=== PATIENT | female | born 1955 | race Caucasian/White ===

== ENCOUNTER 2016-11-19 17:31 | Inpatient (IN) ==
--- NOTE | 2016-11-19 17:51 | Emergency Department Note ---
Disposition Clinical Impression: Acute anxiety, UTI (urinary tract infection), Diabetes, Hypokalemia, Sepsis, Depression, Confusion Disposition: Admitted As Inpatient Referrals: Ninoska Solano CNP [Primary Care Provider] - Forms: ED Satisfaction Letter General Adult HPI - General Chief complaint: ED Psychiatric Symptoms Stated complaint: needs 1A Time Seen by Provider: 11/19/16 17:50 Source: patient Limitations: no limitations - History of Present Illness HPI Narrative: 61-year-old female reportedly sent in by her primary care physician regarding psychiatric issues. There are reports the patient is out of her psychotropic medication has and has now become confused. The patient describes generalized aches and pains from her legs and abdomen back shoulder areas. She states she has fibromyalgia. There is no specific history of chest pain or shortness of breath. No coughing of blood leg swelling or syncope. There is no history of fever, headache neck stiffness or rash, no convulsions. No trouble moving the arms or legs independently. The patient denies anxiety or depression. She reports she feels somewhat confused, she does not give a clear history regarding her elements of confusion. The patient is here with her daughter, she usually lives with her son. There is no history of cough and runny nose or pain or sore throat. No problems with vomiting or diarrhea. She reports her urine has been Onset (ago): hour(s) Pain Scale: 0 - Related Data Allergies Allergy/AdvReac Type Severity Reaction Status Date / Time "antidepressants" Allergy See Uncoded 11/19/16 17:36 Comments All systems ED: reviewed and negative except as stated. Past Medical History - Past Medical History Medical history: Reports: asthma, coronary artery disease, diabetes, hyperlipidemia, hypertension, kidney stones Surgical history: Reports: appendectomy, cholecystectomy, hip replacement, hysterectomy, other Psychiatric history: Reports: anxiety, depression - Social History Smoking Status: Never smoker Smokeless Tobacco Status: No Alcohol use: Reports: none Drug use: Reports: none Physical Exam - General Limitations: no limitations, other (Patient answers questions inappropriately but is able to follow commands without difficulty.) General appearance: alert, in no apparent distress, other (Bizarre affect and difficulty answering questions directly) - Head Head exam: atraumatic, normocephalic, normal inspection - Eye Eye exam: Present: normal appearance, PERRL, EOMI. Absent: scleral icterus, conjunctival injection, miosis, mydriasis - ENT ENT exam: normal exam, normal oropharynx, mucous membranes moist, TM's normal bilaterally, normal external ear exam - Neck Neck exam: Present: normal inspection, full ROM, trachea midline. Absent: tenderness, meningismus - Chest Chest inspection: Present: normal inspection, symmetric chest wall rise. Absent : tenderness - Respiratory Respiratory exam: Present: normal lung sounds bilaterally. Absent: respiratory distress - Cardiovascular Cardiovascular exam: Present: regular rate, normal rhythm, normal heart sounds - Abdominal Exam Abdominal exam: Present: soft, Non-Tender, normal bowel sounds. Absent: tenderness, distention, guarding, rebound, rigidity, trauma, pulsatile mass - Extremities Exam Extremities exam: Present: normal inspection, full ROM, normal capillary refill. Absent: tenderness, pedal edema, joint swelling, calf tenderness - Expanded Lower Extremity Exam Hip/Pelvis exam: Present: full ROM. Absent: tenderness Upper leg exam: Present: full ROM. Absent: tenderness Knee exam: Present: full ROM. Absent: tenderness Lower leg exam: Present: full ROM. Absent: tenderness Ankle exam: Present: full ROM. Absent: tenderness Foot/toe exam: Present: full ROM. Absent: tenderness Neurovascular/Tendon exam: Present: normal capillary refill. Absent: motor deficit, sensory deficit, tendon deficit, extremity cold to touch, pallor - Back Exam Back exam: Present: normal inspection, full ROM. Absent: tenderness, CVA tenderness (R), CVA tenderness (L), vertebral tenderness - Neurological Exam Neurological exam: Present: alert, CN II-XII intact. Absent: motor sensory deficit - Psychiatric Psychiatric exam: Present: other (Bizarre affect) - Skin Skin exam: Present: warm, dry, intact, normal color. Absent: rash, cyanosis, diaphoresis, erythema, pallor, mottled Course Vital Signs Temperature 98.9 F 11/19/16 17:32 Pulse Rate 105 11/19/16 17:32 Respiratory Rate 16 11/19/16 17:32 Blood Pressure 136/92 11/19/16 17:32 O2 Sat by Pulse Oximetry 99 11/19/16 17:32 Temperature 98.6 F 11/19/16 19:44 Pulse Rate 118 11/19/16 19:44 Respiratory Rate 18 11/19/16 19:44 Blood Pressure 103/68 11/19/16 19:44 O2 Sat by Pulse Oximetry 97 11/19/16 19:44 Oxygen Delivery Oxygen Delivery Room Air Medical Decision Making - MDM Narrative Medical decision making narrative: The patient displayed some obvious confusion in the ED, she has a UTI, she is tachycardic and an elevated white count suggestive of sepsis. The patient complains of pain in multiple areas of the body, she states she fell a few weeks ago, on clinical examination, I detect no evidence of significant physical injury. Confusion may be just secondary to psychiatric issues, Ativan withdrawal could be a factor, medical issues are a primary concern. The patient was given initial IV fluids PO potassium as well as antibiotic therapy. Based on her confusion, elderly state, multiple comorbidities, and findings concerning for UTI and urosepsis, I think the patient would probably be best served being admitted to the hospital. She is currently stable. A lactate order has been placed, I discussed the case with the hospitalist on-call who is accepted the patient to their care. - Lab Data Lab results reviewed: Yes I reviewed the patient's lab results. Result diagrams: 11/19/16 19:02 11/19/16 19:02 Lab Results 11/19/16 11/19/16 11/19/16 Range/Units 18:20 18:20 19:02 WBC 15.4 H (4.3-11.1) K/mcL RBC 4.99 H (3.82-4.97) M/mcL Hgb 15.2 (11.5-15.4) g/dL Hct 43.8 (35.3-44.9) % MCV 87.8 (83.0-100.0) fL MCH 30.5 (28.0-33.3) pg MCHC 34.7 (31.6-35.5) g/dL RDW 14.0 (11.5-14.5) % Plt Count 290 (140-400) K/mcL MPV 9.8 (9.4-12.4) fL Immature Gran % 0.3 (0-4) % Seg Neutrophils % 69.2 % Lymphocytes % 22.1 % Monocytes % 6.2 % Eosinophils % 1.8 % Basophils % 0.4 % Neutrophils # 10.7 H (1.6-8.9) K/mcL Lymphocytes # 3.4 (0.6-4.6) K/mcL Monocytes # 1.0 (0.0-1.3) K/mcL Eosinophils # 0.3 (0.0-0.6) K/mcL Basophils # 0.1 (0.0-0.2) K/mcL Sodium (136-145) mEq/L Potassium (3.5-4.5) mEq/L Chloride (98-109) mEq/L Carbon Dioxide (19-29) mEq/L BUN (7-20) mg/dL Creatinine (0.57-1.11) mg/dL Est GFR ( Amer) (> 60) Est GFR (Non-Af Amer) (> 60) BUN/Creatinine Ratio (6-26) Glucose (70-99) mg/dL Calculated Osmolality (280-300) Calcium (8.6-10.8) mg/dL Total Bilirubin (0.2-1.2) mg/dL Direct Bilirubin (0.0-0.5) mg/dL Indirect Bilirubin (0.0-1.2) mg/dL AST (5-34) Units/L ALT (0-55) Units/L Alkaline Phosphatase (38-126) Units/L Troponin I (0-0.03) ng/mL C-Reactive Protein (Less than 5) mg/L Serum Total Protein (6.0-8.3) g/dL Albumin (3.5-5.0) g/dL Globulin (2.4-3.5) g/dL Albumin/Globulin Ratio (1.1-2.2) TSH (0.350-4.840) mcIU/mL Urine Color Red A (Yellow) Urine Clarity Turbid A (Clear) Urine pH 6.0 (5.0-8.0) pH Units Ur Specific [place] 1.025 (1.010-1.025) Urine Protein 100 H (Neg-Trace) mg/dL Urine Glucose (UA) Normal (Normal) mg/dL Urine Ketones 40 H (Negative) mg/dL Urine Blood Large H (Negative) Urine Nitrite Negative (Negative) Urine Bilirubin Moderate H (Negative) Urine Urobilinogen Normal (Normal) mg/dL Ur Leukocyte Esterase Small H (Negative) Urine Microscopic RBC TNTC H (0-3) per hpf Urine Microscopic WBC 50-100 H (0-3) per hpf Ur Squamous Epith Cells Many H (None-Few) per lpf Urine Bacteria Moderate H (None-Few) per hpf Hyaline Casts Few (None-Few) per lpf Salicylates (15-30) mg/dL Urine Opiates Screen Negative (Dnbylz=953) ng/mL Acetaminophen (10-30) mcg/mL Ur Barbiturates Screen Negative (Aqwjix=120) ng/mL Ur Phencyclidine Scrn Negative (Cutoff=25) ng/mL Ur Amphetamines Screen Negative (Enttld=3159) ng/mL U Benzodiazepines Scrn Negative (Ixrjjw=389) ng/mL Urine Cocaine Screen Negative (Cutoff= 300) ng/mL U Marijuana (THC) Screen Negative (Cutoff = 50) ng/mL Ethyl Alcohol (0-10) mg/dL 11/19/16 11/19/16 11/19/16 Range/Units 19:02 19:02 19:02 WBC (4.3-11.1) K/mcL RBC (3.82-4.97) M/mcL Hgb (11.5-15.4) g/dL Hct (35.3-44.9) % MCV (83.0-100.0) fL MCH (28.0-33.3) pg MCHC (31.6-35.5) g/dL RDW (11.5-14.5) % Plt Count (140-400) K/mcL MPV (9.4-12.4) fL Immature Gran % (0-4) % Seg Neutrophils % % Lymphocytes % % Monocytes % % Eosinophils % % Basophils % % Neutrophils # (1.6-8.9) K/mcL Lymphocytes # (0.6-4.6) K/mcL Monocytes # (0.0-1.3) K/mcL Eosinophils # (0.0-0.6) K/mcL Basophils # (0.0-0.2) K/mcL Sodium 142 (136-145) mEq/L Potassium 3.0 L (3.5-4.5) mEq/L Chloride 108 (98-109) mEq/L Carbon Dioxide 19 (19-29) mEq/L BUN 20 (7-20) mg/dL Creatinine 0.72 (0.57-1.11) mg/dL Est GFR ( Amer) > 60 (> 60) Est GFR (Non-Af Amer) > 60 (> 60) BUN/Creatinine Ratio 28 H (6-26) Glucose 134 H (70-99) mg/dL Calculated Osmolality 299 (280-300) Calcium 9.7 (8.6-10.8) mg/dL Total Bilirubin 0.4 (0.2-1.2) mg/dL Direct Bilirubin 0.4 (0.0-0.5) mg/dL Indirect Bilirubin 0.0 (0.0-1.2) mg/dL AST 47 H (5-34) Units/L ALT 38 (0-55) Units/L Alkaline Phosphatase 130 H (38-126) Units/L Troponin I 0.01 (0-0.03) ng/mL C-Reactive Protein (Less than 5) mg/L Serum Total Protein 7.6 (6.0-8.3) g/dL Albumin 3.9 (3.5-5.0) g/dL Globulin 3.7 H (2.4-3.5) g/dL Albumin/Globulin Ratio 1.1 (1.1-2.2) TSH 1.404 (0.350-4.840) mcIU/mL Urine Color (Yellow) Urine Clarity (Clear) Urine pH (5.0-8.0) pH Units Ur Specific [place] (1.010-1.025) Urine Protein (Neg-Trace) mg/dL Urine Glucose (UA) (Normal) mg/dL Urine Ketones (Negative) mg/dL Urine Blood (Negative) Urine Nitrite (Negative) Urine Bilirubin (Negative) Urine Urobilinogen (Normal) mg/dL Ur Leukocyte Esterase (Negative) Urine Microscopic RBC (0-3) per hpf Urine Microscopic WBC (0-3) per hpf Ur Squamous Epith Cells (None-Few) per lpf Urine Bacteria (None-Few) per hpf Hyaline Casts (None-Few) per lpf Salicylates < 5.0 L (15-30) mg/dL Urine Opiates Screen (Szkibi=349) ng/mL Acetaminophen < 1.0 L (10-30) mcg/mL Ur Barbiturates Screen (Chsqfb=384) ng/mL Ur Phencyclidine Scrn (Cutoff=25) ng/mL Ur Amphetamines Screen (Iitfxx=1730) ng/mL U Benzodiazepines Scrn (Ijrmmc=698) ng/mL Urine Cocaine Screen (Cutoff= 300) ng/mL U Marijuana (THC) Screen (Cutoff = 50) ng/mL Ethyl Alcohol < 10 (0-10) mg/dL 11/19/16 Range/Units 19:02 WBC (4.3-11.1) K/mcL RBC (3.82-4.97) M/mcL Hgb (11.5-15.4) g/dL Hct (35.3-44.9) % MCV (83.0-100.0) fL MCH (28.0-33.3) pg MCHC (31.6-35.5) g/dL RDW (11.5-14.5) % Plt Count (140-400) K/mcL MPV (9.4-12.4) fL Immature Gran % (0-4) % Seg Neutrophils % % Lymphocytes % % Monocytes % % Eosinophils % % Basophils % % Neutrophils # (1.6-8.9) K/mcL Lymphocytes # (0.6-4.6) K/mcL Monocytes # (0.0-1.3) K/mcL Eosinophils # (0.0-0.6) K/mcL Basophils # (0.0-0.2) K/mcL Sodium (136-145) mEq/L Potassium (3.5-4.5) mEq/L Chloride (98-109) mEq/L Carbon Dioxide (19-29) mEq/L BUN (7-20) mg/dL Creatinine (0.57-1.11) mg/dL Est GFR ( Amer) (> 60) Est GFR (Non-Af Amer) (> 60) BUN/Creatinine Ratio (6-26) Glucose (70-99) mg/dL Calculated Osmolality (280-300) Calcium (8.6-10.8) mg/dL Total Bilirubin (0.2-1.2) mg/dL Direct Bilirubin (0.0-0.5) mg/dL Indirect Bilirubin (0.0-1.2) mg/dL AST (5-34) Units/L ALT (0-55) Units/L Alkaline Phosphatase (38-126) Units/L Troponin I (0-0.03) ng/mL C-Reactive Protein 32 H (Less than 5) mg/L Serum Total Protein (6.0-8.3) g/dL Albumin (3.5-5.0) g/dL Globulin (2.4-3.5) g/dL Albumin/Globulin Ratio (1.1-2.2) TSH (0.350-4.840) mcIU/mL Urine Color (Yellow) Urine Clarity (Clear) Urine pH (5.0-8.0) pH Units Ur Specific [place] (1.010-1.025) Urine Protein (Neg-Trace) mg/dL Urine Glucose (UA) (Normal) mg/dL Urine Ketones (Negative) mg/dL Urine Blood (Negative) Urine Nitrite (Negative) Urine Bilirubin (Negative) Urine Urobilinogen (Normal) mg/dL Ur Leukocyte Esterase (Negative) Urine Microscopic RBC (0-3) per hpf Urine Microscopic WBC (0-3) per hpf Ur Squamous Epith Cells (None-Few) per lpf Urine Bacteria (None-Few) per hpf Hyaline Casts (None-Few) per lpf Salicylates (15-30) mg/dL Urine Opiates Screen (Lviuez=374) ng/mL Acetaminophen (10-30) mcg/mL Ur Barbiturates Screen (Fcxrqv=183) ng/mL Ur Phencyclidine Scrn (Cutoff=25) ng/mL Ur Amphetamines Screen (Hcmoap=6657) ng/mL U Benzodiazepines Scrn (Qhwtoc=613) ng/mL Urine Cocaine Screen (Cutoff= 300) ng/mL U Marijuana (THC) Screen (Cutoff = 50) ng/mL Ethyl Alcohol (0-10) mg/dL - Radiology Data Radiology results reviewed: Yes I reviewed the patient's radiology results.
[2016-11-19 18:33] LABS: Bilirubin,Urine Moderate (Negative); Blood,Urine Large (Negative); Clarity,Urine Turbid (Clear); Color,Urine Red (Yellow); Glucose,Urine (UA) Normal (Normal); Ketones,Urine 40 mg/dL (Negative); Leukocyte Esterase,Urine Small (Negative); Nitrite,Urine Negative (Negative); Protein,Urine 100 mg/dL (Neg-Trace); Specific Gravity,Urine 1.025 (1.010-1.025); Urobilinogen,Urine Normal (Normal)
[2016-11-19 18:38] LABS: Bacteria,Urine Moderate per hpf (None-Few); Hyaline Casts,Urine Few per lpf (None-Few); Squamous Epithelial Cell,Urine Many per lpf (None-Few); WBC,Urine 50-100 per hpf (0-3)
[2016-11-19 18:40] LABS: Amphetamine Screen,Urine Negative ng/mL (Cutoff=1000); Barbiturate Screen,Urine Negative ng/mL (Cutoff=200); Benzodiazepines Screen,Urine Negative ng/mL (Cutoff=200); Cannabinoid Screen,Urine Negative ng/mL (Cutoff = 50); Cocaine Screen,Urine Negative ng/mL (Cutoff= 300); Opiate Screen,Urine Negative ng/mL (Cutoff=300); Phencyclidine Screen,Urine Negative ng/mL (Cutoff=25)
[2016-11-19 18:50] LABS: RBC,Urine TNTC per hpf (0-3)
[2016-11-19 19:31] LABS: Basophils # 0.1 K/mcL (0.0-0.2); Basophils % 0.4 %; Eosinophils # 0.3 K/mcL (0.0-0.6); Eosinophils % 1.8 %; Hematocrit 43.8 % (35.3-44.9); Hemoglobin 15.2 g/dL (11.5-15.4); Immature Granulocytes % 0.3 % (0-4); Lymphocytes # 3.4 K/mcL (0.6-4.6); Lymphocytes % 22.1 %; Mean Corpuscular HGB Conc 34.7 g/dL (31.6-35.5); Mean Corpuscular Hemoglobin 30.5 pg (28.0-33.3); Mean Corpuscular Volume 87.8 fL (83.0-100.0); Mean Platelet Volume 9.8 fL (9.4-12.4); Monocytes % 6.2 %; Neutrophils # 10.7 K/mcL (1.6-8.9); Platelet Count 290 K/mcL (140-400); Red Blood Count 4.99 M/mcL (3.82-4.97); Segmented Neutrophils % 69.2 %
[2016-11-19 19:40] LABS: Albumin 3.9 g/dL (3.5-5.0); Albumin/Globulin Ratio 1.1 (1.1-2.2); Bilirubin,Direct 0.4 mg/dL (0.0-0.5); Bilirubin,Total 0.4 mg/dL (0.2-1.2); Globulin 3.7 g/dL (2.4-3.5); Total Protein 7.6 g/dL (6.0-8.3)
[2016-11-19 19:41] LABS: Acetaminophen < 1.0 mcg/mL (10-30); BUN/Creatinine Ratio 28 (6-26); Blood Urea Nitrogen 20 mg/dL (7-20); Calcium 9.7 mg/dL (8.6-10.8); Carbon Dioxide 19 mEq/L (19-29); Chloride 108 mEq/L (98-109); Ethanol < 10 mg/dL (0-10); Glucose 134 mg/dL (70-99); Osmolality,Calculated 299 (280-300); Salicylate < 5.0 mg/dL (15-30); Sodium 142 mEq/L (136-145); eGFR For African Americans > 60 (> 60); eGFR For Non-African Americans > 60 (> 60)
[2016-11-19] MEDS ORDERED: 0.9 % Sodium Chloride 1,000 ML IVC ONE ×2 (19:46→20:19)
[2016-11-19] MEDS ORDERED: Ibuprofen 600 MG TABLET PO ONE (19:47)
[2016-11-19] MEDS ORDERED: *HR* LORazepam 2 MG/ML VIAL IVP ONE (19:59)
[2016-11-19 20:00] LABS: Thyroid Stimulating Hormone 1.404 mcIU/mL (0.350-4.840)
[2016-11-19] MEDS ORDERED: *HR* LORazepam 1 MG TABLET PO ONE (20:02)
[2016-11-19] MEDS ORDERED: Ondansetron 4 MG/2 ML VIAL IVP PRN (22:07)
[2016-11-19] MEDS ORDERED: Acetaminophen 325 MG TABLET PO PRN (22:07)
[2016-11-19] MEDS ORDERED: Naloxone 0.4 MG/ML INJ IVP PRN (22:07)
[2016-11-19 23:19] LABS: INR 1.2; Prothrombin Time 13.1 Seconds (9.4-12.1)
[2016-11-19 23:22] LABS: Activated Partial Thrombo Time 31.1 Seconds (26.0-36.0)
--- NOTE | 2016-11-20 00:25 | Internal Med History&Physical ---
<Tonya Sun Jeremy - Last Filed: 11/20/16 03:46> Date of Encounter: 11/20/16 Time of Encounter: 23:00 Assessment and Plan (1) Sepsis Current visit: Yes Status: Acute Upon presentation to hospital HR 118, WBC 15.4, mental status altered Source is likely bladder UA: positive blood, leukocyte esterase, moderate bacteria Unclear if altered mental status is due to UTI or withdrawal from benzodiazepine Plan: Ceftriaxone 1g q 12 h IVF hydration Trend CBC, BMP in am Qualifiers: Sepsis type: sepsis due to unspecified organism Qualified Code(s): A41.9 - Sepsis, unspecified organism (2) Acute metabolic encephalopathy Current visit: Yes Status: Acute Unclear etiology. May be multifactorial given UTI and recent abrupt withdrawal 2-3 days ago from Ativan 1mg TID. 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 Most recent prescription is Ativan 1mg TID. She states that she ran out of meds on 11/16/16 or 11/17/16. This abrupt withdrawal likely precipitated current episode of confusion. Plan: Re-initiate Ativan 0.5mg TID Monitor for further signs/symptoms of benzo withdrawal (4) UTI (urinary tract infection) Current visit: Yes Status: Acute Plan as above Qualifiers: Urinary tract infection type: acute cystitis Hematuria presence: with hematuria Qualified Code(s): N30.01 - Acute cystitis with hematuria (5) Anxiety and depression Current visit: Yes Status: Acute Patient states that current dose is Cymbalta 30mg q day. However, she states that previous dose of 60mg q day was more effective at treating her depression. Patient reports that decrease in dose was due to acute liver injury from Tylenol over use. Liver function: AST mildly elevated 47, ALT 38. Plan: Consider increasing Cymbalta back to 60mg q day with improved liver function (6) Hypertension Current visit: Yes Status: Acute Continue home medication Qualifiers: Hypertension type: essential hypertension Qualified Code(s): I10 - Essential (primary) hypertension (7) Urinary incontinence Current visit: Yes Status: Acute Continue home medication Bladder scan with post-void residual volume Qualifiers: Urinary Incontinence type: unspecified incontinence Qualified Code(s): R32 - Unspecified urinary incontinence (8) Right knee pain Current visit: Yes Status: Acute Continue home medication Qualifiers: Chronicity: acute Qualified Code(s): M25.561 - Pain in right knee (9) Diabetes Current visit: Yes Status: Acute Low-dose corrective insulin ACHS Diabetic diet Qualifiers: Diabetes mellitus type: type 2 Diabetes mellitus complication status: with unspecified complications Diabetes mellitus usp insulin use: without usp use Qualified Code(s): E11.8 - Type 2 diabetes mellitus with unspecified complications (10) Hypokalemia Current visit: Yes Status: Acute 40 mEq K+ given in ED Trend K+ in am (11) DVT prophylaxis Current visit: Yes Status: Acute Heparin 5000u q 12 Internal Medicine - H&P: HPI Chief complaint: anxiety Admitted From: Emergency Dept Plans for Post Hospital Care: Home History of present illness: Ms. Reynoso is a 61 year old female presents to hospital with complaint that she is having trouble with her nerves. Patient has diagnoses of depression and anxiety. Patient states that she sees psychiatry that [facility]. Primary provider is Dashawn Bustamante CNP. Patient states that on Thursday (11/16/2016) or Thursday (11/17) she ran out of her Ativan. Patient states that she called her psychiatry office the day after she ran out of Ativan and the provider prescribed Vistaril. Patient admits to taking more Ativan than prescribed. She states that psychiatry recently decreased Cymbalta from 60 mg daily to 30 mg daily due to liver toxicity that she had from taking too much Tylenol. Patient is currently prescribed Ativan 1 mg by mouth 3 times a day and Cymbalta 30 mg daily. She states that she started taking more Ativan once Cymbalta was decreased due to increased depression and anxiety. Patient admits to a 15 year history of problems with her nerves. She denies suicidal ideation. She rents a home with her daughter, Tonya Solano, and granddaughter. She lost her 1 year ago and has had increased anxiety and depression since this time. Past Med Surg Social Fam HX - Past Medical History Medical history: asthma, coronary artery disease, diabetes, fibromyalgia, hyperlipidemia, hypertension, kidney stones, other (Horne's palsey Right face) Psychiatric history: anxiety, depression - Past Surgical History Surgical History: appendectomy, cholecystectomy, hip replacement, hysterectomy, other - Social History Smoking Status: Never smoker Smokeless Tobacco Status: No Alcohol use: none Drug use: none Current living situation: With Family - Family History Mother Hx Family Cancer: Yes (pancreatic ca) Internal Medicine - H&P: Meds Albuterol Sulfate [Ventolin Hfa] 1 - 2 puff IH Q4-6H PRN 11/19/16 [History] Cholecalciferol (Vitamin D3) [Vitamin D] 50,000 unit PO QWEEK 11/19/16 [History] Duloxetine [Cymbalta] 30 mg PO BID 11/19/16 [History] Fluticasone Propionate Nasal [Flonase] 50 mcg NS BID 11/19/16 [History] HydrOXYzine Pamoate [Hydroxyzine Pamoate] 25 mg PO TID 11/19/16 [History] Ibuprofen [Motrin] 400 mg PO Q4HR PRN 11/19/16 [History] LORazepam [Ativan] 1 mg PO TID PRN 11/19/16 [History] Metoprolol XL (24 HR) Succ [Toprol XL] 50 mg PO DAILY 11/19/16 [History] Ondansetron HCl [Zofran] 4 mg PO TID PRN 11/19/16 [History] Oxybutynin [Ditropan] 5 mg PO BID 11/19/16 [History] Allergies "antidepressants" Allergy (Uncoded 11/19/16 17:36) See Comments suicidal ideations All Systems PM: A 10-system review of systems was performed and is negative for pertinent findings except as documented above in the HPI. - Constitutional Constitutional: falls (injuring right knee 2-3 weeks ago), no chills, no fever(s ) - Cardiovascular Cardiovascular ROS IM: chest pain (at rest), no edema - Respiratory Respiratory: dyspnea (chronic due to obsity), no cough - Gastrointestinal Gastrointestinal: abdominal pain (epigastric), diarrhea, heartburn, no hematochezia, no melena - Genitourinary Genitourinary: dysuria, hematuria (x 1 week), vaginal discharge - Musculoskeletal Musculoskeletal ROS IM: arthralgias (right knee), back pain, joint swelling ( right knee), muscle cramps, other - Neurological Neurological ROS: headache(s) (chronic) - Psychiatric Psychiatric: anxiety, depression - Constitutional Vitals: Temp Pulse Resp BP Pulse Ox 98.0 F 72 16 138/85 99 11/19/16 21:25 11/19/16 21:25 11/19/16 21:25 11/19/16 21:25 11/19/16 21:25 General appearance: Present: A&O X 3 (Does not know the date, but does know Justice is current president), morbidly obese, pleasant. Absent: answers questions appropriately - Head Head exam: Present: atraumatic, normal inspection, normocephalic - Eye Eye exam: Present: EOMI Additional comments: Pupils 5mm and sluggish light reflex - Neck Neck exam general surgery: Present: normal inspection, supple - Respiratory Respiratory exam: Present: CTAB. Absent: rhonchi, wheezes - Cardiovascular Cardiovascular exam: Present: RRR, +S1, +S2 - GI/Abdominal GI/Abdominal exam: Present: normal bowel sounds, soft, tenderness (moderate epigastric TTP; mild RUQ, FRANCISCA TTP) Additional comments: moderate bilateral flank TTP - Back Exam Back exam: Present: CVA tenderness (L), CVA tenderness (R), normal inspection, paraspinal tenderness (throughout entire paraspinal musculature) - Neurological Exam Neurological exam: Present: altered, strengths equal and symetr throughout, facial droop (right side ptosis and right lateral lip droop-patient states this is chronic from Horne's palsey) - Psychiatric Additional comments: MSE: Appearance: disheveled, hair unclean, wearing hospital gown with russell pants ( while it is snowing outside), multiple scabes to facial cheeks Alert, Awake, Oriented x 3 Speech: pressured, tangential Behavior: cooperative, pleasant Awareness of environment: patient believes she is in hospital for treatment for her anxiety. However, seems to have little to no insight on her change in mental status. Mood: anxious, agitated Affect: appropriate Thought processes: preservating, tangential, paranoid -Example: patient continues to nez perce back to a liver injury she sustained by taking too much tylenol for her knee 2-3 weeks ago -She maintains that this is caused her psychiatry team to decrease her Cymbalta -She is fixated on her right knee injury -She is fixated on the of her -She is fixated on her diagnosis of fibromyalgia and her pain all over her body -Patient begins talking about one topic and redirects course of conversation Example: she states that she is afriad that her daughter is trying to send her to a half-way. -She states that her daughter has been rumaging through patient's belongings -Daughter attends a uatsdin pastored by the patient's brother. Patient states that her brother has not spoken to her in 4 years. Patient states that her brother believes that parents should not be a burden to their children. She seems to insinuate that the daughter has listened the the patient's brother/ party supply specialist and has intent to commit her to a facility. 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 You get what you pay for." SI: denies suicidal ideation Internal Med - H&P Results - Labs CBC & Chem 7: 11/20/16 00:31 11/20/16 00:31 Labs: Laboratory Results - last 48 hr 11/19/16 11/19/16 11/19/16 18:20 18:20 19:02 WBC 15.4 H RBC 4.99 H Hgb 15.2 Hct 43.8 MCV 87.8 MCH 30.5 MCHC 34.7 RDW 14.0 Plt Count 290 MPV 9.8 Immature Gran % 0.3 Seg Neutrophils % 69.2 Lymphocytes % 22.1 Monocytes % 6.2 Eosinophils % 1.8 Basophils % 0.4 Neutrophils # 10.7 H Lymphocytes # 3.4 Monocytes # 1.0 Eosinophils # 0.3 Basophils # 0.1 PT INR APTT Sodium Potassium Chloride Carbon Dioxide BUN Creatinine Est GFR ( Amer) Est GFR (Non-Af Amer) BUN/Creatinine Ratio Glucose POC Glucose Calculated Osmolality Lactic Acid Calcium Phosphorus Magnesium Total Bilirubin Direct Bilirubin Indirect Bilirubin AST ALT Alkaline Phosphatase Troponin I C-Reactive Protein Serum Total Protein Albumin Globulin Albumin/Globulin Ratio Triglycerides Cholesterol LDL Cholesterol, Calc VLDL Cholesterol, Calc HDL Cholesterol Cholesterol/HDL Ratio TSH Urine Color Red A Urine Clarity Turbid A Urine pH 6.0 Ur Specific [place] 1.025 Urine Protein 100 H Urine Glucose (UA) Normal Urine Ketones 40 H Urine Blood Large H Urine Nitrite Negative Urine Bilirubin Moderate H Urine Urobilinogen Normal Ur Leukocyte Esterase Small H Urine Microscopic RBC TNTC H Urine Microscopic WBC 50-100 H Ur Squamous Epith Cells Many H Urine Bacteria Moderate H Hyaline Casts Few Salicylates Urine Opiates Screen Negative Acetaminophen Ur Barbiturates Screen Negative Ur Phencyclidine Scrn Negative Ur Amphetamines Screen Negative U Benzodiazepines Scrn Negative Urine Cocaine Screen Negative U Marijuana (THC) Screen Negative Ethyl Alcohol 11/19/16 11/19/16 11/19/16 19:02 19:02 19:02 WBC RBC Hgb Hct MCV MCH MCHC RDW Plt Count MPV Immature Gran % Seg Neutrophils % Lymphocytes % Monocytes % Eosinophils % Basophils % Neutrophils # Lymphocytes # Monocytes # Eosinophils # Basophils # PT INR APTT Sodium 142 Potassium 3.0 L Chloride 108 Carbon Dioxide 19 BUN 20 Creatinine 0.72 Est GFR ( Amer) > 60 Est GFR (Non-Af Amer) > 60 BUN/Creatinine Ratio 28 H Glucose 134 H POC Glucose Calculated Osmolality 299 Lactic Acid Calcium 9.7 Phosphorus Magnesium Total Bilirubin 0.4 Direct Bilirubin 0.4 Indirect Bilirubin 0.0 AST 47 H ALT 38 Alkaline Phosphatase 130 H Troponin I 0.01 C-Reactive Protein Serum Total Protein 7.6 Albumin 3.9 Globulin 3.7 H Albumin/Globulin Ratio 1.1 Triglycerides Cholesterol LDL Cholesterol, Calc VLDL Cholesterol, Calc HDL Cholesterol Cholesterol/HDL Ratio TSH 1.404 Urine Color Urine Clarity Urine pH Ur Specific [place] Urine Protein Urine Glucose (UA) Urine Ketones Urine Blood Urine Nitrite Urine Bilirubin Urine Urobilinogen Ur Leukocyte Esterase Urine Microscopic RBC Urine Microscopic WBC Ur Squamous Epith Cells Urine Bacteria Hyaline Casts Salicylates < 5.0 L Urine Opiates Screen Acetaminophen < 1.0 L Ur Barbiturates Screen Ur Phencyclidine Scrn Ur Amphetamines Screen U Benzodiazepines Scrn Urine Cocaine Screen U Marijuana (THC) Screen Ethyl Alcohol < 10 11/19/16 11/19/16 11/19/16 19:02 20:08 21:28 WBC RBC Hgb Hct MCV MCH MCHC RDW Plt Count MPV Immature Gran % Seg Neutrophils % Lymphocytes % Monocytes % Eosinophils % Basophils % Neutrophils # Lymphocytes # Monocytes # Eosinophils # Basophils # PT INR APTT Sodium Potassium Chloride Carbon Dioxide BUN Creatinine Est GFR ( Amer) Est GFR (Non-Af Amer) BUN/Creatinine Ratio Glucose POC Glucose 119 H Calculated Osmolality Lactic Acid 1.4 Calcium Phosphorus Magnesium Total Bilirubin Direct Bilirubin Indirect Bilirubin AST ALT Alkaline Phosphatase Troponin I C-Reactive Protein 32 H Serum Total Protein Albumin Globulin Albumin/Globulin Ratio Triglycerides Cholesterol LDL Cholesterol, Calc VLDL Cholesterol, Calc HDL Cholesterol Cholesterol/HDL Ratio TSH Urine Color Urine Clarity Urine pH Ur Specific [place] Urine Protein Urine Glucose (UA) Urine Ketones Urine Blood Urine Nitrite Urine Bilirubin Urine Urobilinogen Ur Leukocyte Esterase Urine Microscopic RBC Urine Microscopic WBC Ur Squamous Epith Cells Urine Bacteria Hyaline Casts Salicylates Urine Opiates Screen Acetaminophen Ur Barbiturates Screen Ur Phencyclidine Scrn Ur Amphetamines Screen U Benzodiazepines Scrn Urine Cocaine Screen U Marijuana (THC) Screen Ethyl Alcohol 11/19/16 11/20/16 11/20/16 22:54 00:31 00:31 WBC 12.5 H RBC 4.63 Hgb 14.0 Hct 41.6 MCV 89.8 MCH 30.2 MCHC 33.7 RDW 13.9 Plt Count 263 MPV 9.9 Immature Gran % 0.3 Seg Neutrophils % 63.8 Lymphocytes % 26.1 Monocytes % 5.9 Eosinophils % 3.4 Basophils % 0.5 Neutrophils # 8.0 Lymphocytes # 3.3 Monocytes # 0.7 Eosinophils # 0.4 Basophils # 0.1 PT 13.1 H INR 1.2 APTT 31.1 Sodium 142 Potassium 3.1 L Chloride 110 H Carbon Dioxide 21 BUN 20 Creatinine 0.74 Est GFR ( Amer) > 60 Est GFR (Non-Af Amer) > 60 BUN/Creatinine Ratio 27 H Glucose 166 H POC Glucose Calculated Osmolality 300 Lactic Acid Calcium 9.0 Phosphorus 2.7 Magnesium 1.7 Total Bilirubin Direct Bilirubin Indirect Bilirubin AST ALT Alkaline Phosphatase Troponin I C-Reactive Protein Serum Total Protein Albumin Globulin Albumin/Globulin Ratio Triglycerides 95 Cholesterol 135 LDL Cholesterol, Calc 88 VLDL Cholesterol, Calc 19 HDL Cholesterol 28 L Cholesterol/HDL Ratio 4.8 TSH Urine Color Urine Clarity Urine pH Ur Specific [place] Urine Protein Urine Glucose (UA) Urine Ketones Urine Blood Urine Nitrite Urine Bilirubin Urine Urobilinogen Ur Leukocyte Esterase Urine Microscopic RBC Urine Microscopic WBC Ur Squamous Epith Cells Urine Bacteria Hyaline Casts Salicylates Urine Opiates Screen Acetaminophen Ur Barbiturates Screen Ur Phencyclidine Scrn Ur Amphetamines Screen U Benzodiazepines Scrn Urine Cocaine Screen U Marijuana (THC) Screen Ethyl Alcohol - Impressions Chest X-Ray 11/19/16 18:29 IMPRESSION: No evidence for acute cardiopulmonary process. D/ / Raghavendra Caldwell MD / Raghavendra Caldwell MD Interpreting Provider: Raghavendra Caldwell MD Head CT 11/19/16 18:29 IMPRESSION: No acute intracranial abnormality. D/ / Alphonso Puentes MD / Alphonso Puentes MD Interpreting Provider: Alphonso Puentes MD <Nolan Monet R - Last Filed: 11/20/16 05:52> Date of Encounter: 11/19/16 Internal Medicine - H&P: HPI History of present illness: Ms. Reynoso is a 61 year old female All Systems PM: A 10-system review of systems was performed and is negative for pertinent findings except as documented above in the HPI. - Constitutional Vitals: Temp Pulse Resp BP Pulse Ox 98.4 F 79 16 92/60 98 11/20/16 03:49 11/20/16 03:49 11/20/16 03:49 11/20/16 03:49 11/20/16 03:49 Internal Med - H&P Results - Labs CBC & Chem 7: 11/20/16 00:31 11/20/16 00:31 - Attending Attestation I examined this patient and my medical decision-making was reviewed with the SECURITY CONTROL ASSESSOR/PA/Advanced Practice Nurse/Resident Physician. I agree with the documented findings, disposition and treatment plan as described except to the extent set forth below. I have personally examined and evaluated the patient and discussed details with the Lead Technologist In Cytogenetics / Resident. 61-year-old female was apparently brought to the emergency department with history of confusion. She reports hematuria for over a week, suprapubic pain mild suprapubic tenderness on exam. Denies fever or chills. Urinalysis was abnormal and emperically started on ceftriaxone. Urine cultures pending. She meets criteria for sepsis. Lactate level is normal. CXR, CT Head no significant abnormalities. Hypokalemia: Replenish potassium.
[2016-11-20] MEDS ORDERED: Ondansetron ODT 4 MG TAB.RAPDIS PO PRN (00:28)
[2016-11-20] MEDS ORDERED: D5% in Water 1,000 ML IV PRN (00:33)
[2016-11-20] MEDS ORDERED: Dextrose Gel 15 GM PO PRN ×2 (00:33)
[2016-11-20] MEDS ORDERED: *HR* Dextrose 50 % in Water (Syg) 50 ML SYRINGE IVP PRN (00:33)
[2016-11-20 00:48] LABS: Basophils # 0.1 K/mcL (0.0-0.2); Basophils % 0.5 %; Eosinophils # 0.4 K/mcL (0.0-0.6); Eosinophils % 3.4 %; Hematocrit 41.6 % (35.3-44.9); Immature Granulocytes % 0.3 % (0-4); Lymphocytes # 3.3 K/mcL (0.6-4.6); Lymphocytes % 26.1 %; Mean Corpuscular HGB Conc 33.7 g/dL (31.6-35.5); Mean Corpuscular Hemoglobin 30.2 pg (28.0-33.3); Mean Corpuscular Volume 89.8 fL (83.0-100.0); Mean Platelet Volume 9.9 fL (9.4-12.4); Monocytes # 0.7 K/mcL (0.0-1.3); Monocytes % 5.9 %; Platelet Count 263 K/mcL (140-400); Red Blood Count 4.63 M/mcL (3.82-4.97); Red Cell Distribution Width 13.9 % (11.5-14.5); Segmented Neutrophils % 63.8 %
[2016-11-20] MEDS: 0.9 % Sodium Chloride 1,000 ML IVC SCH ×3 (00:52→20:16)
[2016-11-20 00:54] LABS: BUN/Creatinine Ratio 27 (6-26); Blood Urea Nitrogen 20 mg/dL (7-20); Carbon Dioxide 21 mEq/L (19-29); Chloride 110 mEq/L (98-109); Chol/HDL Ratio 4.8 (0-4.9); Cholesterol 135 mg/dL (< 200); Glucose 166 mg/dL (70-99); HDL Cholesterol 28 mg/dL (40-59); LDL Cholesterol,Calculated 88 mg/dL (0-99); Magnesium 1.7 mg/dL (1.6-2.6); Osmolality,Calculated 300 (280-300); Phosphorous 2.7 mg/dL (2.3-4.7); Potassium 3.1 mEq/L (3.5-4.5); Sodium 142 mEq/L (136-145); Triglycerides 95 mg/dL (< 150); eGFR For African Americans > 60 (> 60); eGFR For Non-African Americans > 60 (> 60)
[2016-11-20] MEDS: *HR* Heparin 5,000 UNIT/ML VIAL SQ SCH ×3 (00:54→16:58)
[2016-11-20] MEDS: hydrOXYzine pamoate 25 MG CAPSULE PO SCH ×4 (00:57→20:08)
[2016-11-20] MEDS: *HR* LORazepam 0.5 MG TABLET PO PRN ×3 (00:57→20:16)
[2016-11-20 03:12] LABS: Hemoglobin A1C 6.2 %
[2016-11-20] MEDS: Ibuprofen 400 MG TABLET PO PRN ×3 (05:40→20:08)
[2016-11-20] MEDS ORDERED: 0.9 % Sodium Chloride 1,000 ML IVC SCH (06:00)
[2016-11-20] MEDS: Insulin LISPRO 300 UNITS/3 ML VIAL SQ SCH ×3 (07:45→16:55)
[2016-11-20] MEDS ORDERED: Metoprolol XL (24 HR) Succ 50 MG TAB.ER.24H PO SCH (09:00)
[2016-11-20] MEDS ORDERED: Pantoprazole 40 MG VIAL IVP SCH (09:00)
--- NOTE | 2016-11-20 16:04 | Internal Med Progress Note ---
Date of Encounter: 11/20/16 Time of Encounter: 10:00 - Assessment and plan (1) Sepsis Current Visit: Yes Status: Acute Assessment and plan: Afebrile Tachycardic on admission, improved BP borderline, normal lactate Continue IVF hydration Follow blood and urine cultures Continue ceftriaxone At high risk for severe sepsis and septic shock Qualifiers: Sepsis type: sepsis due to unspecified organism Qualified Code(s): A41.9 - Sepsis, unspecified organism (2) Acute metabolic encephalopathy Current Visit: Yes Status: Acute Assessment and plan: Secondary to benzo withdrawal Improved, continue to monitor (3) Anxiety and depression Current Visit: Yes Status: Chronic Assessment and plan: Resume home meds at home dose (4) Benzodiazepine withdrawal with delirium Current Visit: Yes Status: Acute Assessment and plan: Improved Benzo has been resumed at half home dose Continue, with plan to taper (5) Diabetes Current Visit: Yes Status: Chronic Assessment and plan: A1C 6.2 Continue diabetic diet monitor FS ACHS Continue sliding scale Qualifiers: Diabetes mellitus type: type 2 Diabetes mellitus complication status: with unspecified complications Diabetes mellitus care home insulin use: without care home use Qualified Code(s): E11.8 - Type 2 diabetes mellitus with unspecified complications (6) Hypertension Current Visit: Yes Status: Chronic Assessment and plan: Currently low blood pressures Hold metoprolol. Will resume if BP improves Qualifiers: Hypertension type: essential hypertension Qualified Code(s): I10 - Essential (primary) hypertension (7) Hypokalemia Current Visit: Yes Status: Acute (8) UTI (urinary tract infection) Current Visit: Yes Status: Acute Qualifiers: Urinary tract infection type: acute cystitis Hematuria presence: with hematuria Qualified Code(s): N30.01 - Acute cystitis with hematuria - Subjective Interval history: 61 Y/O F with Anxiety/Depression, Benzodiazepine dependence, Urinary incontinence, DM, HTN, CAD, Fibromyalgis Patient is admitted with working diagnosis of sepsis secondary to UTI, Acute encephalopathy secondary to benzodiazepine withdrawal Patient is seen at bedside, awake, coherent and in a good mood She reports no new complains Reports history of fall 3 days prior to presentation with low back pain Otherwise, she believes she feels better - Constitutional Vitals: Temp Pulse Resp BP Pulse Ox 98.4 F 75 15 84/50 100 11/20/16 15:38 11/20/16 15:38 11/20/16 15:38 11/20/16 15:38 11/20/16 15:38 General appearance: Present: A&O X 3 (Does not know the date, but does know Justice is current president), morbidly obese, pleasant. Absent: answers questions appropriately - Head Head exam: Present: atraumatic, normocephalic - Eye Eye exam: Present: PERRL, conjuntiva pink, sclera anicteric Pupils: Present: PERRL - Neck Neck exam general surgery: Present: supple, trachea midline. Absent: lymphadenopathy - Respiratory Respiratory exam: Present: CTAB. Absent: accessory muscle use, rales, rhonchi, wheezes - Cardiovascular Cardiovascular exam: Present: RRR, +S1, +S2. Absent: diastolic murmur, gallop, rubs, systolic murmur - GI/Abdominal GI/Abdominal exam: Present: normal bowel sounds, soft, no peritoneal signs. Absent: distended, tenderness - Extremities Exam Extremities exam: Present: warm, radial pulses palpable and symetrical. Absent : calf tenderness, cyanotic, pedal edema - Neurological Exam Neurological exam: Present: CN II-XII intact, oriented X3, no focal deficits. Absent: pronater drift, facial droop, speech deficit - Skin Skin exam: Present: dry Internal Medicine: Result - Labs CBC & Chem 7: 11/20/16 00:31 11/20/16 00:31 - ABG Interpretation ABG results: PT/INR, D-dimer PT 13.1 Seconds (9.4-12.1) H 11/19/16 22:54 Consult Discharge Plan - Plan Referrals: Ninoska Solano PARTS ANALYST [Primary Care Provider] -
--- NOTE | 2016-11-20 16:34 | Electrocardiograph Report ---
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
[2016-11-20] MEDS ORDERED: Insulin LISPRO 300 UNITS/3 ML VIAL SQ SCH (21:00)
[2016-11-21] MEDS: 0.9 % Sodium Chloride 1,000 ML IVC SCH ×2 (00:06→06:18)
[2016-11-21] MEDS: *HR* Heparin 5,000 UNIT/ML VIAL SQ SCH ×3 (00:38→15:35)
[2016-11-21 04:12] LABS: Basophils % 0.5 %; Eosinophils # 0.3 K/mcL (0.0-0.6); Eosinophils % 4.5 %; Hematocrit 35.1 % (35.3-44.9); Hemoglobin 11.6 g/dL (11.5-15.4); Immature Granulocytes % 0.4 % (0-4); Lymphocytes # 1.4 K/mcL (0.6-4.6); Mean Corpuscular Hemoglobin 30.1 pg (28.0-33.3); Mean Corpuscular Volume 90.9 fL (83.0-100.0); Mean Platelet Volume 9.9 fL (9.4-12.4); Monocytes # 0.6 K/mcL (0.0-1.3); Monocytes % 10.1 %; Neutrophils # 3.3 K/mcL (1.6-8.9); Platelet Count 153 K/mcL (140-400); Red Blood Count 3.86 M/mcL (3.82-4.97); Red Cell Distribution Width 13.9 % (11.5-14.5); Segmented Neutrophils % 59.5 %
[2016-11-21 04:28] LABS: BUN/Creatinine Ratio 22 (6-26); Blood Urea Nitrogen 15 mg/dL (7-20); Calcium 8.4 mg/dL (8.6-10.8); Carbon Dioxide 21 mEq/L (19-29); Chloride 115 mEq/L (98-109); Glucose 121 mg/dL (70-99); Osmolality,Calculated 296 (280-300); Potassium 3.7 mEq/L (3.5-4.5); Sodium 142 mEq/L (136-145); eGFR For African Americans > 60 (> 60); eGFR For Non-African Americans > 60 (> 60)
[2016-11-21] MEDS: Insulin LISPRO 300 UNITS/3 ML VIAL SQ SCH ×3 (07:58→16:40)
[2016-11-21] MEDS: hydrOXYzine pamoate 25 MG CAPSULE PO SCH ×2 (08:10→15:36)
[2016-11-21] MEDS: *HR* LORazepam 0.5 MG TABLET PO PRN (08:16)
[2016-11-21 16:51] VITALS: BP 158/103
--- NOTE | 2016-11-21 17:45 | Discharge Summary ---
Date of Encounter: 11/21/16 Time of Encounter: 13:00 - Discharge Diagnosis (1) Sepsis Priority: Primary Status: Acute Qualifiers: Sepsis type: sepsis due to unspecified organism Qualified Code(s): A41.9 - Sepsis, unspecified organism (2) Acute metabolic encephalopathy Priority: Primary Status: Resolved (3) Anxiety and depression Priority: Secondary Status: Chronic (4) Benzodiazepine withdrawal with delirium Priority: Primary Status: Resolved (5) Diabetes Priority: Secondary Status: Chronic Qualifiers: Diabetes mellitus type: type 2 Diabetes mellitus complication status: with unspecified complications Diabetes mellitus group home insulin use: without director long term care use Qualified Code(s): E11.8 - Type 2 diabetes mellitus with unspecified complications (6) Hypertension Priority: Secondary Status: Chronic Qualifiers: Hypertension type: essential hypertension Qualified Code(s): I10 - Essential (primary) hypertension (7) Hypokalemia Priority: Primary Status: Resolved (8) UTI (urinary tract infection) Priority: Primary Status: Acute Qualifiers: Urinary tract infection type: acute cystitis Hematuria presence: with hematuria Qualified Code(s): N30.01 - Acute cystitis with hematuria - Discharge Medications Prescriptions: Cefdinir [Omnicef] 300 mg PO DAILY #7 capsule LORazepam [Ativan] 0.5 mg PO BID #10 tablet Home Medications: Albuterol Sulfate [Ventolin Hfa] 1 - 2 puff IH Q4-6H PRN 11/19/16 [History] Cholecalciferol (Vitamin D3) [Vitamin D3] 50,000 unit PO QWEEK 11/19/16 [History ] Duloxetine [Cymbalta] 30 mg PO BID 11/19/16 [History] Fluticasone Propionate Nasal [Flonase] 50 mcg NS BID 11/19/16 [History] HydrOXYzine Pamoate [Hydroxyzine Pamoate] 25 mg PO TID 11/19/16 [History] Metoprolol XL (24 HR) Succ [Toprol Xl] 50 mg PO DAILY 11/19/16 [History] Ondansetron HCl [Zofran] 4 mg PO TID PRN 11/19/16 [History] Oxybutynin [Ditropan] 5 mg PO BID 11/19/16 [History] Cefdinir [Omnicef] 300 mg PO DAILY #7 capsule 11/21/16 [Rx] LORazepam [Ativan] 0.5 mg PO BID #10 tablet 11/21/16 [Rx] Allergies/Adverse Reactions: Allergies "antidepressants" Allergy (Uncoded 11/19/16 17:36) See Comments suicidal ideations Date of admission: 11/20/16 01:11 Primary care physician: Ninoska Solano CNP Consults: 11/20/16 16:06 PT [Consult to Physical Therapy] [CONS] Routine Comment: Evaluate, develop and implement POC 11/20/16 16:07 OT [Consult to Occupational Therapy] [CONS] Routine Comment: Evaluate, develop and implement POC 11/21/16 11:38 Consult to [employer] D[employer]er [CONS] Routine Reason for SW Consult: Pt/Ot recommendation to not go home alone - Patient Status Disposition: Home, Self-Care Condition: Fair Functional capacity at discharge: uses cane/walker Overall status at discharge: patient is back to baseline - Discharge Instructions Instructions: Lorazepam (By mouth), Cefdinir (By mouth) Follow Up With: Ninoska Solano CNP [Primary Care Provider] - 11/28/16 10:20 am - Diet and Activity Activity: resume usual activities as tolerated Diet: diabetic diet, low fat, low cholesterol, low salt diet Interval History: See below Hospital course: 61 Y/O F with Anxiety/Depression, Benzodiazepine dependence, Urinary incontinence, DM, HTN, CAD, Fibromyalgis Patient was admitted with working diagnosis of sepsis secondary to UTI, Acute encephalopathy secondary to benzodiazepine withdrawal She was managed with IVF hydration, and resumption of benzo at half home dose She has since been awae, alert and oriented and mental status is at baseline She has made clinical improvement PT/OT review suggests patient needs 24 hours supervision at home She and her daughters report they are able to take care of her at home and refused SNF placement She will be discharged on ativan po till follow up with psychiatrist and Omnicef for UTI Blood and urine cultures were negative Other chronic conditions were stable - Time Spent with Patient Total time spent providing and/or coordinating discharge services: Less than 30 minutes - Constitutional Vitals: Temp Pulse Resp BP Pulse Ox 98.1 F 114 20 158/103 96 11/21/16 15:00 11/21/16 15:00 11/21/16 15:00 11/21/16 15:00 11/21/16 15:00 General appearance: Present: A&O X 3 (Does not know the date, but does know Justice is current president), morbidly obese, pleasant, answers questions appropriately - Head Head exam: Present: atraumatic, normocephalic - Eye Eye exam: Present: PERRL, conjuntiva pink, sclera anicteric Pupils: Present: PERRL - Neck Neck exam general surgery: Present: supple, trachea midline. Absent: lymphadenopathy - Respiratory Respiratory exam: Present: CTAB. Absent: accessory muscle use, rales, rhonchi, wheezes - Cardiovascular Cardiovascular exam: Present: RRR, +S1, +S2. Absent: diastolic murmur, gallop, rubs, systolic murmur - GI/Abdominal GI/Abdominal exam: Present: normal bowel sounds, soft, no peritoneal signs. Absent: distended, tenderness - Extremities Exam Extremities exam: Present: warm, radial pulses palpable and symetrical. Absent : calf tenderness, cyanotic, pedal edema - Neurological Exam Neurological exam: Present: CN II-XII intact, oriented X3, no focal deficits. Absent: pronater drift, facial droop, speech deficit - Skin Skin exam: Present: dry, intact
[2016-11-21] MEDS ORDERED: *HR* LORazepam 0.5 MG TABLET PO SCH (21:00)
== END 2016-11-21 17:56 | disposition home or self-care (01) | DRG 871 ==
LOC: 3BNU 17:31 → EMEROO 17:31 → 3BNU 21:05 → SUATTDRO 11-20 01:11
PROVIDERS: ADMIT Nurse Practitioner Family; ATTEND Internal Medicine

== ENCOUNTER 2018-09-15 11:36 | Inpatient (IN) ==
--- NOTE | 2018-09-15 12:36 | Emergency Department Note ---
Disposition Clinical Impression: Hyperbilirubinemia Sepsis Qualifiers: Sepsis type: sepsis due to unspecified organism Qualified Code(s): A41.9 - Sepsis, unspecified organism UTI (urinary tract infection) Qualifiers: Urinary tract infection type: site unspecified Hematuria presence: with he maturia Qualified Code(s): N39.0 - Urinary tract infection, site not specified Leukocytosis Qualifiers: Leukocytosis type: unspecified Qualified Code(s): D72.829 - Elevated white blood cell count, unspecified Disposition: Admitted As Inpatient Condition: Fair Time of Disposition: 15:30 General Adult HPI - General Chief complaint: ED Altered Mental Status Stated complaint: AMS Time Seen by Provider: 09/15/18 11:46 Source: patient, family Mode of arrival: ambulatory Limitations: altered mental status Nursing Notes Reviewed: Yes Vital Signs Reviewed: Yes - History of Present Illness HPI Narrative: Patient is a 63-year-old female that presents emergency Department with her daughter due to concerns for increase confusion and generalized weakness. Daughter states that she was recently discharged from rehabilitation center back to home and over the past couple of days has had increased confusion and weakness. She states that she was in the hospital and rehabilitation center due to having severe sepsis. This was secondary to patient's urinary tract infection and pyelonephritis. The patient also reports that she has been having left-sided flank pain. There is a history of a large kidney stone. Patient's daughter also reports that she has had episodes of confusion when she has had pneumonia in the past. No chest pain or shortness breath. Pain Scale: 7 - Related Data Home Medications Medication Instructions Recorded Confirmed Albuterol Sulfate [Ventolin Hfa] 1 - 2 puff IH Q4-6H PRN 11/19/16 09/15/18 Fluticasone Propionate Nasal 50 mcg NS DAILY 11/19/16 09/15/18 [Flonase] Ondansetron HCl [Zofran] 4 mg PO TID PRN 11/19/16 09/15/18 ARIPiprazole [Abilify] 1 mg PO DAILY 08/20/18 09/15/18 DULoxetine [Cymbalta] 20 mg PO DAILY 08/20/18 09/15/18 LORazepam [Ativan] 1 mg PO BID 09/15/18 09/15/18 Oxybutynin Chloride [Ditropan Xl] 10 mg PO DAILY 09/15/18 09/15/18 Tramadol HCl [Ultram] 50 mg PO QID PRN 09/15/18 09/15/18 Previous Rx's Medication Instructions Recorded Lidocaine Patch [Lidoderm 5% patch] 1 each TP Q24H adh..patch 09/02/18 Multivit/Ca/Min/Fe/FA [Thera M 1 tab PO DAILY tablet 09/02/18 Plus] Nystatin POWDER [Nystop] 1 appl TP BID bottle 09/02/18 Bumetanide [Bumex] 0.5 mg PO DAILY #15 tablet 09/11/18 Cefdinir [Omnicef] 300 mg PO BID #24 capsule 09/11/18 Insulin Glargine [Lantus] 10 unit SQ HS #0 09/11/18 Metoprolol XL (24 HR) Succ [Toprol 12.5 mg PO DAILY #15 tab.er.24h 09/11/18 XL] Oxybutynin Chloride [Ditropan Xl] 10 mg PO DAILY #30 tab.er.24 09/11/18 Potassium Chloride 20 meq PO Q6H #56 tab.er.prt 09/11/18 Allergies Allergy/AdvReac Type Severity Reaction Status Date / Time hydrocodone AdvReac Agitated Verified 09/15/18 12:01 hydroxyzine [From Vistaril] AdvReac Agitated Verified 09/15/18 12:01 Oxycodone [From Percocet] AdvReac Agitated Verified 09/15/18 12:01 All systems ED: reviewed and negative except as stated. Constitutional: Denies: fever Cardiovascular: Denies: chest pain Respiratory: Denies: dyspnea Gastrointestinal: Denies: abdominal pain Musculoskeletal: Reports: other (Left flank pain ) Past Medical History - Past Medical History Medical history: Reports: asthma, coronary artery disease, diabetes, fibromyalgia, hyperlipidemia, hypertension, kidney stones, other Surgical history: Reports: appendectomy, cholecystectomy, hip replacement, hysterectomy, other Psychiatric history: Reports: anxiety, depression - Social History Smoking Status: Never smoker Smokeless Tobacco Status: No Alcohol use: Reports: none Drug use: Reports: none Physical Exam - General Limitations: no limitations, altered mental status General appearance: alert, in no apparent distress - Head Head exam: atraumatic, normocephalic - Eye Eye exam: Present: normal appearance, EOMI - Neck Neck exam: Present: normal inspection, full ROM, trachea midline - Respiratory Respiratory exam: Present: normal lung sounds bilaterally. Absent: respiratory distress, wheezes - Cardiovascular Cardiovascular exam: Present: regular rate, normal rhythm, normal heart sounds, +S1, +S2 - Abdominal Exam Abdominal exam: Present: soft, Non-Tender, normal bowel sounds - Back Exam Back exam: Present: normal inspection, full ROM, CVA tenderness (L). Absent: CVA tenderness (R) - Neurological Exam Neurological exam: Present: alert. Absent: oriented X3 (Oriented to place and person but not to time.) - Psychiatric Psychiatric exam: Present: normal affect, normal mood - Skin Skin exam: Present: warm, dry, intact Course Vital Signs Temperature 98.3 F 09/15/18 11:39 Pulse Rate 94 09/15/18 11:39 Respiratory Rate 22 09/15/18 11:39 Blood Pressure 139/86 09/15/18 11:39 O2 Sat by Pulse Oximetry 97 09/15/18 11:39 Temperature 98.3 F 09/15/18 12:11 Pulse Rate 94 09/15/18 15:18 Respiratory Rate 16 09/15/18 15:18 Blood Pressure 108/83 09/15/18 15:18 O2 Sat by Pulse Oximetry 100 09/15/18 15:18 Oxygen Delivery Oxygen Delivery Room Air Medical Decision Making - [facility] Narrative Medical decision making narrative: Due the patient was anything to the emergency department with reports of altered mentation and confusion we will obtain basic laboratory testing as well as chest x-ray urinalysis and a CT scan of the abdomen and pelvis to evaluate the patient's kidney stone. Due to the patient having recently been discharged there is a high likelihood that the patient will require readmission to the hospital. CT the abdomen and pelvis shows multiple right stones. There is also a new compression fraction of L1. There is 30% height loss per radiology read. Patient does appear to have a urinary tract infection. Patient was given a gram or Rocephin. Patient does have a leukocytosis of 13,000. Patient appears to have a chronically elevated white blood cell count however in the setting of having an elevated heart rate and being to The patient does meet sepsis criteria. Patient will be started on antibiotics and will be admitted to the hospital. Patient does have elevation in her AST and alkaline phosphatase. However this does appear to be chronic for the patient. I do not feel that any acute intervention for her liver enzymes. Patients ammonia level is 38. Patient's chest x-ray shows no acute cardiopulmonary process. Patient be admitted to the hospital at this time. I called and spoke with the admitting hospitalist Dr. Connors and he is except the patient service. Patient be admitted to the hospital at this time for further evaluation and management. - Medical Records Medical records reviewed: Yes I reviewed the patient's medical records. - Lab Data Lab results reviewed: Yes I reviewed the patient's lab results. Result diagrams: 09/15/18 12:49 09/15/18 12:49 Lab Results 09/15/18 09/15/18 09/15/18 Range/Units 12:48 12:48 12:49 WBC 13.8 H (4.3-11.1) K/mcL RBC 4.17 (3.82-4.97) M/mcL Hgb 12.7 D (11.5-15.4) g/dL Hct 39.2 (35.3-44.9) % MCV 94.0 (83.0-100.0) fL MCH 30.5 (28.0-33.3) pg MCHC 32.4 (31.6-35.5) g/dL RDW 17.2 H (11.5-14.5) % Plt Count 155 (140-400) K/mcL MPV 9.1 L (9.4-12.4) fL Immature Gran % 0.4 (0-4) % Seg Neutrophils % 77.1 % Lymphocytes % 12.0 % Monocytes % 7.8 % Eosinophils % 2.0 % Basophils % 0.7 % Neutrophils # 10.7 H (1.6-8.9) K/mcL Lymphocytes # 1.7 (0.6-4.6) K/mcL Monocytes # 1.1 (0.0-1.3) K/mcL Eosinophils # 0.3 (0.0-0.6) K/mcL Basophils # 0.1 (0.0-0.2) K/mcL PT (9.4-12.1) Seconds INR Sodium (136-145) mEq/L Potassium (3.5-5.1) mEq/L Chloride (98-107) mEq/L Carbon Dioxide (23-29) mEq/L BUN (8-23) mg/dL Creatinine (0.60-1.20) mg/dL Est GFR ( Amer) (> 60) Est GFR (Non-Af Amer) (> 60) BUN/Creatinine Ratio (6-26) Glucose (70-105) mg/dL POC Glucose (70-99) mg/dL Calculated Osmolality (280-300) Calcium (8.6-10.3) mg/dL Total Bilirubin (0.3-1.0) mg/dL Direct Bilirubin (0.0-0.2) mg/dL Indirect Bilirubin (0.0-1.2) mg/dL AST (13-39) Units/L ALT (7-52) Units/L Alkaline Phosphatase (34-104) Units/L Ammonia (16-53) mcmol/L Troponin I (< 0.04) ng/mL Serum Total Protein (6.4-8.9) g/dL Albumin (3.5-5.7) g/dL Globulin (2.4-3.5) g/dL Albumin/Globulin Ratio (1.1-2.2) Urine Color Dark Yellow (Yellow) Urine Clarity Turbid A (Clear) Urine pH 6.5 (5.0-8.0) pH Units Ur Specific [place] 1.011 (1.010-1.025) Urine Protein 100 H (Neg-Trace) mg/dL Urine Glucose (UA) Normal (Normal) mg/dL Urine Ketones Negative (Negative) mg/dL Urine Blood Large H (Negative) Urine Nitrite Negative (Negative) Urine Bilirubin Small H (Negative) Urine Urobilinogen Normal (Normal) mg/dL Ur Leukocyte Esterase Large H (Negative) Urine Microscopic RBC TNTC H (0-3) per hpf Urine Microscopic WBC TNTC H (0-3) per hpf Ur Squamous Epith Cells None Seen (None-Few) per lpf Urine Bacteria None Seen (None-Few) per hpf Hyaline Casts None Seen (None-Few) per lpf Ur Culture Indicated? YES A (NO) Urine Opiates Screen Negative (Tdxnvi=730) ng/mL Ur Barbiturates Screen Negative (Chmdjo=109) ng/mL Ur Phencyclidine Scrn Negative (Cutoff=25) ng/mL Ur Amphetamines Screen Negative (Vqcxhd=5922) ng/mL U Benzodiazepines Scrn Negative (Dnvpbd=472) ng/mL Urine Cocaine Screen Negative (Cutoff= 300) ng/mL U Marijuana (THC) Screen Negative (Cutoff = 50) ng/mL Ur Drug Screen Interp See Below Ethyl Alcohol (Less than 10) mg/dL Specimen Rejected 09/15/18 09/15/18 09/15/18 Range/Units 12:49 12:49 12:49 WBC (4.3-11.1) K/mcL RBC (3.82-4.97) M/mcL Hgb (11.5-15.4) g/dL Hct (35.3-44.9) % MCV (83.0-100.0) fL MCH (28.0-33.3) pg MCHC (31.6-35.5) g/dL RDW (11.5-14.5) % Plt Count (140-400) K/mcL MPV (9.4-12.4) fL Immature Gran % (0-4) % Seg Neutrophils % % Lymphocytes % % Monocytes % % Eosinophils % % Basophils % % Neutrophils # (1.6-8.9) K/mcL Lymphocytes # (0.6-4.6) K/mcL Monocytes # (0.0-1.3) K/mcL Eosinophils # (0.0-0.6) K/mcL Basophils # (0.0-0.2) K/mcL PT 16.1 H (9.4-12.1) Seconds INR 1.4 Sodium 134 L (136-145) mEq/L Potassium 3.5 (3.5-5.1) mEq/L Chloride 95 L (98-107) mEq/L Carbon Dioxide 29 (23-29) mEq/L BUN 12 (8-23) mg/dL Creatinine 0.88 (0.60-1.20) mg/dL Est GFR ( Amer) > 60 (> 60) Est GFR (Non-Af Amer) > 60 (> 60) BUN/Creatinine Ratio 14 (6-26) Glucose 125 H (70-105) mg/dL POC Glucose (70-99) mg/dL Calculated Osmolality 279 L (280-300) Calcium 9.0 (8.6-10.3) mg/dL Total Bilirubin 1.1 H (0.3-1.0) mg/dL Direct Bilirubin 0.4 H (0.0-0.2) mg/dL Indirect Bilirubin 0.7 (0.0-1.2) mg/dL AST 43 H (13-39) Units/L ALT 20 (7-52) Units/L Alkaline Phosphatase 190 H (34-104) Units/L Ammonia (16-53) mcmol/L Troponin I < 0.03 (< 0.04) ng/mL Serum Total Protein 7.9 (6.4-8.9) g/dL Albumin 3.0 L (3.5-5.7) g/dL Globulin 4.9 H (2.4-3.5) g/dL Albumin/Globulin Ratio 0.6 L (1.1-2.2) Urine Color (Yellow) Urine Clarity (Clear) Urine pH (5.0-8.0) pH Units Ur Specific [place] (1.010-1.025) Urine Protein (Neg-Trace) mg/dL Urine Glucose (UA) (Normal) mg/dL Urine Ketones (Negative) mg/dL Urine Blood (Negative) Urine Nitrite (Negative) Urine Bilirubin (Negative) Urine Urobilinogen (Normal) mg/dL Ur Leukocyte Esterase (Negative) Urine Microscopic RBC (0-3) per hpf Urine Microscopic WBC (0-3) per hpf Ur Squamous Epith Cells (None-Few) per lpf Urine Bacteria (None-Few) per hpf Hyaline Casts (None-Few) per lpf Ur Culture Indicated? (NO) Urine Opiates Screen (Euuqyj=025) ng/mL Ur Barbiturates Screen (Vogtci=891) ng/mL Ur Phencyclidine Scrn (Cutoff=25) ng/mL Ur Amphetamines Screen (Puduad=2242) ng/mL U Benzodiazepines Scrn (Bmlrwe=635) ng/mL Urine Cocaine Screen (Cutoff= 300) ng/mL U Marijuana (THC) Screen (Cutoff = 50) ng/mL Ur Drug Screen Interp Ethyl Alcohol < 10 (Less than 10) mg/dL Specimen Rejected Hemolyzed 09/15/18 09/15/18 Range/Units 13:23 14:56 WBC (4.3-11.1) K/mcL RBC (3.82-4.97) M/mcL Hgb (11.5-15.4) g/dL Hct (35.3-44.9) % MCV (83.0-100.0) fL MCH (28.0-33.3) pg MCHC (31.6-35.5) g/dL RDW (11.5-14.5) % Plt Count (140-400) K/mcL MPV (9.4-12.4) fL Immature Gran % (0-4) % Seg Neutrophils % % Lymphocytes % % Monocytes % % Eosinophils % % Basophils % % Neutrophils # (1.6-8.9) K/mcL Lymphocytes # (0.6-4.6) K/mcL Monocytes # (0.0-1.3) K/mcL Eosinophils # (0.0-0.6) K/mcL Basophils # (0.0-0.2) K/mcL PT (9.4-12.1) Seconds INR Sodium (136-145) mEq/L Potassium (3.5-5.1) mEq/L Chloride (98-107) mEq/L Carbon Dioxide (23-29) mEq/L BUN (8-23) mg/dL Creatinine (0.60-1.20) mg/dL Est GFR ( Amer) (> 60) Est GFR (Non-Af Amer) (> 60) BUN/Creatinine Ratio (6-26) Glucose (70-105) mg/dL POC Glucose 123 H (70-99) mg/dL Calculated Osmolality (280-300) Calcium (8.6-10.3) mg/dL Total Bilirubin (0.3-1.0) mg/dL Direct Bilirubin (0.0-0.2) mg/dL Indirect Bilirubin (0.0-1.2) mg/dL AST (13-39) Units/L ALT (7-52) Units/L Alkaline Phosphatase (34-104) Units/L Ammonia 38 (16-53) mcmol/L Troponin I (< 0.04) ng/mL Serum Total Protein (6.4-8.9) g/dL Albumin (3.5-5.7) g/dL Globulin (2.4-3.5) g/dL Albumin/Globulin Ratio (1.1-2.2) Urine Color (Yellow) Urine Clarity (Clear) Urine pH (5.0-8.0) pH Units Ur Specific [place] (1.010-1.025) Urine Protein (Neg-Trace) mg/dL Urine Glucose (UA) (Normal) mg/dL Urine Ketones (Negative) mg/dL Urine Blood (Negative) Urine Nitrite (Negative) Urine Bilirubin (Negative) Urine Urobilinogen (Normal) mg/dL Ur Leukocyte Esterase (Negative) Urine Microscopic RBC (0-3) per hpf Urine Microscopic WBC (0-3) per hpf Ur Squamous Epith Cells (None-Few) per lpf Urine Bacteria (None-Few) per hpf Hyaline Casts (None-Few) per lpf Ur Culture Indicated? (NO) Urine Opiates Screen (Tcwkaz=140) ng/mL Ur Barbiturates Screen (Vnywii=458) ng/mL Ur Phencyclidine Scrn (Cutoff=25) ng/mL Ur Amphetamines Screen (Tmgohp=4746) ng/mL U Benzodiazepines Scrn (Smodau=520) ng/mL Urine Cocaine Screen (Cutoff= 300) ng/mL U Marijuana (THC) Screen (Cutoff = 50) ng/mL Ur Drug Screen Interp Ethyl Alcohol (Less than 10) mg/dL Specimen Rejected - Radiology Data Radiology results reviewed: Yes I reviewed the patient's radiology results. Chest X-Ray 09/15/18 12:20 IMPRESSION: 1. No active pulmonary disease. D/ / Jesus Greenwood MD / Jesus Greenwood MD Interpreting Provider: Jesus Greenwood MD Abdomen/Pelvis CT 09/15/18 12:30 IMPRESSION: 1. Mild right renal pelvocaliectasis without franc hydronephrosis. Right ureteral stent extends from the right renal hilum to the urinary bladder. 2. Multiple nonobstructing right renal stones, ranging in size from 1 mm to 8 mm. 3. New compression deformity of L1 with fracture along the inferior endplate, results in approximately 30% of anterior height loss. 4. Nodular liver contour with splenomegaly. Please correlate with clinical history of cirrhosis and portal venous hypertension. 5. Previously seen ascites on CT of 2017, has resolved. D/ / 09/15/2018 13:42:49 Shlomo Briscoe MD / mee Interpreting Provider: Shlomo Briscoe MD Head CT 09/15/18 13:02 IMPRESSION: No acute intracranial abnormality. D/ / Richardson López MD / Richardson López MD Interpreting Provider: Richardson López MD - EKG Data EKG #1 EKG attestation: Yes I reviewed and interpreted this EKG. EKG results narrative: EKG showed a sinus rhythm rate of 96 beats minute, W[place] interval 120, curious duration 95, QTC of 522. No evidence of STEMI on EKG. She is compared to previous EKG on 01/30/17 showed a sinus rhythm at 96 bpm.
--- NOTE | 2018-09-15 12:42 | Emergency Department Note ---
Disposition Clinical Impression: Hyperbilirubinemia Sepsis Qualifiers: Sepsis type: sepsis due to unspecified organism Qualified Code(s): A41.9 - Sepsis, unspecified organism UTI (urinary tract infection) Qualifiers: Urinary tract infection type: site unspecified Hematuria presence: with he maturia Qualified Code(s): N39.0 - Urinary tract infection, site not specified Leukocytosis Qualifiers: Leukocytosis type: unspecified Qualified Code(s): D72.829 - Elevated white blood cell count, unspecified Disposition: Admitted As Inpatient Condition: Fair General Adult HPI - General Chief complaint: ED Altered Mental Status Stated complaint: AMS Time Seen by Provider: 09/15/18 11:46 Source: patient, family Mode of arrival: ambulatory Limitations: altered mental status - History of Present Illness HPI Narrative: Patient is a 63 year old female with PMH of liver cirrhosis, HTN, diabetes, fibromyalgia and kidney stones requiring lithotripsy retrieval presents with chief complaint of generalized weakness and increased confusion for the past 4 days. Patient was recently admitted for obstructing kidney stone and PNA, patient was discharged from rehab facility on 09/11/18. Patient lives with daughter who states that her mother has shown increasing confusion since she was discharged for example "calling the tv remote control a peanut butter sandwich". Patient is usually AAOx2 (self, place) but is currently AAOx1 (only to self). Patient and daughter deny recent falls or head trauma. Patient is also com plaining of left flank pain for the past 2 days which she describes as an aching pain. Patient denies chest pain, SOB, fever, chills, numbness, tingling, unilateral weakness, nausea, vomiting, dysuria, hematuria, diarrhea, blood in stool. Pain Scale: 7 - Related Data Home Medications Medication Instructions Recorded Confirmed RX: Albuterol Sulfate [Ventolin 1 - 2 puff IH Q4-6H PRN 11/19/16 09/15/18 Hfa] RX: Fluticasone Propionate Nasal 50 mcg NS DAILY 11/19/16 09/15/18 [Flonase] RX: Ondansetron HCl [Zofran] 4 mg PO TID PRN 11/19/16 09/15/18 RX: ARIPiprazole [Abilify] 1 mg PO DAILY 08/20/18 09/15/18 RX: DULoxetine [Cymbalta] 20 mg PO DAILY 08/20/18 09/15/18 LORazepam [Ativan] 1 mg PO BID 09/15/18 09/15/18 Oxybutynin Chloride [Ditropan Xl] 10 mg PO DAILY 09/15/18 09/15/18 Tramadol HCl [Ultram] 50 mg PO QID PRN 09/15/18 09/15/18 Previous Rx's Medication Instructions Recorded RX: Lidocaine Patch [Lidoderm 5% 1 each TP Q24H adh..patch 09/02/18 patch] RX: Multivit/Ca/Min/Fe/FA [Thera M 1 tab PO DAILY tablet 09/02/18 Plus] RX: Nystatin POWDER [Nystop] 1 appl TP BID bottle 09/02/18 Metoprolol XL (24 HR) Succ [Toprol 12.5 mg PO DAILY #15 tab.er.24h 09/11/18 XL] Oxybutynin Chloride [Ditropan Xl] 10 mg PO DAILY #30 tab.er.24 09/11/18 RX: Bumetanide [Bumex] 0.5 mg PO DAILY #15 tablet 09/11/18 RX: Cefdinir [Omnicef] 300 mg PO BID #24 capsule 09/11/18 RX: Insulin Glargine [Lantus] 10 unit SQ HS #0 09/11/18 RX: Potassium Chloride 20 meq PO Q6H #56 tab.er.prt 09/11/18 Allergies Allergy/AdvReac Type Severity Reaction Status Date / Time hydrocodone AdvReac Agitated Verified 09/15/18 12:01 hydroxyzine [From Vistaril] AdvReac Agitated Verified 09/15/18 12:01 Oxycodone [From Percocet] AdvReac Agitated Verified 09/15/18 12:01 Constitutional: Denies: fever, chills ENT ED: Denies: ear pain, throat pain, congestion Cardiovascular: Denies: chest pain, palpitations, syncope Respiratory: Denies: cough, dyspnea, wheezes Gastrointestinal: Denies: abdominal pain, nausea, vomiting, diarrhea, hematemesis, melena, hematochezia Genitourinary: Denies: dysuria, hematuria Musculoskeletal: Reports: back pain (left flank). Denies: neck pain Integumentary: Denies: rash, abrasion Neurological: Denies: headache, weakness, numbness, paresthesias Past Medical History - Past Medical History Medical history: Reports: asthma, coronary artery disease, diabetes, fibromyalgia, hyperlipidemia, hypertension, kidney stones, other Surgical history: Reports: appendectomy, cholecystectomy, hip replacement, hysterectomy, other Psychiatric history: Reports: anxiety, depression - Social History Smoking Status: Never smoker Smokeless Tobacco Status: No Alcohol use: Reports: none Drug use: Reports: none Physical Exam - General Limitations: altered mental status General appearance: alert, in no apparent distress - Head Head exam: atraumatic, normocephalic, normal inspection - Eye Eye exam: Present: normal appearance, PERRL, EOMI - ENT ENT exam: normal exam, normal oropharynx, mucous membranes moist - Neck Neck exam: Present: normal inspection, full ROM, trachea midline - Chest Chest inspection: Present: normal inspection, symmetric chest wall rise - Respiratory Respiratory exam: Present: normal lung sounds bilaterally - Cardiovascular Cardiovascular exam: Present: normal rhythm, tachycardia, normal heart sounds - Abdominal Exam Abdominal exam: Present: soft, Non-Tender. Absent: tenderness, distention, guarding, rebound, rigidity - Extremities Exam Extremities exam: Present: normal inspection, full ROM, normal capillary refill. Absent: tenderness - Back Exam Back exam: Present: normal inspection, full ROM, CVA tenderness (L), paraspinal tenderness (left side). Absent: CVA tenderness (R) - Neurological Exam Neurological exam: Present: other (AAOx1 (self only)) - Psychiatric Psychiatric exam: Present: normal affect, normal mood - Skin Skin exam: Present: warm, dry, intact, normal color Course Vital Signs Temperature 98.3 F 09/15/18 11:39 Pulse Rate 94 09/15/18 11:39 Respiratory Rate 22 09/15/18 11:39 Blood Pressure 139/86 09/15/18 11:39 O2 Sat by Pulse Oximetry 97 09/15/18 11:39 Temperature 97.8 F 09/15/18 18:42 Pulse Rate 98 09/15/18 18:42 Respiratory Rate 16 09/15/18 18:42 Blood Pressure 125/84 09/15/18 18:42 O2 Sat by Pulse Oximetry 93 09/15/18 18:42 Oxygen Delivery Oxygen Delivery Room Air Medical Decision Making - Lab Data Result diagrams: 09/15/18 12:49 12/05/18 12:49 Lab Results 09/15/18 09/15/18 09/15/18 Range/Units 12:48 12:48 12:49 WBC 13.8 H (4.3-11.1) K/mcL RBC 4.17 (3.82-4.97) M/mcL Hgb 12.7 D (11.5-15.4) g/dL Hct 39.2 (35.3-44.9) % MCV 94.0 (83.0-100.0) fL MCH 30.5 (28.0-33.3) pg MCHC 32.4 (31.6-35.5) g/dL RDW 17.2 H (11.5-14.5) % Plt Count 155 (140-400) K/mcL MPV 9.1 L (9.4-12.4) fL Immature Gran % 0.4 (0-4) % Seg Neutrophils % 77.1 % Lymphocytes % 12.0 % Monocytes % 7.8 % Eosinophils % 2.0 % Basophils % 0.7 % Neutrophils # 10.7 H (1.6-8.9) K/mcL Lymphocytes # 1.7 (0.6-4.6) K/mcL Monocytes # 1.1 (0.0-1.3) K/mcL Eosinophils # 0.3 (0.0-0.6) K/mcL Basophils # 0.1 (0.0-0.2) K/mcL PT (9.4-12.1) Seconds INR Sodium (136-145) mEq/L Potassium (3.5-5.1) mEq/L Chloride (98-107) mEq/L Carbon Dioxide (23-29) mEq/L BUN (8-23) mg/dL Creatinine (0.60-1.20) mg/dL Est GFR ( Amer) (> 60) Est GFR (Non-Af Amer) (> 60) BUN/Creatinine Ratio (6-26) Glucose (70-105) mg/dL POC Glucose (70-99) mg/dL Calculated Osmolality (280-300) Lactic Acid (0.5-2.2) mmol/L Calcium (8.6-10.3) mg/dL Total Bilirubin (0.3-1.0) mg/dL Direct Bilirubin (0.0-0.2) mg/dL Indirect Bilirubin (0.0-1.2) mg/dL AST (13-39) Units/L ALT (7-52) Units/L Alkaline Phosphatase (34-104) Units/L Ammonia (16-53) mcmol/L Troponin I (< 0.04) ng/mL Serum Total Protein (6.4-8.9) g/dL Albumin (3.5-5.7) g/dL Globulin (2.4-3.5) g/dL Albumin/Globulin Ratio (1.1-2.2) Urine Color Dark Yellow (Yellow) Urine Clarity Turbid A (Clear) Urine pH 6.5 (5.0-8.0) pH Units Ur Specific Warren 1.011 (1.010-1.025) Urine Protein 100 H (Neg-Trace) mg/dL Urine Glucose (UA) Normal (Normal) mg/dL Urine Ketones Negative (Negative) mg/dL Urine Blood Large H (Negative) Urine Nitrite Negative (Negative) Urine Bilirubin Small H (Negative) Urine Urobilinogen Normal (Normal) mg/dL Ur Leukocyte Esterase Large H (Negative) Urine Microscopic RBC TNTC H (0-3) per hpf Urine Microscopic WBC TNTC H (0-3) per hpf Ur Squamous Epith Cells None Seen (None-Few) per lpf Urine Bacteria None Seen (None-Few) per hpf Hyaline Casts None Seen (None-Few) per lpf Ur Culture Indicated? YES A (NO) Urine Opiates Screen Negative (Qsnvsj=015) ng/mL Ur Barbiturates Screen Negative (Vmzxgc=826) ng/mL Ur Phencyclidine Scrn Negative (Cutoff=25) ng/mL Ur Amphetamines Screen Negative (Stoktm=7565) ng/mL U Benzodiazepines Scrn Negative (Xrczdb=988) ng/mL Urine Cocaine Screen Negative (Cutoff= 300) ng/mL U Marijuana (THC) Screen Negative (Cutoff = 50) ng/mL Ur Drug Screen Interp See Below Ethyl Alcohol (Less than 10) mg/dL Specimen Rejected 09/15/18 09/15/18 09/15/18 Range/Units 12:49 12:49 12:49 WBC (4.3-11.1) K/mcL RBC (3.82-4.97) M/mcL Hgb (11.5-15.4) g/dL Hct (35.3-44.9) % MCV (83.0-100.0) fL MCH (28.0-33.3) pg MCHC (31.6-35.5) g/dL RDW (11.5-14.5) % Plt Count (140-400) K/mcL MPV (9.4-12.4) fL Immature Gran % (0-4) % Seg Neutrophils % % Lymphocytes % % Monocytes % % Eosinophils % % Basophils % % Neutrophils # (1.6-8.9) K/mcL Lymphocytes # (0.6-4.6) K/mcL Monocytes # (0.0-1.3) K/mcL Eosinophils # (0.0-0.6) K/mcL Basophils # (0.0-0.2) K/mcL PT 16.1 H (9.4-12.1) Seconds INR 1.4 Sodium 134 L (136-145) mEq/L Potassium 3.5 (3.5-5.1) mEq/L Chloride 95 L (98-107) mEq/L Carbon Dioxide 29 (23-29) mEq/L BUN 12 (8-23) mg/dL Creatinine 0.88 (0.60-1.20) mg/dL Est GFR ( Amer) > 60 (> 60) Est GFR (Non-Af Amer) > 60 (> 60) BUN/Creatinine Ratio 14 (6-26) Glucose 125 H (70-105) mg/dL POC Glucose (70-99) mg/dL Calculated Osmolality 279 L (280-300) Lactic Acid (0.5-2.2) mmol/L Calcium 9.0 (8.6-10.3) mg/dL Total Bilirubin 1.1 H (0.3-1.0) mg/dL Direct Bilirubin 0.4 H (0.0-0.2) mg/dL Indirect Bilirubin 0.7 (0.0-1.2) mg/dL AST 43 H (13-39) Units/L ALT 20 (7-52) Units/L Alkaline Phosphatase 190 H (34-104) Units/L Ammonia (16-53) mcmol/L Troponin I < 0.03 (< 0.04) ng/mL Serum Total Protein 7.9 (6.4-8.9) g/dL Albumin 3.0 L (3.5-5.7) g/dL Globulin 4.9 H (2.4-3.5) g/dL Albumin/Globulin Ratio 0.6 L (1.1-2.2) Urine Color (Yellow) Urine Clarity (Clear) Urine pH (5.0-8.0) pH Units Ur Specific Warren (1.010-1.025) Urine Protein (Neg-Trace) mg/dL Urine Glucose (UA) (Normal) mg/dL Urine Ketones (Negative) mg/dL Urine Blood (Negative) Urine Nitrite (Negative) Urine Bilirubin (Negative) Urine Urobilinogen (Normal) mg/dL Ur Leukocyte Esterase (Negative) Urine Microscopic RBC (0-3) per hpf Urine Microscopic WBC (0-3) per hpf Ur Squamous Epith Cells (None-Few) per lpf Urine Bacteria (None-Few) per hpf Hyaline Casts (None-Few) per lpf Ur Culture Indicated? (NO) Urine Opiates Screen (Lfuwzi=626) ng/mL Ur Barbiturates Screen (Nwkagl=548) ng/mL Ur Phencyclidine Scrn (Cutoff=25) ng/mL Ur Amphetamines Screen (Tfpbqs=9767) ng/mL U Benzodiazepines Scrn (Yqxznt=006) ng/mL Urine Cocaine Screen (Cutoff= 300) ng/mL U Marijuana (THC) Screen (Cutoff = 50) ng/mL Ur Drug Screen Interp Ethyl Alcohol < 10 (Less than 10) mg/dL Specimen Rejected Hemolyzed 09/15/18 09/15/18 09/15/18 Range/Units 13:23 14:56 15:36 WBC (4.3-11.1) K/mcL RBC (3.82-4.97) M/mcL Hgb (11.5-15.4) g/dL Hct (35.3-44.9) % MCV (83.0-100.0) fL MCH (28.0-33.3) pg MCHC (31.6-35.5) g/dL RDW (11.5-14.5) % Plt Count (140-400) K/mcL MPV (9.4-12.4) fL Immature Gran % (0-4) % Seg Neutrophils % % Lymphocytes % % Monocytes % % Eosinophils % % Basophils % % Neutrophils # (1.6-8.9) K/mcL Lymphocytes # (0.6-4.6) K/mcL Monocytes # (0.0-1.3) K/mcL Eosinophils # (0.0-0.6) K/mcL Basophils # (0.0-0.2) K/mcL PT (9.4-12.1) Seconds INR Sodium (136-145) mEq/L Potassium (3.5-5.1) mEq/L Chloride (98-107) mEq/L Carbon Dioxide (23-29) mEq/L BUN (8-23) mg/dL Creatinine (0.60-1.20) mg/dL Est GFR ( Amer) (> 60) Est GFR (Non-Af Amer) (> 60) BUN/Creatinine Ratio (6-26) Glucose (70-105) mg/dL POC Glucose 123 H (70-99) mg/dL Calculated Osmolality (280-300) Lactic Acid 1.4 (0.5-2.2) mmol/L Calcium (8.6-10.3) mg/dL Total Bilirubin (0.3-1.0) mg/dL Direct Bilirubin (0.0-0.2) mg/dL Indirect Bilirubin (0.0-1.2) mg/dL AST (13-39) Units/L ALT (7-52) Units/L Alkaline Phosphatase (34-104) Units/L Ammonia 38 (16-53) mcmol/L Troponin I (< 0.04) ng/mL Serum Total Protein (6.4-8.9) g/dL Albumin (3.5-5.7) g/dL Globulin (2.4-3.5) g/dL Albumin/Globulin Ratio (1.1-2.2) Urine Color (Yellow) Urine Clarity (Clear) Urine pH (5.0-8.0) pH Units Ur Specific Warren (1.010-1.025) Urine Protein (Neg-Trace) mg/dL Urine Glucose (UA) (Normal) mg/dL Urine Ketones (Negative) mg/dL Urine Blood (Negative) Urine Nitrite (Negative) Urine Bilirubin (Negative) Urine Urobilinogen (Normal) mg/dL Ur Leukocyte Esterase (Negative) Urine Microscopic RBC (0-3) per hpf Urine Microscopic WBC (0-3) per hpf Ur Squamous Epith Cells (None-Few) per lpf Urine Bacteria (None-Few) per hpf Hyaline Casts (None-Few) per lpf Ur Culture Indicated? (NO) Urine Opiates Screen (Exmsnu=798) ng/mL Ur Barbiturates Screen (Kympvh=116) ng/mL Ur Phencyclidine Scrn (Cutoff=25) ng/mL Ur Amphetamines Screen (Rjkvyo=8615) ng/mL U Benzodiazepines Scrn (Lbhbab=212) ng/mL Urine Cocaine Screen (Cutoff= 300) ng/mL U Marijuana (THC) Screen (Cutoff = 50) ng/mL Ur Drug Screen Interp Ethyl Alcohol (Less than 10) mg/dL Specimen Rejected
[2018-09-15 13:02] LABS: Bilirubin,Urine Small (Negative); Blood,Urine Large (Negative); Clarity,Urine Turbid (Clear); Color,Urine Dark Yellow (Yellow); Glucose,Urine (UA) Normal (Normal); Ketones,Urine Negative (Negative); Leukocyte Esterase,Urine Large (Negative); Nitrite,Urine Negative (Negative); PH,Urine 6.5 pH Units (5.0-8.0); Protein,Urine 100 mg/dL (Neg-Trace); Specific Gravity,Urine 1.011 (1.010-1.025); Urobilinogen,Urine Normal (Normal)
--- NOTE | 2018-09-15 13:02 | Emergency Department Note ---
Disposition Clinical Impression: Sepsis, UTI (urinary tract infection), Hyperbilirubinemia, Leukocytosis Disposition: Admitted As Inpatient Condition: Fair General Adult HPI - General Chief complaint: ED Altered Mental Status Stated complaint: AMS Time Seen by Provider: 09/15/18 11:46 Source: patient, family Mode of arrival: ambulatory Limitations: altered mental status - History of Present Illness Pain Scale: 7 - Related Data Home Medications Medication Instructions Recorded Confirmed Albuterol Sulfate [Ventolin Hfa] 1 - 2 puff IH Q4-6H PRN 11/19/16 09/15/18 Fluticasone Propionate Nasal 50 mcg NS DAILY 11/19/16 09/15/18 [Flonase] Ondansetron HCl [Zofran] 4 mg PO TID PRN 11/19/16 09/15/18 ARIPiprazole [Abilify] 1 mg PO DAILY 08/20/18 09/15/18 DULoxetine [Cymbalta] 20 mg PO DAILY 08/20/18 09/15/18 LORazepam [Ativan] 1 mg PO BID 09/15/18 09/15/18 Oxybutynin Chloride [Ditropan Xl] 10 mg PO DAILY 09/15/18 09/15/18 Tramadol HCl [Ultram] 50 mg PO QID PRN 09/15/18 09/15/18 Previous Rx's Medication Instructions Recorded Lidocaine Patch [Lidoderm 5% patch] 1 each TP Q24H adh..patch 09/02/18 Multivit/Ca/Min/Fe/FA [Thera M 1 tab PO DAILY tablet 09/02/18 Plus] Nystatin POWDER [Nystop] 1 appl TP BID bottle 09/02/18 Bumetanide [Bumex] 0.5 mg PO DAILY #15 tablet 09/11/18 Cefdinir [Omnicef] 300 mg PO BID #24 capsule 09/11/18 Insulin Glargine [Lantus] 10 unit SQ HS #0 09/11/18 Metoprolol XL (24 HR) Succ [Toprol 12.5 mg PO DAILY #15 tab.er.24h 09/11/18 XL] Oxybutynin Chloride [Ditropan Xl] 10 mg PO DAILY #30 tab.er.24 09/11/18 Potassium Chloride 20 meq PO Q6H #56 tab.er.prt 09/11/18 Allergies Allergy/AdvReac Type Severity Reaction Status Date / Time hydrocodone AdvReac Agitated Verified 09/15/18 12:01 hydroxyzine [From Vistaril] AdvReac Agitated Verified 09/15/18 12:01 Oxycodone [From Percocet] AdvReac Agitated Verified 09/15/18 12:01 Constitutional: Denies: fever, chills ENT ED: Denies: ear pain, throat pain, congestion Cardiovascular: Denies: chest pain, palpitations, syncope Respiratory: Denies: cough, dyspnea, wheezes Gastrointestinal: Denies: abdominal pain, nausea, vomiting, diarrhea, hematemesis, melena, hematochezia Genitourinary: Denies: dysuria, hematuria Musculoskeletal: Reports: back pain (left flank). Denies: neck pain Integumentary: Denies: rash, abrasion Neurological: Denies: headache, weakness, numbness, paresthesias Past Medical History - Past Medical History Medical history: Reports: asthma, coronary artery disease, diabetes, fibromyalgia, hyperlipidemia, hypertension, kidney stones, other Surgical history: Reports: appendectomy, cholecystectomy, hip replacement, hysterectomy, other Psychiatric history: Reports: anxiety, depression - Social History Smoking Status: Never smoker Smokeless Tobacco Status: No Alcohol use: Reports: none Drug use: Reports: none Physical Exam - General Limitations: altered mental status General appearance: alert, in no apparent distress Course Vital Signs Temperature 98.3 F 09/15/18 11:39 Pulse Rate 94 09/15/18 11:39 Respiratory Rate 22 09/15/18 11:39 Blood Pressure 139/86 09/15/18 11:39 O2 Sat by Pulse Oximetry 97 09/15/18 11:39 Temperature 98.3 F 09/15/18 12:11 Pulse Rate 93 09/15/18 16:00 Respiratory Rate 20 09/15/18 16:00 Blood Pressure 133/91 09/15/18 16:00 O2 Sat by Pulse Oximetry 100 09/15/18 16:00 Oxygen Delivery Oxygen Delivery Room Air Medical Decision Making - Lab Data Result diagrams: 09/15/18 12:49 09/15/18 12:49 Lab Results 09/15/18 09/15/18 09/15/18 Range/Units 12:48 12:48 12:49 WBC 13.8 H (4.3-11.1) K/mcL RBC 4.17 (3.82-4.97) M/mcL Hgb 12.7 D (11.5-15.4) g/dL Hct 39.2 (35.3-44.9) % MCV 94.0 (83.0-100.0) fL MCH 30.5 (28.0-33.3) pg MCHC 32.4 (31.6-35.5) g/dL RDW 17.2 H (11.5-14.5) % Plt Count 155 (140-400) K/mcL MPV 9.1 L (9.4-12.4) fL Immature Gran % 0.4 (0-4) % Seg Neutrophils % 77.1 % Lymphocytes % 12.0 % Monocytes % 7.8 % Eosinophils % 2.0 % Basophils % 0.7 % Neutrophils # 10.7 H (1.6-8.9) K/mcL Lymphocytes # 1.7 (0.6-4.6) K/mcL Monocytes # 1.1 (0.0-1.3) K/mcL Eosinophils # 0.3 (0.0-0.6) K/mcL Basophils # 0.1 (0.0-0.2) K/mcL PT (9.4-12.1) Seconds INR Sodium (136-145) mEq/L Potassium (3.5-5.1) mEq/L Chloride (98-107) mEq/L Carbon Dioxide (23-29) mEq/L BUN (8-23) mg/dL Creatinine (0.60-1.20) mg/dL Est GFR ( Amer) (> 60) Est GFR (Non-Af Amer) (> 60) BUN/Creatinine Ratio (6-26) Glucose (70-105) mg/dL POC Glucose (70-99) mg/dL Calculated Osmolality (280-300) Lactic Acid (0.5-2.2) mmol/L Calcium (8.6-10.3) mg/dL Total Bilirubin (0.3-1.0) mg/dL Direct Bilirubin (0.0-0.2) mg/dL Indirect Bilirubin (0.0-1.2) mg/dL AST (13-39) Units/L ALT (7-52) Units/L Alkaline Phosphatase (34-104) Units/L Ammonia (16-53) mcmol/L Troponin I (< 0.04) ng/mL Serum Total Protein (6.4-8.9) g/dL Albumin (3.5-5.7) g/dL Globulin (2.4-3.5) g/dL Albumin/Globulin Ratio (1.1-2.2) Urine Color Dark Yellow (Yellow) Urine Clarity Turbid A (Clear) Urine pH 6.5 (5.0-8.0) pH Units Ur Specific [place] 1.011 (1.010-1.025) Urine Protein 100 H (Neg-Trace) mg/dL Urine Glucose (UA) Normal (Normal) mg/dL Urine Ketones Negative (Negative) mg/dL Urine Blood Large H (Negative) Urine Nitrite Negative (Negative) Urine Bilirubin Small H (Negative) Urine Urobilinogen Normal (Normal) mg/dL Ur Leukocyte Esterase Large H (Negative) Urine Microscopic RBC TNTC H (0-3) per hpf Urine Microscopic WBC TNTC H (0-3) per hpf Ur Squamous Epith Cells None Seen (None-Few) per lpf Urine Bacteria None Seen (None-Few) per hpf Hyaline Casts None Seen (None-Few) per lpf Ur Culture Indicated? YES A (NO) Urine Opiates Screen Negative (Qamxfw=999) ng/mL Ur Barbiturates Screen Negative (Oszaph=011) ng/mL Ur Phencyclidine Scrn Negative (Cutoff=25) ng/mL Ur Amphetamines Screen Negative (Mzymki=6326) ng/mL U Benzodiazepines Scrn Negative (Apeaeq=812) ng/mL Urine Cocaine Screen Negative (Cutoff= 300) ng/mL U Marijuana (THC) Screen Negative (Cutoff = 50) ng/mL Ur Drug Screen Interp See Below Ethyl Alcohol (Less than 10) mg/dL Specimen Rejected 09/15/18 09/15/18 09/15/18 Range/Units 12:49 12:49 12:49 WBC (4.3-11.1) K/mcL RBC (3.82-4.97) M/mcL Hgb (11.5-15.4) g/dL Hct (35.3-44.9) % MCV (83.0-100.0) fL MCH (28.0-33.3) pg MCHC (31.6-35.5) g/dL RDW (11.5-14.5) % Plt Count (140-400) K/mcL MPV (9.4-12.4) fL Immature Gran % (0-4) % Seg Neutrophils % % Lymphocytes % % Monocytes % % Eosinophils % % Basophils % % Neutrophils # (1.6-8.9) K/mcL Lymphocytes # (0.6-4.6) K/mcL Monocytes # (0.0-1.3) K/mcL Eosinophils # (0.0-0.6) K/mcL Basophils # (0.0-0.2) K/mcL PT 16.1 H (9.4-12.1) Seconds INR 1.4 Sodium 134 L (136-145) mEq/L Potassium 3.5 (3.5-5.1) mEq/L Chloride 95 L (98-107) mEq/L Carbon Dioxide 29 (23-29) mEq/L BUN 12 (8-23) mg/dL Creatinine 0.88 (0.60-1.20) mg/dL Est GFR ( Amer) > 60 (> 60) Est GFR (Non-Af Amer) > 60 (> 60) BUN/Creatinine Ratio 14 (6-26) Glucose 125 H (70-105) mg/dL POC Glucose (70-99) mg/dL Calculated Osmolality 279 L (280-300) Lactic Acid (0.5-2.2) mmol/L Calcium 9.0 (8.6-10.3) mg/dL Total Bilirubin 1.1 H (0.3-1.0) mg/dL Direct Bilirubin 0.4 H (0.0-0.2) mg/dL Indirect Bilirubin 0.7 (0.0-1.2) mg/dL AST 43 H (13-39) Units/L ALT 20 (7-52) Units/L Alkaline Phosphatase 190 H (34-104) Units/L Ammonia (16-53) mcmol/L Troponin I < 0.03 (< 0.04) ng/mL Serum Total Protein 7.9 (6.4-8.9) g/dL Albumin 3.0 L (3.5-5.7) g/dL Globulin 4.9 H (2.4-3.5) g/dL Albumin/Globulin Ratio 0.6 L (1.1-2.2) Urine Color (Yellow) Urine Clarity (Clear) Urine pH (5.0-8.0) pH Units Ur Specific [place] (1.010-1.025) Urine Protein (Neg-Trace) mg/dL Urine Glucose (UA) (Normal) mg/dL Urine Ketones (Negative) mg/dL Urine Blood (Negative) Urine Nitrite (Negative) Urine Bilirubin (Negative) Urine Urobilinogen (Normal) mg/dL Ur Leukocyte Esterase (Negative) Urine Microscopic RBC (0-3) per hpf Urine Microscopic WBC (0-3) per hpf Ur Squamous Epith Cells (None-Few) per lpf Urine Bacteria (None-Few) per hpf Hyaline Casts (None-Few) per lpf Ur Culture Indicated? (NO) Urine Opiates Screen (Oplubw=121) ng/mL Ur Barbiturates Screen (Fpwbkf=399) ng/mL Ur Phencyclidine Scrn (Cutoff=25) ng/mL Ur Amphetamines Screen (Rtemqi=1474) ng/mL U Benzodiazepines Scrn (Ipahop=388) ng/mL Urine Cocaine Screen (Cutoff= 300) ng/mL U Marijuana (THC) Screen (Cutoff = 50) ng/mL Ur Drug Screen Interp Ethyl Alcohol < 10 (Less than 10) mg/dL Specimen Rejected Hemolyzed 09/15/18 09/15/18 09/15/18 Range/Units 13:23 14:56 15:36 WBC (4.3-11.1) K/mcL RBC (3.82-4.97) M/mcL Hgb (11.5-15.4) g/dL Hct (35.3-44.9) % MCV (83.0-100.0) fL MCH (28.0-33.3) pg MCHC (31.6-35.5) g/dL RDW (11.5-14.5) % Plt Count (140-400) K/mcL MPV (9.4-12.4) fL Immature Gran % (0-4) % Seg Neutrophils % % Lymphocytes % % Monocytes % % Eosinophils % % Basophils % % Neutrophils # (1.6-8.9) K/mcL Lymphocytes # (0.6-4.6) K/mcL Monocytes # (0.0-1.3) K/mcL Eosinophils # (0.0-0.6) K/mcL Basophils # (0.0-0.2) K/mcL PT (9.4-12.1) Seconds INR Sodium (136-145) mEq/L Potassium (3.5-5.1) mEq/L Chloride (98-107) mEq/L Carbon Dioxide (23-29) mEq/L BUN (8-23) mg/dL Creatinine (0.60-1.20) mg/dL Est GFR ( Amer) (> 60) Est GFR (Non-Af Amer) (> 60) BUN/Creatinine Ratio (6-26) Glucose (70-105) mg/dL POC Glucose 123 H (70-99) mg/dL Calculated Osmolality (280-300) Lactic Acid 1.4 (0.5-2.2) mmol/L Calcium (8.6-10.3) mg/dL Total Bilirubin (0.3-1.0) mg/dL Direct Bilirubin (0.0-0.2) mg/dL Indirect Bilirubin (0.0-1.2) mg/dL AST (13-39) Units/L ALT (7-52) Units/L Alkaline Phosphatase (34-104) Units/L Ammonia 38 (16-53) mcmol/L Troponin I (< 0.04) ng/mL Serum Total Protein (6.4-8.9) g/dL Albumin (3.5-5.7) g/dL Globulin (2.4-3.5) g/dL Albumin/Globulin Ratio (1.1-2.2) Urine Color (Yellow) Urine Clarity (Clear) Urine pH (5.0-8.0) pH Units Ur Specific [place] (1.010-1.025) Urine Protein (Neg-Trace) mg/dL Urine Glucose (UA) (Normal) mg/dL Urine Ketones (Negative) mg/dL Urine Blood (Negative) Urine Nitrite (Negative) Urine Bilirubin (Negative) Urine Urobilinogen (Normal) mg/dL Ur Leukocyte Esterase (Negative) Urine Microscopic RBC (0-3) per hpf Urine Microscopic WBC (0-3) per hpf Ur Squamous Epith Cells (None-Few) per lpf Urine Bacteria (None-Few) per hpf Hyaline Casts (None-Few) per lpf Ur Culture Indicated? (NO) Urine Opiates Screen (Rhnnpy=236) ng/mL Ur Barbiturates Screen (Ittpbj=867) ng/mL Ur Phencyclidine Scrn (Cutoff=25) ng/mL Ur Amphetamines Screen (Dhjaos=7463) ng/mL U Benzodiazepines Scrn (Wmzvel=558) ng/mL Urine Cocaine Screen (Cutoff= 300) ng/mL U Marijuana (THC) Screen (Cutoff = 50) ng/mL Ur Drug Screen Interp Ethyl Alcohol (Less than 10) mg/dL Specimen Rejected Critical Care Time Critical Care Time: Yes Total Critical Care Time: 35 Attestation: Critical care performed: Time is exclusive of separately billable procedures. Time includes: direct patient care, patient reassessment, coordination of patient care, interpretation of data (laboratory data, radiology data, and respiratory data), review of patient's medical records, medical consultation and documentation of patient care. Procedures included in critical care time: Procedures excluded from critical care time: Attestation Statement - Attestation Attestation: I examined this patient and my medical decision-making was reviewed with the Resident Physician. I agree with the documented findings, disposition and treatment plan as described except to the extent set forth below. Patient to the ED with a chief complaint of confusion and weakness. Recently discharged back home from a rehabilitation facility. Patient was sent there for admission for UTI sepsis. Daughter is present at bedside states she has been progressing since she got home. Concern for an elevated ammonia versus UTI. Patient awake and alert and oriented times one on examination. Results showed a symmetrically.. Plan. Altered mental status workup. Patient was UTI. Meets sepsis criteria with leukocytosis and tachycardia. Admitted.
[2018-09-15 13:10] LABS: Bacteria,Urine None Seen per hpf (None-Few); Hyaline Casts,Urine None Seen per lpf (None-Few); RBC,Urine TNTC per hpf (0-3); Squamous Epithelial Cell,Urine None Seen per lpf (None-Few); WBC,Urine TNTC per hpf (0-3)
[2018-09-15 13:15] LABS: Basophils # 0.1 K/mcL (0.0-0.2); Basophils % 0.7 %; Eosinophils # 0.3 K/mcL (0.0-0.6); Hematocrit 39.2 % (35.3-44.9); Hemoglobin 12.7 g/dL (11.5-15.4); Immature Granulocytes % 0.4 % (0-4); Lymphocytes # 1.7 K/mcL (0.6-4.6); Mean Corpuscular HGB Conc 32.4 g/dL (31.6-35.5); Mean Corpuscular Hemoglobin 30.5 pg (28.0-33.3); Mean Platelet Volume 9.1 fL (9.4-12.4); Monocytes # 1.1 K/mcL (0.0-1.3); Monocytes % 7.8 %; Neutrophils # 10.7 K/mcL (1.6-8.9); Platelet Count 155 K/mcL (140-400); Red Blood Count 4.17 M/mcL (3.82-4.97); Red Cell Distribution Width 17.2 % (11.5-14.5); Segmented Neutrophils % 77.1 %
[2018-09-15] MEDS ORDERED: cefTRIAXone 1,000 MG in Water for inj. (sterile) 20 ML 10 ML IVP ONE (13:16)
[2018-09-15 13:20] LABS: Amphetamine Screen,Urine Negative ng/mL (Cutoff=1000); Barbiturate Screen,Urine Negative ng/mL (Cutoff=200); Benzodiazepines Screen,Urine Negative ng/mL (Cutoff=200); Cannabinoid Screen,Urine Negative ng/mL (Cutoff = 50); Cocaine Screen,Urine Negative ng/mL (Cutoff= 300); Opiate Screen,Urine Negative ng/mL (Cutoff=300); Phencyclidine Screen,Urine Negative ng/mL (Cutoff=25)
[2018-09-15 13:24] LABS: INR 1.4; Prothrombin Time 16.1 Seconds (9.4-12.1)
[2018-09-15 13:35] LABS: Alanine Aminotransferase 20 Units/L (7-52); Albumin/Globulin Ratio 0.6 (1.1-2.2); Alkaline Phosphatase 190 Units/L (34-104); Aspartate Amino Transferase 43 Units/L (13-39); BUN/Creatinine Ratio 14 (6-26); Bilirubin,Direct 0.4 mg/dL (0.0-0.2); Bilirubin,Indirect 0.7 mg/dL (0.0-1.2); Bilirubin,Total 1.1 mg/dL (0.3-1.0); Blood Urea Nitrogen 12 mg/dL (8-23); Carbon Dioxide 29 mEq/L (23-29); Chloride 95 mEq/L (98-107); Ethanol < 10 mg/dL (Less than 10); Globulin 4.9 g/dL (2.4-3.5); Glucose 125 mg/dL (70-105); Osmolality,Calculated 279 (280-300); Potassium 3.5 mEq/L (3.5-5.1); Sodium 134 mEq/L (136-145); Total Protein 7.9 g/dL (6.4-8.9); Troponin I < 0.03 ng/mL (< 0.04); eGFR For Non-African Americans > 60 (> 60)
[2018-09-15] MEDS ORDERED: 0.9 % Sodium Chloride 1,000 ML IVC ONE (15:26)
[2018-09-15] MEDS ORDERED: *HR* FentaNYL (PF) 100 MCG/2 ML VIAL IVP ONE (15:54)
[2018-09-15] MEDS ORDERED: Naloxone 0.4 MG/ML INJ IVP PRN (16:16)
[2018-09-15] MEDS ORDERED: *HR* Dextrose 50 % in Water (Syg) 50 ML SYRINGE IVP PRN (16:26)
[2018-09-15] MEDS ORDERED: D5% in Water 1,000 ML IVC PRN (16:26)
[2018-09-15] MEDS ORDERED: Dextrose Gel 15 GM/37.5 ML TUBE PO PRN ×2 (16:26)
--- NOTE | 2018-09-15 17:28 | Internal Med History&Physical ---
Date of Encounter: 09/15/18 Time of Encounter: 17:30 Internal Medicine - H&P: HPI Chief complaint: Confusion, weakness, chills of 4 days duration History of present illness: Ms. Reynoos is a 63 year old female with pmh of asthma, CAD, diabetes, fibromyalgia, UTI sepsis with kidney stones s/p stent placement for which she was recently discharged from the hospital to rehab presenting with complaints of weakness and worsening confusion of 4 days duration. Patient had recently been discharged from rehab home on 09/11. Daughter notes that patient was initially stable at home but began to steadily decline with worsening weakness and chills. She notes patient hasn't been eating much and has been demonstrating worsening confusion thinking that a remote control was a sandwich which is unusual for her. Also complains of worsening chills which is why she brought her to the ER today In the Er, she was ntoed to have a leukocytosis and started on ceftriaxoneand she is being admitted for further management Past Med Surg Social Fam HX - Past Medical History Medical history: asthma, coronary artery disease, diabetes, fibromyalgia, hyperlipidemia, hypertension, kidney stones, other Psychiatric history: anxiety, depression - Past Surgical History Surgical History: appendectomy, cholecystectomy, hip replacement, hysterectomy, other Additional surgical history: [facility] - Social History Smoking Status: Never smoker Smokeless Tobacco Status: No Alcohol use: none Drug use: none - Family History Mother Living Status: Hx Family Cancer: Yes (pancreatic ca) Internal Medicine - H&P: Meds Albuterol Sulfate [Ventolin Hfa] 1 - 2 puff IH Q4-6H PRN 11/19/16 [History] Fluticasone Propionate Nasal [Flonase] 50 mcg NS DAILY 11/19/16 [History] Ondansetron HCl [Zofran] 4 mg PO TID PRN 11/19/16 [History] ARIPiprazole [Abilify] 1 mg PO DAILY 08/20/18 [History] DULoxetine [Cymbalta] 20 mg PO DAILY 08/20/18 [History] Lidocaine Patch [Lidoderm 5% patch] 1 each TP Q24H adh..patch 09/02/18 [Rx] Multivit/Ca/Min/Fe/FA [Thera M Plus] 1 tab PO DAILY tablet 09/02/18 [Rx] Nystatin POWDER [Nystop] 1 appl TP BID bottle 09/02/18 [Rx] Bumetanide [Bumex] 0.5 mg PO DAILY #15 tablet 09/11/18 [Rx] Cefdinir [Omnicef] 300 mg PO BID #24 capsule 09/11/18 [Rx] Insulin Glargine [Lantus] 10 unit SQ HS #0 09/11/18 [Rx] Metoprolol XL (24 HR) Succ [Toprol XL] 12.5 mg PO DAILY #15 tab.er.24h 09/11/18 [Rx] Oxybutynin Chloride [Ditropan Xl] 10 mg PO DAILY #30 tab.er.24 09/11/18 [Rx] Potassium Chloride 20 meq PO Q6H #56 tab.er.prt 09/11/18 [Rx] LORazepam [Ativan] 1 mg PO BID 09/15/18 [History] Oxybutynin Chloride [Ditropan Xl] 10 mg PO DAILY 09/15/18 [History] Tramadol HCl [Ultram] 50 mg PO QID PRN 09/15/18 [History] Allergy/AdvReac Type Severity Reaction Status Date / Time hydrocodone AdvReac Agitated Verified 09/15/18 12:01 hydroxyzine [From Vistaril] AdvReac Agitated Verified 09/15/18 12:01 Oxycodone [From Percocet] AdvReac Agitated Verified 09/15/18 12:01 All Systems PM: A 10-system review of systems was performed and is negative for pertinent findings except as documented above in the HPI. - Constitutional Constitutional: chills, fatigue, lethargy, malaise, no fever(s), no night sweats - EENT Eyes: no change in vision, no discharge, no pain, no photophobia Ears: no ear discharge, no ear pain, no tinnitus Nose, mouth and throat: no dysphagia, no nasal discharge, no neck pain, no sore throat - Cardiovascular Cardiovascular ROS IM: no chest pain, no diaphoresis, no dyspnea, no lightheadedness, no palpitations, no syncope - Respiratory Respiratory: no cough, no dyspnea, no wheezing, no excessive phlegm production - Gastrointestinal Gastrointestinal: no abdominal pain, no diarrhea, no hematemesis, no hematochezia, no melena, no nausea, no vomiting - Genitourinary Genitourinary: flank pain, no change in urinary stream, no dysuria, no hematuria - Musculoskeletal Musculoskeletal ROS IM: no numbness, no tingling - Integumentary Integumentary IM: no rash, no unusual bruising - Neurological Neurological ROS: no confusion, no convulsions, no focal weakness, no numbness, no tingling, no tremor(s) - Hematologic/Lymphatic Hematologic/Lymphatic: no easy bruising - Constitutional Vitals: Temp Pulse Resp BP Pulse Ox 98.3 F 93 20 133/91 100 09/15/18 12:11 09/15/18 16:00 09/15/18 16:00 09/15/18 16:00 09/15/18 16:00 Exam: NAD - Head Head exam: Present: atraumatic, normocephalic - Eye Eye exam: Present: PERRL, conjuntiva pink, sclera anicteric Pupils: Present: PERRL - Neck Neck exam general surgery: Present: supple, trachea midline. Absent: lymphadenopathy - Respiratory Respiratory exam: Present: CTAB. Absent: accessory muscle use, rales, rhonchi, wheezes - Cardiovascular Cardiovascular exam: Present: RRR, +S1, +S2. Absent: diastolic murmur, gallop, rubs, systolic murmur - GI/Abdominal GI/Abdominal exam: Present: normal bowel sounds, soft, no peritoneal signs. Absent: distended, tenderness - Additional comments: back pain - Extremities Exam Extremities exam: Present: warm, radial pulses palpable and symmetrical. Abs ent: calf tenderness, cyanotic, pedal edema - Neurological Exam Neurological exam: Present: CN II-XII intact, oriented X3, no focal deficits. Absent: pronater drift, facial droop, speech deficit - Skin Skin exam: Present: dry, intact Internal Med - H&P Results - Labs CBC & Chem 7: 09/15/18 12:49 09/15/18 12:49 Labs: Short CBC 09/15/18 Range/Units 12:49 WBC 13.8 H (4.3-11.1) K/mcL Hgb 12.7 D (11.5-15.4) g/dL Hct 39.2 (35.3-44.9) % Plt Count 155 (140-400) K/mcL Neutrophils # 10.7 H (1.6-8.9) K/mcL BMP 09/15/18 12:49 Sodium 134 L Potassium 3.5 Chloride 95 L Carbon Dioxide 29 BUN 12 Creatinine 0.88 Glucose 125 H Calcium 9.0 Cardiac Enzymes 09/15/18 Range/Units 12:49 Troponin I < 0.03 (< 0.04) ng/mL Liver Function 09/15/18 Range/Units 12:49 Total Bilirubin 1.1 H (0.3-1.0) mg/dL Direct Bilirubin 0.4 H (0.0-0.2) mg/dL AST 43 H (13-39) Units/L ALT 20 (7-52) Units/L Alkaline Phosphatase 190 H (34-104) Units/L Albumin 3.0 L (3.5-5.7) g/dL Urine 09/15/18 Range/Units 12:48 Urine Color Dark Yellow (Yellow) Urine Clarity Turbid A (Clear) Urine pH 6.5 (5.0-8.0) pH Units Ur Specific [place] 1.011 (1.010-1.025) Urine Protein 100 H (Neg-Trace) mg/dL Urine Glucose (UA) Normal (Normal) mg/dL - Impressions ITS Impressions Chest X-Ray 09/15/18 12:20 IMPRESSION: 1. No active pulmonary disease. D/ / Jesus Greenwood MD / Jesus Greenwood MD Interpreting Provider: Jesus Greenwood MD Abdomen/Pelvis CT 09/15/18 12:30 IMPRESSION: 1. Mild right renal pelvocaliectasis without franc hydronephrosis. Right ureteral stent extends from the right renal hilum to the urinary bladder. 2. Multiple nonobstructing right renal stones, ranging in size from 1 mm to 8 mm. 3. New compression deformity of L1 with fracture along the inferior endplate, results in approximately 30% of anterior height loss. 4. Nodular liver contour with splenomegaly. Please correlate with clinical history of cirrhosis and portal venous hypertension. 5. Previously seen ascites on CT of 2017, has resolved. D/ / 09/15/2018 13:42:49 Shlomo Briscoe MD / earnold Interpreting Provider: Shlomo Briscoe MD Head CT 09/15/18 13:02 IMPRESSION: No acute intracranial abnormality. D/ / Richardson López MD / Richardson López MD Interpreting Provider: Richardson López MD - Assessment and plan (1) Sepsis Current Visit: Yes Status: Acute Assessment and plan: Sepsis likely secondary to UTI. Patient presents with confusion, weakness , chil ls and leukocytosis. Recently treated for UTI Will start on IV ceftriaxone. Obtain blood and urine cultures Qualifiers: Sepsis type: sepsis due to unspecified organism Qualified Code(s): A41.9 - Sepsis, unspecified organism (2) UTI (urinary tract infection) Current Visit: Yes Status: Acute Assessment and plan: Sepsis likely secondary to UTI. Patient presents with confusion, weakness , chills and leukocytosis. Recently treated for UTI Will start on IV ceftriaxone. Obtain blood and urine cultures. Urology consult in light of kidney stones s/p stent scheduled for lithotripsy Qualifiers: Urinary tract infection type: site unspecified Hematuria presence: with hematuria Qualified Code(s): N39.0 - Urinary tract infection, site not specified; R31.9 - Hematuria, unspecified (3) Diabetes Current Visit: No Status: Chronic Assessment and plan: Continue basal and short acting insulin. Monitor fingersticks Qualifiers: Diabetes mellitus type: type 2 Diabetes mellitus jail insulin use: without exterminator helper use Diabetes mellitus complication status: with unspecified complications Qualified Code(s): E11.8 - Type 2 diabetes mellitus with unspecified complications (4) Hypertension Current Visit: No Status: Chronic Assessment and plan: Resume home meds Qualifiers: Hypertension type: essential hypertension Qualified Code(s): I10 - Essential (primary) hypertension (5) DVT prophylaxis Current Visit: Yes Status: Acute Assessment and plan: Heparin sc - Time Spent With Patient Total time spent is greater than 50% in coordination of care (as documented) at patient's floor/unit and/or counseling patient:
[2018-09-15] MEDS ORDERED: Ipratropium/Albuterol Neb 3 ML IH PRN (17:38)
[2018-09-15] MEDS: Insulin LISPRO 300 UNITS/3 ML VIAL SQ SCH (20:38)
[2018-09-15] MEDS: *HR* Heparin 5,000 UNIT/ML VIAL SQ SCH (20:49)
[2018-09-15] MEDS: 0.9 % Sodium Chloride 1,000 ML IVC SCH (20:50)
[2018-09-15] MEDS: *HR* LORazepam 1 MG TABLET PO SCH (20:50)
[2018-09-15] MEDS: Insulin DETEMIR 100 UNIT/ML X5UNITS SQ SCH (20:51)
[2018-09-15] MEDS: Nystatin POWDER 30 GM BOTTLE TP SCH (20:53)
[2018-09-15] MEDS: traMADol 50 MG TABLET PO PRN (22:03)
[2018-09-16 03:58] LABS: Basophils # 0.1 K/mcL (0.0-0.2); Basophils % 0.9 %; Eosinophils # 0.5 K/mcL (0.0-0.6); Eosinophils % 3.8 %; Hematocrit 34.2 % (35.3-44.9); Immature Granulocytes % 0.4 % (0-4); Lymphocytes % 15.7 %; Mean Corpuscular HGB Conc 32.5 g/dL (31.6-35.5); Mean Corpuscular Hemoglobin 30.6 pg (28.0-33.3); Mean Corpuscular Volume 94.2 fL (83.0-100.0); Mean Platelet Volume 9.1 fL (9.4-12.4); Monocytes # 1.2 K/mcL (0.0-1.3); Monocytes % 9.8 %; Neutrophils # 8.7 K/mcL (1.6-8.9); Platelet Count 142 K/mcL (140-400); Red Blood Count 3.63 M/mcL (3.82-4.97); Red Cell Distribution Width 17.4 % (11.5-14.5); Segmented Neutrophils % 69.4 %
[2018-09-16 04:05] LABS: Hemoglobin 11.1 g/dL (11.5-15.4)
[2018-09-16] MEDS: traMADol 50 MG TABLET PO PRN ×3 (04:16→18:10)
[2018-09-16 05:29] LABS: BUN/Creatinine Ratio 13 (6-26); Blood Urea Nitrogen 9 mg/dL (8-23); Calcium 8.4 mg/dL (8.6-10.3); Carbon Dioxide 27 mEq/L (23-29); Chloride 100 mEq/L (98-107); Glucose 86 mg/dL (70-105); Magnesium 1.7 mg/dL (1.6-2.6); Osmolality,Calculated 276 (280-300); Phosphorous 2.8 mg/dL (2.7-4.5); Potassium 3.1 mEq/L (3.5-5.1); Sodium 134 mEq/L (136-145); eGFR For Non-African Americans > 60 (> 60)
[2018-09-16] MEDS: *HR* Heparin 5,000 UNIT/ML VIAL SQ SCH ×2 (05:53→18:14)
[2018-09-16] MEDS: Insulin LISPRO 300 UNITS/3 ML VIAL SQ SCH ×3 (08:33→18:10)
[2018-09-16] MEDS: *HR* LORazepam 1 MG TABLET PO SCH ×2 (08:34→21:14)
[2018-09-16] MEDS: Multivit/Ca/Min/Fe/FA 1 TAB TABLET PO SCH (08:34)
[2018-09-16] MEDS: Metoprolol XL (24 HR) Succ 25 MG TAB.ER.24H PO SCH (08:34)
[2018-09-16] MEDS: ARIPiprazole 2 MG TABLET PO SCH (08:34)
--- NOTE | 2018-09-16 09:31 | Urology - Consult Note ---
<Ivon Curry N - Last Filed: 09/16/18 09:29> Date of Encounter: 09/16/18 Time of Encounter: 08:15 - Assessment and Plan (1) Sepsis Current Visit: Yes Status: Acute Qualifiers: Sepsis type: sepsis due to unspecified organism Qualified Code(s): A41.9 - Sepsis, unspecified organism (2) UTI (urinary tract infection) Current Visit: Yes Status: Acute Assessment and plan: Patient is a 63-year-old female who presents the history of urinary tract infection and sepsis. Vital signs are currently stable and afebrile. Patient has been placed on IV Rocephin with a downward trend of of white blood cells noted. Right renal stent is confirmed in proper position. We will continue IV antibiotics and await blood and urine cultures. Qualifiers: Urinary tract infection type: site unspecified Hematuria presence: with hematuria Qualified Code(s): N39.0 - Urinary tract infection, site not specified; R31.9 - Hematuria, unspecified Urology CN:HPI Consult date: 09/16/18 Reason for consult Urology: Other (UTI, right renal stones) History of present illness: Patient is a 63-year-old female who presents with a history of urinary tract infection and multiple nonobstructing right renal stones. Ms. 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 During that admission, patient underwent a right ureteral stent placement and showed much improvement with infection and renal function. Patient was discharged to a rehabilitation facility and was able to go home last week. Patient's daughter reports that shortly after she arrived home, chills and weakness returned. Patient was subsequently brought back to the emergency department yesterday and was admitted for sepsis and UTI. Patient is currently complaining of right flank pain, dysuria, urgency, chills, fatigue. Patient denies gross hematuria. Patient underwent CT of abdomen and pelvis confirming proper right ureteral stent placement without hydronephrosis. Past Med Surg Social Fam HX - Past Medical History Medical history: asthma, coronary artery disease, diabetes, fibromyalgia, hyperlipidemia, hypertension, kidney stones, other Psychiatric history: anxiety, depression - Past Surgical History Surgical History: appendectomy, cholecystectomy, hip replacement, hysterectomy, other Additional surgical history: [facility] - Social History Smoking Status: Never smoker Smokeless Tobacco Status: No Alcohol use: none Drug use: none - Family History Mother Living Status: Hx Family Cancer: Yes (Pancreatic) Father Living Status: Hx Family Endocrine Disorder: Yes (DM) Medications and Allergies Albuterol Sulfate [Ventolin Hfa] 1 - 2 puff IH Q4-6H PRN 11/19/16 [History] Fluticasone Propionate Nasal [Flonase] 50 mcg NS DAILY 11/19/16 [History] Ondansetron HCl [Zofran] 4 mg PO TID PRN 11/19/16 [History] ARIPiprazole [Abilify] 1 mg PO DAILY 08/20/18 [History] DULoxetine [Cymbalta] 20 mg PO DAILY 08/20/18 [History] Lidocaine Patch [Lidoderm 5% patch] 1 each TP Q24H adh..patch 09/02/18 [Rx] Multivit/Ca/Min/Fe/FA [Thera M Plus] 1 tab PO DAILY tablet 09/02/18 [Rx] Nystatin POWDER [Nystop] 1 appl TP BID bottle 09/02/18 [Rx] Bumetanide [Bumex] 0.5 mg PO DAILY #15 tablet 09/11/18 [Rx] Cefdinir [Omnicef] 300 mg PO BID #24 capsule 09/11/18 [Rx] Insulin Glargine [Lantus] 10 unit SQ HS #0 09/11/18 [Rx] Metoprolol XL (24 HR) Succ [Toprol XL] 12.5 mg PO DAILY #15 tab.er.24h 09/11/18 [Rx] Oxybutynin Chloride [Ditropan Xl] 10 mg PO DAILY #30 tab.er.24 09/11/18 [Rx] Potassium Chloride 20 meq PO Q6H #56 tab.er.prt 09/11/18 [Rx] LORazepam [Ativan] 1 mg PO BID 09/15/18 [History] Oxybutynin Chloride [Ditropan Xl] 10 mg PO DAILY 09/15/18 [History] Tramadol HCl [Ultram] 50 mg PO QID PRN 09/15/18 [History] Allergy/AdvReac Type Severity Reaction Status Date / Time hydrocodone AdvReac Agitated Verified 09/15/18 12:01 hydroxyzine [From Vistaril] AdvReac Agitated Verified 09/15/18 12:01 Oxycodone [From Percocet] AdvReac Agitated Verified 09/15/18 12:01 Review of Systems - Constitutional chills, fatigue, weakness - EENT Nose, mouth and throat: no dizziness, no headache(s) - Cardiovascular no chest pain, no diaphoresis, no dyspnea - Respiratory no cough, no dyspnea - Gastrointestinal abdominal pain, nausea, no vomiting - Genitourinary Genitourinary: dysuria, flank pain, urinary frequency, urinary urgency, no difficulty urinating, no hematuria, no urinary hesitancy - Musculoskeletal no back pain, no muscle weakness - Integumentary no erythema, no rash, no swelling - Neurological confusion, no syncope - Psychiatric confusion, no anxiety - Hematologic/Lymphatic no easy bleeding, no easy bruising - Allergic/Immunologic no throat swelling, no wheezing Exam Initial Vital Signs Temp Pulse Resp BP Pulse Ox 98.3 F 94 22 139/86 97 09/15/18 11:39 09/15/18 11:39 09/15/18 11:39 09/15/18 11:39 09/15/18 11:39 - General physical appearance Present: no distress, no pain - Eyes Present: PERRL, normal ocular movement - ENT Present: normal nares, no hearing loss, no congestion - Neck Present: no masses, trachea midline - Respiratory Present: normal respiratory effort - Cardiovascular Cardiovascular exam IM: RRR - Abdomen Abdomen: Present: soft, tender - Integumentary Present: no rash, no abnormal pigmentation - Neurologic Present: normal coordination - Additional Findings RCVAT Urology Results - Labs 09/16/18 03:20 09/16/18 04:50 Abnormal lab results WBC 12.5 K/mcL (4.3-11.1) H 09/16/18 03:20 RBC 3.63 M/mcL (3.82-4.97) L 09/16/18 03:20 Hgb 11.1 g/dL (11.5-15.4) L D 09/16/18 03:20 Hct 34.2 % (35.3-44.9) L 09/16/18 03:20 RDW 17.4 % (11.5-14.5) H 09/16/18 03:20 MPV 9.1 fL (9.4-12.4) L 09/16/18 03:20 PT 16.1 Seconds (9.4-12.1) H 09/15/18 12:49 Sodium 134 mEq/L (136-145) L 09/16/18 04:50 Potassium 3.1 mEq/L (3.5-5.1) L 09/16/18 04:50 Calculated Osmolality 276 (280-300) L 09/16/18 04:50 Calcium 8.4 mg/dL (8.6-10.3) L 09/16/18 04:50 Total Bilirubin 1.1 mg/dL (0.3-1.0) H 09/15/18 12:49 Direct Bilirubin 0.4 mg/dL (0.0-0.2) H 09/15/18 12:49 AST 43 Units/L (13-39) H 09/15/18 12:49 Alkaline Phosphatase 190 Units/L (34-104) H 09/15/18 12:49 Albumin 3.0 g/dL (3.5-5.7) L 09/15/18 12:49 Globulin 4.9 g/dL (2.4-3.5) H 09/15/18 12:49 Albumin/Globulin Ratio 0.6 (1.1-2.2) L 09/15/18 12:49 Urine Clarity Turbid (Clear) A 09/15/18 12:48 Urine Protein 100 mg/dL (Neg-Trace) H 09/15/18 12:48 Urine Blood Large (Negative) H 09/15/18 12:48 Urine Bilirubin Small (Negative) H 09/15/18 12:48 Ur Leukocyte Esterase Large (Negative) H 09/15/18 12:48 Urine Microscopic RBC TNTC per hpf (0-3) H 09/15/18 12:48 Urine Microscopic WBC TNTC per hpf (0-3) H 09/15/18 12:48 Ur Culture Indicated? YES (NO) A 09/15/18 12:48 Diabetes panel 09/15/18 09/16/18 Range/Units 12:49 04:50 Sodium 134 L 134 L (136-145) mEq/L Potassium 3.5 3.1 L (3.5-5.1) mEq/L Chloride 95 L 100 (98-107) mEq/L Carbon Dioxide 29 27 (23-29) mEq/L BUN 12 9 (8-23) mg/dL Creatinine 0.88 0.69 (0.60-1.20) mg/dL Glucose 125 H 86 (70-105) mg/dL Calcium 9.0 8.4 L (8.6-10.3) mg/dL AST 43 H (13-39) Units/L ALT 20 (7-52) Units/L Alkaline Phosphatase 190 H (34-104) Units/L Albumin 3.0 L (3.5-5.7) g/dL Calcium panel 09/15/18 09/16/18 Range/Units 12:49 04:50 Calcium 9.0 8.4 L (8.6-10.3) mg/dL Phosphorus 2.8 (2.7-4.5) mg/dL Albumin 3.0 L (3.5-5.7) g/dL Pituitary panel 09/15/18 09/16/18 Range/Units 12:49 04:50 Sodium 134 L 134 L (136-145) mEq/L Potassium 3.5 3.1 L (3.5-5.1) mEq/L Chloride 95 L 100 (98-107) mEq/L Carbon Dioxide 29 27 (23-29) mEq/L BUN 12 9 (8-23) mg/dL Creatinine 0.88 0.69 (0.60-1.20) mg/dL Glucose 125 H 86 (70-105) mg/dL Calcium 9.0 8.4 L (8.6-10.3) mg/dL Adrenal panel 09/15/18 09/16/18 Range/Units 12:49 04:50 Sodium 134 L 134 L (136-145) mEq/L Potassium 3.5 3.1 L (3.5-5.1) mEq/L Chloride 95 L 100 (98-107) mEq/L Carbon Dioxide 29 27 (23-29) mEq/L BUN 12 9 (8-23) mg/dL Creatinine 0.88 0.69 (0.60-1.20) mg/dL Glucose 125 H 86 (70-105) mg/dL Calcium 9.0 8.4 L (8.6-10.3) mg/dL Total Bilirubin 1.1 H (0.3-1.0) mg/dL AST 43 H (13-39) Units/L ALT 20 (7-52) Units/L Alkaline Phosphatase 190 H (34-104) Units/L Albumin 3.0 L (3.5-5.7) g/dL All other labs normal. - Imaging CT scan - abdomen: report reviewed, image reviewed CT scan - pelvis: report reviewed, image reviewed Consult Discharge Plan - Plan Referrals: Quan Ulloa, SUPPOSITORY MOLDING MACHINE OPERATOR [Primary Care Provider] - <Marco Andrade - Last Filed: 09/16/18 22:26> Date of Encounter: 09/16/18 - Assessment and Plan (1) Nephrolithiasis Current Visit: No Status: Acute (2) Sepsis Current Visit: Yes Status: Acute Qualifiers: Sepsis type: sepsis due to unspecified organism Qualified Code(s): A41.9 - Sepsis, unspecified organism (3) UTI (urinary tract infection) Current Visit: Yes Status: Acute Assessment and plan: Patient seen and examined independently. Agree with assessment and plan of Antoinette CALDERON. Qualifiers: Urinary tract infection type: site unspecified Hematuria presence: with hematuria Qualified Code(s): N39.0 - Urinary tract infection, site not specified; R31.9 - Hematuria, unspecified Exam Initial Vital Signs Temp Pulse Resp BP Pulse Ox 98.3 F 94 22 139/86 97 09/15/18 11:39 09/15/18 11:39 09/15/18 11:39 09/15/18 11:39 09/15/18 11:39 Urology Results - Labs 09/16/18 03:20 09/16/18 04:50 Abnormal lab results WBC 12.5 K/mcL (4.3-11.1) H 09/16/18 03:20 RBC 3.63 M/mcL (3.82-4.97) L 09/16/18 03:20 Hgb 11.1 g/dL (11.5-15.4) L D 09/16/18 03:20 Hct 34.2 % (35.3-44.9) L 09/16/18 03:20 RDW 17.4 % (11.5-14.5) H 09/16/18 03:20 MPV 9.1 fL (9.4-12.4) L 09/16/18 03:20 PT 16.1 Seconds (9.4-12.1) H 09/15/18 12:49 Sodium 134 mEq/L (136-145) L 09/16/18 04:50 Potassium 3.1 mEq/L (3.5-5.1) L 09/16/18 04:50 POC Glucose 115 mg/dL (70-99) H 09/16/18 20:57 Calculated Osmolality 276 (280-300) L 09/16/18 04:50 Calcium 8.4 mg/dL (8.6-10.3) L 09/16/18 04:50 Total Bilirubin 1.1 mg/dL (0.3-1.0) H 09/15/18 12:49 Direct Bilirubin 0.4 mg/dL (0.0-0.2) H 09/15/18 12:49 AST 43 Units/L (13-39) H 09/15/18 12:49 Alkaline Phosphatase 190 Units/L (34-104) H 09/15/18 12:49 Albumin 3.0 g/dL (3.5-5.7) L 09/15/18 12:49 Globulin 4.9 g/dL (2.4-3.5) H 09/15/18 12:49 Albumin/Globulin Ratio 0.6 (1.1-2.2) L 09/15/18 12:49 Urine Clarity Turbid (Clear) A 09/15/18 12:48 Urine Protein 100 mg/dL (Neg-Trace) H 09/15/18 12:48 Urine Blood Large (Negative) H 09/15/18 12:48 Urine Bilirubin Small (Negative) H 09/15/18 12:48 Ur Leukocyte Esterase Large (Negative) H 09/15/18 12:48 Urine Microscopic RBC TNTC per hpf (0-3) H 09/15/18 12:48 Urine Microscopic WBC TNTC per hpf (0-3) H 09/15/18 12:48 Ur Culture Indicated? YES (NO) A 09/15/18 12:48 Diabetes panel 09/16/18 Range/Units 04:50 Sodium 134 L (136-145) mEq/L Potassium 3.1 L (3.5-5.1) mEq/L Chloride 100 (98-107) mEq/L Carbon Dioxide 27 (23-29) mEq/L BUN 9 (8-23) mg/dL Creatinine 0.69 (0.60-1.20) mg/dL Glucose 86 (70-105) mg/dL Calcium 8.4 L (8.6-10.3) mg/dL Calcium panel 09/16/18 Range/Units 04:50 Calcium 8.4 L (8.6-10.3) mg/dL Phosphorus 2.8 (2.7-4.5) mg/dL Pituitary panel 09/16/18 Range/Units 04:50 Sodium 134 L (136-145) mEq/L Potassium 3.1 L (3.5-5.1) mEq/L Chloride 100 (98-107) mEq/L Carbon Dioxide 27 (23-29) mEq/L BUN 9 (8-23) mg/dL Creatinine 0.69 (0.60-1.20) mg/dL Glucose 86 (70-105) mg/dL Calcium 8.4 L (8.6-10.3) mg/dL Adrenal panel 09/16/18 Range/Units 04:50 Sodium 134 L (136-145) mEq/L Potassium 3.1 L (3.5-5.1) mEq/L Chloride 100 (98-107) mEq/L Carbon Dioxide 27 (23-29) mEq/L BUN 9 (8-23) mg/dL Creatinine 0.69 (0.60-1.20) mg/dL Glucose 86 (70-105) mg/dL Calcium 8.4 L (8.6-10.3) mg/dL All other labs normal.
[2018-09-16] MEDS: Ondansetron 4 MG/2 ML VIAL IVP PRN (11:10)
[2018-09-16] MEDS: cefTRIAXone 1,000 MG in Water for inj. (sterile) 20 ML 10 ML IVP SCH (11:10)
[2018-09-16] MEDS: Nystatin POWDER 30 GM BOTTLE TP SCH ×2 (11:59→21:14)
[2018-09-16] MEDS: Fluticasone Propionate Nasal 50 MCG/SPRAY BOTTLE NS SCH (11:59)
--- NOTE | 2018-09-16 13:33 | Internal Med Progress Note ---
Hospitalist Progress Note - Encounter Date of Encounter: 09/16/18 Time of Encounter: 13:00 - Exam Vitals: Temp Pulse Resp BP Pulse Ox 98.8 F 90 18 111/73 94 09/16/18 12:00 09/16/18 12:00 09/16/18 12:00 09/16/18 12:00 09/16/18 12:00 Exam: Gen - Awake, alert HEENT - NCAT, PERRLA, EOMI, hearing grossly intact, oropharynx benign CV - RRR, normal S1 and S2, no M/R/G, no BLE edema Resp - Normal WOB, CTAB, no W/R/R GI - Soft, NT/ND, no masses, normal bowel sounds, Skin - Warm, dry, no rashes/lesions/ulcers Psych - Normal mood and affect, no depression or anxiety - Assessment and Plan (1) Sepsis Current Visit: Yes Status: Acute Assessment and Plan: Sepsis likely secondary to UTI. Patient presents with confusion, weakness , chills and leukocytosis. Recently treated for UTI Will start on IV ceftriaxone. Obtain blood and urine cultures (2) UTI (urinary tract infection) Current Visit: Yes Status: Acute Assessment and Plan: Sepsis likely secondary to UTI. Patient presents with confusion, weakness , chills and leukocytosis. Recently treated for UTI Will start on IV ceftriaxone. Obtain blood and urine cultures. Urology consult in light of kidney stones s/p stent scheduled for lithotripsy (3) Diabetes Current Visit: No Status: Chronic Assessment and Plan: Continue basal and short acting insulin. Monitor fingersticks (4) Hypertension Current Visit: No Status: Chronic Assessment and Plan: Resume home meds (5) DVT prophylaxis Current Visit: Yes Status: Acute Assessment and Plan: Heparin sc - Time Spent with Patient Total time spent is greater than 50% in coordination of care (as documented) at patient's floor/unit and/or counseling patient: Internal Medicine: Result - Labs CBC & Chem 7: 09/16/18 03:20 09/16/18 04:50 Labs: Short CBC 09/16/18 Range/Units 03:20 WBC 12.5 H (4.3-11.1) K/mcL Hgb 11.1 L D (11.5-15.4) g/dL Hct 34.2 L (35.3-44.9) % Plt Count 142 (140-400) K/mcL Neutrophils # 8.7 (1.6-8.9) K/mcL BMP 09/15/18 09/16/18 12:49 04:50 Sodium 134 L 134 L Potassium 3.5 3.1 L Chloride 95 L 100 Carbon Dioxide 29 27 BUN 12 9 Creatinine 0.88 0.69 Glucose 125 H 86 Calcium 9.0 8.4 L Cardiac Enzymes 09/15/18 Range/Units 12:49 Troponin I < 0.03 (< 0.04) ng/mL Liver Function 09/15/18 Range/Units 12:49 Total Bilirubin 1.1 H (0.3-1.0) mg/dL Direct Bilirubin 0.4 H (0.0-0.2) mg/dL AST 43 H (13-39) Units/L ALT 20 (7-52) Units/L Alkaline Phosphatase 190 H (34-104) Units/L Albumin 3.0 L (3.5-5.7) g/dL - ABG Interpretation ABG results: PT/INR, D-dimer PT 16.1 Seconds (9.4-12.1) H 09/15/18 12:49 - Impressions Impressions Chest X-Ray 09/15/18 12:20 IMPRESSION: 1. No active pulmonary disease. D/ / Jesus Greenwood MD / Jesus Greenwood MD Interpreting Provider: Jesus Greenwood MD Abdomen/Pelvis CT 09/15/18 12:30 IMPRESSION: 1. Mild right renal pelvocaliectasis without franc hydronephrosis. Right ureteral stent extends from the right renal hilum to the urinary bladder. 2. Multiple nonobstructing right renal stones, ranging in size from 1 mm to 8 mm. 3. New compression deformity of L1 with fracture along the inferior endplate, results in approximately 30% of anterior height loss. 4. Nodular liver contour with splenomegaly. Please correlate with clinical history of cirrhosis and portal venous hypertension. 5. Previously seen ascites on CT of 2017, has resolved. D/ / 09/15/2018 13:42:49 Shlomo Briscoe MD / earnold Interpreting Provider: Shlomo Briscoe MD Head CT 09/15/18 13:02 IMPRESSION: No acute intracranial abnormality. D/ / Richardson López MD / Richardson López MD Interpreting Provider: Richardson López MD Consult Discharge Plan - Plan Referrals: Quan Ulloa LIME KILN OPERATOR [Primary Care Provider] - (1) Sepsis Qualifiers: Sepsis type: sepsis due to unspecified organism Qualified Code(s): A41.9 - Sepsis, unspecified organism (2) UTI (urinary tract infection) Qualifiers: Urinary tract infection type: site unspecified Hematuria presence: with hematuria Qualified Code(s): N39.0 - Urinary tract infection, site not specified; R31.9 - Hematuria, unspecified (3) Diabetes Qualifiers: Diabetes mellitus type: type 2 Diabetes mellitus superintendent [employer] insulin use: without superintendent [employer] use Diabetes mellitus complication status: with unspecified complications Qualified Code(s): E11.8 - Type 2 diabetes mellitus with unspecified complications (4) Hypertension Qualifiers: Hypertension type: essential hypertension Qualified Code(s): I10 - Essential (primary) hypertension
[2018-09-16] MEDS: 0.9 % Sodium Chloride 1,000 ML IVC SCH (13:44)
--- NOTE | 2018-09-16 14:13 | Electrocardiograph Report ---
[place] Sling Test Date: 2018-09-15 Pat Name: Isabella Reynoso Department: [id number] Room: 3A12 Gender: F Rubber Press Tender: : 1955 Requested By: Mine See Order Number: [id number] Reading MD: Ray Cano Measurements Intervals [place] Rate: 96 P: 32 [place]: 128 QRS: -40 QRSD: 95 T: 0 QT: 413 QTc: 522 Interpretive Statements Sinus rhythm Left axis deviation Consider anterior infarct Prolonged QT interval Electronically Signed On 09-16-2018 14:12:08 EST by Ray Cano
[2018-09-16] MEDS: Potassium Chloride Elixir 20 MEQ/15 ML UDC PO SCH ×2 (16:00→21:21)
--- NOTE | 2018-09-16 16:31 | Pain Management Consultation ---
Date of Encounter: 09/16/18 Time of Encounter: 17:30 Assessment and Plan (1) Compression fracture of L1 lumbar vertebra Current Visit: Yes Status: Acute The patient has an inferior L1 compression deformity with burst appearance. Recommend the followin. Oral analgesics. 2. Back bracing with TLSO brace. She can wear the brace when up in bed or out of bed. Does not have to wear it while supine or sleeping. 3. Physical therapy/occupational therapy consult to treat pain and ascertain her functional capacity. If the patient can sit on the side of the bed, eat, and ambulate to the bathroom with little pain, there is little need for surgery at this moment. 3. Based on the overall clinical situation, recommend conservative care as noted in 1-3 above. 4. Recommend discharge to rehabilitation center if function is at baseline and pain can be easily controlled with oral analgesics and lifestyle modification, finding a comfortable position. 5. I will have my office add her on to my clinic schedule for follow-up in one to two weeks so that we can monitor her progress. 6. I attempted to contact her daughter at the following phone number [phone]. Her daughter would have to sign any consent forms. The assessment and plan as outlined above was discussed with the patient and/or family members who expressed understanding and agreement. All questions were answered. Qualifiers: Encounter type: initial encounter Fracture type: closed Qualified Code(s) : S32.010A - Wedge compression fracture of first lumbar vertebra, initial encounter for closed fracture History of Present Illness Chief complaint: back pain HPI: Ms. Reynoso is a 63 year old female with baseline dementia who lives in the care of her daughter. The patient has been treated recently and now for chronic u rinary tract infections that cause an overall septic picture. The patient is currently admitted to the hospital for ongoing infection. The patient states that there is pain in her back. She does not know if there was a recent fall or not. She describes pain in the back just below her bra strap that does not travel into her abdomen or legs. The pain is sharp and stabbing in increases when she moves around in bed, 1010. Past Med Surg Social Fam HX - Past Medical History Medical history: asthma, coronary artery disease, diabetes, fibromyalgia, hyperlipidemia, hypertension, kidney stones, other Psychiatric history: anxiety, depression - Past Surgical History Surgical History: appendectomy, cholecystectomy, hip replacement, hysterectomy, other Additional surgical history: [facility] - Social History Smoking Status: Never smoker Smokeless Tobacco Status: No Alcohol use: none Drug use: none - Family History Mother Living Status: Hx Family Cancer: Yes (Pancreatic) Father Living Status: Hx Family Endocrine Disorder: Yes (DM) Medications and Allergies Albuterol Sulfate [Ventolin Hfa] 1 - 2 puff IH Q4-6H PRN 11/19/16 [History] Fluticasone Propionate Nasal [Flonase] 50 mcg NS DAILY 11/19/16 [History] Ondansetron HCl [Zofran] 4 mg PO TID PRN 11/19/16 [History] ARIPiprazole [Abilify] 1 mg PO DAILY 08/20/18 [History] DULoxetine [Cymbalta] 20 mg PO DAILY 08/20/18 [History] Lidocaine Patch [Lidoderm 5% patch] 1 each TP Q24H adh..patch 09/02/18 [Rx] Multivit/Ca/Min/Fe/FA [Thera M Plus] 1 tab PO DAILY tablet 09/02/18 [Rx] Nystatin POWDER [Nystop] 1 appl TP BID bottle 09/02/18 [Rx] Bumetanide [Bumex] 0.5 mg PO DAILY #15 tablet 09/11/18 [Rx] Cefdinir [Omnicef] 300 mg PO BID #24 capsule 09/11/18 [Rx] Insulin Glargine [Lantus] 10 unit SQ HS #0 09/11/18 [Rx] Metoprolol XL (24 HR) Succ [Toprol XL] 12.5 mg PO DAILY #15 tab.er.24h 09/11/18 [Rx] Oxybutynin Chloride [Ditropan Xl] 10 mg PO DAILY #30 tab.er.24 09/11/18 [Rx] Potassium Chloride 20 meq PO Q6H #56 tab.er.prt 09/11/18 [Rx] LORazepam [Ativan] 1 mg PO BID 09/15/18 [History] Oxybutynin Chloride [Ditropan Xl] 10 mg PO DAILY 09/15/18 [History] Tramadol HCl [Ultram] 50 mg PO QID PRN 09/15/18 [History] Allergy/AdvReac Type Severity Reaction Status Date / Time hydrocodone AdvReac Agitated Verified 09/15/18 12:01 hydroxyzine [From Vistaril] AdvReac Agitated Verified 09/15/18 12:01 Oxycodone [From Percocet] AdvReac Agitated Verified 09/15/18 12:01 Review of Systems - Constitutional Constitutional ROS IM: no photophobia, no phonophobia, no daytime sleepiness, no fever(s), no stops breathing during sleep - EENT Nose, mouth and throat: no headache(s), no neck pain, no neck trauma - Cardiovascular Cardiovascular ROS: no chest pain, no leg edema, no lightheadedness - Respiratory Respiratory: no pain on inspiration, no pain with cough - Gastrointestinal Gastrointestinal: no abdominal pain, no constipation, no diarrhea, no heartburn - Genitourinary Genitourinary ROS: no difficulty urinating, no flank pain, no urinary hesitancy - Musculoskeletal Musculoskeletal ROS: no muscle weakness, no numbness, no radiating pain into limb, no tingling - Integumentary Integumentary: no erythema, no lesions, no swelling - Neurological Neurological ROS: no abnormal gait, no behavioral changes, no focal weakness, no radicular pain - Psychiatric Psychiatric general: no anxiety, no confusion, no depression - Hematologic/Lymphatic Hematologic/Lymphatic pediatric: no easy bleeding, no easy bruising Physical Exam Initial Vital Signs Temp Pulse Resp BP Pulse Ox 98.3 F 94 22 139/86 97 09/15/18 11:39 09/15/18 11:39 09/15/18 11:39 09/15/18 11:39 09/15/18 11:39 - Additional Findings EYES:: pupils equal and round, no myosis. SKIN:: no areas of echymoses or petechiae CARDIOVASCULAR:: regular rate and rhythm PULMONARY:: normal respiratory rate GASTROINTESTINAL:: obese. nontender. MUSCULOSKELETAL INSPECTION:: no surgical scarring in lumbar spine PALPATION:: pain with palpation in thoracolumbar junction in the midline STRENGTH:: RIGHT hip flexors: 5/5 :: LEFT hip flexors: 5/5 RIGHT hip adduction 5/5 :: LEFT hip adduction 5/5 RIGHT hip abduction 5/5 :: LEFT hip abduction 5/5 RIGHT knee extension 5/5 :: LEFT knee extension 5/5 RIGHT knee flexion 5/5 :: LEFT knee flexion 5/5 RIGHT ankle dorsiflexion 5/5 :: LEFT ankle dorsiflexion 5/5 RIGHT ankle plantarflexion 5/5 :: LEFT ankle plantarflexion 5/5 RIGHT great toe dorsiflexion 5/5 :: LEFT great toe dorsiflexion 5/5 RIGHT great toe plantarflexion 5/5 :: LEFT great toe plantarflexion 5/5 NEUROLOGIC SENSATION:: hypesthesia is not noted in lower extremity dermatomes. PSYCHIATRIC:: ORIENTATION:: awake and alert. INSIGHT:: good awareness of illness. AFFECT:: pleasant. Radiology Images Viewed By Me:: 09/15/2018 CT scan of the abdomen and pelvis shows inferior endplate compression deformity on the sagittal views. The axial cuts indicate that the fracture site has burst appearance with mobilization of an anterior, inferior fragment by 2 oblique fracture lines. Labs indicate elevated INR and white blood cell count. I have reviewed and agree with information documented in the scribed documentation, ROS, patient medications, allergies, medical history, surgical history, social history, and family history. Results - Labs 09/16/18 03:20 09/16/18 04:50 Abnormal lab results WBC 12.5 K/mcL (4.3-11.1) H 09/16/18 03:20 RBC 3.63 M/mcL (3.82-4.97) L 09/16/18 03:20 Hgb 11.1 g/dL (11.5-15.4) L D 09/16/18 03:20 Hct 34.2 % (35.3-44.9) L 09/16/18 03:20 RDW 17.4 % (11.5-14.5) H 09/16/18 03:20 MPV 9.1 fL (9.4-12.4) L 09/16/18 03:20 PT 16.1 Seconds (9.4-12.1) H 09/15/18 12:49 Sodium 134 mEq/L (136-145) L 09/16/18 04:50 Potassium 3.1 mEq/L (3.5-5.1) L 09/16/18 04:50 Calculated Osmolality 276 (280-300) L 09/16/18 04:50 Calcium 8.4 mg/dL (8.6-10.3) L 09/16/18 04:50 Total Bilirubin 1.1 mg/dL (0.3-1.0) H 09/15/18 12:49 Direct Bilirubin 0.4 mg/dL (0.0-0.2) H 09/15/18 12:49 AST 43 Units/L (13-39) H 09/15/18 12:49 Alkaline Phosphatase 190 Units/L (34-104) H 09/15/18 12:49 Albumin 3.0 g/dL (3.5-5.7) L 09/15/18 12:49 Globulin 4.9 g/dL (2.4-3.5) H 09/15/18 12:49 Albumin/Globulin Ratio 0.6 (1.1-2.2) L 09/15/18 12:49 Urine Clarity Turbid (Clear) A 09/15/18 12:48 Urine Protein 100 mg/dL (Neg-Trace) H 09/15/18 12:48 Urine Blood Large (Negative) H 09/15/18 12:48 Urine Bilirubin Small (Negative) H 09/15/18 12:48 Ur Leukocyte Esterase Large (Negative) H 09/15/18 12:48 Urine Microscopic RBC TNTC per hpf (0-3) H 09/15/18 12:48 Urine Microscopic WBC TNTC per hpf (0-3) H 09/15/18 12:48 Ur Culture Indicated? YES (NO) A 09/15/18 12:48 Diabetes panel 09/16/18 Range/Units 04:50 Sodium 134 L (136-145) mEq/L Potassium 3.1 L (3.5-5.1) mEq/L Chloride 100 (98-107) mEq/L Carbon Dioxide 27 (23-29) mEq/L BUN 9 (8-23) mg/dL Creatinine 0.69 (0.60-1.20) mg/dL Glucose 86 (70-105) mg/dL Calcium 8.4 L (8.6-10.3) mg/dL Calcium panel 09/16/18 Range/Units 04:50 Calcium 8.4 L (8.6-10.3) mg/dL Phosphorus 2.8 (2.7-4.5) mg/dL Pituitary panel 09/16/18 Range/Units 04:50 Sodium 134 L (136-145) mEq/L Potassium 3.1 L (3.5-5.1) mEq/L Chloride 100 (98-107) mEq/L Carbon Dioxide 27 (23-29) mEq/L BUN 9 (8-23) mg/dL Creatinine 0.69 (0.60-1.20) mg/dL Glucose 86 (70-105) mg/dL Calcium 8.4 L (8.6-10.3) mg/dL Adrenal panel 09/16/18 Range/Units 04:50 Sodium 134 L (136-145) mEq/L Potassium 3.1 L (3.5-5.1) mEq/L Chloride 100 (98-107) mEq/L Carbon Dioxide 27 (23-29) mEq/L BUN 9 (8-23) mg/dL Creatinine 0.69 (0.60-1.20) mg/dL Glucose 86 (70-105) mg/dL Calcium 8.4 L (8.6-10.3) mg/dL All other labs normal. Consult Discharge Plan - Plan Referrals: Quan Ulloa, CASSIE [Primary Care Provider] -
[2018-09-16] MEDS: Insulin DETEMIR 100 UNIT/ML X5UNITS SQ SCH (21:05)
[2018-09-17] MEDS: traMADol 50 MG TABLET PO PRN ×3 (00:20→12:14)
[2018-09-17] MEDS: *HR* Heparin 5,000 UNIT/ML VIAL SQ SCH ×2 (06:36→17:47)
--- NOTE | 2018-09-17 08:57 | Internal Med Progress Note ---
Hospitalist Progress Note - Encounter Date of Encounter: 09/17/18 Time of Encounter: 08:50 - Exam Vitals: Temp Pulse Resp BP Pulse Ox 98.5 F 96 16 139/75 96 09/17/18 07:21 09/17/18 07:21 09/17/18 07:21 09/17/18 07:21 09/17/18 07:21 Exam: Gen - Awake, alert HEENT - NCAT, PERRLA, EOMI, hearing grossly intact, oropharynx benign CV - RRR, normal S1 and S2, no M/R/G, no BLE edema Resp - Normal WOB, CTAB, no W/R/R GI - Soft, NT/ND, no masses, normal bowel sounds, Skin - Warm, dry, no rashes/lesions/ulcers Psych - Normal mood and affect, no depression or anxiety - Assessment and Plan (1) Sepsis Current Visit: Yes Status: Acute Assessment and Plan: Sepsis likely secondary to UTI. Patient presents with confusion, weakness , chills and leukocytosis. Urine cultures growing yeast and gram negative vidya Continue ceftriaxone and fluconazole (2) UTI (urinary tract infection) Current Visit: Yes Status: Acute Assessment and Plan: Sepsis likely secondary to UTI. Patient presents with confusion, weakness , chills and leukocytosis. Recently treated for UTI Will start on IV ceftriaxone. Obtain blood and urine cultures. Urology consult in light of kidney stones s/p stent scheduled for lithotripsy (3) Diabetes Current Visit: No Status: Chronic Assessment and Plan: Continue basal and short acting insulin. Monitor fingersticks (4) Hypertension Current Visit: No Status: Chronic Assessment and Plan: Resume home meds (5) Lumbar compression fracture Current Visit: Yes Status: Acute Assessment and Plan: Pt has L1 compression fracture. Seen by pain who recommend TLSO brace and physical therapy (6) DVT prophylaxis Current Visit: Yes Status: Acute Assessment and Plan: Heparin sc - Time Spent with Patient Total time spent is greater than 50% in coordination of care (as documented) at patient's floor/unit and/or counseling patient: Internal Medicine: Result - Labs CBC & Chem 7: 09/16/18 03:20 09/16/18 04:50 - ABG Interpretation ABG results: PT/INR, D-dimer PT 16.1 Seconds (9.4-12.1) H 09/15/18 12:49 - Impressions Impressions Abdomen/Pelvis CT 09/15/18 12:30 IMPRESSION: 1. Mild right renal pelvocaliectasis without franc hydronephrosis. Right ureteral stent extends from the right renal hilum to the urinary bladder. 2. Multiple nonobstructing right renal stones, ranging in size from 1 mm to 8 mm. 3. New compression deformity of L1 with fracture along the inferior endplate, results in approximately 30% of anterior height loss. 4. Nodular liver contour with splenomegaly. Please correlate with clinical history of cirrhosis and portal venous hypertension. 5. Previously seen ascites on CT of 2017, has resolved. D/ / 09/15/2018 13:42:49 Shlomo Briscoe MD / mee Interpreting Provider: Shlomo Briscoe MD Consult Discharge Plan - Plan Referrals: Quan Ulloa, FLOAT OPERATOR [Primary Care Provider] - 10/01/18 9:50 am ____ (1) Sepsis Qualifiers: Sepsis type: sepsis due to unspecified organism Qualified Code(s): A41.9 - Sepsis, unspecified organism (2) UTI (urinary tract infection) Qualifiers: Urinary tract infection type: site unspecified Hematuria presence: with hematuria Qualified Code(s): N39.0 - Urinary tract infection, site not specified; R31.9 - Hematuria, unspecified (3) Diabetes Qualifiers: Diabetes mellitus type: type 2 Diabetes mellitus custodial insulin use: without custodial use Diabetes mellitus complication status: with unspecified complications Qualified Code(s): E11.8 - Type 2 diabetes mellitus with unspecified complications (4) Hypertension Qualifiers: Hypertension type: essential hypertension Qualified Code(s): I10 - Essential (primary) hypertension
--- NOTE | 2018-09-17 09:06 | Urology Progress Note ---
Date of Encounter: 09/17/18 Time of Encounter: 08:20 - Assessment and Plan (1) Sepsis Current Visit: Yes Status: Acute Qualifiers: Sepsis type: sepsis due to unspecified organism Qualified Code(s): A41.9 - Sepsis, unspecified organism (2) UTI (urinary tract infection) Current Visit: Yes Status: Acute Assessment and plan: Patient is a 63-year-old female who presents with history of urinary tract inf ection and sepsis. Urine culture is positive for gram-negative rods and yeast. Patient has been placed on IV Rocephin. Vital signs are currently stable and afebrile. White blood cell count trending down. Awaiting urine sensitivity report and final blood cultures. Primary team may consider treating yeast with sensitivity report. Qualifiers: Urinary tract infection type: site unspecified Hematuria presence: with hematuria Qualified Code(s): N39.0 - Urinary tract infection, site not specified; R31.9 - Hematuria, unspecified Progress Note Subjective: no new complaints Narrative: Patient seen and examined lying in bed in no apparent distress. Patient is tolerating normal diet without nausea or vomiting. Patient is voiding without difficulty. Patient denies fever, chills, flank pain. Objective Initial Vital Signs Temp Pulse Resp BP Pulse Ox 98.3 F 94 22 139/86 97 09/15/18 11:39 09/15/18 11:39 09/15/18 11:39 09/15/18 11:39 09/15/18 11:39 - General physical appearance Present: well developed, no distress, no pain - Respiratory Present: normal expansion, normal respiratory effort - Abdomen Present: soft, non tender - Integumentary Present: no rash, no abnormal pigmentation - Psychiatric Present: oriented to time, oriented to person, oriented to place, speech is normal - Labs 09/16/18 03:20 09/16/18 04:50 Consult Discharge Plan - Plan Referrals: Quan Ulloa CNP [Primary Care Provider] -
[2018-09-17] MEDS: Metoprolol XL (24 HR) Succ 25 MG TAB.ER.24H PO SCH (10:09)
[2018-09-17] MEDS: *HR* LORazepam 1 MG TABLET PO SCH ×2 (10:09→22:46)
[2018-09-17] MEDS: Multivit/Ca/Min/Fe/FA 1 TAB TABLET PO SCH (10:09)
[2018-09-17] MEDS: ARIPiprazole 2 MG TABLET PO SCH (10:10)
[2018-09-17] MEDS: cefTRIAXone 1,000 MG in Water for inj. (sterile) 20 ML 10 ML IVP SCH (10:10)
[2018-09-17] MEDS: Fluticasone Propionate Nasal 50 MCG/SPRAY BOTTLE NS SCH (10:11)
[2018-09-17] MEDS: Insulin LISPRO 300 UNITS/3 ML VIAL SQ SCH ×3 (10:11→17:48)
[2018-09-17] MEDS: Fluconazole 100 MG TABLET PO SCH (12:01)
[2018-09-17] MEDS: Ondansetron 4 MG/2 ML VIAL IVP PRN (12:14)
[2018-09-17] MEDS: Nystatin POWDER 30 GM BOTTLE TP SCH ×2 (17:47→23:55)
[2018-09-17] MEDS: Insulin DETEMIR 100 UNIT/ML X5UNITS SQ SCH (22:46)
[2018-09-18] MEDS: traMADol 50 MG TABLET PO PRN ×3 (04:14→21:49)
[2018-09-18 04:36] LABS: Basophils # 0.1 K/mcL (0.0-0.2); Basophils % 0.7 %; Eosinophils # 0.3 K/mcL (0.0-0.6); Eosinophils % 3.3 %; Hematocrit 34.2 % (35.3-44.9); Hemoglobin 11.1 g/dL (11.5-15.4); Immature Granulocytes % 0.3 % (0-4); Lymphocytes # 1.7 K/mcL (0.6-4.6); Lymphocytes % 17.5 %; Mean Corpuscular HGB Conc 32.5 g/dL (31.6-35.5); Mean Corpuscular Hemoglobin 30.7 pg (28.0-33.3); Mean Corpuscular Volume 94.7 fL (83.0-100.0); Mean Platelet Volume 8.8 fL (9.4-12.4); Monocytes % 10.8 %; Neutrophils # 6.3 K/mcL (1.6-8.9); Platelet Count 133 K/mcL (140-400); Red Blood Count 3.61 M/mcL (3.82-4.97); Red Cell Distribution Width 17.6 % (11.5-14.5); Segmented Neutrophils % 67.4 %
[2018-09-18 04:55] LABS: BUN/Creatinine Ratio 11 (6-26); Blood Urea Nitrogen 8 mg/dL (8-23); Calcium 8.8 mg/dL (8.6-10.3); Carbon Dioxide 27 mEq/L (23-29); Chloride 103 mEq/L (98-107); Glucose 99 mg/dL (70-105); Osmolality,Calculated 282 (280-300); Potassium 3.5 mEq/L (3.5-5.1); Sodium 137 mEq/L (136-145); eGFR For Non-African Americans > 60 (> 60)
[2018-09-18] MEDS: *HR* Heparin 5,000 UNIT/ML VIAL SQ SCH ×2 (06:18→17:07)
[2018-09-18] MEDS: Insulin LISPRO 300 UNITS/3 ML VIAL SQ SCH ×3 (08:31→16:16)
[2018-09-18] MEDS: ARIPiprazole 2 MG TABLET PO SCH (08:37)
[2018-09-18] MEDS: Multivit/Ca/Min/Fe/FA 1 TAB TABLET PO SCH (08:38)
[2018-09-18] MEDS: *HR* LORazepam 1 MG TABLET PO SCH ×2 (08:38→21:40)
[2018-09-18] MEDS: Fluconazole 100 MG TABLET PO SCH (08:38)
[2018-09-18] MEDS: Metoprolol XL (24 HR) Succ 25 MG TAB.ER.24H PO SCH (08:38)
[2018-09-18] MEDS: cefTRIAXone 1,000 MG in Water for inj. (sterile) 20 ML 10 ML IVP SCH (08:39)
--- NOTE | 2018-09-18 08:41 | Internal Med Progress Note ---
Hospitalist Progress Note - Encounter Date of Encounter: 09/18/18 Time of Encounter: 08:40 - Exam Vitals: Temp Pulse Resp BP Pulse Ox 98.0 F 81 15 133/83 97 09/18/18 08:15 09/18/18 08:15 09/18/18 08:15 09/18/18 08:15 09/18/18 08:15 Exam: Gen - Awake, alert HEENT - NCAT, PERRLA, EOMI, hearing grossly intact, oropharynx benign CV - RRR, normal S1 and S2, no M/R/G, no BLE edema Resp - Normal WOB, CTAB, no W/R/R GI - Soft, NT/ND, no masses, normal bowel sounds, Skin - Warm, dry, no rashes/lesions/ulcers Psych - Normal mood and affect, no depression or anxiety - Assessment and Plan (1) Sepsis Current Visit: Yes Status: Acute Assessment and Plan: Sepsis likely secondary to UTI. Patient presents with confusion, weakness , chills and leukocytosis. Urine cultures growing yeast and gram negative vidya Continue ceftriaxone and fluconazole Improved. Awaiting PT recs for discharge planning (2) UTI (urinary tract infection) Current Visit: Yes Status: Acute Assessment and Plan: Sepsis likely secondary to UTI. Patient presents with confusion, weakness , chills and leukocytosis. Recently treated for UTI Will start on IV ceftriaxone. Obtain blood and urine cultures. Urology consult in light of kidney stones s/p stent scheduled for lithotripsy (3) Diabetes Current Visit: No Status: Chronic Assessment and Plan: Continue basal and short acting insulin. Monitor fingersticks (4) Hypertension Current Visit: Yes Status: Acute Assessment and Plan: Resume home meds (5) Lumbar compression fracture Current Visit: Yes Status: Acute Assessment and Plan: Pt has L1 compression fracture. Seen by pain who recommend TLSO brace and physical therapy (6) DVT prophylaxis Current Visit: Yes Status: Acute Assessment and Plan: Heparin sc - Time Spent with Patient Total time spent is greater than 50% in coordination of care (as documented) at patient's floor/unit and/or counseling patient: Internal Medicine: Result - Labs CBC & Chem 7: 09/18/18 04:10 09/18/18 04:10 Labs: Short CBC 09/18/18 Range/Units 04:10 WBC 9.4 (4.3-11.1) K/mcL Hgb 11.1 L (11.5-15.4) g/dL Hct 34.2 L (35.3-44.9) % Plt Count 133 L (140-400) K/mcL Neutrophils # 6.3 (1.6-8.9) K/mcL BMP 09/18/18 04:10 Sodium 137 Potassium 3.5 Chloride 103 Carbon Dioxide 27 BUN 8 Creatinine 0.71 Glucose 99 Calcium 8.8 - ABG Interpretation ABG results: PT/INR, D-dimer PT 16.1 Seconds (9.4-12.1) H 09/15/18 12:49 Consult Discharge Plan - Plan Referrals: Raghavendra Girard DO [Partnered Physician] - 10/01/18 9:50 am _ (1) Sepsis Qualifiers: Sepsis type: sepsis due to unspecified organism Qualified Code(s): A41.9 - Sepsis, unspecified organism (2) UTI (urinary tract infection) Qualifiers: Urinary tract infection type: site unspecified Hematuria presence: with hematuria Qualified Code(s): N39.0 - Urinary tract infection, site not specified; R31.9 - Hematuria, unspecified (3) Diabetes Qualifiers: Diabetes mellitus type: type 2 Diabetes mellitus fci insulin use: without fci use Diabetes mellitus complication status: with unspecified complications Qualified Code(s): E11.8 - Type 2 diabetes mellitus with unspecified complications (4) Hypertension Qualifiers: Hypertension type: essential hypertension Qualified Code(s): I10 - Essential (primary) hypertension
[2018-09-18] MEDS: Fluticasone Propionate Nasal 50 MCG/SPRAY BOTTLE NS SCH (08:43)
[2018-09-18] MEDS: Nystatin POWDER 30 GM BOTTLE TP SCH ×2 (08:44→21:40)
[2018-09-18] MEDS: Insulin DETEMIR 100 UNIT/ML X5UNITS SQ SCH (21:40)
[2018-09-19] MEDS: *HR* Heparin 5,000 UNIT/ML VIAL SQ SCH ×2 (05:19→16:53)
--- NOTE | 2018-09-19 08:25 | Internal Med Progress Note ---
Hospitalist Progress Note - Encounter Date of Encounter: 09/19/18 Time of Encounter: 08:30 - Exam Vitals: Temp Pulse Resp BP Pulse Ox 98.0 F 91 15 125/83 96 09/19/18 07:02 09/19/18 07:02 09/19/18 07:02 09/19/18 07:02 09/19/18 07:02 Exam: Gen - Awake, alert HEENT - NCAT, PERRLA, EOMI, hearing grossly intact, oropharynx benign CV - RRR, normal S1 and S2, no M/R/G, no BLE edema Resp - Normal WOB, CTAB, no W/R/R GI - Soft, NT/ND, no masses, normal bowel sounds, Skin - Warm, dry, no rashes/lesions/ulcers Psych - Normal mood and affect, no depression or anxiety - Assessment and Plan (1) Sepsis Current Visit: Yes Status: Acute Assessment and Plan: Sepsis likely secondary to UTI. Patient presents with confusion, weakness , chills and leukocytosis. Urine cultures growing yeast and gram negative vidya Continue ceftriaxone and fluconazole Improved. Awaiting PT recs for discharge planning (2) UTI (urinary tract infection) Current Visit: Yes Status: Acute Assessment and Plan: Sepsis likely secondary to UTI. Patient presents with confusion, weakness , chills and leukocytosis. Recently treated for UTI Will start on IV ceftriaxone. Obtain blood and urine cultures. Urology consult in light of kidney stones s/p stent scheduled for lithotripsy (3) Diabetes Current Visit: No Status: Chronic Assessment and Plan: Continue basal and short acting insulin. Monitor fingersticks (4) Hypertension Current Visit: Yes Status: Acute Assessment and Plan: Resume home meds (5) Lumbar compression fracture Current Visit: Yes Status: Acute Assessment and Plan: Pt has L1 compression fracture. Seen by pain who recommend TLSO brace and physical therapy (6) DVT prophylaxis Current Visit: Yes Status: Acute Assessment and Plan: Heparin sc - Time Spent with Patient Total time spent is greater than 50% in coordination of care (as documented) at patient's floor/unit and/or counseling patient: Internal Medicine: Result - Labs CBC & Chem 7: 09/18/18 04:10 09/18/18 04:10 - ABG Interpretation ABG results: PT/INR, D-dimer PT 16.1 Seconds (9.4-12.1) H 12/05/18 12:49 Consult Discharge Plan - Plan Referrals: Raghavendra Girard DO [Partnered Physician] - 10/01/18 9:50 am (1) Sepsis Qualifiers: Sepsis type: sepsis due to unspecified organism Qualified Code(s): A41.9 - Sepsis, unspecified organism (2) UTI (urinary tract infection) Qualifiers: Urinary tract infection type: site unspecified Hematuria presence: with hematuria Qualified Code(s): N39.0 - Urinary tract infection, site not specified; R31.9 - Hematuria, unspecified (3) Diabetes Qualifiers: Diabetes mellitus type: type 2 Diabetes mellitus prison insulin use: without prison use Diabetes mellitus complication status: with unspecified complications Qualified Code(s): E11.8 - Type 2 diabetes mellitus with unspecified complications (4) Hypertension Qualifiers: Hypertension type: essential hypertension Qualified Code(s): I10 - Essential (primary) hypertension
[2018-09-19] MEDS: Insulin LISPRO 300 UNITS/3 ML VIAL SQ SCH ×3 (09:02→16:17)
[2018-09-19] MEDS: ARIPiprazole 2 MG TABLET PO SCH (09:20)
[2018-09-19] MEDS: Multivit/Ca/Min/Fe/FA 1 TAB TABLET PO SCH (09:21)
[2018-09-19] MEDS: Fluconazole 100 MG TABLET PO SCH (09:21)
[2018-09-19] MEDS: *HR* LORazepam 1 MG TABLET PO SCH ×2 (09:21→20:34)
[2018-09-19] MEDS: Metoprolol XL (24 HR) Succ 25 MG TAB.ER.24H PO SCH (09:21)
[2018-09-19] MEDS: traMADol 50 MG TABLET PO PRN ×2 (09:21→16:52)
[2018-09-19] MEDS: cefTRIAXone 1,000 MG in Water for inj. (sterile) 20 ML 10 ML IVP SCH (09:23)
[2018-09-19] MEDS: Fluticasone Propionate Nasal 50 MCG/SPRAY BOTTLE NS SCH (09:26)
[2018-09-19] MEDS: Nystatin POWDER 30 GM BOTTLE TP SCH ×2 (09:26→20:34)
[2018-09-19] MEDS ORDERED: Ketorolac 15 MG/ML VIAL IVP PRN (19:55)
[2018-09-19] MEDS: Insulin DETEMIR 100 UNIT/ML X5UNITS SQ SCH (20:40)
[2018-09-20] MEDS: *HR* Heparin 5,000 UNIT/ML VIAL SQ SCH ×2 (05:12→17:42)
[2018-09-20] MEDS: Insulin LISPRO 300 UNITS/3 ML VIAL SQ SCH ×3 (07:32→16:53)
[2018-09-20] MEDS: Metoprolol XL (24 HR) Succ 25 MG TAB.ER.24H PO SCH (09:38)
[2018-09-20] MEDS: *HR* LORazepam 1 MG TABLET PO SCH ×2 (09:38→21:18)
[2018-09-20] MEDS: ARIPiprazole 2 MG TABLET PO SCH (09:39)
[2018-09-20] MEDS: Multivit/Ca/Min/Fe/FA 1 TAB TABLET PO SCH (09:39)
[2018-09-20] MEDS: cefTRIAXone 1,000 MG in Water for inj. (sterile) 20 ML 10 ML IVP SCH (09:40)
[2018-09-20] MEDS: Fluconazole 100 MG TABLET PO SCH (09:40)
[2018-09-20] MEDS: Nystatin POWDER 30 GM BOTTLE TP SCH ×2 (09:42→21:22)
[2018-09-20] MEDS: Fluticasone Propionate Nasal 50 MCG/SPRAY BOTTLE NS SCH (09:42)
--- NOTE | 2018-09-20 09:47 | Discharge Summary ---
Orders not resulted at time of discharge: Pending orders 09/15/18 14:56 Culture,Blood [] Stat Date of Encounter: 09/20/18 Time of Encounter: 09:45 - Discharge Diagnosis (1) Sepsis Priority: Primary Status: Acute Assessment and Plan: 63 year old female with pmh of asthma, CAD, diabetes, fibromyalgia, UTI sepsis with kidney stones s/p stent placement for which she was recently discharged from the hospital to rehab presenting with complaints of weakness and worsening confusion of 4 days duration. Patient had recently been discharged from rehab home on 09/11. Daughter notes that patient was initially stable at home but began to steadily decline with worsening weakness and chills. She notes patient hasn't been eating much and has been demonstrating worsening confusion thinking that a remote control was a sandwich which is unusual for her. Also complains of worsening chills which is why she brought her to the ER today She was assessed with acute metabolic encephalopathy likely secondary to sepsis with recurrent UTI. Patient presents with confusion, weakness , chills and leukocytosis. Urine cultures grew yeast and pseudomonas. She improved on ceftriaxone and diflucan which was subsequently switched to cefepime based on pseudomonas in urine. She also had an L! compression fracture and was seen by ortho who recommended a TLSo brace and rehab. She will be discharged to complete a course of levaquin and diflucan for 10 days. She was discharged in a stable condition. 35minutes was spent discharging this patient Qualifiers: Sepsis type: sepsis due to unspecified organism Qualified Code(s): A41.9 - Sepsis, unspecified organism (2) UTI (urinary tract infection) Priority: Primary Status: Acute Qualifiers: Urinary tract infection type: site unspecified Hematuria presence: with hematuria Qualified Code(s): N39.0 - Urinary tract infection, site not specified; R31.9 - Hematuria, unspecified (3) Diabetes Priority: Primary Status: Chronic Qualifiers: Diabetes mellitus type: type 2 Diabetes mellitus mcc insulin use: without superintendent container terminal use Diabetes mellitus complication status: with unspecified complications Qualified Code(s): E11.8 - Type 2 diabetes mellitus with unspecified complications (4) Hypertension Priority: Primary Status: Acute Qualifiers: Hypertension type: essential hypertension Qualified Code(s): I10 - Essential (primary) hypertension (5) Lumbar compression fracture Priority: Primary Status: Acute Qualifiers: Lumbar vertebra fracture level: L1 Qualified Code(s): S32.010D - Wedge compression fracture of first lumbar vertebra, subsequent encounter for fracture with routine healing (6) DVT prophylaxis Priority: Primary Status: Acute Hospital course: Ms. Reynoso is a 63 year old female - Time Spent with Patient Total time spent providing and/or coordinating discharge services: - Discharge Medications Prescriptions: Fluconazole [Diflucan] 200 mg PO DAILY 10 Days #10 tablet levoFLOXacin [Levaquin] 500 mg PO DAILY 10 Days #10 tablet Home Medications: Albuterol Sulfate [Ventolin Hfa] 1 - 2 puff IH Q4-6H PRN 11/19/16 [History] Fluticasone Propionate Nasal [Flonase] 50 mcg NS DAILY 11/19/16 [History] Ondansetron HCl [Zofran] 4 mg PO TID PRN 11/19/16 [History] ARIPiprazole [Abilify] 1 mg PO DAILY 08/20/18 [History] DULoxetine [Cymbalta] 20 mg PO DAILY 08/20/18 [History] Lidocaine Patch [Lidoderm 5% patch] 1 each TP Q24H adh..patch 09/02/18 [Rx] Multivit/Ca/Min/Fe/FA [Thera M Plus] 1 tab PO DAILY tablet 09/02/18 [Rx] Nystatin POWDER [Nystop] 1 appl TP BID bottle 09/02/18 [Rx] Bumetanide [Bumex] 0.5 mg PO DAILY #15 tablet 09/11/18 [Rx] Insulin Glargine [Lantus] 10 unit SQ HS #0 09/11/18 [Rx] Metoprolol XL (24 HR) Succ [Toprol Xl] 12.5 mg PO DAILY #15 tab.er.24h 09/11/18 [Rx] Oxybutynin Chloride [Ditropan Xl] 10 mg PO DAILY #30 tab.er.24 09/11/18 [Rx] Potassium Chloride 20 meq PO Q6H #56 tab.er.prt 09/11/18 [Rx] LORazepam [Ativan] 1 mg PO BID 09/15/18 [History] Oxybutynin Chloride [Ditropan Xl] 10 mg PO DAILY 09/15/18 [History] Tramadol HCl [Ultram] 50 mg PO QID PRN 09/15/18 [History] Fluconazole [Diflucan] 200 mg PO DAILY 10 Days #10 tablet 09/20/18 [Rx] levoFLOXacin [Levaquin] 500 mg PO DAILY 10 Days #10 tablet 09/20/18 [Rx] Allergies/Adverse Reactions: Allergy/AdvReac Type Severity Reaction Status Date / Time hydrocodone AdvReac Agitated Verified 09/15/18 12:01 hydroxyzine [From Vistaril] AdvReac Agitated Verified 09/15/18 12:01 Oxycodone [From Percocet] AdvReac Agitated Verified 09/15/18 12:01 Date of admission: 09/15/18 18:12 Primary care physician: Quan Ulloa CNP Consults: 09/15/18 16:46 Consult to Orthopedic Surgery [CONS] Routine Consulting Provider: [facility] Reason for Consult: New L1 compression fracture Call Completed: No 09/15/18 17:24 Consult to Urology [CONS] Routine Consulting Provider: Urology Loni Reason for Consult: kidney stones with scheduled lithotripsy Call Completed: No 09/15/18 21:38 Consult to Nutrition [CONS] Routine Comment: Consulting Provider: NUTRITION Reason for Dietary Consult: MST Score Consult to Pastoral Services [CONS] Routine Comment: 09/16/18 12:04 Consult to Physical Therapy [CONS] Routine Comment: Evaluate, develop and implement POC Reason for Consult: Weakness, deconditioning, BMAT 2 Does patient have active BEDREST order?: No Is patient medically & hemodynamically stable?: Yes Patient assessed for mobility or mobilized this visit?: No 09/16/18 12:05 Consult to Occupational Therapy [CONS] Routine Comment: Evaluate, develop and implement POC Reason for Consult: Weakness, deconditioning, BMAT 2 Does patient have active BEDREST order?: No Is patient medically & hemodynamically stable?: Yes Patient assessed for mobility or mobilized this visit?: No 09/16/18 15:29 Consult to Invasive Line Access Team [CONS] Routine Reason for Consult: Limited vascular access for IV ABX Line Type: EPIV 09/17/18 10:49 Consult to Outsole Caser [CONS] Routine Reason for SW Consult: rehab - Constitutional Vitals: Temp Pulse Resp BP Pulse Ox 98.2 F 97 15 106/66 92 09/20/18 06:32 09/20/18 06:32 09/20/18 06:32 09/20/18 06:32 09/20/18 06:32 Exam: Gen - Awake, alert HEENT - NCAT, PERRLA, EOMI, hearing grossly intact, oropharynx benign CV - RRR, normal S1 and S2, no M/R/G, no BLE edema Resp - Normal WOB, CTAB, no W/R/R GI - Soft, NT/ND, no masses, normal bowel sounds, Skin - Warm, dry, no rashes/lesions/ulcers Psych - Normal mood and affect, no depression or anxiety - Patient Status Disposition: Transfer SNF Condition: Good - Discharge Instructions Follow Up With: Raghavendra Girard DO [Partnered Physician] - 10/01/18 9:50 am
[2018-09-20] MEDS: Cefepime HCl 2,000 MG in 0.9 % Sodium Chloride Mini Bag 100 ML IVPB SCH (12:20)
[2018-09-20] MEDS: traMADol 50 MG TABLET PO PRN (13:09)
--- NOTE | 2018-09-20 15:07 | Physician Discharge Referral ---
- Diagnosis (1) Sepsis Priority: Primary Status: Acute (2) UTI (urinary tract infection) Priority: Primary Status: Acute (3) Diabetes Priority: Primary Status: Chronic (4) Hypertension Priority: Primary Status: Acute (5) Lumbar compression fracture Priority: Primary Status: Acute (6) DVT prophylaxis Priority: Primary Status: Acute - Transfer Medications Prescriptions: Fluconazole [Diflucan] 200 mg PO DAILY 10 Days #10 tablet levoFLOXacin [Levaquin] 500 mg PO DAILY 10 Days #10 tablet Home Medications: Albuterol Sulfate [Ventolin Hfa] 1 - 2 puff IH Q4-6H PRN 11/19/16 [History] Fluticasone Propionate Nasal [Flonase] 50 mcg NS DAILY 11/19/16 [History] Ondansetron HCl [Zofran] 4 mg PO TID PRN 11/19/16 [History] ARIPiprazole [Abilify] 1 mg PO DAILY 08/20/18 [History] DULoxetine [Cymbalta] 20 mg PO DAILY 08/20/18 [History] Lidocaine Patch [Lidoderm 5% patch] 1 each TP Q24H adh..patch 09/02/18 [Rx] Multivit/Ca/Min/Fe/FA [Thera M Plus] 1 tab PO DAILY tablet 09/02/18 [Rx] Nystatin POWDER [Nystop] 1 appl TP BID bottle 09/02/18 [Rx] Bumetanide [Bumex] 0.5 mg PO DAILY #15 tablet 09/11/18 [Rx] Insulin Glargine [Lantus] 10 unit SQ HS #0 09/11/18 [Rx] Metoprolol XL (24 HR) Succ [Toprol Xl] 12.5 mg PO DAILY #15 tab.er.24h 09/11/18 [Rx] Oxybutynin Chloride [Ditropan Xl] 10 mg PO DAILY #30 tab.er.24 09/11/18 [Rx] Potassium Chloride 20 meq PO Q6H #56 tab.er.prt 09/11/18 [Rx] LORazepam [Ativan] 1 mg PO BID 09/15/18 [History] Oxybutynin Chloride [Ditropan Xl] 10 mg PO DAILY 09/15/18 [History] Tramadol HCl [Ultram] 50 mg PO QID PRN 09/15/18 [History] Fluconazole [Diflucan] 200 mg PO DAILY 10 Days #10 tablet 09/20/18 [Rx] levoFLOXacin [Levaquin] 500 mg PO DAILY 10 Days #10 tablet 09/20/18 [Rx] Allergies/Adverse Reactions: Allergy/AdvReac Type Severity Reaction Status Date / Time hydrocodone AdvReac Agitated Verified 09/15/18 12:01 hydroxyzine [From Vistaril] AdvReac Agitated Verified 09/15/18 12:01 Oxycodone [From Percocet] AdvReac Agitated Verified 09/15/18 12:01 - Respiratory Orders Smoking Cessation: Smoking cessation has been advised. For more information, call the [place] Tobacco Quit Line at 9-090-HYIXNOW. - Mobility Orders Ambulate - Diet Orders Cardiac CERTIFICATION: I certify that the transfer of the above named patient to an Extended Care Facility is necessary for the continuing treatment of the diagnosis listed. The above information is true and accurate reflection of patient's current condition. Confidential - Redisclosure prohibited without a patient's written consent.
[2018-09-20] MEDS: Insulin DETEMIR 100 UNIT/ML X5UNITS SQ SCH (21:20)
[2018-09-21] MEDS: traMADol 50 MG TABLET PO PRN ×2 (00:29→14:18)
[2018-09-21] MEDS: Cefepime HCl 2,000 MG in 0.9 % Sodium Chloride Mini Bag 100 ML IVPB SCH (00:33)
[2018-09-21] MEDS: *HR* Heparin 5,000 UNIT/ML VIAL SQ SCH (06:22)
[2018-09-21] MEDS: Insulin LISPRO 300 UNITS/3 ML VIAL SQ SCH ×3 (08:10→18:50)
--- NOTE | 2018-09-21 09:13 | Event Note ---
Date of Encounter: 09/21/18 Time of Encounter: 09:08 I have seen and evaluated the patient at bedside. Patient reports doing well. Denies acute distress. Physical exam General: Alert and oriented x2. In no acute distress. Skin:Normal color, no rash, no lesions. HEENT: EOM, pupils equal, round and reactive. Cardiovascular: RRR, Normal S1 & S2, no rubs, murmurs or gallops. No JVD. Pulse regular. Lungs: Clear to auscultation bilaterally, no wheezes or crackles. Abdomen: Obese, Soft, non-tender, no rigidity. NABS in all 4 quadrants. Extremities: No deformity, no edema or tenderness, no joint swelling or clubbing. Neurological: Normal cognition and motor skills. Rest of the physical exam is non contributory Assessment and Plan: 1. UTI 2. T2DM 3. HTN 4. Lumbar compression fracture 5. VTE prophylaxis Plan Patien discharged. DC summary dictated yesterday pending placement to SNF/ECF. WIll be discharge on levofloxacin plus diflucan to complete 10 days of treatment.
[2018-09-21] MEDS ORDERED: levoFLOXacin 500 MG TABLET PO SCH (09:15)
[2018-09-21] MEDS: Metoprolol XL (24 HR) Succ 25 MG TAB.ER.24H PO SCH (09:53)
[2018-09-21] MEDS: Multivit/Ca/Min/Fe/FA 1 TAB TABLET PO SCH (09:53)
[2018-09-21] MEDS: Fluconazole 100 MG TABLET PO SCH (09:53)
[2018-09-21] MEDS: *HR* LORazepam 1 MG TABLET PO SCH (09:53)
[2018-09-21] MEDS: ARIPiprazole 2 MG TABLET PO SCH (09:54)
[2018-09-21] MEDS: Fluticasone Propionate Nasal 50 MCG/SPRAY BOTTLE NS SCH (09:56)
[2018-09-21] MEDS: Nystatin POWDER 30 GM BOTTLE TP SCH (09:57)
[2018-09-21 17:35] LABS: Hematocrit 36.4 % (35.3-44.9); Hemoglobin 11.6 g/dL (11.5-15.4); Mean Corpuscular HGB Conc 31.9 g/dL (31.6-35.5); Mean Corpuscular Hemoglobin 30.2 pg (28.0-33.3); Mean Corpuscular Volume 94.8 fL (83.0-100.0); Mean Platelet Volume 9.1 fL (9.4-12.4); Platelet Count 155 K/mcL (140-400); Red Blood Count 3.84 M/mcL (3.82-4.97); Red Cell Distribution Width 17.2 % (11.5-14.5)
[2018-09-21 17:38] LABS: BUN/Creatinine Ratio 17 (6-26); Blood Urea Nitrogen 12 mg/dL (8-23); Calcium 8.9 mg/dL (8.6-10.3); Carbon Dioxide 29 mEq/L (23-29); Chloride 101 mEq/L (98-107); Glucose 151 mg/dL (70-105); Magnesium 1.8 mg/dL (1.6-2.6); Osmolality,Calculated 285 (280-300); Phosphorous 2.8 mg/dL (2.7-4.5); Sodium 136 mEq/L (136-145); eGFR For Non-African Americans > 60 (> 60)
[2018-09-21 19:04] VITALS: BP 120/78
== END 2018-09-21 20:00 | DRG 871 ==
LOC: 3ANU 11:36 → EMEROOARM 11:36 → SUATTDRO 18:12 → 3ANU 18:15
PROVIDERS: ADMIT Internal Medicine; ATTEND Internal Medicine

== ENCOUNTER 2018-11-24 21:25 | Inpatient (IN) ==
[2018-11-25] MEDS ORDERED: Naloxone 0.4 MG/ML INJ IVP PRN (00:05)
[2018-11-25 00:32] LABS: Basophils # 0.2 K/mcL (0.0-0.2); Basophils % 0.9 %; Eosinophils # 0.5 K/mcL (0.0-0.6); Eosinophils % 2.4 %; Hematocrit 40.5 % (35.3-44.9); Hemoglobin 13.9 g/dL (11.5-15.4); Immature Granulocytes % 1.6 % (0-4); Lymphocytes # 2.6 K/mcL (0.6-4.6); Lymphocytes % 11.7 %; Mean Corpuscular HGB Conc 34.3 g/dL (31.6-35.5); Mean Corpuscular Hemoglobin 30.5 pg (28.0-33.3); Mean Corpuscular Volume 88.8 fL (83.0-100.0); Mean Platelet Volume 9.4 fL (9.4-12.4); Monocytes # 2.4 K/mcL (0.0-1.3); Monocytes % 10.9 %; Neutrophils # 15.9 K/mcL (1.6-8.9); Platelet Count 246 K/mcL (140-400); Red Blood Count 4.56 M/mcL (3.82-4.97); Red Cell Distribution Width 15.5 % (11.5-14.5); Segmented Neutrophils % 72.5 %
--- NOTE | 2018-11-25 00:44 | Internal Med History&Physical ---
<EverluzAnderson N - Last Filed: 11/25/18 01:44> Date of Encounter: 11/25/18 Time of Encounter: 11:50 Internal Medicine - H&P: HPI Chief complaint: abdominal pain, diarrhea, fever Admitted From: Emergency Dept History of present illness: Ms. Reynoso is a 63 year old female with a past medical history of ureteral stones with pending lithotripsy and history of UTIs requiring hospitalization and inpatient antibiotic therapy presenting from [facility] emergenc department for a chief complaint of diarrhea, fever, nausea, and abdominal pain. Patient is confused and can not describe history of events accurately. Majority of history was collected from [facility] ED records. Patient reportedly experienced 3-4 days of diarrhea and fever. She has associated RLQ pain that is worse with palpation and episodes of emesis. She describes her diarrhea as large volume and uncontrollable. On presentation to the emergency department the patient was confused and tachycardic. Labs at [facility] ED revealed an elevated WBC count of 20.5 with elevated neutrophils and bands. She also had significant hypokalemia with a potassium of 2.8 and a lactic acid elevation of 2.8 as well. Her urinalysis showed moderate leukocyte esterase and blood, but no nitrites. She received 1.5L fluid bolus, potassium supplementation, and 2g rocephin. She experienced a bowel movement while in the emergency department and a sample was sent for testing and was positive for C. diff. She was given vancomycin 125mg PO prior to transfer to [facility]. On arrival she is still confused but oriented X 3. She is tachycardic, however otherwise hemodynamically stable. Complains of LLQ abdominal pain worse with palpation. Past Med Surg Social Fam HX - Past Medical History Medical history: asthma, coronary artery disease, diabetes, fibromyalgia, hyperlipidemia, hypertension, kidney stones, other Psychiatric history: anxiety, depression - Past Surgical History Surgical History: appendectomy, cholecystectomy, hip replacement, hysterectomy, other Additional surgical history: [facility] - Social History Smoking Status: Never smoker Smokeless Tobacco Status: No Alcohol use: none Drug use: none - Family History Father Living Status: Hx Family Endocrine Disorder: Yes (DM) Mother Living Status: Hx Family Cancer: Yes (Pancreatic) Internal Medicine - H&P: Meds RX: Albuterol Sulfate [Ventolin Hfa] 1 - 2 puff IH Q4-6H PRN 11/19/16 [History] RX: Ondansetron HCl [Zofran] 4 mg PO TID PRN 11/19/16 [History] RX: ARIPiprazole [Abilify] 1 mg PO DAILY 08/20/18 [History] RX: DULoxetine [Cymbalta] 20 mg PO DAILY 08/20/18 [History] RX: Multivit/Ca/Min/Fe/FA [Thera M Plus] 1 tab PO DAILY tablet 09/02/18 [Rx] RX: Nystatin POWDER [Nystop] 1 appl TP BID bottle 09/02/18 [Rx] RX: Insulin Glargine [Lantus] 10 unit SQ HS #0 09/11/18 [Rx] RX: Metoprolol XL (24 HR) Succ [Toprol Xl] 12.5 mg PO DAILY #15 tab.er.24h 09/11/18 [Rx] RX: Potassium Chloride 10 meq PO DAILY 365 Days tab.er.prt 09/30/18 [Rx] RX: Rifaximin [Xifaxan] 550 mg PO BID 365 Days tablet 09/30/18 [Rx] Allergy/AdvReac Type Severity Reaction Status Date / Time hydrocodone AdvReac Agitated Verified 09/15/18 12:01 hydroxyzine [From Vistaril] AdvReac Agitated Verified 09/15/18 12:01 oxycodone [From Percocet] AdvReac Agitated Verified 09/15/18 12:01 ROS unobtainable: due to mental status All Systems PM: A 10-system review of systems was performed and is negative for pertinent findings except as documented above in the HPI. - Constitutional Vitals: Temp Pulse Resp BP Pulse Ox 98.1 F 108 15 127/74 95 11/24/18 23:29 11/24/18 23:29 11/24/18 23:29 11/24/18 23:29 11/24/18 23:29 Exam: Constitutional: confused, oriented X 3 however can not answer all questions, no acute distress, not ill appearing HEENT: Head is atraumatic and normocephalic. Extraocular muscles intact. Oropharynx is dry. External ears and nares patent. Neck: no jvd, trachea midline Chest: symmetrical chest wall rise, no tenderness to palpation Cardiovascular: tachycardic, regular rhythm, no murmurs Respiratory: clear to auscultation bilaterally, no rales ronchi or wheezing Abdomen: significant tenderness, worse in epigastric and LLQ. Mild guarding present. Hyperactive bowel sounds Extremities: no cyanosis clubbing or edema Neurologic: oriented X 3, however markedly confused Skin: rash infuinal folds Internal Med - H&P Results - Labs CBC & Chem 7: 11/25/18 00:18 11/25/18 00:18 - Assessment and plan (1) C. difficile enteritis Current Visit: Yes Status: Acute Assessment and plan: Patient with a history of multiple UTIs requiring antibiotic therapy. Most recently admitted to [facility] in september 2018. Presents from [facility] with fevers, nausea, abdominal pain, hypokalemia, leukocytosis, and positive C. diff screen. -Patient received 2g Rocephin and oral vancomycin at [facility] -Currently tachycardic and appears dehydrated, but no fevers and is normotensive -Continue oral vancomycin 125mg PO QID -Motrin for fever control, avoiding tylenol due to reported history of cirrhosis -Repeat BMP and replete potassium as needed -Fluid hydrate with normal saline (2) Altered mental status Current Visit: Yes Status: Acute Assessment and plan: -likely secondary to metabolic encephalopathy from current illness -Unknown baseline mental status -Will continue to monitor while treating her underlying infection -History of hepatic encephalopathy, will obtain ammonia level Qualifiers: Qualified Code(s): R41.82 - Altered mental status, unspecified (3) Hypokalemia Current Visit: No Status: Acute Assessment and plan: -initial potassium 2.8 -Received supplementation at [facility] -Will repeat and replete as needed (4) Cirrhosis Current Visit: No Status: Chronic Assessment and plan: -History of cirrhosis -Patient is confused on presentation today -Obtain ammonia level -Continue home dose rifaximin after medication reconciliation Qualifiers: Hepatic cirrhosis type: unspecified hepatic cirrhosis Ascites presence: without ascites Qualified Code(s): K74.60 - Unspecified cirrhosis of liver (5) Lisa rash of groin Current Visit: Yes Status: Acute Assessment and plan: Continue home dose nystatin powder (6) Diabetes Current Visit: No Status: Chronic Assessment and plan: low dose SSI Qualifiers: Diabetes mellitus type: type 2 Diabetes mellitus middle or intermediate school principal insulin use: without middle or intermediate school principal use Diabetes mellitus complication status: with unspecified complications Qualified Code(s): E11.8 - Type 2 diabetes mellitus with unspecified complications (7) DVT prophylaxis Current Visit: Yes Status: Acute Assessment and plan: Heparin SubQ 5000u Q12 Hours - Time Spent With Patient Total time spent is greater than 50% in coordination of care (as documented) at patient's floor/unit and/or counseling patient: Rell Alberts - Last Filed: 11/25/18 03:42> Date of Encounter: 11/25/18 All Systems PM: A 10-system review of systems was performed and is negative for pertinent findings except as documented above in the HPI. - Constitutional Vitals: Temp Pulse Resp BP Pulse Ox 98.1 F 108 15 127/74 95 11/24/18 23:29 11/24/18 23:29 11/24/18 23:29 11/24/18 23:29 11/24/18 23:29 Internal Med - H&P Results - Labs CBC & Chem 7: 11/25/18 00:18 11/25/18 00:18 Labs: Short CBC 11/25/18 Range/Units 00:18 WBC 21.9 H (4.3-11.1) K/mcL Hgb 13.9 (11.5-15.4) g/dL Hct 40.5 (35.3-44.9) % Plt Count 246 (140-400) K/mcL Neutrophils # 15.9 H (1.6-8.9) K/mcL BMP 11/25/18 00:18 Sodium 135 L Potassium 2.9 L Chloride 102 Carbon Dioxide 23 BUN 15 Creatinine 0.67 Glucose 115 H Calcium 8.3 L Liver Function 11/25/18 Range/Units 00:18 Total Bilirubin 0.6 (0.3-1.0) mg/dL Direct Bilirubin 0.2 (0.0-0.2) mg/dL AST 38 (13-39) Units/L ALT 19 (7-52) Units/L Alkaline Phosphatase 156 H (34-104) Units/L Albumin 2.4 L (3.5-5.7) g/dL Urine 11/25/18 Range/Units 01:31 Urine Color Brown (Yellow) Urine Clarity Turbid A (Clear) Urine pH 6.5 (5.0-8.0) pH Units Ur Specific Dola 1.025 (1.010-1.025) Urine Protein 100 H (Neg-Trace) mg/dL Urine Glucose (UA) Normal (Normal) mg/dL - Time Spent With Patient Total time spent is greater than 50% in coordination of care (as documented) at patient's floor/unit and/or counseling patient: - Attending Attestation I performed a history and physical exam of the patient and discussed management with the resident. I reviewed the resident's note and agree with the documented findings and plan of care. Isabella Reynoso is a 63-year-old [facility] resident who has had multiple of sepsis due to urinary tract infections with frequent courses of antibiotics who presents on transfer from [facility] where she presented with nausea, vomiting and profuse watery diarrhea. She was found to have a lactate of 2.8 and potassium of 2.8. They were initially concerned with another UTI so she was given a dose of IV antibiotics. Due to concern for a septic state she was transferred here for further care. C. difficile testing was done and found positive. On exam she has pale skin and mu cous membranes but she is in no acute distress. There is concern for somewhat of a confusional state however she is AAO 3 at this moment. Psych affect is appropriate. We will place her on oral vancomycin and supplement electrolytes accordingly. Fluid resuscitation is needed for her dehydrated state. LAWRENCE ALEGRIA.
[2018-11-25 00:50] LABS: Alanine Aminotransferase 19 Units/L (7-52); Albumin 2.4 g/dL (3.5-5.7); Albumin/Globulin Ratio 0.8 (1.1-2.2); Alkaline Phosphatase 156 Units/L (34-104); Aspartate Amino Transferase 38 Units/L (13-39); BUN/Creatinine Ratio 22 (6-26); Bilirubin,Direct 0.2 mg/dL (0.0-0.2); Bilirubin,Indirect 0.4 mg/dL (0.0-1.2); Bilirubin,Total 0.6 mg/dL (0.3-1.0); Blood Urea Nitrogen 15 mg/dL (8-23); Calcium 8.3 mg/dL (8.6-10.3); Carbon Dioxide 23 mEq/L (23-29); Chloride 102 mEq/L (98-107); Globulin 3.2 g/dL (2.4-3.5); Glucose 115 mg/dL (70-105); Osmolality,Calculated 282 (280-300); Potassium 2.9 mEq/L (3.5-5.1); Sodium 135 mEq/L (136-145); Total Protein 5.6 g/dL (6.4-8.9); eGFR For Non-African Americans > 60 (> 60)
[2018-11-25] MEDS ORDERED: Ibuprofen 400 MG TABLET PO PRN (00:55)
[2018-11-25] MEDS ORDERED: Dextrose Gel 15 GM/37.5 ML TUBE PO PRN ×2 (01:01)
[2018-11-25] MEDS ORDERED: D5% in Water 1,000 ML IVC PRN (01:01)
[2018-11-25] MEDS ORDERED: *HR* Dextrose 50 % in Water (Syg) 50 ML SYRINGE IVP PRN (01:01)
[2018-11-25] MEDS ORDERED: Ondansetron ODT 4 MG TAB.RAPDIS SL PRN (01:03)
[2018-11-25 01:48] LABS: Bilirubin,Urine Negative (Negative); Blood,Urine Large (Negative); Clarity,Urine Turbid (Clear); Color,Urine Brown (Yellow); Glucose,Urine (UA) Normal (Normal); Ketones,Urine Negative (Negative); Leukocyte Esterase,Urine Moderate (Negative); Nitrite,Urine Negative (Negative); PH,Urine 6.5 pH Units (5.0-8.0); Protein,Urine 100 mg/dL (Neg-Trace); Specific Gravity,Urine 1.025 (1.010-1.025); Urobilinogen,Urine Normal (Normal)
[2018-11-25] MEDS ORDERED: Vancomycin Oral Soln 125 MG/2.5 ML UDC PO SCH (02:00)
[2018-11-25] MEDS ORDERED: Ringers Solution, Lactated 1,000 ML IVC SCH (02:00)
[2018-11-25] MEDS: 0.9 % Sodium Chloride w KCl 40 MEQ/1,000 ML MLS IVC SCH ×2 (02:40→09:58)
[2018-11-25] MEDS: *HR* Heparin 5,000 UNIT/ML VIAL SQ SCH ×2 (05:27→18:06)
[2018-11-25 08:15] LABS: BUN/Creatinine Ratio 23 (6-26); Blood Urea Nitrogen 15 mg/dL (8-23); Calcium 8.4 mg/dL (8.6-10.3); Carbon Dioxide 21 mEq/L (23-29); Chloride 107 mEq/L (98-107); Glucose 100 mg/dL (70-105); Magnesium 1.8 mg/dL (1.6-2.6); Osmolality,Calculated 285 (280-300); Potassium 3.7 mEq/L (3.5-5.1); Sodium 137 mEq/L (136-145); eGFR For Non-African Americans > 60 (> 60)
[2018-11-25] MEDS: Vancomycin Oral Soln 125 MG/2.5 ML UDC PO SCH ×4 (09:42→21:08)
[2018-11-25] MEDS: Insulin LISPRO 300 UNITS/3 ML VIAL SQ SCH ×3 (09:43→17:03)
[2018-11-25] MEDS: Nystatin POWDER 30 GM BOTTLE TP SCH ×3 (09:43→21:28)
--- NOTE | 2018-11-25 14:06 | Internal Med Progress Note ---
<LovingLam Lex - Last Filed: 11/25/18 15:52> Hospitalist Progress Note - Encounter Date of Encounter: 11/25/18 Time of Encounter: 09:50 - Subjective Interval History: Upon entering the room patient is lying in bed eating breakfast. Patient is alert and answers questions but frequently adds erroneous information. Patient states she has had some nausea but denies emesis. She admits diarrhea but denies fever, chills, hematuria, dysuria, hematochezia. Patient states her epigastric and LLQ abdominal pain has improved but is still present - Exam Vitals: Temp Pulse Resp BP Pulse Ox 97.6 F 125 16 135/84 96 11/25/18 11:52 11/25/18 11:52 11/25/18 11:52 11/25/18 11:52 11/25/18 11:52 Exam: Constitutional: NAD oriented X 3, confused and often goes off on tangents no pertinent to question being asked HEENT: Head is atraumatic, normocephalic. EOMI. moist mucus membranes, no conjuctival pallor. External ears and nares patent. Neck: no jvd, trachea midline Cardiovascular: tachycardic, regular rhythm, S1/S2 present, no murmurs, rubs, gallops Respiratory: CTA B/L, no rhonchi, rales, wheezing, symmetric expansion, good air entry Abdomen: mild to moderate tenderness in epigastric and LLQ. No guarding. Hyperactive bowel sounds Extremities: no cyanosis clubbing or edema Neurologic: oriented X 3, confused, no facial droop, symmetrical B/L UE's and LE's strength Psych: Normal mood and affect - Assessment and Plan (1) C. difficile enteritis Current Visit: Yes Status: Acute Assessment and Plan: Patient with a history of multiple UTIs requiring antibiotic therapy. Most recently admitted to [facility] in september 2018. Presents from [facility] with fevers, nausea, abdominal pain, hypokalemia, leukocytosis, and positive C. diff screen. -Patient received 2g Rocephin and oral vancomycin at [facility] -Currently tachycardic and appears dehydrated, no fevers -Continue oral vancomycin 125mg PO QID -Motrin for fever control, avoiding tylenol due to reported history of cirrhosis -Repeat BMP and replete electrolytes as needed -Fluid hydrate as needed (2) Altered mental status Current Visit: Yes Status: Acute Assessment and Plan: -likely secondary due to infection -Unknown baseline mental status -Will continue to monitor while treating her underlying infection -History of hepatic encephalopathy, current ammonia 50 (3) Hypokalemia Current Visit: No Status: Acute Assessment and Plan: -Resolved potassium 3.7 -Will repeat labs and replete as needed (4) Cirrhosis Current Visit: No Status: Chronic Assessment and Plan: -History of cirrhosis -Patient is confused -Ammonia 50 -continue to monitor (5) Lisa rash of groin Current Visit: Yes Status: Acute Assessment and Plan: continue nystatin and monitor (6) Diabetes Current Visit: No Status: Chronic Assessment and Plan: continue SSI and monitor (7) DVT prophylaxis Current Visit: Yes Status: Acute Assessment and Plan: SubQ heparin - Time Spent with Patient Total time spent is greater than 50% in coordination of care (as documented) at patient's floor/unit and/or counseling patient: Internal Medicine: Result - Labs CBC & Chem 7: 11/25/18 00:18 11/25/18 07:11 Labs: Short CBC 11/25/18 Range/Units 00:18 WBC 21.9 H (4.3-11.1) K/mcL Hgb 13.9 (11.5-15.4) g/dL Hct 40.5 (35.3-44.9) % Plt Count 246 (140-400) K/mcL Neutrophils # 15.9 H (1.6-8.9) K/mcL BMP 11/25/18 11/25/18 00:18 07:11 Sodium 135 L 137 Potassium 2.9 L 3.7 D Chloride 102 107 Carbon Dioxide 23 21 L BUN 15 15 Creatinine 0.67 0.64 Glucose 115 H 100 Calcium 8.3 L 8.4 L Liver Function 11/25/18 Range/Units 00:18 Total Bilirubin 0.6 (0.3-1.0) mg/dL Direct Bilirubin 0.2 (0.0-0.2) mg/dL AST 38 (13-39) Units/L ALT 19 (7-52) Units/L Alkaline Phosphatase 156 H (34-104) Units/L Albumin 2.4 L (3.5-5.7) g/dL Urine 11/25/18 Range/Units 01:31 Urine Color Brown (Yellow) Urine Clarity Turbid A (Clear) Urine pH 6.5 (5.0-8.0) pH Units Ur Specific [place] 1.025 (1.010-1.025) Urine Protein 100 H (Neg-Trace) mg/dL Urine Glucose (UA) Normal (Normal) mg/dL Consult Discharge Plan - Plan Referrals: NONE,PCP [Primary Care Provider] - <Ean Sawyer - Last Filed: 11/25/18 18:44> Hospitalist Progress Note - Encounter Date of Encounter: 11/25/18 - Exam Vitals: Temp Pulse Resp BP Pulse Ox 97.7 F 126 14 134/82 95 11/25/18 14:56 11/25/18 14:56 11/25/18 14:56 11/25/18 14:56 11/25/18 14:56 - Time Spent with Patient Total time spent is greater than 50% in coordination of care (as documented) at patient's floor/unit and/or counseling patient: Internal Medicine: Result - Labs CBC & Chem 7: 11/25/18 00:18 11/25/18 07:11 Labs: Short CBC 11/25/18 Range/Units 00:18 WBC 21.9 H (4.3-11.1) K/mcL Hgb 13.9 (11.5-15.4) g/dL Hct 40.5 (35.3-44.9) % Plt Count 246 (140-400) K/mcL Neutrophils # 15.9 H (1.6-8.9) K/mcL BMP 11/25/18 11/25/18 00:18 07:11 Sodium 135 L 137 Potassium 2.9 L 3.7 D Chloride 102 107 Carbon Dioxide 23 21 L BUN 15 15 Creatinine 0.67 0.64 Glucose 115 H 100 Calcium 8.3 L 8.4 L Liver Function 11/25/18 Range/Units 00:18 Total Bilirubin 0.6 (0.3-1.0) mg/dL Direct Bilirubin 0.2 (0.0-0.2) mg/dL AST 38 (13-39) Units/L ALT 19 (7-52) Units/L Alkaline Phosphatase 156 H (34-104) Units/L Albumin 2.4 L (3.5-5.7) g/dL Urine 11/25/18 Range/Units 01:31 Urine Color Brown (Yellow) Urine Clarity Turbid A (Clear) Urine pH 6.5 (5.0-8.0) pH Units Ur Specific [place] 1.025 (1.010-1.025) Urine Protein 100 H (Neg-Trace) mg/dL Urine Glucose (UA) Normal (Normal) mg/dL - Attending Attestation Pt was admitted earlier this AM for acute C diff colitis. She remains dehydr ated to a degree with some lower abdominal pain. Exam alert Comfortable currently Agree with assessment and plan as above and in H&P <Lam Loving - Last Filed: 11/25/18 15:52> (2) Altered mental status Qualifiers: Qualified Code(s): R41.82 - Altered mental status, unspecified (4) Cirrhosis Qualifiers: Hepatic cirrhosis type: unspecified hepatic cirrhosis Ascites presence: without ascites Qualified Code(s): K74.60 - Unspecified cirrhosis of liver (6) Diabetes Qualifiers: Diabetes mellitus type: type 2 Diabetes mellitus senior living insulin use: without termination clerk use Diabetes mellitus complication status: with unspecified complications Qualified Code(s): E11.8 - Type 2 diabetes mellitus with unspecified complications
[2018-11-25] MEDS ORDERED: *HR* LORazepam 1 MG TABLET PO ONE (15:18)
[2018-11-25] MEDS: ARIPiprazole 5 MG TABLET PO SCH (16:13)
[2018-11-25] MEDS: Metoprolol XL (24 HR) Succ 25 MG TAB.ER.24H PO SCH (16:14)
[2018-11-25] MEDS: Ringers Solution, Lactated 1,000 ML IVC SCH (16:19)
[2018-11-25] MEDS ORDERED: *HR* LORazepam 1 MG TABLET PO SCH (21:00)
[2018-11-25] MEDS ORDERED: ARIPiprazole 5 MG TABLET PO SCH (21:00)
[2018-11-25] MEDS: *HR* LORazepam 1 MG TABLET PO SCH (21:21)
[2018-11-26] MEDS: Ringers Solution, Lactated 1,000 ML IVC SCH ×3 (02:19→22:32)
[2018-11-26 04:40] LABS: Basophils % 0.2 %; Eosinophils % 5.7 %; Hematocrit 36.2 % (35.3-44.9); Hemoglobin 12.5 g/dL (11.5-15.4); Immature Granulocytes % 3.6 % (0-4); Lymphocytes % 17.3 %; Mean Corpuscular HGB Conc 34.5 g/dL (31.6-35.5); Mean Corpuscular Hemoglobin 30.7 pg (28.0-33.3); Mean Corpuscular Volume 88.9 fL (83.0-100.0); Mean Platelet Volume 9.3 fL (9.4-12.4); Monocytes # 1.5 K/mcL (0.0-1.3); Monocytes % 8.6 %; Neutrophils # 11.2 K/mcL (1.6-8.9); Platelet Count 257 K/mcL (140-400); Red Blood Count 4.07 M/mcL (3.82-4.97); Red Cell Distribution Width 15.5 % (11.5-14.5); Segmented Neutrophils % 64.6 %
[2018-11-26 04:43] LABS: Alanine Aminotransferase 20 Units/L (7-52); Albumin 2.3 g/dL (3.5-5.7); Albumin/Globulin Ratio 0.8 (1.1-2.2); Alkaline Phosphatase 150 Units/L (34-104); Aspartate Amino Transferase 39 Units/L (13-39); BUN/Creatinine Ratio 22 (6-26); Bilirubin,Total 0.6 mg/dL (0.3-1.0); Blood Urea Nitrogen 14 mg/dL (8-23); Calcium 8.2 mg/dL (8.6-10.3); Carbon Dioxide 23 mEq/L (23-29); Chloride 108 mEq/L (98-107); Glucose 112 mg/dL (70-105); Osmolality,Calculated 287 (280-300); Potassium 2.8 mEq/L (3.5-5.1); Sodium 138 mEq/L (136-145); Total Protein 5.3 g/dL (6.4-8.9); eGFR For Non-African Americans > 60 (> 60)
[2018-11-26 06:16] LABS: Anisocytosis 1+ (Not Present); Platelet Estimate Normal (Normal)
[2018-11-26] MEDS: *HR* Heparin 5,000 UNIT/ML VIAL SQ SCH ×2 (06:45→17:08)
[2018-11-26] MEDS: ARIPiprazole 5 MG TABLET PO SCH (07:59)
[2018-11-26] MEDS: Nystatin POWDER 30 GM BOTTLE TP SCH ×2 (07:59→12:32)
[2018-11-26] MEDS: Vancomycin Oral Soln 125 MG/2.5 ML UDC PO SCH ×4 (07:59→21:21)
[2018-11-26] MEDS: Metoprolol XL (24 HR) Succ 25 MG TAB.ER.24H PO SCH (07:59)
[2018-11-26] MEDS: *HR* LORazepam 1 MG TABLET PO SCH ×2 (07:59→22:32)
[2018-11-26] MEDS: Insulin LISPRO 300 UNITS/3 ML VIAL SQ SCH ×3 (08:26→16:55)
[2018-11-26] MEDS ORDERED: Potassium Chloride Elixir 20 MEQ/15 ML UDC PO ONE (09:16)
--- NOTE | 2018-11-26 11:39 | Internal Med Progress Note ---
<Ean Sawyer - Last Filed: 11/26/18 13:41> Hospitalist Progress Note - Encounter Date of Encounter: 11/26/18 - Exam Vitals: Temp Pulse Resp BP Pulse Ox 97.2 F L 112 14 138/70 98 11/26/18 11:14 11/26/18 11:14 11/26/18 11:14 11/26/18 11:14 11/26/18 11:14 - Assessment and Plan (1) C. difficile enteritis Current Visit: Yes Status: Acute (2) Hypokalemia Current Visit: No Status: Acute (3) Cirrhosis Current Visit: No Status: Chronic (4) Diabetes Current Visit: No Status: Chronic (5) Hypertension Current Visit: No Status: Chronic (6) Acute metabolic encephalopathy Current Visit: Yes Status: Acute - Time Spent with Patient Total time spent is greater than 50% in coordination of care (as documented) at patient's floor/unit and/or counseling patient: Internal Medicine: Result - Labs CBC & Chem 7: 11/26/18 04:04 11/26/18 04:04 Labs: Short CBC 11/26/18 Range/Units 04:04 WBC 17.4 H (4.3-11.1) K/mcL Hgb 12.5 (11.5-15.4) g/dL Hct 36.2 (35.3-44.9) % Plt Count 257 (140-400) K/mcL Neutrophils # 11.2 H (1.6-8.9) K/mcL BMP 11/26/18 04:04 Sodium 138 Potassium 2.8 L Chloride 108 H Carbon Dioxide 23 BUN 14 Creatinine 0.63 Glucose 112 H Calcium 8.2 L Liver Function 11/26/18 Range/Units 04:04 Total Bilirubin 0.6 (0.3-1.0) mg/dL AST 39 (13-39) Units/L ALT 20 (7-52) Units/L Alkaline Phosphatase 150 H (34-104) Units/L Albumin 2.3 L (3.5-5.7) g/dL Consult Discharge Plan - Plan Referrals: NONE,PCP [Primary Care Provider] - - Attending Attestation The history, physical exam, and medical decision making was performed by the medical student either while I was physically present and actively involved or I personally re-performed the exam and medical decision making. I have verified the accuracy of the medical student's documentation with regards to the history, physical exam findings, and medical decision making on 11/26/18. Ms Reynoso is currently admitted for acute C diff colitis with dehydration. She remains moderate to high risk due to potential for worsening clinical status. Ms Reynoso is up in chair. She is confused today. No CP or SOB. Still has diarrhea. No fever or chills. Exam alert Appears comfortable Normocephalic Mucus membranes dry Neck supple Heart tachy and regular No wheeze No peritoneal signs Moves all extremities Pulses palpable I/P 1. Acute C diff colitis - currently on PO Vanc. Still with diarrhea. Receiving fluids. 2. Dehydration - continue fluid today 3. Hypokalemia - persists. Replace 4. acute metabolic encephalopathy - continue supportive care 5. DM - continue monitor blood sugar 6. Cirrhosis - resume home meds. Further diagnoses and plan as above. <Lam Loving - Last Filed: 11/26/18 14:17> Hospitalist Progress Note - Encounter Date of Encounter: 11/26/18 Time of Encounter: 10:00 - Subjective Interval History: Upon entering the room patient is lying in bed. Patient is alert only to person and is confused. Patient states she has had some nausea but denies emesis. She admits diarrhea but denies fever, chills, hematuria, dysuria, hematochezia. Patient admits improved epigastric and LLQ pain - Exam Vitals: Temp Pulse Resp BP Pulse Ox 97.2 F L 112 14 138/70 98 11/26/18 11:14 11/26/18 11:14 11/26/18 11:14 11/26/18 11:14 11/26/18 11:14 Exam: Constitutional: NAD oriented only to person, confused HEENT: Head is atraumatic, normocephalic. EOMI. moist mucus membranes, no conj uctival pallor. External ears and nares patent. Neck: no jvd, trachea midline Cardiovascular: tachycardic, regular rhythm, S1/S2 present, no murmurs, rubs, gallops Respiratory: CTA B/L, no rhonchi, rales, wheezing, symmetric expansion, good air entry Abdomen: mild to moderate tenderness in epigastric and LLQ. No guarding. +bowel sounds Extremities: no cyanosis clubbing or edema Neurologic: oriented X 1, confused, no facial droop, symmetrical B/L UE's and LE's strength Psych: Normal mood and affect - Assessment and Plan (1) C. difficile enteritis Current Visit: Yes Status: Acute Assessment and Plan: Patient with a history of multiple UTIs requiring antibiotic therapy. Most recently admitted to [facility] in september 2018. Presents from [facility] with fevers, nausea, abdominal pain, hypokalemia, leukocytosis, and positive C. diff screen. -Patient received 2g Rocephin and oral vancomycin at [facility] -Currently tachycardic, receiving 100ml/hr infusion of LR's -Continue oral vancomycin 125mg PO QID -Motrin for fever control, avoiding tylenol due to reported history of cirrhosis -Repeat BMP and replete electrolytes as needed -Fluid hydrate as needed (2) Altered mental status Current Visit: Yes Status: Acute Assessment and Plan: -likely secondary due to infection -Unknown baseline mental status -Will continue to monitor while treating her underlying infection -History of hepatic encephalopathy, ammonia 50 on 11/25 (3) Hypokalemia Current Visit: No Status: Acute Assessment and Plan: -Potassium 2.8, given potassium chloride 40 meq PO one time -Will repeat labs and replete as needed (4) Cirrhosis Current Visit: No Status: Chronic Assessment and Plan: -History of cirrhosis -Patient is more confused today than on 11/25 -Ammonia 50 on 11/25 -continue to monitor (5) Lisa rash of groin Current Visit: Yes Status: Acute Assessment and Plan: continue nystatin and monitor (6) Diabetes Current Visit: No Status: Chronic Assessment and Plan: continue SSI and monitor (7) DVT prophylaxis Current Visit: Yes Status: Acute Assessment and Plan: SubQ heparin - Time Spent with Patient Total time spent is greater than 50% in coordination of care (as documented) at patient's floor/unit and/or counseling patient: Internal Medicine: Result - Labs CBC & Chem 7: 11/26/18 04:04 11/26/18 04:04 Labs: Short CBC 11/26/18 Range/Units 04:04 WBC 17.4 H (4.3-11.1) K/mcL Hgb 12.5 (11.5-15.4) g/dL Hct 36.2 (35.3-44.9) % Plt Count 257 (140-400) K/mcL Neutrophils # 11.2 H (1.6-8.9) K/mcL BMP 11/26/18 04:04 Sodium 138 Potassium 2.8 L Chloride 108 H Carbon Dioxide 23 BUN 14 Creatinine 0.63 Glucose 112 H Calcium 8.2 L Liver Function 11/26/18 Range/Units 04:04 Total Bilirubin 0.6 (0.3-1.0) mg/dL AST 39 (13-39) Units/L ALT 20 (7-52) Units/L Alkaline Phosphatase 150 H (34-104) Units/L Albumin 2.3 L (3.5-5.7) g/dL <Ean Sawyer - Last Filed: 11/26/18 13:41> (3) Cirrhosis Qualifiers: Hepatic cirrhosis type: unspecified hepatic cirrhosis Ascites presence: without ascites Qualified Code(s): K74.60 - Unspecified cirrhosis of liver (4) Diabetes Qualifiers: Diabetes mellitus type: type 2 Diabetes mellitus terminal supervisor insulin use: without terminal supervisor use Diabetes mellitus complication status: without complication Qualified Code(s): E11.9 - Type 2 diabetes mellitus without complications (5) Hypertension Qualifiers: Hypertension type: essential hypertension Qualified Code(s): I10 - Essential (primary) hypertension <Lam Loving - Last Filed: 11/26/18 14:17> (2) Altered mental status Qualifiers: Qualified Code(s): R41.82 - Altered mental status, unspecified (4) Cirrhosis Qualifiers: Hepatic cirrhosis type: unspecified hepatic cirrhosis Ascites presence: without ascites Qualified Code(s): K74.60 - Unspecified cirrhosis of liver (6) Diabetes Qualifiers: Diabetes mellitus type: type 2 Diabetes mellitus terminal supervisor insulin use: without residential use Diabetes mellitus complication status: without complication Qualified Code(s): E11.9 - Type 2 diabetes mellitus without complications
[2018-11-26] MEDS ORDERED: *HR* LORazepam 2 MG/ML VIAL IVP ONE (18:22)
[2018-11-27] MEDS: Nystatin POWDER 30 GM BOTTLE TP SCH ×4 (00:21→21:26)
[2018-11-27] MEDS: *HR* Heparin 5,000 UNIT/ML VIAL SQ SCH ×2 (05:11→17:54)
[2018-11-27 05:16] LABS: Hematocrit 34.3 % (35.3-44.9); Hemoglobin 11.5 g/dL (11.5-15.4); Mean Corpuscular HGB Conc 33.5 g/dL (31.6-35.5); Mean Corpuscular Hemoglobin 29.9 pg (28.0-33.3); Mean Corpuscular Volume 89.3 fL (83.0-100.0); Mean Platelet Volume 8.9 fL (9.4-12.4); Platelet Count 279 K/mcL (140-400); Red Blood Count 3.84 M/mcL (3.82-4.97); Red Cell Distribution Width 15.6 % (11.5-14.5)
[2018-11-27 05:34] LABS: Alanine Aminotransferase 25 Units/L (7-52); Albumin 2.3 g/dL (3.5-5.7); Albumin/Globulin Ratio 0.8 (1.1-2.2); Alkaline Phosphatase 193 Units/L (34-104); Aspartate Amino Transferase 58 Units/L (13-39); BUN/Creatinine Ratio 15 (6-26); Bilirubin,Total 0.6 mg/dL (0.3-1.0); Blood Urea Nitrogen 10 mg/dL (8-23); Calcium 8.2 mg/dL (8.6-10.3); Carbon Dioxide 24 mEq/L (23-29); Chloride 108 mEq/L (98-107); Globulin 2.9 g/dL (2.4-3.5); Glucose 119 mg/dL (70-105); Osmolality,Calculated 288 (280-300); Potassium 2.8 mEq/L (3.5-5.1); Sodium 139 mEq/L (136-145); Total Protein 5.2 g/dL (6.4-8.9); eGFR For Non-African Americans > 60 (> 60)
--- NOTE | 2018-11-27 08:15 | Internal Med Progress Note ---
Hospitalist Progress Note - Encounter Date of Encounter: 11/27/18 - Exam Vitals: Temp Pulse Resp BP Pulse Ox 97.6 F 122 16 123/84 99 11/27/18 07:48 11/27/18 07:48 11/27/18 07:48 11/27/18 07:48 11/27/18 07:48 - Assessment and Plan (1) C. difficile enteritis Current Visit: Yes Status: Acute (2) Hypokalemia Current Visit: No Status: Acute (3) Cirrhosis Current Visit: No Status: Chronic (4) Diabetes Current Visit: No Status: Chronic (5) Hypertension Current Visit: No Status: Chronic (6) Acute metabolic encephalopathy Current Visit: Yes Status: Acute - Time Spent with Patient Total time spent is greater than 50% in coordination of care (as documented) at patient's floor/unit and/or counseling patient: Internal Medicine: Result - Labs CBC & Chem 7: 11/27/18 05:00 11/27/18 05:00 Labs: Short CBC 11/27/18 Range/Units 05:00 WBC 13.6 H (4.3-11.1) K/mcL Hgb 11.5 (11.5-15.4) g/dL Hct 34.3 L (35.3-44.9) % Plt Count 279 (140-400) K/mcL BMP 11/27/18 05:00 Sodium 139 Potassium 2.8 L Chloride 108 H Carbon Dioxide 24 BUN 10 Creatinine 0.66 Glucose 119 H Calcium 8.2 L Liver Function 11/27/18 Range/Units 05:00 Total Bilirubin 0.6 (0.3-1.0) mg/dL AST 58 H (13-39) Units/L ALT 25 (7-52) Units/L Alkaline Phosphatase 193 H (34-104) Units/L Albumin 2.3 L (3.5-5.7) g/dL Consult Discharge Plan - Plan Referrals: NONE,PCP [Primary Care Provider] - (3) Cirrhosis Qualifiers: Hepatic cirrhosis type: unspecified hepatic cirrhosis Ascites presence: without ascites Qualified Code(s): K74.60 - Unspecified cirrhosis of liver (4) Diabetes Qualifiers: Diabetes mellitus type: type 2 Diabetes mellitus shelter insulin use: without can line operator use Diabetes mellitus complication status: without compl ication Qualified Code(s): E11.9 - Type 2 diabetes mellitus without compli cations (5) Hypertension Qualifiers: Hypertension type: essential hypertension Qualified Code(s): I10 - Essential (primary) hypertension
[2018-11-27] MEDS: Insulin LISPRO 300 UNITS/3 ML VIAL SQ SCH ×3 (08:35→17:44)
[2018-11-27] MEDS: Ringers Solution, Lactated 1,000 ML IVC SCH ×2 (09:32→23:51)
[2018-11-27] MEDS: Metoprolol XL (24 HR) Succ 25 MG TAB.ER.24H PO SCH (09:33)
[2018-11-27] MEDS: Vancomycin Oral Soln 125 MG/2.5 ML UDC PO SCH ×4 (09:33→21:23)
[2018-11-27] MEDS: ARIPiprazole 5 MG TABLET PO SCH (09:33)
[2018-11-27] MEDS: *HR* LORazepam 1 MG TABLET PO SCH ×2 (09:33→21:27)
--- NOTE | 2018-11-27 09:34 | Internal Med Progress Note ---
<Sherry Baires - Last Filed: 11/27/18 09:44> Hospitalist Progress Note - Encounter Date of Encounter: 11/27/18 Time of Encounter: 09:34 - Subjective Interval History: Pt remains generally confused but is less confused than previous day. Continues to have diarrhea. Pt was trying to get out of bed last night and was give IV at [facility] - this calmed her and she had no other events overnight. - Exam Vitals: Temp Pulse Resp BP Pulse Ox 97.6 F 122 16 123/84 99 11/27/18 07:48 11/27/18 07:48 11/27/18 07:48 11/27/18 07:48 11/27/18 07:48 Exam: Constitutional: NAD oriented only to person, confused HEENT: Head is atraumatic, normocephalic. EOMI. moist mucus membranes, no conjuctival pallor. Neck: no jvd, trachea midline Cardiovascular: tachycardic, regular rhythm, S1/S2 present, no murmurs, rubs, gallops Respiratory: CTA B/L, no rhonchi, rales, wheezing, symmetric expansion, good air entry Abdomen: mild to moderate tenderness in epigastric and LLQ. No guarding. Extremities: no cyanosis clubbing or edema Neurologic: oriented X 1, confused, no facial droop, symmetrical B/L UE's and LE's strength Psych: Normal mood and affect - Assessment and Plan (1) C. difficile enteritis Current Visit: Yes Status: Acute Assessment and Plan: Patient with a history of multiple UTIs requiring antibiotic therapy. Most recently admitted to [facility] in september 2018. Presents from [facility] with fevers, nausea, abdominal pain, hypokalemia, leukocytosis, and positive C. diff screen. -Patient received 2g Rocephin and oral vancomycin at [facility] -Currently tachycardic, receiving 100ml/hr infusion of LR's -Continue oral vancomycin 125mg PO QID -Motrin for fever control, avoiding tylenol due to reported history of cirrhosis -Repeat BMP and replete electrolytes as needed -Fluid hydrate as needed (2) Altered mental status Current Visit: Yes Status: Acute Assessment and Plan: -likely secondary due to infection vs hypotension vs metabolic encephalopathy - Baseline pt is confused and takes psych medications - Continues to be more confused than baseline - Psych medications were monitored -Will continue to monitor while treating her underlying infection -History of hepatic encephalopathy - unlikely contributing at this time as ammonia levels were 50 on 11/2511/27/18 - pt had episode of increased agitation last night and additional ativan was ordered. pt has not been agitated since. (3) Hypokalemia Current Visit: No Status: Acute Assessment and Plan: -Potassium 2.8, given potassium chloride 40 meq PO -Repeat K remains at 2.8 - Continue to monitor and replete (4) Cirrhosis Current Visit: No Status: Chronic Assessment and Plan: -History of cirrhosis -Patient continues to be confused -Ammonia 50 on 11/25 -continue Rifamixin (5) Diabetes Current Visit: No Status: Chronic Assessment and Plan: SSI Continue to monitor (6) Lisa rash of groin Current Visit: Yes Status: Acute Assessment and Plan: Continue nystatin (7) DVT prophylaxis Current Visit: Yes Status: Acute Assessment and Plan: SQ heparin - Time Spent with Patient Total time spent is greater than 50% in coordination of care (as documented) at patient's floor/unit and/or counseling patient: Internal Medicine: Result - Labs CBC & Chem 7: 11/27/18 05:00 11/27/18 05:00 Labs: Short CBC 11/27/18 Range/Units 05:00 WBC 13.6 H (4.3-11.1) K/mcL Hgb 11.5 (11.5-15.4) g/dL Hct 34.3 L (35.3-44.9) % Plt Count 279 (140-400) K/mcL BMP 11/27/18 05:00 Sodium 139 Potassium 2.8 L Chloride 108 H Carbon Dioxide 24 BUN 10 Creatinine 0.66 Glucose 119 H Calcium 8.2 L Liver Function 11/27/18 Range/Units 05:00 Total Bilirubin 0.6 (0.3-1.0) mg/dL AST 58 H (13-39) Units/L ALT 25 (7-52) Units/L Alkaline Phosphatase 193 H (34-104) Units/L Albumin 2.3 L (3.5-5.7) g/dL Consult Discharge Plan - Plan Referrals: NONE,PCP [Primary Care Provider] - <Ean Sawyer - Last Filed: 11/27/18 14:48> Hospitalist Progress Note - Encounter Date of Encounter: 11/27/18 - Exam Vitals: Temp Pulse Resp BP Pulse Ox 98.6 F 108 16 108/72 93 11/27/18 12:05 11/27/18 12:05 11/27/18 12:05 11/27/18 12:05 11/27/18 12:05 - Assessment and Plan (1) C. difficile enteritis Current Visit: Yes Status: Acute (2) Hypokalemia Current Visit: No Status: Acute (3) Cirrhosis Current Visit: No Status: Chronic (4) Diabetes Current Visit: No Status: Chronic (5) Hypertension Current Visit: No Status: Chronic (6) Acute metabolic encephalopathy Current Visit: Yes Status: Acute - Time Spent with Patient Total time spent is greater than 50% in coordination of care (as documented) at patient's floor/unit and/or counseling patient: Internal Medicine: Result - Labs CBC & Chem 7: 11/27/18 05:00 11/27/18 05:00 Labs: Short CBC 11/27/18 Range/Units 05:00 WBC 13.6 H (4.3-11.1) K/mcL Hgb 11.5 (11.5-15.4) g/dL Hct 34.3 L (35.3-44.9) % Plt Count 279 (140-400) K/mcL BMP 11/27/18 05:00 Sodium 139 Potassium 2.8 L Chloride 108 H Carbon Dioxide 24 BUN 10 Creatinine 0.66 Glucose 119 H Calcium 8.2 L Liver Function 11/27/18 Range/Units 05:00 Total Bilirubin 0.6 (0.3-1.0) mg/dL AST 58 H (13-39) Units/L ALT 25 (7-52) Units/L Alkaline Phosphatase 193 H (34-104) Units/L Albumin 2.3 L (3.5-5.7) g/dL - Attending Attestation I examined this patient and my medical decision-making was reviewed with the Resident Physician on 11/26/18. I agree with the documented findings, disposition and treatment plan as described except to the extent set forth below. Ms Reynoso is currently admitted for acute c diff colitis. She remains moderate to high risk due to potential for worsening clinical status. Ms Reynoso is resting now but was more agitated last night and this AM. No fever or chills. Still with diarrhea. Potassium still low as well. No abd pain. No CP or SOB. Does not give any other history. <Sherry Baires - Last Filed: 11/27/18 09:44> (2) Altered mental status Qualifiers: Qualified Code(s): R41.82 - Altered mental status, unspecified (4) Cirrhosis Qualifiers: Hepatic cirrhosis type: unspecified hepatic cirrhosis Ascites presence: without ascites Qualified Code(s): K74.60 - Unspecified cirrhosis of liver (5) Diabetes Qualifiers: Diabetes mellitus type: type 2 Diabetes mellitus terminal makeup operator insulin use: without correction use Diabetes mellitus complication status: without complication Qualified Code(s): E11.9 - Type 2 diabetes mellitus without complications <Ean Sawyer A - Last Filed: 11/27/18 14:48> (3) Cirrhosis Qualifiers: Hepatic cirrhosis type: unspecified hepatic cirrhosis Ascites presence: without ascites Qualified Code(s): K74.60 - Unspecified cirrhosis of liver (4) Diabetes Qualifiers: Diabetes mellitus type: type 2 Diabetes mellitus terminal makeup operator insulin use: without terminal makeup operator use Diabetes mellitus complication status: without complication Qualified Code(s): E11.9 - Type 2 diabetes mellitus without complications (5) Hypertension Qualifiers: Hypertension type: essential hypertension Qualified Code(s): I10 - Essential (primary) hypertension
[2018-11-28 03:46] LABS: Hematocrit 32.6 % (35.3-44.9); Hemoglobin 11.3 g/dL (11.5-15.4); Mean Corpuscular HGB Conc 34.7 g/dL (31.6-35.5); Mean Corpuscular Hemoglobin 30.7 pg (28.0-33.3); Mean Corpuscular Volume 88.6 fL (83.0-100.0); Mean Platelet Volume 8.9 fL (9.4-12.4); Platelet Count 290 K/mcL (140-400); Red Blood Count 3.68 M/mcL (3.82-4.97); Red Cell Distribution Width 15.9 % (11.5-14.5)
[2018-11-28 04:09] LABS: Alanine Aminotransferase 25 Units/L (7-52); Albumin 2.2 g/dL (3.5-5.7); Albumin/Globulin Ratio 0.8 (1.1-2.2); Alkaline Phosphatase 178 Units/L (34-104); Aspartate Amino Transferase 58 Units/L (13-39); BUN/Creatinine Ratio 12 (6-26); Bilirubin,Total 0.6 mg/dL (0.3-1.0); Blood Urea Nitrogen 7 mg/dL (8-23); Calcium 7.9 mg/dL (8.6-10.3); Carbon Dioxide 25 mEq/L (23-29); Chloride 108 mEq/L (98-107); Globulin 2.7 g/dL (2.4-3.5); Glucose 81 mg/dL (70-105); Osmolality,Calculated 283 (280-300); Potassium 2.9 mEq/L (3.5-5.1); Sodium 138 mEq/L (136-145); Total Protein 4.9 g/dL (6.4-8.9); eGFR For Non-African Americans > 60 (> 60)
[2018-11-28] MEDS: *HR* Heparin 5,000 UNIT/ML VIAL SQ SCH ×2 (05:13→17:04)
--- NOTE | 2018-11-28 09:18 | Internal Med Progress Note ---
<Sherry Baires - Last Filed: 11/28/18 11:23> Hospitalist Progress Note - Encounter Date of Encounter: 11/28/18 Time of Encounter: 08:20 - Subjective Interval History: Pt continues to be confused. WBC remains elevated. Pt still having diarrhea. Pt refused most of her medications last night except the vancomycin. - Exam Vitals: Temp Pulse Resp BP Pulse Ox 98.4 F 117 18 140/86 96 11/28/18 07:42 11/28/18 07:42 11/28/18 07:42 11/28/18 07:42 11/28/18 07:42 Exam: Constitutional: NAD oriented only to person, confused HEENT: Head is atraumatic, normocephalic. EOMI. moist mucus membranes, no conjuctival pallor. Neck: no jvd, trachea midline Cardiovascular: tachycardic, regular rhythm, S1/S2 present, no murmurs, rubs, gallops Respiratory: CTA B/L, no rhonchi, rales, wheezing, symmetric expansion, good air entry Abdomen: mild to moderate tenderness in epigastric and LLQ. No guarding. Extremities: no cyanosis clubbing or edema Neurologic: oriented X 1, confused, no facial droop, symmetrical B/L UE's and LE's strength Psych: Normal mood and affect - Assessment and Plan (1) C. difficile enteritis Current Visit: Yes Status: Acute Assessment and Plan: Patient with a history of multiple UTIs requiring antibiotic therapy. Most recently admitted to [facility] in september 2018. Presents from [facility] with fevers, nausea, abdominal pain, hypokalemia, leukocytosis, and positive C. diff screen. -Patient received 2g Rocephin and oral vancomycin at [facility] -Currently tachycardic, receiving 100ml/hr infusion of LR's -Continue oral vancomycin 125mg PO QID -Motrin for fever control, avoiding tylenol due to reported history of cirrhosis -Repeat BMP and replete electrolytes as needed -Fluid hydrate as needed (2) Altered mental status Current Visit: Yes Status: Acute Assessment and Plan: -likely secondary due to infection vs hypotension vs metabolic encephalopathy - Baseline pt is confused and takes psych medications - Continues to be more confused than baseline - Psych medications were monitored -Will continue to monitor while treating her underlying infection -History of hepatic encephalopathy - unlikely contributing at this time as ammonia levels were 50 on 11/25 pt had episode of increased agitation the night of 11/26 and additional ativan was ordered. pt has not been agitated since. (3) Hypokalemia Current Visit: No Status: Acute Assessment and Plan: -Potassium 2.8, given potassium chloride 40 meq PO -Repeat K remains at 2.9 - Potassium chloride 40 meq BID has been ordered - Continue to monitor and replete (4) Cirrhosis Current Visit: No Status: Chronic Assessment and Plan: -History of cirrhosis -Patient continues to be confused -Ammonia 50 on 11/25 -continue Rifamixin (5) Diabetes Current Visit: No Status: Chronic Assessment and Plan: SSI Continue to monitor (6) Lisa rash of groin Current Visit: Yes Status: Acute Assessment and Plan: Continue nystatin (7) DVT prophylaxis Current Visit: Yes Status: Acute Assessment and Plan: SQ Heparin - Time Spent with Patient Total time spent is greater than 50% in coordination of care (as documented) at patient's floor/unit and/or counseling patient: Internal Medicine: Result - Labs CBC & Chem 7: 11/28/18 03:15 11/28/18 03:15 Labs: Short CBC 11/28/18 Range/Units 03:15 WBC 13.9 H (4.3-11.1) K/mcL Hgb 11.3 L (11.5-15.4) g/dL Hct 32.6 L (35.3-44.9) % Plt Count 290 (140-400) K/mcL BMP 11/28/18 03:15 Sodium 138 Potassium 2.9 L Chloride 108 H Carbon Dioxide 25 BUN 7 L Creatinine 0.60 Glucose 81 Calcium 7.9 L Liver Function 11/28/18 Range/Units 03:15 Total Bilirubin 0.6 (0.3-1.0) mg/dL AST 58 H (13-39) Units/L ALT 25 (7-52) Units/L Alkaline Phosphatase 178 H (34-104) Units/L Albumin 2.2 L (3.5-5.7) g/dL Consult Discharge Plan - Plan Referrals: NONE,PCP [Primary Care Provider] - <Ean Sawyer - Last Filed: 11/28/18 15:05> Hospitalist Progress Note - Encounter Date of Encounter: 11/28/18 - Exam Vitals: Temp Pulse Resp BP Pulse Ox 97.8 F 105 16 135/90 97 11/28/18 12:15 11/28/18 12:15 11/28/18 12:15 11/28/18 12:15 11/28/18 12:15 - Assessment and Plan (1) C. difficile enteritis Current Visit: Yes Status: Acute (2) Hypokalemia Current Visit: No Status: Acute (3) Cirrhosis Current Visit: No Status: Chronic (4) Diabetes Current Visit: No Status: Chronic (5) Hypertension Current Visit: No Status: Chronic (6) Acute metabolic encephalopathy Current Visit: Yes Status: Acute - Time Spent with Patient Total time spent is greater than 50% in coordination of care (as documented) at patient's floor/unit and/or counseling patient: Internal Medicine: Result - Labs CBC & Chem 7: 11/28/18 03:15 11/28/18 03:15 Labs: Short CBC 11/28/18 Range/Units 03:15 WBC 13.9 H (4.3-11.1) K/mcL Hgb 11.3 L (11.5-15.4) g/dL Hct 32.6 L (35.3-44.9) % Plt Count 290 (140-400) K/mcL BMP 11/28/18 03:15 Sodium 138 Potassium 2.9 L Chloride 108 H Carbon Dioxide 25 BUN 7 L Creatinine 0.60 Glucose 81 Calcium 7.9 L Liver Function 11/28/18 Range/Units 03:15 Total Bilirubin 0.6 (0.3-1.0) mg/dL AST 58 H (13-39) Units/L ALT 25 (7-52) Units/L Alkaline Phosphatase 178 H (34-104) Units/L Albumin 2.2 L (3.5-5.7) g/dL - Attending Attestation I examined this patient and my medical decision-making was reviewed with the Resident Physician on 11/28/18. I agree with the documented findings, disposition and treatment plan as described except to the extent set forth below. Ms Reynoso is currently admitted for acute C diff colitis. She remains moderate to high risk due to potential for worsening clinical status. Ms Reynoso is still having some diarrhea. Her potassium remains low. She did not sleep well last night. No fever or chills. No abd pain. Exam alert Comfortable at rest Mucus membranes dry Heart not tachy No wheeze No edema Abd soft and nontender I/P 1. Acute c diff colitis - continue PO Vanc. Anticipate d/c when diarrhea slows and K improves 2. Hypokalemia - persists. Replace today 3. Diabetes - blood sugar controlled 4. Cirrhosis Further diagnoses and plan as above. <Sherry Baires - Last Filed: 11/28/18 11:23> (2) Altered mental status Qualifiers: Qualified Code(s): R41.82 - Altered mental status, unspecified (4) Cirrhosis Qualifiers: Hepatic cirrhosis type: unspecified hepatic cirrhosis Ascites presence: without ascites Qualified Code(s): K74.60 - Unspecified cirrhosis of liver (5) Diabetes Qualifiers: Diabetes mellitus type: type 2 Diabetes mellitus shelter insulin use: without shelter use Diabetes mellitus complication status: without complication Qualified Code(s): E11.9 - Type 2 diabetes mellitus without complications <Ean Sawyer A - Last Filed: 11/28/18 15:05> (3) Cirrhosis Qualifiers: Hepatic cirrhosis type: unspecified hepatic cirrhosis Ascites presence: without ascites Qualified Code(s): K74.60 - Unspecified cirrhosis of liver (4) Diabetes Qualifiers: Diabetes mellitus type: type 2 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
[2018-11-28] MEDS: Vancomycin Oral Soln 125 MG/2.5 ML UDC PO SCH ×4 (09:54→20:03)
[2018-11-28] MEDS: Metoprolol XL (24 HR) Succ 25 MG TAB.ER.24H PO SCH (09:55)
[2018-11-28] MEDS: ARIPiprazole 5 MG TABLET PO SCH (09:56)
[2018-11-28] MEDS: Ringers Solution, Lactated 1,000 ML IVC SCH ×2 (09:56→20:27)
[2018-11-28] MEDS: *HR* LORazepam 1 MG TABLET PO SCH ×2 (09:56→20:05)
[2018-11-28] MEDS: Insulin LISPRO 300 UNITS/3 ML VIAL SQ SCH ×3 (10:15→18:17)
[2018-11-28] MEDS: Nystatin POWDER 30 GM BOTTLE TP SCH ×3 (10:22→20:28)
[2018-11-28] MEDS ORDERED: traMADol 50 MG TABLET PO SCH (17:00)
[2018-11-28] MEDS: traMADol 50 MG TABLET PO PRN (17:03)
[2018-11-29] MEDS: *HR* Heparin 5,000 UNIT/ML VIAL SQ SCH ×2 (05:05→17:31)
[2018-11-29] MEDS: Ringers Solution, Lactated 1,000 ML IVC SCH (05:07)
[2018-11-29 05:19] LABS: Hematocrit 33.7 % (35.3-44.9); Hemoglobin 11.3 g/dL (11.5-15.4); Mean Corpuscular HGB Conc 33.5 g/dL (31.6-35.5); Mean Corpuscular Hemoglobin 30.1 pg (28.0-33.3); Mean Corpuscular Volume 89.9 fL (83.0-100.0); Mean Platelet Volume 8.7 fL (9.4-12.4); Platelet Count 279 K/mcL (140-400); Red Blood Count 3.75 M/mcL (3.82-4.97); Red Cell Distribution Width 16.6 % (11.5-14.5)
[2018-11-29 05:40] LABS: Alanine Aminotransferase 25 Units/L (7-52); Albumin 2.3 g/dL (3.5-5.7); Albumin/Globulin Ratio 0.8 (1.1-2.2); Alkaline Phosphatase 179 Units/L (34-104); Aspartate Amino Transferase 50 Units/L (13-39); BUN/Creatinine Ratio 10 (6-26); Bilirubin,Total 0.7 mg/dL (0.3-1.0); Blood Urea Nitrogen 6 mg/dL (8-23); Calcium 7.9 mg/dL (8.6-10.3); Carbon Dioxide 26 mEq/L (23-29); Chloride 107 mEq/L (98-107); Globulin 2.8 g/dL (2.4-3.5); Glucose 123 mg/dL (70-105); Osmolality,Calculated 289 (280-300); Potassium 3.1 mEq/L (3.5-5.1); Sodium 140 mEq/L (136-145); Total Protein 5.1 g/dL (6.4-8.9); eGFR For Non-African Americans > 60 (> 60)
[2018-11-29] MEDS: ARIPiprazole 5 MG TABLET PO SCH (09:04)
[2018-11-29] MEDS: Insulin LISPRO 300 UNITS/3 ML VIAL SQ SCH ×3 (09:04→17:32)
[2018-11-29] MEDS: Metoprolol XL (24 HR) Succ 25 MG TAB.ER.24H PO SCH (09:04)
[2018-11-29] MEDS: *HR* LORazepam 1 MG TABLET PO SCH ×2 (09:04→21:09)
[2018-11-29] MEDS: Vancomycin Oral Soln 125 MG/2.5 ML UDC PO SCH ×4 (09:05→21:07)
--- NOTE | 2018-11-29 09:16 | Internal Med Progress Note ---
<Sherry Baires - Last Filed: 11/29/18 12:41> Hospitalist Progress Note - Encounter Date of Encounter: 11/29/18 Time of Encounter: 09:10 - Subjective Interval History: Pt continues to be confused. WBC elevated but decreasing. Potassium low but increasing with twice daily potassium. Pt complained of stomach pain this morning and bentyl has been ordered. Still having diarrhea, will start cholestyramine today. - Exam Vitals: Temp Pulse Resp BP Pulse Ox 97.7 F 117 15 116/79 96 11/29/18 07:26 11/29/18 07:26 11/29/18 07:26 11/29/18 07:26 11/29/18 07:26 Exam: Constitutional: NAD oriented only to person, confused HEENT: Head is atraumatic, normocephalic. EOMI. moist mucus membranes, no conjuctival pallor. Neck: no jvd, trachea midline Cardiovascular: tachycardic, regular rhythm, S1/S2 present, no murmurs, rubs, gallops Respiratory: CTA B/L, no rhonchi, rales, wheezing, symmetric expansion, good air entry Abdomen: mild to moderate tenderness in epigastric and LLQ. No guarding, rebound or rigidity. Extremities: no cyanosis clubbing or edema Neurologic: oriented X 1, confused, no facial droop, symmetrical B/L UE's and LE's strength Psych: Normal mood and affect - Assessment and Plan (1) C. difficile enteritis Current Visit: Yes Status: Acute Assessment and Plan: Patient with a history of multiple UTIs requiring antibiotic therapy. Most recently admitted to [facility] in september 2018. Presents from [facility] with fevers, nausea, abdominal pain, hypokalemia, leukocytosis, and positive C. diff screen. -Patient received 2g Rocephin and oral vancomycin at [facility] -Currently tachycardic, receiving 100ml/hr infusion of LR's -Continue oral vancomycin 125mg PO QID -Motrin for fever control, avoiding tylenol due to reported history of cirrhosis -Repeat BMP and replete electrolytes as needed -Fluid hydrate as needed (2) Altered mental status Current Visit: Yes Status: Acute Assessment and Plan: -likely secondary due to infection vs hypotension vs metabolic encephalopathy - Baseline pt is confused and takes psych medications - Continues to be more confused than baseline - Psych medications were monitored -Will continue to monitor while treating her underlying infection -History of hepatic encephalopathy - unlikely contributing at this time as ammonia levels were 50 on 11/25 pt had episode of increased agitation the night of 11/26 and additional ativan was ordered. pt has not been agitated since. (3) Hypokalemia Current Visit: No Status: Acute Assessment and Plan: -Potassium 2.8, given potassium chloride 40 meq PO -Repeat K increased to 3.1 - Potassium chloride 40 meq BID has been ordered - Continue to monitor and replete (4) Cirrhosis Current Visit: No Status: Chronic Assessment and Plan: -History of cirrhosis -Patient continues to be confused -Ammonia 50 on 11/25 -continue Rifamixin (5) Diabetes Current Visit: No Status: Chronic Assessment and Plan: SSI BG has been well controlled throughout stay Continue to monitor (6) Lisa rash of groin Current Visit: Yes Status: Acute Assessment and Plan: Continue nystatin (7) DVT prophylaxis Current Visit: Yes Status: Acute Assessment and Plan: SQ Heparin - Time Spent with Patient Total time spent is greater than 50% in coordination of care (as documented) at patient's floor/unit and/or counseling patient: Internal Medicine: Result - Labs CBC & Chem 7: 11/29/18 04:00 11/29/18 04:00 Labs: Short CBC 11/29/18 Range/Units 04:00 WBC 12.7 H (4.3-11.1) K/mcL Hgb 11.3 L (11.5-15.4) g/dL Hct 33.7 L (35.3-44.9) % Plt Count 279 (140-400) K/mcL BMP 11/29/18 04:00 Sodium 140 Potassium 3.1 L Chloride 107 Carbon Dioxide 26 BUN 6 L Creatinine 0.62 Glucose 123 H Calcium 7.9 L Liver Function 11/29/18 Range/Units 04:00 Total Bilirubin 0.7 (0.3-1.0) mg/dL AST 50 H (13-39) Units/L ALT 25 (7-52) Units/L Alkaline Phosphatase 179 H (34-104) Units/L Albumin 2.3 L (3.5-5.7) g/dL Consult Discharge Plan - Plan Referrals: NONE,PCP [Primary Care Provider] - <Ean Sawyer - Last Filed: 11/29/18 14:12> Hospitalist Progress Note - Encounter Date of Encounter: 11/29/18 - Exam Vitals: Temp Pulse Resp BP Pulse Ox 97.7 F 117 15 116/79 96 11/29/18 07:26 11/29/18 07:26 11/29/18 07:26 11/29/18 07:26 11/29/18 07:26 - Assessment and Plan (1) C. difficile enteritis Current Visit: Yes Status: Acute (2) Hypokalemia Current Visit: No Status: Acute (3) Cirrhosis Current Visit: No Status: Chronic (4) Diabetes Current Visit: No Status: Chronic (5) Hypertension Current Visit: No Status: Chronic (6) Acute metabolic encephalopathy Current Visit: Yes Status: Acute - Time Spent with Patient Total time spent is greater than 50% in coordination of care (as documented) at patient's floor/unit and/or counseling patient: Internal Medicine: Result - Labs CBC & Chem 7: 11/29/18 04:00 11/29/18 04:00 Labs: Short CBC 11/29/18 Range/Units 04:00 WBC 12.7 H (4.3-11.1) K/mcL Hgb 11.3 L (11.5-15.4) g/dL Hct 33.7 L (35.3-44.9) % Plt Count 279 (140-400) K/mcL BMP 11/29/18 04:00 Sodium 140 Potassium 3.1 L Chloride 107 Carbon Dioxide 26 BUN 6 L Creatinine 0.62 Glucose 123 H Calcium 7.9 L Liver Function 11/29/18 Range/Units 04:00 Total Bilirubin 0.7 (0.3-1.0) mg/dL AST 50 H (13-39) Units/L ALT 25 (7-52) Units/L Alkaline Phosphatase 179 H (34-104) Units/L Albumin 2.3 L (3.5-5.7) g/dL - Attending Attestation I examined this patient and my medical decision-making was reviewed with the Resident Physician on 11/29/18. I agree with the documented findings, dis position and treatment plan as described except to the extent set forth below. Ms Reynoso is currently admitted for acute C diff colitis. She remains moderate to high risk due to potential for worsening clinical status. Ms Reynoso is up in chair. She says she is urinating a lot and has continued diarrhea. No fever or chills. No CP or SOB. Remains confused. Exam alert Confused to place and time Mucus membranes dry Heart not tachy No wheeze abd soft - no tenderness now No edema Moves all extremities I/P 1. Acute C diff colitis - continue PO Vancomycin. Add cholestyramine to bind toxin 2. Acute encephalopathy 3. Hypokalemia - persists. Continue to replace. 4. Cirrhosis 5. DM Further diagnoses and plan as above. <Sherry Baires - Last Filed: 11/29/18 12:41> (2) Altered mental status Qualifiers: Qualified Code(s): R41.82 - Altered mental status, unspecified (4) Cirrhosis Qualifiers: Hepatic cirrhosis type: unspecified hepatic cirrhosis Ascites presence: without ascites Qualified Code(s): K74.60 - Unspecified cirrhosis of liver (5) Diabetes Qualifiers: Diabetes mellitus type: type 2 Diabetes mellitus residential insulin use: without residential use Diabetes mellitus complication status: without complication Qualified Code(s): E11.9 - Type 2 diabetes mellitus without complications <Ean Sawyer - Last Filed: 11/29/18 14:12> (3) Cirrhosis Qualifiers: Hepatic cirrhosis type: unspecified hepatic cirrhosis Ascites presence: without ascites Qualified Code(s): K74.60 - Unspecified cirrhosis of liver (4) Diabetes Qualifiers: Diabetes mellitus type: type 2 Diabetes mellitus residential insulin use: without residential use Diabetes mellitus complication status: without complication Qualified Code(s): E11.9 - Type 2 diabetes mellitus without complications (5) Hypertension Qualifiers: Hypertension type: essential hypertension Qualified Code(s): I10 - Essential (primary) hypertension
[2018-11-29] MEDS: Cholestyramine 4 GM POWD.PACK PO SCH ×3 (14:05→21:10)
[2018-11-29] MEDS: Fluconazole 100 MG TABLET PO SCH (17:31)
[2018-11-29] MEDS: Nystatin POWDER 30 GM BOTTLE TP SCH ×3 (17:31→21:09)
[2018-11-30] MEDS ORDERED: diazePAM 10 MG/2 ML SYRINGE IVP ONE (02:12)
[2018-11-30 05:27] LABS: Basophils # 0.2 K/mcL (0.0-0.2); Basophils % 1.1 %; Eosinophils # 1.2 K/mcL (0.0-0.6); Eosinophils % 8.7 %; Hematocrit 36.4 % (35.3-44.9); Hemoglobin 12.3 g/dL (11.5-15.4); Immature Granulocytes % 4.4 % (0-4); Lymphocytes # 3.1 K/mcL (0.6-4.6); Lymphocytes % 22.8 %; Mean Corpuscular HGB Conc 33.8 g/dL (31.6-35.5); Mean Corpuscular Hemoglobin 30.4 pg (28.0-33.3); Mean Corpuscular Volume 89.9 fL (83.0-100.0); Mean Platelet Volume 9.6 fL (9.4-12.4); Monocytes # 1.2 K/mcL (0.0-1.3); Monocytes % 8.5 %; Neutrophils # 7.4 K/mcL (1.6-8.9); Nucleated Red Blood Cells 0.1 /100 WBC (0); Platelet Count 250 K/mcL (140-400); Red Blood Count 4.05 M/mcL (3.82-4.97); Red Cell Distribution Width 16.8 % (11.5-14.5); Segmented Neutrophils % 54.5 %
[2018-11-30 05:53] LABS: Alanine Aminotransferase 25 Units/L (7-52); Albumin 2.3 g/dL (3.5-5.7); Albumin/Globulin Ratio 0.8 (1.1-2.2); Alkaline Phosphatase 189 Units/L (34-104); Aspartate Amino Transferase 46 Units/L (13-39); BUN/Creatinine Ratio 10 (6-26); Bilirubin,Total 0.6 mg/dL (0.3-1.0); Blood Urea Nitrogen 6 mg/dL (8-23); Carbon Dioxide 22 mEq/L (23-29); Chloride 110 mEq/L (98-107); Globulin 2.9 g/dL (2.4-3.5); Glucose 148 mg/dL (70-105); Osmolality,Calculated 288 (280-300); Sodium 139 mEq/L (136-145); Total Protein 5.2 g/dL (6.4-8.9); eGFR For Non-African Americans > 60 (> 60)
[2018-11-30] MEDS: *HR* Heparin 5,000 UNIT/ML VIAL SQ SCH ×2 (06:03→18:30)
--- NOTE | 2018-11-30 07:20 | Internal Med Progress Note ---
<Ean Sawyer - Last Filed: 11/30/18 15:14> Hospitalist Progress Note - Encounter Date of Encounter: 11/30/18 - Exam Vitals: Temp Pulse Resp BP Pulse Ox 98.3 F 100 16 115/76 95 11/30/18 11:49 11/30/18 11:49 11/30/18 11:49 11/30/18 11:49 11/30/18 11:49 - Assessment and Plan (1) C. difficile enteritis Current Visit: Yes Status: Acute (2) Hypokalemia Current Visit: No Status: Resolved (3) Cirrhosis Current Visit: No Status: Chronic (4) Diabetes Current Visit: No Status: Chronic (5) Hypertension Current Visit: No Status: Chronic (6) Acute metabolic encephalopathy Current Visit: Yes Status: Acute - Time Spent with Patient Total time spent is greater than 50% in coordination of care (as documented) at patient's floor/unit and/or counseling patient: Internal Medicine: Result - Labs CBC & Chem 7: 11/30/18 05:08 11/30/18 05:08 Labs: Short CBC 11/30/18 Range/Units 05:08 WBC 13.6 H (4.3-11.1) K/mcL Hgb 12.3 (11.5-15.4) g/dL Hct 36.4 (35.3-44.9) % Plt Count 250 (140-400) K/mcL Neutrophils # 7.4 (1.6-8.9) K/mcL BMP 11/30/18 05:08 Sodium 139 Potassium 4.0 Chloride 110 H Carbon Dioxide 22 L BUN 6 L Creatinine 0.62 Glucose 148 H Calcium 8.0 L Liver Function 11/30/18 Range/Units 05:08 Total Bilirubin 0.6 (0.3-1.0) mg/dL AST 46 H (13-39) Units/L ALT 25 (7-52) Units/L Alkaline Phosphatase 189 H (34-104) Units/L Albumin 2.3 L (3.5-5.7) g/dL Consult Discharge Plan - Plan Referrals: NONE,PCP [Primary Care Provider] - - Attending Attestation I examined this patient and my medical decision-making was reviewed with the Resident Physician on 11/30/18. I agree with the documented findings, disposition and treatment plan as described except to the extent set forth below. Ms Reynoso is currently admitted for acute C diff colitis, dehydration and hypokalemia. She remains moderate to high risk due to potential for worsening clinical status. Ms Reynoso is complaining of some discomfort in LLQ area. Stool appears to be decreasing. No fever or chills. No chest pain or dyspnea. Mental status appears to be as yesterday - ? baseline. Exam alert Comfortable at rest in bed Mucus membranes dry Heart not tachy - distant Lungs decreased but no wheeze abd soft. Mild discomfort LLQ. No peritoneal signs. No edema I/P 1. C diff colitis - appears to be improving. Continue Vanc and cholestyramine (BID at discharge) 2. Dehydration - improving 3. Hypokalemia resolved Anticipate d/c to SNF when stool improves - ? tomorrow Further diagnoses and plan as above. <Sherry Baires R - Last Filed: 11/30/18 18:17> Hospitalist Progress Note - Encounter Date of Encounter: 11/30/18 Time of Encounter: 07:20 - Subjective Interval History: Pt having less confusion and speech is less slurred. Diarrhea has decreased since beginning cholestyramine yesterday, but is persisting. Diflucan started yesterday for yeast growing in the patients urine. - Exam Vitals: Temp Pulse Resp BP Pulse Ox 97.9 F 109 16 115/72 97 11/29/18 21:16 11/29/18 21:16 11/29/18 21:16 11/29/18 21:16 11/29/18 21:16 Exam: Constitutional: NAD oriented only to person, confused HEENT: Head is atraumatic, normocephalic. EOMI. moist mucus membranes, no conjuctival pallor. Neck: no jvd, trachea midline Cardiovascular: tachycardic, regular rhythm, S1/S2 present, no murmurs, rubs, gallops Respiratory: CTA B/L, no rhonchi, rales, wheezing, symmetric expansion, good air entry Abdomen: mild to moderate tenderness in epigastric and LLQ. No guarding, rebound or rigidity. Extremities: no cyanosis clubbing or edema Neurologic: oriented X 2, confused, no facial droop, symmetrical B/L UE's and LE's strength Psych: Normal mood and affect - Assessment and Plan (1) C. difficile enteritis Current Visit: Yes Status: Acute Assessment and Plan: Patient with a history of multiple UTIs requiring antibiotic therapy. Most recently admitted to [facility] in september 2018. Presents from [facility] with fevers, nausea, abdominal pain, hypokalemia, leukocytosis, and positive C. diff screen. -Patient received 2g Rocephin and oral vancomycin at [facility] -Currently tachycardic, receiving 100ml/hr infusion of LR's -Continue oral vancomycin 125mg PO QID -Motrin for fever control, avoiding tylenol due to reported history of cirrhosis -Repeat BMP and replete electrolytes as needed -Fluid hydrate as needed (2) Altered mental status Current Visit: Yes Status: Acute Assessment and Plan: -likely secondary due to infection vs hypotension vs metabolic encephalopathy - Baseline pt is confused and takes psych medications - Continues to be more confused than baseline - Psych medications were monitored -Will continue to monitor while treating her underlying infection -History of hepatic encephalopathy - unlikely contributing at this time as ammonia levels were 50 on 11/25 pt had episode of increased agitation the night of 11/26 and 11/28 and additional ativan was ordered. (3) Hypokalemia Current Visit: No Status: Resolved Assessment and Plan: -Potassium 2.8, given potassium chloride 40 meq PO -Repeat K increased to 4 - Potassium chloride 40 meq has been decreased to daiy while pt continues to have diarrhea - Continue to monitor and replete (4) Cirrhosis Current Visit: No Status: Chronic Assessment and Plan: -History of cirrhosis -Patient continues to be confused -Ammonia 50 on 11/25 -continue Rifamixin (5) Diabetes Current Visit: No Status: Chronic Assessment and Plan: SSI BG has been well controlled throughout stay Continue to monitor (6) Lisa rash of groin Current Visit: Yes Status: Acute Assessment and Plan: Continue nystatin (7) UTI (urinary tract infection) Current Visit: Yes Status: Acute Assessment and Plan: 2 positive urine cultures with yeast Likely secondary to pts candidal rash of groin Will treat with Diflucan PO for three days (8) DVT prophylaxis Current Visit: Yes Status: Acute Assessment and Plan: SQ Heparin - Time Spent with Patient Total time spent is greater than 50% in coordination of care (as documented) at patient's floor/unit and/or counseling patient: Internal Medicine: Result - Labs CBC & Chem 7: 11/30/18 05:08 11/30/18 05:08 Labs: Short CBC 11/30/18 Range/Units 05:08 WBC 13.6 H (4.3-11.1) K/mcL Hgb 12.3 (11.5-15.4) g/dL Hct 36.4 (35.3-44.9) % Plt Count 250 (140-400) K/mcL Neutrophils # 7.4 (1.6-8.9) K/mcL BMP 11/30/18 05:08 Sodium 139 Potassium 4.0 Chloride 110 H Carbon Dioxide 22 L BUN 6 L Creatinine 0.62 Glucose 148 H Calcium 8.0 L Liver Function 11/30/18 Range/Units 05:08 Total Bilirubin 0.6 (0.3-1.0) mg/dL AST 46 H (13-39) Units/L ALT 25 (7-52) Units/L Alkaline Phosphatase 189 H (34-104) Units/L Albumin 2.3 L (3.5-5.7) g/dL <Ean Sawyer A - Last Filed: 11/30/18 15:14> (3) Cirrhosis Qualifiers: Hepatic cirrhosis type: unspecified hepatic cirrhosis Ascites presence: without ascites Qualified Code(s): K74.60 - Unspecified cirrhosis of liver (4) Diabetes Qualifiers: Diabetes mellitus type: type 2 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 Diabetes mellitus complication status: without complication Qualified Code(s): E11.9 - Type 2 diabetes mellitus without complications (5) Hypertension Qualifiers: Hypertension type: essential hypertension Qualified Code(s): I10 - Essential (primary) hypertension <Sherry Baires - Last Filed: 11/30/18 18:17> (2) Altered mental status Qualifiers: Qualified Code(s): R41.82 - Altered mental status, unspecified (4) Cirrhosis Qualifiers: Hepatic cirrhosis type: unspecified hepatic cirrhosis Ascites presence: without ascites Qualified Code(s): K74.60 - Unspecified cirrhosis of liver (5) Diabetes Qualifiers: Diabetes mellitus type: type 2 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
[2018-11-30] MEDS: *HR* LORazepam 1 MG TABLET PO SCH ×2 (09:14→21:41)
[2018-11-30] MEDS: Fluconazole 100 MG TABLET PO SCH (09:14)
[2018-11-30] MEDS: ARIPiprazole 5 MG TABLET PO SCH (09:14)
[2018-11-30] MEDS: Vancomycin Oral Soln 125 MG/2.5 ML UDC PO SCH ×3 (09:14→21:41)
[2018-11-30] MEDS: Metoprolol XL (24 HR) Succ 25 MG TAB.ER.24H PO SCH (09:14)
[2018-11-30] MEDS: Cholestyramine 4 GM POWD.PACK PO SCH ×3 (09:15→18:30)
[2018-11-30] MEDS: Insulin LISPRO 300 UNITS/3 ML VIAL SQ SCH ×2 (09:23→14:12)
[2018-11-30] MEDS: traMADol 50 MG TABLET PO PRN ×2 (10:17→18:33)
[2018-11-30] MEDS: Nystatin POWDER 30 GM BOTTLE TP SCH ×3 (16:27→21:41)
[2018-12-01] MEDS: Cholestyramine 4 GM POWD.PACK PO SCH ×5 (01:39→20:59)
[2018-12-01] MEDS: *HR* Heparin 5,000 UNIT/ML VIAL SQ SCH ×2 (05:38→17:10)
[2018-12-01] MEDS: Vancomycin Oral Soln 125 MG/2.5 ML UDC PO SCH ×4 (05:39→20:54)
[2018-12-01] MEDS: Insulin LISPRO 300 UNITS/3 ML VIAL SQ SCH ×4 (07:51→16:32)
[2018-12-01] MEDS: Fluconazole 100 MG TABLET PO SCH (07:52)
[2018-12-01] MEDS: ARIPiprazole 5 MG TABLET PO SCH (07:52)
[2018-12-01] MEDS: Metoprolol XL (24 HR) Succ 25 MG TAB.ER.24H PO SCH (07:53)
[2018-12-01] MEDS: Nystatin POWDER 30 GM BOTTLE TP SCH ×3 (07:54→20:59)
[2018-12-01 09:49] LABS: Mean Corpuscular HGB Conc 32.6 g/dL (31.6-35.5); Mean Corpuscular Hemoglobin 30.9 pg (28.0-33.3); Mean Corpuscular Volume 94.9 fL (83.0-100.0); Mean Platelet Volume 8.9 fL (9.4-12.4); Platelet Count 301 K/mcL (140-400); Red Blood Count 4.53 M/mcL (3.82-4.97); Red Cell Distribution Width 18.2 % (11.5-14.5)
[2018-12-01 10:08] LABS: Alanine Aminotransferase 28 Units/L (7-52); Albumin 2.8 g/dL (3.5-5.7); Albumin/Globulin Ratio 0.8 (1.1-2.2); Alkaline Phosphatase 214 Units/L (34-104); Aspartate Amino Transferase 53 Units/L (13-39); BUN/Creatinine Ratio 9 (6-26); Bilirubin,Total 0.6 mg/dL (0.3-1.0); Blood Urea Nitrogen 7 mg/dL (8-23); Calcium 8.6 mg/dL (8.6-10.3); Carbon Dioxide 25 mEq/L (23-29); Chloride 107 mEq/L (98-107); Globulin 3.7 g/dL (2.4-3.5); Glucose 127 mg/dL (70-105); Osmolality,Calculated 288 (280-300); Potassium 3.8 mEq/L (3.5-5.1); Sodium 139 mEq/L (136-145); Total Protein 6.5 g/dL (6.4-8.9); eGFR For Non-African Americans > 60 (> 60)
[2018-12-01] MEDS: *HR* LORazepam 1 MG TABLET PO SCH ×2 (10:48→20:55)
--- NOTE | 2018-12-01 11:46 | Internal Med Progress Note ---
<Capri Colmenares - Last Filed: 12/01/18 12:11> Hospitalist Progress Note - Encounter Date of Encounter: 12/01/18 - Exam Vitals: Temp Pulse Resp BP Pulse Ox 97.7 F 101 16 120/78 99 12/01/18 06:38 12/01/18 06:38 12/01/18 06:38 12/01/18 06:38 12/01/18 06:38 - Assessment and Plan (1) Diabetes Current Visit: No Status: Chronic (2) Hypokalemia Current Visit: No Status: Resolved (3) Hypertension Current Visit: No Status: Chronic (4) Cirrhosis Current Visit: No Status: Chronic (5) C. difficile enteritis Current Visit: Yes Status: Acute (6) Acute metabolic encephalopathy Current Visit: Yes Status: Acute - Time Spent with Patient Total time spent is greater than 50% in coordination of care (as documented) at patient's floor/unit and/or counseling patient: Internal Medicine: Result - Labs CBC & Chem 7: 12/01/18 08:47 12/01/18 08:47 Labs: Short CBC 12/01/18 Range/Units 08:47 WBC 9.1 (4.3-11.1) K/mcL Hgb 14.0 D (11.5-15.4) g/dL Hct 43.0 (35.3-44.9) % Plt Count 301 (140-400) K/mcL BMP 12/01/18 08:47 Sodium 139 Potassium 3.8 Chloride 107 Carbon Dioxide 25 BUN 7 L Creatinine 0.78 Glucose 127 H Calcium 8.6 Liver Function 12/01/18 Range/Units 08:47 Total Bilirubin 0.6 (0.3-1.0) mg/dL AST 53 H (13-39) Units/L ALT 28 (7-52) Units/L Alkaline Phosphatase 214 H (34-104) Units/L Albumin 2.8 L (3.5-5.7) g/dL Consult Discharge Plan - Plan Referrals: NONE,PCP [Primary Care Provider] - - Attending Attestation I examined this patient and my medical decision-making was reviewed with the Resident Physician Dr Baires. I agree with the documented findings, disposition and treatment plan as described except to the extent set forth below. Ms Reynoso is currently admitted for acute C diff colitis, dehydration and hypokalemia. Ms Reynoso is awake. She has had one bm thus far this morning, 7 yesterday. Today she notes abd pain is gone. no n/v/abd pain with eating breakfast. no fevers or chills. She is concerned about her bed hold at her facility and informed her I will have SW confirm for her. gen- alert, awake,appears stated age eyes- pupils equal round cv- reg rate and rhythm, normal s1,s2, no murmurs appreciated lungs- ctabl, no wheezing, rhonchi or crackles abd- soft, non tender, non distended, + bs neuro- AAOx3, CN grossly intact, no focal deficits 1. C diff colitis - appears to be improving slowly on chart review. Continue Vanc and cholestyramine (BID at discharge), monitor stool output today 2. Dehydration - improved 3. Hypokalemia resolved 4. UTI, + yeast >100K CFU- diflucan started 11/29, complete course Anticipate d/c to SNF when stool improves - possibly tomorrow Further diagnoses and plan as noted by resident <Sherry Baires R - Last Filed: 12/01/18 13:27> Hospitalist Progress Note - Encounter Date of Encounter: 12/01/18 Time of Encounter: 08:00 - Subjective Interval History: Pt had 6 bowel movements yesterday but has only had one bowel movement today, and they are decreased in size. Pt is almost back to baseline. Once diarrhea has stopped we will DC back to [facility] for completion of treatment. - Exam Vitals: Temp Pulse Resp BP Pulse Ox 97.7 F 101 16 120/78 99 12/01/18 06:38 12/01/18 06:38 12/01/18 06:38 12/01/18 06:38 12/01/18 06:38 Exam: Constitutional: NAD oriented only to person, confused HEENT: Head is atraumatic, normocephalic. EOMI. moist mucus membranes, no conjuctival pallor. Neck: no jvd, trachea midline Cardiovascular: tachycardic, regular rhythm, S1/S2 present, no murmurs, rubs, gallops Respiratory: CTA B/L, no rhonchi, rales, wheezing, symmetric expansion, good air entry Abdomen: mild tenderness in LLQ. No guarding, rebound or rigidity. Extremities: no cyanosis clubbing or edema Neurologic: oriented X 2, confused, no facial droop, symmetrical B/L UE's and LE's strength Psych: Normal mood and affect - Assessment and Plan (1) C. difficile enteritis Current Visit: Yes Status: Acute Assessment and Plan: Patient with a history of multiple UTIs requiring antibiotic therapy. Most recently admitted to [facility] in september 2018. Presents from [facility] with fevers, nausea, abdominal pain, hypokalemia, leukocytosis, and positive C. diff screen. -Patient received 2g Rocephin and oral vancomycin at [facility] -Currently tachycardic, receiving 100ml/hr infusion of LR's -Continue oral vancomycin 125mg PO QID - day 5 -Motrin for fever control, avoiding tylenol due to reported history of cirrhosis -Repeat BMP and replete electrolytes as needed -Fluid hydrate as needed - WBC now normal at 9.1 (2) Altered mental status Current Visit: Yes Status: Acute Assessment and Plan: -likely secondary due to infection vs hypotension vs metabolic encephalopathy - Baseline pt is confused and takes psych medications - Continues to be more confused than baseline - Psych medications were monitored -Will continue to monitor while treating her underlying infection -History of hepatic encephalopathy - unlikely contributing at this time as ammonia levels were 50 on 11/25 pt had episodes of increased agitation the night of 11/26 and 11/28 and additional ativan was ordered. (3) Hypokalemia Current Visit: No Status: Resolved Assessment and Plan: -Potassium originally 2.8, given potassium chloride 40 meq PO -Repeat K increased to 4 on 11/30 - Potassium chloride 40 meq has been decreased to daily while pt continues to have diarrhea - Continue to monitor and replete (4) Cirrhosis Current Visit: No Status: Chronic Assessment and Plan: -History of cirrhosis -Patient continues to be confused -Ammonia 50 on 11/25 -continue Rifamixin - liver enzymes slowly trending upward since initiation of Diflucan - last dose of Diflucan on 12/01, continue to monitor LFTs (5) Diabetes Current Visit: No Status: Chronic Assessment and Plan: SSI BG has been well controlled throughout stay Continue to monitor (6) Lisa rash of groin Current Visit: Yes Status: Acute Assessment and Plan: Continue nystatin Diflucan x3 doses for UTI with yeast (7) UTI (urinary tract infection) Current Visit: Yes Status: Acute Assessment and Plan: 2 positive urine cultures with yeast Likely secondary to pts candidal rash of groin Will treat with Diflucan PO for three days Last dose 12/01 (8) DVT prophylaxis Current Visit: Yes Status: Acute Assessment and Plan: SQ Heparin - Time Spent with Patient Total time spent is greater than 50% in coordination of care (as documented) at patient's floor/unit and/or counseling patient: Internal Medicine: Result - Labs CBC & Chem 7: 12/01/18 08:47 12/01/18 08:47 Labs: Short CBC 12/01/18 Range/Units 08:47 WBC 9.1 (4.3-11.1) K/mcL Hgb 14.0 D (11.5-15.4) g/dL Hct 43.0 (35.3-44.9) % Plt Count 301 (140-400) K/mcL BMP 12/01/18 08:47 Sodium 139 Potassium 3.8 Chloride 107 Carbon Dioxide 25 BUN 7 L Creatinine 0.78 Glucose 127 H Calcium 8.6 Liver Function 12/01/18 Range/Units 08:47 Total Bilirubin 0.6 (0.3-1.0) mg/dL AST 53 H (13-39) Units/L ALT 28 (7-52) Units/L Alkaline Phosphatase 214 H (34-104) Units/L Albumin 2.8 L (3.5-5.7) g/dL <Capri Colmenares - Last Filed: 12/01/18 12:11> (1) Diabetes Qualifiers: Diabetes mellitus type: type 2 Diabetes mellitus senior care insulin use: without watermaster use Diabetes mellitus complication status: without complication Qualified Code(s): E11.9 - Type 2 diabetes mellitus without complications (3) Hypertension Qualifiers: Hypertension type: essential hypertension Qualified Code(s): I10 - Essential (primary) hypertension (4) Cirrhosis Qualifiers: Hepatic cirrhosis type: unspecified hepatic cirrhosis Ascites presence: without ascites Qualified Code(s): K74.60 - Unspecified cirrhosis of liver <DequanSherry R - Last Filed: 12/01/18 13:27> (2) Altered mental status Qualifiers: Qualified Code(s): R41.82 - Altered mental status, unspecified (4) Cirrhosis Qualifiers: Hepatic cirrhosis type: unspecified hepatic cirrhosis Ascites presence: without ascites Qualified Code(s): K74.60 - Unspecified cirrhosis of liver (5) Diabetes Qualifiers: Diabetes mellitus type: type 2 Diabetes mellitus watermaster insulin use: without watermaster use Diabetes mellitus complication status: without complication Qualified Code(s): E11.9 - Type 2 diabetes mellitus without complications (7) UTI (urinary tract infection) Qualifiers: Urinary tract infection type: site unspecified Hematuria presence: with hematuria Qualified Code(s): N39.0 - Urinary tract infection, site not specified; R31.9 - Hematuria, unspecified
[2018-12-02 04:54] LABS: Hematocrit 36.2 % (35.3-44.9); Mean Corpuscular HGB Conc 32.3 g/dL (31.6-35.5); Mean Corpuscular Hemoglobin 29.8 pg (28.0-33.3); Mean Corpuscular Volume 92.3 fL (83.0-100.0); Mean Platelet Volume 8.5 fL (9.4-12.4); Platelet Count 260 K/mcL (140-400); Red Blood Count 3.92 M/mcL (3.82-4.97); Red Cell Distribution Width 17.5 % (11.5-14.5)
[2018-12-02] MEDS: *HR* Heparin 5,000 UNIT/ML VIAL SQ SCH (05:07)
[2018-12-02] MEDS: Vancomycin Oral Soln 125 MG/2.5 ML UDC PO SCH ×3 (05:08→15:39)
[2018-12-02 05:18] LABS: Alanine Aminotransferase 24 Units/L (7-52); Albumin 2.3 g/dL (3.5-5.7); Albumin/Globulin Ratio 0.7 (1.1-2.2); Alkaline Phosphatase 173 Units/L (34-104); Aspartate Amino Transferase 43 Units/L (13-39); BUN/Creatinine Ratio 12 (6-26); Bilirubin,Total 0.5 mg/dL (0.3-1.0); Blood Urea Nitrogen 8 mg/dL (8-23); Calcium 8.3 mg/dL (8.6-10.3); Carbon Dioxide 25 mEq/L (23-29); Chloride 108 mEq/L (98-107); Globulin 3.2 g/dL (2.4-3.5); Glucose 104 mg/dL (70-105); Osmolality,Calculated 287 (280-300); Potassium 4.1 mEq/L (3.5-5.1); Sodium 139 mEq/L (136-145); Total Protein 5.5 g/dL (6.4-8.9); eGFR For Non-African Americans > 60 (> 60)
[2018-12-02 05:52] LABS: Hemoglobin 11.7 g/dL (11.5-15.4)
[2018-12-02] MEDS: ARIPiprazole 5 MG TABLET PO SCH (07:54)
[2018-12-02] MEDS: Insulin LISPRO 300 UNITS/3 ML VIAL SQ SCH ×3 (07:54→16:11)
[2018-12-02] MEDS: Nystatin POWDER 30 GM BOTTLE TP SCH ×2 (07:54→15:38)
[2018-12-02] MEDS: *HR* LORazepam 1 MG TABLET PO SCH (07:54)
[2018-12-02] MEDS: Cholestyramine 4 GM POWD.PACK PO SCH ×3 (07:54→16:11)
[2018-12-02] MEDS: Metoprolol XL (24 HR) Succ 25 MG TAB.ER.24H PO SCH (07:55)
--- NOTE | 2018-12-02 08:54 | Discharge Summary ---
<Sherry Baires R - Last Filed: 12/02/18 15:10> - NOTES TO OUTPATIENT PROVIDER Notes to Outpatient Provider: Pt returning to baseline after 8 days of vancomycin for C. diff. She will need 2 more days of medication and continued absence of diarrhea. Pt still having 1-2 large loose bowel movements a day, continue cholestyramine to help form the stools. Follow up in 2-3 days to check for resolution of diarrhea. Pt also has chronic elevation of alkaline phosphatase which warrants outpatient workup. Once well enough, pt needs follow up with urology for lithotripsy or other surgical procedure for chronic kidney stone. Date of Encounter: 12/02/18 Time of Encounter: 08:52 - Discharge Diagnosis (1) C. difficile enteritis Priority: Primary Status: Acute Assessment and Plan: Patient with a history of multiple UTIs requiring antibiotic therapy. Most recently admitted to [facility] in september 2018. Presents from [facility] with fevers, nausea, abdominal pain, hypokalemia, leukocytosis, and positive C. diff screen. -Patient received 2g Rocephin and oral vancomycin at [facility] -Currently tachycardic, rehydrated with IV fluids but maintains tachycardia -Continue oral vancomycin 125mg PO QID - day 8, will need 2 more days of treatment -Motrin for fever control, avoiding tylenol due to reported history of cirrhosis -Repeat BMP and replete electrolytes as needed -Fluid hydrate as needed - WBC now normal at 9.5 (2) Altered mental status Priority: Secondary Status: Acute Assessment and Plan: Pt returning to baseline mental status Continue to monitor for sepsis recurrence Cont home meds Qualifiers: Qualified Code(s): R41.82 - Altered mental status, unspecified (3) Hypokalemia Priority: Secondary Status: Resolved Assessment and Plan: Pt was treated with PO potassium while having diarrhea Lowest K 2.8, improved to 4.1 today Consider adding PO potassium if pt has recurrence of diarrhea (4) Cirrhosis Priority: Secondary Status: Chronic Assessment and Plan: Liver function returning to baseline after mild elevation from diflucan Continue home meds Cont to monitor Qualifiers: Hepatic cirrhosis type: unspecified hepatic cirrhosis Ascites presence: without ascites Qualified Code(s): K74.60 - Unspecified cirrhosis of liver (5) Diabetes Priority: Secondary Status: Chronic Assessment and Plan: resume home meds Qualifiers: Diabetes mellitus type: type 2 Diabetes mellitus care home insulin use: without care home use Diabetes mellitus complication status: without complication Qualified Code(s): E11.9 - Type 2 diabetes mellitus without com plications (6) Lisa rash of groin Priority: Secondary Status: Acute Assessment and Plan: Continue nystatin Diflucan x3 doses for UTI with yeast (7) UTI (urinary tract infection) Priority: Secondary Status: Resolved Assessment and Plan: Pt found to have yeast in 2 urine cx Treated with 3 days of Diflucan - now resolved Qualifiers: Urinary tract infection type: site unspecified Hematuria presence: with hematuria Qualified Code(s): N39.0 - Urinary tract infection, site not specified; R31.9 - Hematuria, unspecified (8) Alkaline phosphatase elevation Priority: Secondary Status: Chronic Assessment and Plan: Pt has chronically had this so workup in hospital was not warranted Follow up as an outpatient Hospital course: Ms. Reynoso is a 63 year old female with PMHx of DM, chronic kidney stones with recurrent UTIs causing sepsis, cirrhosis, dementia and hepatic encephalopathy who was transferred from [facility] with AMS secondary to C. diff infection. She was alert but not oriented upon initial presentation and found to have electrolyte abnormalities consistent with diarrhea. She was given Rocephin and oral vancomycin at [facility] before transportation to our facility. The vancomycin was continued throughout her stay and she has had 8/10 days of treatment with oral vancomycin to date. Pt was also diagnosed with a yeast UTI and given 3 days of diflucan during her stay. She gradually progressed back towards her baseline mental status as the C. diff was treated. Cholestyramine was started on day 6 of illness to help bind the C. diff toxin and decrease the amount of diarrhea the patient was having. Pt will be discharged back to [facility] with completion of antibiotics for her C. diff and close monitoring for worsening diarrhea. - Time Spent with Patient Total time spent providing and/or coordinating discharge services: - Discharge Medications Prescriptions: New Cholestyramine 4 gm PO BID #10 powd.pack Nystatin POWDER [Nystop] 1 appl TP TID #1 bottle Vancomycin Oral Soln [Firvanq] 125 mg PO 0600,1000,1500,2100 3 Days #12 udc LORazepam [Ativan] 1 mg PO BID 1 Days #2 tablet Continue Ondansetron HCl [Zofran] 4 mg PO TID PRN PRN Reason: Nausea Albuterol Sulfate [Ventolin Hfa] 1 - 2 puff IH Q4-6H PRN PRN Reason: Shortness Of Breath DULoxetine [Cymbalta] 20 mg PO HS Multivit/Ca/Min/Fe/FA [Thera M Plus] 1 tab PO DAILY tablet ARIPiprazole [Abilify] 5 mg PO DAILY Oxybutynin [Ditropan] 5 mg PO DAILY LORazepam [Ativan] 1 mg PO Q12H Tramadol HCl [Tramadol HCl ER] 100 mg PO QID PRN PRN Reason: Pain Magnesium Hydroxide [Milk of Magnesia] 30 ml PO DAILY PRN PRN Reason: Constipation Sennosides/Docusate Sodium [Senna Plus] 1 each PO Q8H PRN PRN Reason: Constipation Dimethicone/Zinc Oxide [Ellis Protect Cream] 1 applic TP BID PRN PRN Reason: skin break down Metoprolol XL (24 HR) Succ [Toprol Xl] 12.5 mg PO DAILY #15 tab.er.24h Insulin Glargine [Lantus] 10 unit SQ HS #0 Potassium Chloride 10 meq PO DAILY 365 Days tab.er.prt Rifaximin [Xifaxan] 550 mg PO BID 365 Days tablet Home Medications: Albuterol Sulfate [Ventolin Hfa] 1 - 2 puff IH Q4-6H PRN 11/19/16 [History] Ondansetron HCl [Zofran] 4 mg PO TID PRN 11/19/16 [History] DULoxetine [Cymbalta] 20 mg PO HS 08/20/18 [History] Multivit/Ca/Min/Fe/FA [Thera M Plus] 1 tab PO DAILY tablet 09/02/18 [Rx] Insulin Glargine [Lantus] 10 unit SQ HS #0 09/11/18 [Rx] Metoprolol XL (24 HR) Succ [Toprol Xl] 12.5 mg PO DAILY #15 tab.er.24h 09/11/18 [Rx] Potassium Chloride 10 meq PO DAILY 365 Days tab.er.prt 09/30/18 [Rx] Rifaximin [Xifaxan] 550 mg PO BID 365 Days tablet 09/30/18 [Rx] ARIPiprazole [Abilify] 5 mg PO DAILY 11/25/18 [History] Dimethicone/Zinc Oxide [Ellis Protect Cream] 1 applic TP BID PRN 11/25/18 [History] LORazepam [Ativan] 1 mg PO Q12H 11/25/18 [History] Magnesium Hydroxide [Milk of Magnesia] 30 ml PO DAILY PRN 11/25/18 [History] Oxybutynin [Ditropan] 5 mg PO DAILY 11/25/18 [History] Sennosides/Docusate Sodium [Senna Plus] 1 each PO Q8H PRN 11/25/18 [History] Tramadol HCl [Tramadol HCl ER] 100 mg PO QID PRN 11/25/18 [History] Cholestyramine 4 gm PO BID #10 powd.pack 12/02/18 [Rx] LORazepam [Ativan] 1 mg PO BID 1 Days #2 tablet 12/02/18 [Rx] Nystatin POWDER [Nystop] 1 appl TP TID #1 bottle 12/02/18 [Rx] Vancomycin Oral Soln [Firvanq] 125 mg PO 0600,1000,1500,2100 3 Days #12 udc 12/02/18 [Rx] Allergies/Adverse Reactions: Allergy/AdvReac Type Severity Reaction Status Date / Time hydrocodone AdvReac Agitated Verified 09/15/18 12:01 hydroxyzine [From Vistaril] AdvReac Agitated Verified 09/15/18 12:01 oxycodone [From Percocet] AdvReac Agitated Verified 09/15/18 12:01 Date of admission: 11/24/18 23:30 Primary care physician: PCP NONE Consults: 11/25/18 01:38 Consult to Nutrition [CONS] Routine Comment: Consulting Provider: NUTRITION Reason for Dietary Consult: MST Score 11/25/18 15:10 PT [Consult to Physical Therapy] [CONS] Routine Comment: Evaluate, develop and implement POC Reason for Consult: weakness Does patient have active BEDREST order?: No Is patient medically & hemodynamically stable?: Yes Patient assessed for mobility or mobilized this visit?: Yes 11/25/18 15:11 OT [Consult to Occupational Therapy] [CONS] Routine Comment: Evaluate, develop and implement POC Reason for Consult: weakness Does patient have active BEDREST order?: No Is patient medically & hemodynamically stable?: Yes Patient assessed for mobility or mobilized this visit?: Yes Discharging clinician: Sherry Baires - Constitutional Vitals: Temp Pulse Resp BP Pulse Ox 98.1 F 111 14 122/79 96 12/02/18 05:45 12/02/18 05:45 12/02/18 05:45 12/02/18 05:45 12/02/18 05:45 General appearance: Present: cooperative, A&O X 2, pleasant, no acute distress Exam: Constitutional: NAD oriented only to person, confused HEENT: Head is atraumatic, normocephalic. EOMI. moist mucus membranes, no conjuctival pallor. Neck: no jvd, trachea midline Cardiovascular: tachycardic, regular rhythm, S1/S2 present, no murmurs, rubs, gallops Respiratory: CTA B/L, no rhonchi, rales, wheezing, symmetric expansion, good air entry Abdomen: soft, nontender to palpation. No guarding, rebound or rigidity. Extremities: no cyanosis clubbing or edema Neurologic: oriented X 2, confused, no facial droop, symmetrical B/L UE's and LE's strength Psych: Normal mood and affect - Patient Status Disposition: Transfer SNF Condition: Good Functional capacity at discharge: independent ambulation Overall status at discharge: patient is progressing back to baseline - Discharge Instructions Follow Up With: NONE,PCP [Primary Care Provider] - Additional Instructions: Pt will need to continue the oral vancomycin 4 times a day through 12/04 (3 more days of treatment). She will be given a prescription for this as well as the Cholestyramine to be taken twice a day for her diarrhea. If she continues to have diarrhea after cessation of vancomycin therapy, schedule a follow up appointment with a physician for a longer duration of antibiotics. She was given nystatin powder for her candidal rash to be applied 3 times daily. She will need follow up with nephrology for treatment of her chronic kidney stones once well. - Diet and Activity Activity: as per physical therapy, increase activity as tolerated Diet: diabetic diet, low fat, low cholesterol, low salt diet <Capri Colmenares - Last Filed: 12/02/18 15:14> Date of Encounter: 12/02/18 - Discharge Diagnosis (1) Diabetes Status: Chronic Qualifiers: Diabetes mellitus type: type 2 Diabetes mellitus care home insulin use: without care home use Diabetes mellitus complication status: without complication Qualified Code(s): E11.9 - Type 2 diabetes mellitus without complications (2) Hypertension Status: Chronic Qualifiers: Hypertension type: essential hypertension Qualified Code(s): I10 - Essential (primary) hypertension (3) Cirrhosis Status: Chronic Qualifiers: Hepatic cirrhosis type: unspecified hepatic cirrhosis Ascites presence: without ascites Qualified Code(s): K74.60 - Unspecified cirrhosis of liver (4) C. difficile enteritis Status: Acute (5) Acute metabolic encephalopathy Status: Acute Hospital course: Ms. Reynoso is a 63 year old female - Time Spent with Patient Total time spent providing and/or coordinating discharge services: Greater than 30 minutes (40 min) Date of admission: 11/24/18 23:30 Primary care physician: PCP NONE Consults: 11/25/18 01:38 Consult to Nutrition [CONS] Routine Comment: Consulting Provider: NUTRITION Reason for Dietary Consult: MST Score 11/25/18 15:10 PT [Consult to Physical Therapy] [CONS] Routine Comment: Evaluate, develop and implement POC Reason for Consult: weakness Does patient have active BEDREST order?: No Is patient medically & hemodynamically stable?: Yes Patient assessed for mobility or mobilized this visit?: Yes 11/25/18 15:11 OT [Consult to Occupational Therapy] [CONS] Routine Comment: Evaluate, develop and implement POC Reason for Consult: weakness Does patient have active BEDREST order?: No Is patient medically & hemodynamically stable?: Yes Patient assessed for mobility or mobilized this visit?: Yes - Constitutional Vitals: Temp Pulse Resp BP Pulse Ox 98.1 F 102 16 115/72 98 12/02/18 10:39 12/02/18 10:39 12/02/18 10:39 12/02/18 10:39 12/02/18 10:39 - Attending Attestation I examined this patient and my medical decision-making was reviewed with the Resident Physician Dr Baires. I agree with the documented findings, disposition and treatment plan as described except to the extent set forth below. Ms Reynoso is currently admitted for acute C diff colitis, dehydration and hypokalemia. She has had improvement in c diff sxs and resolution of dehydration and hypokalemia. She has sinus tachycardia that appears at her baseline this admit and was continued on her metoprolol. Her mental status is alert and oriented to place and situation. She is discharging back to snf in stable condition to complete oral abx course. Ms Reynoso is awake. Loose bm this morning but remains without abd pain, n/v. No sxs with regular oral diet. denies fevers or chills. gen- alert, awake,appears stated age eyes- pupils equal round cv- reg rate and rhythm, normal s1,s2, no murmurs appreciated lungs- ctabl, no wheezing, rhonchi or crackles, normal resp eeffort on ra abd- soft, non tender, non distended, + bs neuro- AAOx3, CN grossly intact 1. C diff colitis -improving Continue Vanc and cholestyramine (BID at discharge) 2. UTI, + yeast >100K CFU- diflucan started 11/29, completed course 3. Sinus tachycardia- cont home BB dc to ECF Further diagnoses and plan as noted by resident time spent on dc: 40 min
--- NOTE | 2018-12-02 10:13 | Physician Discharge Referral ---
<Sherry Baires R - Last Filed: 12/02/18 10:10> [facility] Referral Info Transfer To: [facility] Provider in Charge: Sherry Baires Provider in Charge after Transfer: PCP Institutional Level of Care: Skilled - Diagnosis (1) C. difficile enteritis Priority: Primary Status: Acute (2) Altered mental status Priority: Secondary Status: Acute (3) Hypokalemia Priority: Secondary Status: Resolved (4) Cirrhosis Priority: Secondary Status: Chronic (5) Diabetes Priority: Secondary Status: Chronic (6) Lisa rash of groin Priority: Secondary Status: Acute (7) UTI (urinary tract infection) Priority: Secondary Status: Resolved (8) Alkaline phosphatase elevation Priority: Secondary Status: Chronic - Transfer Medications Prescriptions: Cholestyramine 4 gm PO BID #10 powd.pack LORazepam [Ativan] 1 mg PO BID 1 Days #2 tablet Nystatin POWDER [Nystop] 1 appl TP TID #1 bottle Vancomycin Oral Soln [Firvanq] 125 mg PO 0600,1000,1500,2100 3 Days #12 udc Home Medications: Albuterol Sulfate [Ventolin Hfa] 1 - 2 puff IH Q4-6H PRN 11/19/16 [History] Ondansetron HCl [Zofran] 4 mg PO TID PRN 11/19/16 [History] DULoxetine [Cymbalta] 20 mg PO HS 08/20/18 [History] Multivit/Ca/Min/Fe/FA [Thera M Plus] 1 tab PO DAILY tablet 09/02/18 [Rx] Insulin Glargine [Lantus] 10 unit SQ HS #0 09/11/18 [Rx] Metoprolol XL (24 HR) Succ [Toprol Xl] 12.5 mg PO DAILY #15 tab.er.24h 09/11/18 [Rx] Potassium Chloride 10 meq PO DAILY 365 Days tab.er.prt 09/30/18 [Rx] Rifaximin [Xifaxan] 550 mg PO BID 365 Days tablet 09/30/18 [Rx] ARIPiprazole [Abilify] 5 mg PO DAILY 11/25/18 [History] Dimethicone/Zinc Oxide [Ellis Protect Cream] 1 applic TP BID PRN 11/25/18 [History] LORazepam [Ativan] 1 mg PO Q12H 11/25/18 [History] Magnesium Hydroxide [Milk of Magnesia] 30 ml PO DAILY PRN 11/25/18 [History] Oxybutynin [Ditropan] 5 mg PO DAILY 11/25/18 [History] Sennosides/Docusate Sodium [Senna Plus] 1 each PO Q8H PRN 11/25/18 [History] Tramadol HCl [Tramadol HCl ER] 100 mg PO QID PRN 11/25/18 [History] Cholestyramine 4 gm PO BID #10 powd.pack 12/02/18 [Rx] LORazepam [Ativan] 1 mg PO BID 1 Days #2 tablet 12/02/18 [Rx] Nystatin POWDER [Nystop] 1 appl TP TID #1 bottle 12/02/18 [Rx] Vancomycin Oral Soln [Firvanq] 125 mg PO 0600,1000,1500,2100 3 Days #12 udc 12/02/18 [Rx] Allergies/Adverse Reactions: Allergy/AdvReac Type Severity Reaction Status Date / Time hydrocodone AdvReac Agitated Verified 09/15/18 12:01 hydroxyzine [From Vistaril] AdvReac Agitated Verified 09/15/18 12:01 oxycodone [From Percocet] AdvReac Agitated Verified 09/15/18 12:01 - Respiratory Orders None Smoking Cessation: Smoking cessation has been advised. For more information, call the [place] Tobacco Quit Line at 2-445-ZRWD-NOW. - Ancillary Orders May use pressure relief devices daily prn, May go on ANTONIO w/family/respon democrat w/meds at nurse discretion PRN, May consult with Dentist, Audiology Doctor, Shaper Operator PRN - Advance Directives Code Status: Full Code - Mobility Orders Ambulate - Rehabiliation Orders Rehab Potential: Good Rehab Orders: ROM Exercises, Evaluation for Physical Therapy, Evaluation for Occupational Therapy - Diet Orders No Added Salt (JEFFREY), No Concentrated Sweets CERTIFICATION: I certify that the transfer of the above named patient to an Extended Care Facility is necessary for the continuing treatment of the diagnosis listed. The above information is true and accurate reflection of patient's current condition. Confidential - Redisclosure prohibited without a patient's written consent. <Capri Colmenares M - Last Filed: 12/02/18 12:48> - Diagnosis (1) Diabetes Status: Chronic (2) Hypertension Status: Chronic (3) Cirrhosis Status: Chronic (4) C. difficile enteritis Status: Acute (5) Acute metabolic encephalopathy Status: Acute - Respiratory Orders None Smoking Cessation: Smoking cessation has been advised. For more information, call the [place] Tobacco Quit Line at 1-239-XWNS-NOW. CERTIFICATION: I certify that the transfer of the above named patient to an Extended Care Facility is necessary for the continuing treatment of the diagnosis listed. The above information is true and accurate reflection of patient's current condition. Confidential - Redisclosure prohibited without a patient's written consent.
[2018-12-02 10:40] VITALS: BP 115/72
[2018-12-02] MEDS: traMADol 50 MG TABLET PO PRN (12:00)
== END 2018-12-02 16:42 | DRG 371 ==
LOC: 3ANU → SUATTDRO 23:30 → 3ANU 11-26 20:00
PROVIDERS: ADMIT Internal Medicine; ATTEND Internal Medicine

== ENCOUNTER 2019-06-08 12:21 | Inpatient (IN) ==
[2019-06-08] MEDS ORDERED: Ondansetron 4 MG/2 ML VIAL IVP PRN (15:34)
[2019-06-08] MEDS ORDERED: Naloxone 0.4 MG/ML INJ IVP PRN ×2 (15:34→19:05)
[2019-06-08] MEDS ORDERED: 0.9 % Sodium Chloride 1,000 ML IVC SCH (15:45)
[2019-06-08] MEDS ORDERED: cefTRIAXone 2,000 MG in Water for inj. (sterile) 20 ML IVP SCH (16:00)
[2019-06-08] MEDS ORDERED: D5% in Water 1,000 ML IVC PRN ×2 (16:06→19:05)
[2019-06-08] MEDS ORDERED: Dextrose Gel 15 GM/37.5 ML TUBE PO PRN ×4 (16:06→19:05)
[2019-06-08] MEDS ORDERED: *HR* Dextrose 50 % in Water (Syg) 50 ML SYRINGE IVP PRN ×2 (16:06→19:05)
--- NOTE | 2019-06-08 16:38 | Urology - Consult Note ---
Date of Encounter: 06/08/19 Time of Encounter: 16:36 - Assessment and Plan (1) Bilateral kidney stones Current Visit: Yes Status: Acute Assessment and plan: Patient with bilateral stones. We will taking the patient urgently to the operative room today for cystoscopy and left ureteral stent placement. We will attempt to (2) JOSEFINA (acute kidney injury) Current Visit: No Status: Acute Assessment and plan: Patient was slightly elevated serum creatinine. Expectation with improvement with drainage. (3) Pyelonephritis Current Visit: No Status: Acute Assessment and plan: Patient to continue with broad-spectrum antimicrobial coverage at this time. (4) Sepsis Current Visit: No Status: Resolved Assessment and plan: Patient will be taken urgently to the operating room for decompression of her left renal system. We will also attempt to exchange right ureteral stent. Qualifiers: Sepsis type: sepsis due to unspecified organism Qualified Code(s): A41.9 - Sepsis, unspecified organism; R65.20 - Severe sepsis without septic shock (5) UTI (urinary tract infection) Current Visit: No Status: Ruled-out Assessment and plan: Continue broad-spectrum antimicrobial coverage. Qualifiers: Urinary tract infection type: site unspecified Hematuria presence: without hematuria Qualified Code(s): N39.0 - Urinary tract infection, site not specified Urology CN:HPI Consult date: 06/08/19 Reason for consult Urology: Hydronephrosis Requesting physician: Hali Lowery History of present illness: Isabella is a 64-year-old female who was seen in outside hospital earlier today secondary to severe tachycardia fever and sepsis. Patient was found to have a left proximal ureteral stone. Patient was having significant left-sided flank pain. Pain is currently a 10 out of 10 in nature. Patient overall feels awful. Upon review the patient's chart she has had a right ureteral stent placement. It appears this stent could been placed at some point last year. I am unable to find the operative note from that time frame. Patient has not had her ureteral stent addressed since then. Patient had urinalysis performed outside hospital which revealed nitrite positive urinalysis. Patient also had labs performed which at this time appear relatively normal. She was febrile to 102 at outside facility. Past Med Surg Social Fam HX - Past Medical History Medical history: no medical history, asthma, coronary artery disease, diabetes, fibromyalgia, hyperlipidemia, hypertension, kidney stones, other Additional medical history: decreased functional mobility and endurance. morbid obesity. anxiety. altered mental status. hypokalemia. difficulty walking. muscle weakness. major depressive disorder. dysphagia oropharyngeal phase. cognutuve communication deficit. artherosclerotic heart disease of [place] coronary artery. angine pectoris. urinary calculi. overative bladder. cirrhosis of the liver. paranoid schizophreia. fatigue. wedge compression fracture of unspecified vertebra sequela. urinary tract infection Psychiatric history: anxiety, depression - Past Surgical History Surgical History: appendectomy, cholecystectomy, hip replacement, hysterectomy, other Additional surgical history: [facility] - Social History Smoking Status: Never smoker Smokeless Tobacco Status: No Alcohol use: none Drug use: none - Family History Mother Living Status: Hx Family Cancer: Yes (Pancreatic) Father Living Status: Hx Family Endocrine Disorder: Yes (DM) Medications and Allergies Albuterol Sulfate [Ventolin Hfa] 1 - 2 puff IH Q4-6H PRN 11/19/16 [History] Ondansetron HCl [Zofran] 4 mg PO TID PRN 11/19/16 [History] DULoxetine [Cymbalta] 20 mg PO HS 08/20/18 [History] Multivit/Ca/Min/Fe/FA [Thera M Plus] 1 tab PO DAILY tablet 09/02/18 [Rx] Rifaximin [Xifaxan] 550 mg PO BID 365 Days tablet 09/30/18 [Rx] Cholestyramine 4 gm PO BID #10 powd.pack 12/02/18 [Rx] Nystatin POWDER [Nystop] 1 appl TP TID #1 bottle 12/02/18 [Rx] ARIPiprazole [Abilify] 1 mg PO DAILY 02/09/19 [History] Dimethicone/Zinc Oxide [Ellis Protect Cream] 1 appl TP BID PRN 02/09/19 [History] Insulin Glargine,Hum.rec.anlog [Lantus Solostar] 10 unit SQ HS 02/09/19 [History] Lactobacillus Acidophilus [Acidophilus] 1 cap PO DAILY 02/09/19 [History] Magnesium Hydroxide [Milk of Magnesia] 2,400 mg PO DAILY PRN 02/09/19 [History] Metoprolol [Lopressor] 25 mg PO BID 02/09/19 [History] Nystatin POWDER [Nystop] 1 appl TP BID 02/09/19 [History] Oxybutynin Chloride [Ditropan XL] 5 mg PO HS 02/09/19 [History] Potassium Chloride [K-Tab ER] 20 meq PO BID 02/09/19 [History] Sennosides [Senokot] 8.6 mg PO Q8H PRN 02/09/19 [History] Vancomycin Oral Soln [Firvanq] 125 mg PO BID [facility] [place] 02/14/19 [Rx] Vancomycin Oral Soln [Firvanq] 125 mg PO DAILY [facility] [place] 02/14/19 [Rx] Vancomycin Oral Soln [Firvanq] 125 mg PO Q48H [facility] [place] 02/14/19 [Rx] Vancomycin Oral Soln [Firvanq] 125 mg PO QID [facility] [place] 02/14/19 [Rx] Allergy/AdvReac Type Severity Reaction Status Date / Time acetaminophen [From Tylenol] Allergy See Verified 01/12/19 10:49 Comments ibuprofen Allergy See Verified 01/12/19 10:49 Comments Methylphenidate Allergy See Verified 01/12/19 10:47 [From Ritalin] Comments nitrofurantoin Allergy Nausea Verified 01/12/19 10:47 [From Macrobid] Sulfa (Sulfonamide Allergy Nausea Verified 01/12/19 10:47 Antibiotics) hydrocodone AdvReac Agitated Verified 01/12/19 10:47 hydroxyzine [From Vistaril] AdvReac Agitated Verified 01/12/19 10:47 oxycodone [From Percocet] AdvReac Agitated Verified 01/12/19 10:47 tramadol [From Ultram] AdvReac See Verified 02/08/19 20:15 Comments tribulyne Allergy See Uncoded 01/12/19 10:47 Comments Review of Systems ROS unobtainable: due to mental status Exam Initial Vital Signs Temp Pulse Resp BP Pulse Ox 98.6 F 142 17 131/86 97 06/08/19 15:16 06/08/19 15:16 06/08/19 15:16 06/08/19 15:16 06/08/19 15:16 General/Neuological: alert and oriented x 3 Eyes: normal pupils, non-icteric Neck: no lymphadenopathy noted, supple to touch Cardiovascular: RRR, no murmurs Respiratory: normal respiratory effort, clear bilaterally ABD: soft, nontender, no masses palpated, good bowel sounds, severely morbidly obese Back: no pain on percussion bilaterally Skin: no rashes noted Musculoskeletal: normal gait, FROMx4 Urology Results - Labs All other labs normal. - Imaging CT scan - abdomen: image reviewed CT scan - pelvis: image reviewed (CT scan reviewed from outside hospital which reveals right ureteral stent in good position. No significant hydronephrosis on the right side. Patient with left proximal ureteral stone with mild to moderate left hydronephrosis.) Consult Discharge Plan - Plan Referrals: NONE,PCP [Primary Care Provider] -
[2019-06-08] MEDS ORDERED: Isovue-300 50 ML VIAL ONE (16:42)
--- NOTE | 2019-06-08 16:53 | Anesthesia Evaluation PreOp ---
Date of Encounter: 06/08/19 Time of Encounter: 17:13 - Past History Planned Operation: cystoscopy, tariq stents (urosepsis) Cardiac History: HTN, Hyperlipidemia Pulmonary History: Asthma DIRECTOR [employer] History: Other (fibromyalgia, schizophrenia) Other Medical History: Renal (acute renal injury, acute pyelonephritis, stones), Diabetes Type II (uses insulin), Other (urosepsis) Anesthesia History: No Prior Anesthetic Complications Alcohol Use: none Drug use: none Medications and Allergies Albuterol Sulfate [Ventolin Hfa] 1 - 2 puff IH Q4-6H PRN 11/19/16 [History] Ondansetron HCl [Zofran] 4 mg PO TID PRN 11/19/16 [History] DULoxetine [Cymbalta] 20 mg PO HS 08/20/18 [History] Multivit/Ca/Min/Fe/FA [Thera M Plus] 1 tab PO DAILY tablet 09/02/18 [Rx] Rifaximin [Xifaxan] 550 mg PO BID 365 Days tablet 09/30/18 [Rx] Cholestyramine 4 gm PO BID #10 powd.pack 12/02/18 [Rx] Nystatin POWDER [Nystop] 1 appl TP TID #1 bottle 12/02/18 [Rx] ARIPiprazole [Abilify] 1 mg PO DAILY 02/09/19 [History] Dimethicone/Zinc Oxide [Ellis Protect Cream] 1 appl TP BID PRN 02/09/19 [History] Insulin Glargine,Hum.rec.anlog [Lantus Solostar] 10 unit SQ HS 02/09/19 [History] Lactobacillus Acidophilus [Acidophilus] 1 cap PO DAILY 02/09/19 [History] Magnesium Hydroxide [Milk of Magnesia] 2,400 mg PO DAILY PRN 02/09/19 [History] Metoprolol [Lopressor] 25 mg PO BID 02/09/19 [History] Nystatin POWDER [Nystop] 1 appl TP BID 02/09/19 [History] Oxybutynin Chloride [Ditropan XL] 5 mg PO HS 02/09/19 [History] Potassium Chloride [K-Tab ER] 20 meq PO BID 02/09/19 [History] Sennosides [Senokot] 8.6 mg PO Q8H PRN 02/09/19 [History] Vancomycin Oral Soln [Firvanq] 125 mg PO BID [facility] [place] 02/14/19 [Rx] Vancomycin Oral Soln [Firvanq] 125 mg PO DAILY [facility] [place] 02/14/19 [Rx] Vancomycin Oral Soln [Firvanq] 125 mg PO Q48H [facility] [place] 02/14/19 [Rx] Vancomycin Oral Soln [Firvanq] 125 mg PO QID [facility] [place] [place] 02/14/19 [Rx] Allergy/AdvReac Type Severity Reaction Status Date / Time acetaminophen [From Tylenol] Allergy See Verified 01/12/19 10:49 Comments ibuprofen Allergy See Verified 01/12/19 10:49 Comments Methylphenidate Allergy See Verified 01/12/19 10:47 [From Ritalin] Comments nitrofurantoin Allergy Nausea Verified 01/12/19 10:47 [From Macrobid] Sulfa (Sulfonamide Allergy Nausea Verified 01/12/19 10:47 Antibiotics) hydrocodone AdvReac Agitated Verified 01/12/19 10:47 hydroxyzine [From Vistaril] AdvReac Agitated Verified 01/12/19 10:47 oxycodone [From Percocet] AdvReac Agitated Verified 01/12/19 10:47 tramadol [From Ultram] AdvReac See Verified 02/08/19 20:15 Comments tribulyne Allergy See Uncoded 01/12/19 10:47 Comments - Meds/Allergy Pre-op Review Medications Reviewed: Yes Allergies Reviewed: Yes Beta Blockers on Current Med List: Yes If Beta Blockers taken, Date/Time (Last Dose taken): hold due to urosepsis Anesthesia Exam Last Vital Signs Temp 98.6 F 06/08/19 15:16 Pulse 142 06/08/19 15:16 Resp 17 06/08/19 15:16 BP 131/86 06/08/19 15:16 Pulse Ox 97 06/08/19 15:16 Weight: 79 kg NPO (# of Hours): > 8 hrs - HEENT Pupil (Motor): Pupils equal, EOMI Mallampati: III Teeth: Poor dentition Oral Opening: Greater than 3 - DIRECTOR [employer] LOC: Confused - Cardiac Rhythm: Regular Murmur: None - Pulmonary Breath Sounds: bilateral Clear Respiratory Effort: Symmetrical Anesthesia Assess/Plan ASA Score: 4, E Level of consciousness: Cooperative Anesthetic Plan: General Monitoring Plan: Standard Monitors Recovery Plan: PACU
[2019-06-08] MEDS ORDERED: *HR* FentaNYL (PF) 100 MCG/2 ML VIAL ONE (16:57)
[2019-06-08] MEDS ORDERED: *HR* Propofol 200 MG/20 ML VIAL IVP ONE (16:58)
[2019-06-08] MEDS ORDERED: Lidocaine -MPF 2% 2 ML VIAL ONE (16:58)
[2019-06-08 17:05] LABS: Estimated Average Glucose 123 mg/dl
[2019-06-08] MEDS ORDERED: Ondansetron 4 MG/2 ML VIAL ONE (17:20)
--- NOTE | 2019-06-08 18:06 | Operative Note ---
Date of procedure: 06/08/19 Pre-op diagnosis: kidney stone with sepsis Post-op diagnosis: same Procedure: Cystoscopy and bilateral 6 x 26 cm ureteral stent placement Anesthesia: GETA Surgeon: Mariano Lyles Was there an supply chain assistant present: No Estimated blood loss (cc): 5 Specimen: none Condition: stable Disposition: PACU Procedure in Detail: Patient was prepped and draped in normal sterile fashion. Timeout procedure performed. I then inserted the cystoscope into the patient's bladder. I was unable to cannulate the left ureteral orifice using a Glidewire. I was then able to place a 6 x 26 cm stent with good curl seen in the left kidney and in the bladder. Immediate return of pus urine was obtained. I then proceeded to grab the patient's right ureteral stent which was covered in a mucousy debris. I then removed this in its entirety. I then placed the cystoscope back into the patient's bladder was able to cannulate the right ureteral orifice using a open ended ureteral catheter. I then placed a Glidewire into the patient's right kidney and subsequently placed a 6 x 26 cm stent with good curl seen in the right kidney and in the bladder. A urethral catheter was then placed. Patient taken to PACU in stable condition after procedure was ended.
--- NOTE | 2019-06-08 18:36 | Anesthesia Evaluation Post Op ---
Date of Encounter: 06/08/19 Time of Encounter: 18:36 - Vital Signs Vital Signs: Vital Signs - Last 8 Hours Temp Pulse Resp BP Pulse Ox 06/08/19 18:31 99 F 129 22 107/71 95 06/08/19 18:19 131 20 106/69 94 06/08/19 18:09 133 18 112/74 93 06/08/19 17:59 98.6 F 130 18 123/76 93 06/08/19 15:16 98.6 F 142 17 131/86 97 Intake and Output 06/08/19 06/08/19 06/08/19 07:59 15:59 23:59 Output Total 130 / 130 Balance -130 / -130 Output: Urine 0 / 0 Estimated Blood Loss 5 / 5 Urine Amount (Catheter) 125 / 125 Other: Stool Size Large Stool Consistency formed Stool Characteristics Normal for Patient Stool Color Brown # Bowel Movements 1 Weight 79.1 kg Blood Glucose* 118 Patient Weight 06/08/19 23:59 Weight 79.1 kg - Lungs Lungs: Clear Ascult./Percussion - Airway Airway: Non-obstructed - Cardiovascular Regular Rate, Baseline Rhythm - Mental Status Mental Status: Alert & Oriented, Answers Appropriately - Pain Pain Scale: 0 Pain Scale used: Numeric (1 - 10) - Nausea Vomiting Nausea Vomiting: Not Present - Hydration Hydration: Tolerates oral liquids, Ice chips - Discharge PostOp Status: Transfer Patient to floor
--- NOTE | 2019-06-08 18:37 | Internal Med History&Physical ---
Date of Encounter: 06/08/19 Time of Encounter: 17:00 Internal Medicine - H&P: HPI Chief complaint: Abdominal pain for 24hrs History of present illness: Ms. Reynoso is a 64 year old female with pmh of CAD, diabetes, fibromyalgia, chronic c difficile infection presenting from the correction to [facility] ER with abdominal pain of about 24hrs duration. Patient has had a right ureteral stent in the past. SHe comes back with generalized feeling of unwellness and severe left sided flank pain accompanied by fevers and tachycardia. She complains of nausea denies any vomiting. Also says she has been having well formed bowel movements. She denoes any other acute complaints. In the ER, a CT scan was done showing left sided hydronephrosis and left sided ureteral stones. Urology has been consulted and she is being admitted for further management Past Med Surg Social Fam HX - Past Medical History Medical history: asthma, coronary artery disease, diabetes, fibromyalgia, hyperlipidemia, hypertension, kidney stones, other Additional medical history: back fracture Psychiatric history: anxiety, depression, schizophrenia - Past Surgical History Surgical History: hysterectomy Additional surgical history: right kidney stent - Social History Smoking Status: Never smoker Smokeless Tobacco Status: No Alcohol use: none Drug use: none - Family History Mother Living Status: Hx Family Cancer: Yes (Pancreatic) Father Living Status: Hx Family Endocrine Disorder: Yes (DM) - Additional Family History Additional family history: Family history reviewed and non contributory Internal Medicine - H&P: Meds Albuterol Sulfate [Ventolin Hfa] 1 - 2 puff IH Q4-6H PRN 11/19/16 [History] Ondansetron HCl [Zofran] 4 mg PO TID PRN 11/19/16 [History] DULoxetine [Cymbalta] 20 mg PO HS 08/20/18 [History] Multivit/Ca/Min/Fe/FA [Thera M Plus] 1 tab PO DAILY tablet 09/02/18 [Rx] Rifaximin [Xifaxan] 550 mg PO BID 365 Days tablet 09/30/18 [Rx] Cholestyramine 4 gm PO BID #10 powd.pack 12/02/18 [Rx] Nystatin POWDER [Nystop] 1 appl TP TID #1 bottle 12/02/18 [Rx] ARIPiprazole [Abilify] 1 mg PO DAILY 02/09/19 [History] Dimethicone/Zinc Oxide [Ellis Protect Cream] 1 appl TP BID PRN 02/09/19 [History] Insulin Glargine,Hum.rec.anlog [Lantus Solostar] 10 unit SQ HS 02/09/19 [History] Lactobacillus Acidophilus [Acidophilus] 1 cap PO DAILY 02/09/19 [History] Magnesium Hydroxide [Milk of Magnesia] 2,400 mg PO DAILY PRN 02/09/19 [History] Metoprolol [Lopressor] 25 mg PO BID 02/09/19 [History] Nystatin POWDER [Nystop] 1 appl TP BID 02/09/19 [History] Oxybutynin Chloride [Ditropan XL] 5 mg PO HS 02/09/19 [History] Potassium Chloride [K-Tab ER] 20 meq PO BID 02/09/19 [History] Sennosides [Senokot] 8.6 mg PO Q8H PRN 02/09/19 [History] Vancomycin Oral Soln [Firvanq] 125 mg PO BID [facility] [place] 02/14/19 [Rx] Vancomycin Oral Soln [Firvanq] 125 mg PO DAILY [facility] [place] 02/14/19 [Rx] Vancomycin Oral Soln [Firvanq] 125 mg PO Q48H [facility] [place] 02/14/19 [Rx] Vancomycin Oral Soln [Firvanq] 125 mg PO QID [facility] [place] 02/14/19 [Rx] Allergy/AdvReac Type Severity Reaction Status Date / Time acetaminophen [From Tylenol] Allergy See Verified 01/12/19 10:49 Comments ibuprofen Allergy See Verified 01/12/19 10:49 Comments Methylphenidate Allergy See Verified 01/12/19 10:47 [From Ritalin] Comments nitrofurantoin Allergy Nausea Verified 01/12/19 10:47 [From Macrobid] Sulfa (Sulfonamide Allergy Nausea Verified 01/12/19 10:47 Antibiotics) hydrocodone AdvReac Agitated Verified 01/12/19 10:47 hydroxyzine [From Vistaril] AdvReac Agitated Verified 01/12/19 10:47 oxycodone [From Percocet] AdvReac Agitated Verified 01/12/19 10:47 tramadol [From Ultram] AdvReac See Verified 02/08/19 20:15 Comments tribulyne Allergy See Uncoded 01/12/19 10:47 Comments All Systems PM: A 10-system review of systems was performed and is negative for pertinent findings except as documented above in the HPI. - Constitutional Constitutional: no chills, no fever(s), no night sweats - EENT Eyes: no change in vision, no discharge, no pain, no photophobia Ears: no ear discharge, no ear pain, no tinnitus Nose, mouth and throat: no dysphagia, no nasal discharge, no neck pain, no sore throat - Cardiovascular Cardiovascular ROS IM: no chest pain, no diaphoresis, no dyspnea, no lightheadedness, no palpitations, no syncope - Respiratory Respiratory: no cough, no dyspnea, no wheezing, no excessive phlegm production - Gastrointestinal Gastrointestinal: abdominal pain, no diarrhea, no hematemesis, no hematochezia, no melena, no nausea, no vomiting - Genitourinary Genitourinary: dysuria, flank pain, no change in urinary stream, no hematuria - Musculoskeletal Musculoskeletal ROS IM: no numbness, no tingling - Integumentary Integumentary IM: no rash, no unusual bruising - Neurological Neurological ROS: no confusion, no convulsions, no focal weakness, no numbness, no tingling, no tremor(s) - Hematologic/Lymphatic Hematologic/Lymphatic: no easy bruising - Constitutional Vitals: Temp Pulse Resp BP Pulse Ox 99 F 129 22 107/71 95 06/08/19 18:31 06/08/19 18:31 06/08/19 18:31 06/08/19 18:31 06/08/19 18:31 Exam: Generalized malaise - Head Head exam: Present: atraumatic, normocephalic - Eye Eye exam: Present: PERRL, conjuntiva pink, sclera anicteric Pupils: Present: PERRL - Neck Neck exam general surgery: Present: supple, trachea midline. Absent: lymphadenopathy - Respiratory Respiratory exam: Present: CTAB. Absent: accessory muscle use, rales, rhonchi, wheezes - Cardiovascular Cardiovascular exam: Present: RRR, +S1, +S2. Absent: diastolic murmur, gallop, rubs, systolic murmur - GI/Abdominal GI/Abdominal exam: Present: normal bowel sounds, soft, no peritoneal signs. Absent: distended, tenderness - Extremities Exam Extremities exam: Present: warm, radial pulses palpable and symmetrical. Absent: calf tenderness, cyanotic, pedal edema - Neurological Exam Neurological exam: Present: CN II-XII intact, oriented X3, no focal deficits. Absent: pronater drift, facial droop, speech deficit - Skin Skin exam: Present: dry, intact Internal Med - H&P Results - Impressions ITS Impressions Fluoroscopy 06/08/19 00:00 IMPRESSION: Intraprocedural fluoroscopic spot images as above. See separate procedure report for more information. D/ / 06/08/2019 17:53:32 Canelo Kirk MD / yunior Interpreting Provider: Canelo Kirk MD X-Ray 06/08/19 00:00 IMPRESSION: Intraprocedural fluoroscopic spot images as above. See separate procedure report for more information. D/ / 06/08/2019 17:53:32 Canelo Kirk MD / yunior Interpreting Provider: Canelo Kirk MD - Assessment and Plan (1) Sepsis Current Visit: Yes Status: Acute Assessment and plan: PT comes in with sepsis with fevers and tachycardia likely secondary to pyelonephritis Obtain blood and rine cultures. Start on ceftriaxone Seen by urology and is s/p uretescopy and stent placement Qualifiers: Sepsis type: sepsis due to unspecified organism Qualified Code(s): A41.9 - Sepsis, unspecified organism; R65.20 - Severe sepsis without septic shock (2) Pyelonephritis Current Visit: Yes Status: Acute Assessment and plan: See #1. Continue ceftriaxone (3) Bilateral kidney stones Current Visit: Yes Status: Acute Assessment and plan: Pt is s/p cystoscopy and bilateral stent placemnt (4) C. difficile colitis Current Visit: Yes Status: Acute Assessment and plan: Continue po vanc (5) DVT prophylaxis Current Visit: Yes Status: Chronic Assessment and plan: Heparin sc - Time Spent With Patient Total time spent is greater than 50% in coordination of care (as documented) at patient's floor/unit and/or counseling patient:
[2019-06-08] MEDS ORDERED: Vancomycin Oral Soln 125 MG/2.5 ML UDC PO SCH (21:00)
[2019-06-08] MEDS ORDERED: Insulin DETEMIR 100 UNIT/ML X5UNITS SQ SCH (21:00)
[2019-06-08] MEDS ORDERED: Insulin LISPRO 300 UNITS/3 ML VIAL SQ SCH (21:00)
[2019-06-08] MEDS: 0.9 % Sodium Chloride 1,000 ML IVC SCH (21:03)
[2019-06-08] MEDS: Vancomycin Oral Soln 125 MG/2.5 ML UDC PO SCH (21:04)
[2019-06-08] MEDS: Insulin LISPRO 300 UNITS/3 ML VIAL SQ SCH (21:29)
[2019-06-08] MEDS: Insulin DETEMIR 100 UNIT/ML X5UNITS SQ SCH (21:30)
[2019-06-08] MEDS: *HR* Metoprolol 5 MG/5 ML VIAL IVP PRN (23:41)
[2019-06-09] MEDS: 0.9 % Sodium Chloride 1,000 ML IVC SCH ×2 (04:38→18:58)
[2019-06-09] MEDS: *HR* Heparin 5,000 UNIT/ML VIAL SQ SCH ×2 (05:43→18:47)
[2019-06-09 06:19] LABS: Hematocrit 39.6 % (35.3-44.9); Hemoglobin 13.2 g/dL (11.5-15.4); Mean Corpuscular HGB Conc 33.3 g/dL (31.6-35.5); Mean Corpuscular Hemoglobin 30.1 pg (28.0-33.3); Mean Corpuscular Volume 90.4 fL (83.0-100.0); Mean Platelet Volume 9.6 fL (9.4-12.4); Platelet Count 214 K/mcL (140-400); Red Blood Count 4.38 M/mcL (3.82-4.97); Red Cell Distribution Width 16.9 % (11.5-14.5); White Blood Count 9.8 K/mcL (4.3-11.1)
[2019-06-09 06:38] LABS: Calcium 8.3 mg/dL (8.6-10.3); Magnesium 1.6 mg/dL (1.6-2.6); Phosphorous 2.8 mg/dL (2.7-4.5); Potassium 3.4 mEq/L (3.5-5.1)
[2019-06-09 07:19] LABS: Lymphocytes # 0.4 K/mcL (0.6-4.6); Monocytes # 0.2 K/mcL (0.0-1.3)
--- NOTE | 2019-06-09 07:19 | Urology Progress Note ---
Date of Encounter: 06/09/19 Time of Encounter: 07:18 - Assessment and Plan (1) Bilateral kidney stones Current Visit: Yes Status: Acute Assessment and plan: Patient now with bilateral ureteral stents in place. (2) JOSEFINA (acute kidney injury) Current Visit: No Status: Acute Assessment and plan: Patient serum creatinine slowly improving. Continue to monitor closely. Continue catheter drainage at this time. (3) Pyelonephritis Current Visit: Yes Status: Acute Assessment and plan: Continue with broad-spectrum antimicrobial coverage until cultures return. (4) Sepsis Current Visit: Yes Status: Acute Qualifiers: Sepsis type: sepsis due to unspecified organism Qualified Code(s): A41.9 - Sepsis, unspecified organism; R65.20 - Severe sepsis without septic shock (5) UTI (urinary tract infection) Current Visit: No Status: Ruled-out Qualifiers: Urinary tract infection type: site unspecified Hematuria presence: without hematuria Qualified Code(s): N39.0 - Urinary tract infection, site not specified Progress Note Narrative: Isabella is a 64-year-old female who underwent cystoscopy and bilateral ureteral stent placement yesterday secondary to kidney stone and sepsis. Patient also with catheter placed at that time. Patient states that she overall feels better today. Vital signs appear stable. Still with significant tachycardia. Cultures pending. Objective Initial Vital Signs Temp Pulse Resp BP Pulse Ox 98.6 F 142 17 131/86 97 06/08/19 15:16 06/08/19 15:16 06/08/19 15:16 06/08/19 15:16 06/08/19 15:16 - General physical appearance Present: well developed, well nourished - Abdomen Present: soft. Absent: tender - Genitourinary Present: other (Catheter in place draining slightly bloody urine.) - Labs 06/09/19 05:28 06/09/19 05:28 Diabetes panel 06/08/19 06/09/19 Range/Units 16:18 05:28 Sodium 135 L (136-145) mEq/L Potassium 3.4 L (3.5-5.1) mEq/L Chloride 102 (98-107) mEq/L Carbon Dioxide 18 L (23-29) mEq/L BUN 38 H (8-23) mg/dL Creatinine 1.91 H (0.60-1.20) mg/dL Glucose 82 (70-105) mg/dL Hemoglobin A1c 5.9 H ( - 5.6) % Calcium 8.3 L (8.6-10.3) mg/dL Calcium panel 06/09/19 Range/Units 05:28 Calcium 8.3 L (8.6-10.3) mg/dL Phosphorus 2.8 (2.7-4.5) mg/dL Pituitary panel 06/09/19 Range/Units 05:28 Sodium 135 L (136-145) mEq/L Potassium 3.4 L (3.5-5.1) mEq/L Chloride 102 (98-107) mEq/L Carbon Dioxide 18 L (23-29) mEq/L BUN 38 H (8-23) mg/dL Creatinine 1.91 H (0.60-1.20) mg/dL Glucose 82 (70-105) mg/dL Calcium 8.3 L (8.6-10.3) mg/dL Adrenal panel 06/09/19 Range/Units 05:28 Sodium 135 L (136-145) mEq/L Potassium 3.4 L (3.5-5.1) mEq/L Chloride 102 (98-107) mEq/L Carbon Dioxide 18 L (23-29) mEq/L BUN 38 H (8-23) mg/dL Creatinine 1.91 H (0.60-1.20) mg/dL Glucose 82 (70-105) mg/dL Calcium 8.3 L (8.6-10.3) mg/dL Consult Discharge Plan - Plan Referrals: NONE,PCP [Primary Care Provider] -
[2019-06-09 07:20] LABS: Platelet Estimate Normal (Normal)
[2019-06-09] MEDS: *HR* Metoprolol 5 MG/5 ML VIAL IVP PRN ×3 (08:09→22:17)
[2019-06-09] MEDS: Vancomycin Oral Soln 125 MG/2.5 ML UDC PO SCH ×2 (08:09→22:18)
[2019-06-09] MEDS ORDERED: 0.9 % Sodium Chloride 1,000 ML IVC ONE (08:49)
--- NOTE | 2019-06-09 09:00 | Internal Med Progress Note ---
Hospitalist Progress Note - Encounter Date of Encounter: 06/09/19 Time of Encounter: 09:00 - Subjective Interval History: s/p cystoscopy and ureteroscopy with bilateral stent placement overnight - Exam Vitals: Temp Pulse Resp BP Pulse Ox 98.1 F 138 14 112/67 93 06/09/19 07:34 06/09/19 07:34 06/09/19 07:34 06/09/19 07:34 06/09/19 07:34 Exam: General appearance: Present: A&O X 3, no acute distress Head exam: Present: normocephalic Respiratory exam: Present: CTAB. Absent: accessory muscle use, rales, rhonchi, wheezes Cardiovascular exam: Present: RRR, +S1, +S2. Absent: diastolic murmur, gallop, rubs, systolic murmur GI/Abdominal exam:mild tenderness to palpation Extremities exam: Absent: pedal edema Neurological exam: Alert to person and place - Assessment and Plan (1) Small bowel obstruction Current Visit: Yes Status: Acute Assessment and Plan: Pt has had episodes of bilious vomiting. CT abdomen shows distal small bowel obstruction Will keep NPO. Surgery consulted and appreciate recs (2) Sepsis Current Visit: Yes Status: Acute Assessment and Plan: PT comes in with sepsis with fevers and tachycardia likely secondary to pyelonephritis Obtain blood and urine cultures. Start on ceftriaxone Seen by urology and is s/p ureteroscopy and stent placement (3) JOSEFINA (acute kidney injury) Current Visit: Yes Status: Acute Assessment and Plan: Improving on IV fluids (4) Pyelonephritis Current Visit: Yes Status: Acute Assessment and Plan: See #1. Continue ceftriaxone (5) Bilateral kidney stones Current Visit: Yes Status: Acute Assessment and Plan: Pt is s/p cystoscopy and bilateral stent placemnt (6) C. difficile colitis Current Visit: Yes Status: Acute Assessment and Plan: Continue po vanc (7) Hypokalemia Current Visit: Yes Status: Acute Assessment and Plan: Replaced (8) DVT prophylaxis Current Visit: Yes Status: Chronic Assessment and Plan: Heparin sc - Time Spent with Patient Total time spent is greater than 50% in coordination of care (as documented) at patient's floor/unit and/or counseling patient: Internal Medicine: Result - Labs CBC & Chem 7: 06/09/19 05:28 06/09/19 05:28 Labs: Short CBC 08/29/19 Range/Units 05:28 WBC 9.8 (4.3-11.1) K/mcL Hgb 13.2 (11.5-15.4) g/dL Hct 39.6 (35.3-44.9) % Plt Count 214 (140-400) K/mcL Neutrophils # 9.0 H (1.6-8.9) K/mcL BMP 06/09/19 05:28 Sodium 135 L Potassium 3.4 L Chloride 102 Carbon Dioxide 18 L BUN 38 H Creatinine 1.91 H Glucose 82 Calcium 8.3 L - Impressions Impressions Fluoroscopy 06/08/19 00:00 IMPRESSION: Intraprocedural fluoroscopic spot images as above. See separate procedure report for more information. D/ /08/2019 17:53:32 Canelo Kirk MD / yunior Interpreting Provider: Canelo Kirk MD X-Ray 06/08/19 00:00 IMPRESSION: Intraprocedural fluoroscopic spot images as above. See separate procedure report for more information. D/ /08/2019 17:53:32 Canelo Kirk MD / yunior Interpreting Provider: Canelo Kirk MD Consult Discharge Plan - Plan Referrals: NONE,PCP [Primary Care Provider] - (2) Sepsis Qualifiers: Sepsis type: sepsis due to unspecified organism Qualified Code(s): A41.9 - Sepsis, unspecified organism; R65.20 - Severe sepsis without septic shock
[2019-06-09 09:21] LABS: Thyroid Stimulating Hormone 1.114 mcIU/mL (0.340-5.600)
[2019-06-09] MEDS: Potassium Chloride Elixir 20 MEQ/15 ML UDC PO SCH ×2 (11:14→14:36)
[2019-06-09] MEDS: Ondansetron 4 MG/2 ML VIAL IVP PRN (11:38)
[2019-06-09] MEDS: *HR* Promethazine 25 MG/ML VIAL IVP PRN (14:36)
--- NOTE | 2019-06-09 14:45 | Electrocardiograph Report ---
[address] [place] [address] Test Date: 2019-06-08 Pat Name: Isabella Reynoso Department: 115 Room: 3A51 Gender: F Cq Developer: PARUL : 1955 Requested By: [id number] Order Number: [id number] Reading MD: Alphonso Allan Measurements Intervals [employer] Rate: 144 P: 149 RI: 131 QRS: -28 QRSD: 85 T: 76 QT: 327 QTc: 410 Interpretive Statements Low voltage ECG Probable sinus tachycardia Possible anterior and inferior infarcts, age undetermined Electronically Signed On 06-09-2019 14:43:14 EDT by Alphonso Allan
--- NOTE | 2019-06-09 15:02 | AcuteCare Surgery Consult Note ---
<Faustina High - Last Filed: 06/09/19 15:26> Date of Encounter: 06/09/19 Time of Encounter: 14:53 Assessment and Plan (1) Ileus Current Visit: Yes Status: Acute Pt with nausea and vomiting. She is noted to have pyelonephritis and chronic C diff colitis. She is having copious amounts of watery diarrhea and is now vomiting. She has no bowel sounds. Suspect she has an ileus secondary to above rather than a small bowel obstruction. Regardless we will place an NG tube for patient comfort. Per bedside RN she has an appointment at [facility] next week for consideration for fecal transplant. Plan: NG to LIWS KUB after insertion NPO except ice chips for comfort SBFT w/barium in the am if nausea has resolved Surgery will continue to follow along (2) C. difficile colitis Current Visit: Yes Status: Chronic History of Present Illness Consult date: 06/09/19 (Dr. Jan Grewal) Reason for consult: other (abdominal pain and abnormal CT) Requesting physician: Hali Lowery History of present illness: Pt's past medical, surgical, social, and family history has been reviewed with the patient at bedside and updated in the electronic medical record were indicated. Surgery has been consulted for recommendations regarding an abnormal CT, concern for possible small bowel obstruction. Endorses a 64-year-old female who presented in transfer from [facility]. She has a resident in a long-term care facility. Per record review she was seen in an outside hospital earlier yesterday secondary to severe tachycardia, fever, and sepsis. She was found to have a left proximal ureteral stone and left flank pain. She previously had a right ureteral stent placement. She was seen by urology and underwent left ureteral stent placement on 06/08/2019. She is noted to have chronic C diff colitis. She was admitted with sepsis, pyelo nephritis, and kidney stones as previously described. She is having copious amounts of bowel movements and today began vomiting. She reports abdominal pain that is an 8 to 10 out of 10, sharp, nausea, vomiting, diarrhea, and anxiety. Her clinical course thus far has included laboratory studies which indicated a normal white blood cell count. CT of the abdomen and pelvis with IV contrast which noted small bowel dilation, (possibly worse from previous bite limited given no oral contrast). In January 2019 she is noted to have pancolitis. Past Med Surg Social Fam HX - Past Medical History Source: patient, old records reviewed Medical history: asthma, cirrhosis, coronary artery disease, diabetes, fibro myalgia, hyperlipidemia, hypertension, kidney stones, other Additional medical history: ASHD. back fracture. fibromyalgia Psychiatric history: anxiety, depression, schizophrenia - Past Surgical History Surgical History: hysterectomy Additional surgical history: right kidney stent - Social History Smoking Status: Never smoker Smokeless Tobacco Status: No Alcohol use: none Drug use: none Occupational status: unemployed Current living situation: ECF - Family History Mother Living Status: Hx Family Cancer: Yes (Pancreatic) Father Living Status: Hx Family Endocrine Disorder: Yes (DM) Medications and Allergies Albuterol Sulfate [Ventolin Hfa] 1 - 2 puff IH Q4-6H PRN 11/19/16 [History] Ondansetron HCl [Zofran] 4 mg PO TID PRN 11/19/16 [History] DULoxetine [Cymbalta] 20 mg PO HS 08/20/18 [History] Multivit/Ca/Min/Fe/FA [Thera M Plus] 1 tab PO DAILY tablet 09/02/18 [Rx] Rifaximin [Xifaxan] 550 mg PO BID 365 Days tablet 09/30/18 [Rx] Cholestyramine 4 gm PO BID #10 powd.pack 12/02/18 [Rx] ARIPiprazole [Abilify] 1 mg PO DAILY 02/09/19 [History] Dimethicone/Zinc Oxide [Ellis Protect Cream] 1 appl TP BID PRN 02/09/19 [History] Insulin Glargine,Hum.rec.anlog [Lantus Solostar] 10 unit SQ HS 02/09/19 [History] Lactobacillus Acidophilus [Acidophilus] 1 cap PO DAILY 02/09/19 [History] Magnesium Hydroxide [Milk of Magnesia] 30 ml PO DAILY PRN 02/09/19 [History] Metoprolol [Lopressor] 25 mg PO BID 02/09/19 [History] Nystatin POWDER [Nystop] 1 appl TP BID 02/09/19 [History] Oxybutynin Chloride [Ditropan XL] 10 mg PO HS 02/09/19 [History] Potassium Chloride [K-Tab ER] 20 meq PO BID 02/09/19 [History] LORazepam [Ativan] 0.5 mg PO DAILY 06/09/19 [History] LORazepam [Ativan] 1 mg PO HS 06/09/19 [History] Sennosides [Senna] 8.6 mg PO Q8H PRN 06/09/19 [History] Tramadol HCl [Ultram] 50 mg PO QID PRN 06/09/19 [History] Vancomycin Oral Soln [Firvanq] 250 mg PO BID 06/09/19 [History] metroNIDAZOLE [Flagyl] 500 mg PO BID 06/09/19 [History] Allergy/AdvReac Type Severity Reaction Status Date / Time ibuprofen Allergy See Verified 01/12/19 10:49 Comments Methylphenidate Allergy See Verified 01/12/19 10:47 [From Ritalin] Comments nitrofurantoin Allergy Nausea Verified 01/12/19 10:47 [From Macrobid] Sulfa (Sulfonamide Allergy Nausea Verified 01/12/19 10:47 Antibiotics) acetaminophen [From Tylenol] AdvReac See Verified 06/08/19 22:35 Comments hydrocodone AdvReac Agitated Verified 01/12/19 10:47 hydroxyzine [From Vistaril] AdvReac Agitated Verified 01/12/19 10:47 oxycodone [From Percocet] AdvReac Agitated Verified 01/12/19 10:47 tramadol [From Ultram] AdvReac See Verified 02/08/19 20:15 Comments tribulyne Allergy See Uncoded 01/12/19 10:47 Comments Review of Systems All systems PM: reviewed and no additional remarkable complaints except as stated All systems PM: The remainder of the systems were reviewed and are negative General Surgery Exam Initial Vital Signs Temp Pulse Resp BP Pulse Ox 98.6 F 142 17 131/86 97 06/08/19 15:16 06/08/19 15:16 06/08/19 15:16 06/08/19 15:16 06/08/19 15:16 - General physical appearance moderate distress, moderate pain - ENT Other (Patient with vomitus noted on her mouth and chin) - Respiratory other (Decreased) - Abdomen Abdomen general surgery: Present: soft, tender (Diffuse). Absent: bowel sounds present - Neurologic Present: normal sensation - Musculoskeletal Present: normal posture - Psychiatric Psychiatric general surgery: Present: A&Ox3 Exam Initial Vital Signs Temp Pulse Resp BP Pulse Ox 98.6 F 142 17 131/86 97 06/08/19 15:16 06/08/19 15:16 06/08/19 15:16 06/08/19 15:16 06/08/19 15:16 Results - Labs 06/09/19 05:28 06/09/19 05:28 Abnormal lab results RDW 16.9 % (11.5-14.5) H 06/09/19 05:28 Band Neutrophils % 28.0 % (0-4) H 06/09/19 05:28 Metamyelocytes % 2.0 % (0) H 06/09/19 05:28 Neutrophils # 9.0 K/mcL (1.6-8.9) H 06/09/19 05:28 Lymphocytes # 0.4 K/mcL (0.6-4.6) L 06/09/19 05:28 Sodium 135 mEq/L (136-145) L 06/09/19 05:28 Potassium 3.4 mEq/L (3.5-5.1) L 06/09/19 05:28 Carbon Dioxide 18 mEq/L (23-29) L 06/09/19 05:28 BUN 38 mg/dL (8-23) H 06/09/19 05:28 Creatinine 1.91 mg/dL (0.60-1.20) H 06/09/19 05:28 Est GFR ( Amer) 32 (> 60) L 06/09/19 05:28 Est GFR (Non-Af Amer) 27 (> 60) L 06/09/19 05:28 Hemoglobin A1c 5.9 % (-5.6) H 06/08/19 16:18 Calcium 8.3 mg/dL (8.6-10.3) L 06/09/19 05:28 Diabetes panel 06/08/19 06/09/19 Range/Units 16:18 05:28 Sodium 135 L (136-145) mEq/L Potassium 3.4 L (3.5-5.1) mEq/L Chloride 102 (98-107) mEq/L Carbon Dioxide 18 L (23-29) mEq/L BUN 38 H (8-23) mg/dL Creatinine 1.91 H (0.60-1.20) mg/dL Glucose 82 (70-105) mg/dL Hemoglobin A1c 5.9 H ( - 5.6) % Calcium 8.3 L (8.6-10.3) mg/dL Thyroid panel 06/09/19 Range/Units 05:28 TSH 1.114 (0.340-5.600) mcIU/mL Calcium panel 06/09/19 Range/Units 05:28 Calcium 8.3 L (8.6-10.3) mg/dL Phosphorus 2.8 (2.7-4.5) mg/dL Pituitary panel 06/09/19 Range/Units 05:28 Sodium 135 L (136-145) mEq/L Potassium 3.4 L (3.5-5.1) mEq/L Chloride 102 (98-107) mEq/L Carbon Dioxide 18 L (23-29) mEq/L BUN 38 H (8-23) mg/dL Creatinine 1.91 H (0.60-1.20) mg/dL Glucose 82 (70-105) mg/dL Calcium 8.3 L (8.6-10.3) mg/dL TSH 1.114 (0.340-5.600) mcIU/mL Adrenal panel 06/09/19 Range/Units 05:28 Sodium 135 L (136-145) mEq/L Potassium 3.4 L (3.5-5.1) mEq/L Chloride 102 (98-107) mEq/L Carbon Dioxide 18 L (23-29) mEq/L BUN 38 H (8-23) mg/dL Creatinine 1.91 H (0.60-1.20) mg/dL Glucose 82 (70-105) mg/dL Calcium 8.3 L (8.6-10.3) mg/dL All other labs normal. - Imaging CT scan - abdomen: report reviewed, image reviewed CT scan - pelvis: report reviewed, image reviewed Consult Discharge Plan - Plan Referrals: NONE,PCP [Primary Care Provider] - <Jan Grewal - Last Filed: 06/09/19 19:44> Date of Encounter: 06/09/19 Review of Systems All systems PM: The remainder of the systems were reviewed and are negative General Surgery Exam Initial Vital Signs Temp Pulse Resp BP Pulse Ox 98.6 F 142 17 131/86 97 06/08/19 15:16 06/08/19 15:16 06/08/19 15:16 06/08/19 15:16 06/08/19 15:16 Exam Initial Vital Signs Temp Pulse Resp BP Pulse Ox 98.6 F 142 17 131/86 97 06/08/19 15:16 06/08/19 15:16 06/08/19 15:16 06/08/19 15:16 06/08/19 15:16 Results - Labs 06/09/19 05:28 06/09/19 05:28 Abnormal lab results RDW 16.9 % (11.5-14.5) H 06/09/19 05:28 Band Neutrophils % 28.0 % (0-4) H 06/09/19 05:28 Metamyelocytes % 2.0 % (0) H 06/09/19 05:28 Neutrophils # 9.0 K/mcL (1.6-8.9) H 06/09/19 05:28 Lymphocytes # 0.4 K/mcL (0.6-4.6) L 06/09/19 05:28 Sodium 135 mEq/L (136-145) L 06/09/19 05:28 Potassium 3.4 mEq/L (3.5-5.1) L 06/09/19 05:28 Carbon Dioxide 18 mEq/L (23-29) L 06/09/19 05:28 BUN 38 mg/dL (8-23) H 06/09/19 05:28 Creatinine 1.91 mg/dL (0.60-1.20) H 06/09/19 05:28 Est GFR ( Amer) 32 (> 60) L 06/09/19 05:28 Est GFR (Non-Af Amer) 27 (> 60) L 06/09/19 05:28 Hemoglobin A1c 5.9 % (-5.6) H 06/08/19 16:18 Calcium 8.3 mg/dL (8.6-10.3) L 06/09/19 05:28 Diabetes panel 06/09/19 Range/Units 05:28 Sodium 135 L (136-145) mEq/L Potassium 3.4 L (3.5-5.1) mEq/L Chloride 102 (98-107) mEq/L Carbon Dioxide 18 L (23-29) mEq/L BUN 38 H (8-23) mg/dL Creatinine 1.91 H (0.60-1.20) mg/dL Glucose 82 (70-105) mg/dL Calcium 8.3 L (8.6-10.3) mg/dL Thyroid panel 06/09/19 Range/Units 05:28 TSH 1.114 (0.340-5.600) mcIU/mL Calcium panel 06/09/19 Range/Units 05:28 Calcium 8.3 L (8.6-10.3) mg/dL Phosphorus 2.8 (2.7-4.5) mg/dL Pituitary panel 06/09/19 Range/Units 05:28 Sodium 135 L (136-145) mEq/L Potassium 3.4 L (3.5-5.1) mEq/L Chloride 102 (98-107) mEq/L Carbon Dioxide 18 L (23-29) mEq/L BUN 38 H (8-23) mg/dL Creatinine 1.91 H (0.60-1.20) mg/dL Glucose 82 (70-105) mg/dL Calcium 8.3 L (8.6-10.3) mg/dL TSH 1.114 (0.340-5.600) mcIU/mL Adrenal panel 06/09/19 Range/Units 05:28 Sodium 135 L (136-145) mEq/L Potassium 3.4 L (3.5-5.1) mEq/L Chloride 102 (98-107) mEq/L Carbon Dioxide 18 L (23-29) mEq/L BUN 38 H (8-23) mg/dL Creatinine 1.91 H (0.60-1.20) mg/dL Glucose 82 (70-105) mg/dL Calcium 8.3 L (8.6-10.3) mg/dL All other labs normal. - Attending Attestation I have personally performed a face to face evaluation on this patient. I have reviewed and agree with the care plan. History and Exam by me shows: The patient is seen and evaluated with the clinical nurse practitioner. She has chronic Clostridium difficile infection as well as multiple other comorbid conditions. Nasogastric tube is placed. Small bowel follow-through was ordered for tomorrow to completely rule out small bowel obstruction. Jan Grewal MD FACS
[2019-06-09] MEDS ORDERED: cefTRIAXone 2,000 MG in Water for inj. (sterile) 20 ML IVP SCH (16:00)
[2019-06-09] MEDS: *HR* LORazepam 2 MG/ML VIAL IVP SCH (18:58)
[2019-06-09] MEDS ORDERED: *HR* LORazepam 2 MG/ML VIAL IVP PRN (21:00)
--- NOTE | 2019-06-09 22:06 | Event Note ---
Date of Encounter: 06/09/19 Time of Encounter: 21:47 Alerted by patient's nurse HANSA Burton that patient was admitted due to concern for SBO. Patient has had a total of 2 NG tubes placed today. Nurse reports patient chest pulled second NG tube out and does not want it replaced until tomorrow. Patient not currently vomiting or nauseous. Nurse reports patient has had two bowel movements this evening. Hx of C diff and pt. is due to have fecal transplantation in the future. Patient has history of psychiatric issues and family is concerned if she does not get her Cymbalta at bedtime Abilify in the morning but her schizophrenia will manifest. Nothing by mouth order states ice chips for comfort. One-time order Cymbalta 20 mg ordered for tonight and continuation of patient's Abilify 1 mg at 09:00 tomorrow ordered. Meds to be given with small amounts of water. Nurse instructed to continue monitoring patient closely and alert me immediately of any increasing nausea/vomiting, behavioral issues, or adverse changes.
[2019-06-09] MEDS: Insulin DETEMIR 100 UNIT/ML X5UNITS SQ SCH (22:18)
[2019-06-09] MEDS: Insulin LISPRO 300 UNITS/3 ML VIAL SQ SCH (22:19)
[2019-06-10] MEDS: 0.9 % Sodium Chloride 1,000 ML IVC SCH ×2 (02:20→06:20)
[2019-06-10 04:53] LABS: Hematocrit 37.9 % (35.3-44.9); Hemoglobin 12.7 g/dL (11.5-15.4); Mean Corpuscular HGB Conc 33.5 g/dL (31.6-35.5); Mean Corpuscular Hemoglobin 30.6 pg (28.0-33.3); Mean Corpuscular Volume 91.3 fL (83.0-100.0); Mean Platelet Volume 9.4 fL (9.4-12.4); Platelet Count 209 K/mcL (140-400); Red Blood Count 4.15 M/mcL (3.82-4.97); Red Cell Distribution Width 16.9 % (11.5-14.5); White Blood Count 12.9 K/mcL (4.3-11.1)
[2019-06-10 05:16] LABS: Calcium 8.2 mg/dL (8.6-10.3); Magnesium 1.6 mg/dL (1.6-2.6); Phosphorous 1.4 mg/dL (2.7-4.5); Potassium 2.8 mEq/L (3.5-5.1)
[2019-06-10] MEDS: *HR* Heparin 5,000 UNIT/ML VIAL SQ SCH ×2 (05:34→17:18)
[2019-06-10 05:48] LABS: Lymphocytes # 1.3 K/mcL (0.6-4.6); Monocytes # 2.1 K/mcL (0.0-1.3); Neutrophils # 9.6 K/mcL (1.6-8.9); Platelet Estimate Normal (Normal); Reactive Lymphocytes Present (Not Present)
[2019-06-10] MEDS ORDERED: Potassium Chloride Elixir 20 MEQ/15 ML UDC GTUBE SCH (06:16)
[2019-06-10] MEDS ORDERED: Potassium Chloride 40 MEQ, Lidocaine 1% 2 ML in 0.9 % Sodium Chloride 500 ML IVPB ONE (06:19)
[2019-06-10] MEDS: *HR* LORazepam 2 MG/ML VIAL IVP SCH (08:25)
[2019-06-10] MEDS: ARIPiprazole 2 MG TABLET PO SCH (08:25)
[2019-06-10] MEDS: Vancomycin Oral Soln 125 MG/2.5 ML UDC PO SCH (08:25)
--- NOTE | 2019-06-10 09:16 | Urology Progress Note ---
<Ivon Curry N - Last Filed: 06/10/19 09:14> Date of Encounter: 06/10/19 Time of Encounter: 08:15 - Assessment and Plan (1) Bilateral kidney stones Current Visit: Yes Status: Acute Assessment and plan: Patient is a 64-year-old female who presents 2 days status post cystoscopy and bilateral ureteral stent placement. Serum creatinine is much improved to 1.21. (2) Pyelonephritis Current Visit: Yes Status: Acute Assessment and plan: Patient is a 64-year-old female who presents with a history of pyelonephritis, urosepsis and bilateral nephrolithiasis. JOSEFINA is resolving. White blood cell count is elevated to 12.9. Vital signs are stable and afebrile, although, patient continues with tachycardia. Final blood cultures are pending. Patient is receiving IV Rocephin and vancomycin. (3) Sepsis Current Visit: Yes Status: Acute Qualifiers: Sepsis type: sepsis due to unspecified organism Qualified Code(s): A41.9 - Sepsis, unspecified organism Progress Note Narrative: POD #2. Patient seen and examined lying in bed in no apparent distress. Patient reports pain is well-controlled at present. Patient admits to continued nausea, but she denies any vomiting. Castillo catheter is indwelling and draining transparent, dark yellow urine into bedside bag. Objective Initial Vital Signs Temp Pulse Resp BP Pulse Ox 98.6 F 142 17 131/86 97 06/08/19 15:16 06/08/19 15:16 06/08/19 15:16 06/08/19 15:16 06/08/19 15:16 - General physical appearance Present: no distress, no pain, obese - Respiratory Present: normal expansion, normal respiratory effort - Abdomen Present: soft, non tender. Absent: distended - Genitourinary Urine Appearance: Present: Clear, Mucous Threads - Integumentary Present: no rash, no abnormal pigmentation - Musculoskeletal Present: normal posture - Psychiatric Present: oriented to time, oriented to person, oriented to place, speech is normal, memory intact - Labs 06/10/19 04:22 06/10/19 04:22 Diabetes panel 06/10/19 Range/Units 04:22 Sodium 138 (136-145) mEq/L Potassium 2.8 L (3.5-5.1) mEq/L Chloride 105 (98-107) mEq/L Carbon Dioxide 19 L (23-29) mEq/L BUN 41 H (8-23) mg/dL Creatinine 1.21 H (0.60-1.20) mg/dL Glucose 134 H (70-105) mg/dL Calcium 8.2 L (8.6-10.3) mg/dL Thyroid panel 06/09/19 Range/Units 05:28 TSH 1.114 (0.340-5.600) mcIU/mL Calcium panel 06/10/19 Range/Units 04:22 Calcium 8.2 L (8.6-10.3) mg/dL Phosphorus 1.4 L (2.7-4.5) mg/dL Pituitary panel 06/09/19 06/10/19 Range/Units 05:28 04:22 Sodium 138 (136-145) mEq/L Potassium 2.8 L (3.5-5.1) mEq/L Chloride 105 (98-107) mEq/L Carbon Dioxide 19 L (23-29) mEq/L BUN 41 H (8-23) mg/dL Creatinine 1.21 H (0.60-1.20) mg/dL Glucose 134 H (70-105) mg/dL Calcium 8.2 L (8.6-10.3) mg/dL TSH 1.114 (0.340-5.600) mcIU/mL Adrenal panel 06/10/19 Range/Units 04:22 Sodium 138 (136-145) mEq/L Potassium 2.8 L (3.5-5.1) mEq/L Chloride 105 (98-107) mEq/L Carbon Dioxide 19 L (23-29) mEq/L BUN 41 H (8-23) mg/dL Creatinine 1.21 H (0.60-1.20) mg/dL Glucose 134 H (70-105) mg/dL Calcium 8.2 L (8.6-10.3) mg/dL Consult Discharge Plan - Plan Referrals: Mariano Lyles MD [Partnered Physician] - Quan Ulloa CNP [Advanced Practice Nurse] - <Mariano Lyles - Last Filed: 06/10/19 16:26> Date of Encounter: 06/10/19 - Assessment and Plan (1) Bilateral kidney stones Current Visit: Yes Status: Acute (2) JOSEFINA (acute kidney injury) Current Visit: Yes Status: Acute (3) Pyelonephritis Current Visit: Yes Status: Acute (4) Sepsis Current Visit: Yes Status: Acute Qualifiers: Sepsis type: sepsis due to unspecified organism Sepsis acute organ dysfunction status: unspecified Qualified Code(s): A41.9 - Sepsis, unspecified organism (5) UTI (urinary tract infection) Current Visit: No Status: Ruled-out Qualifiers: Urinary tract infection type: site unspecified Hematuria presence: without hematuria Qualified Code(s): N39.0 - Urinary tract infection, site not specified Progress Note Narrative: She was seen and examined independently. I agree with the plan as written by Ivon Curry. Catheter is draining much better urine today as compared to yesterday. Patient has been having some persistent nausea. Unsure of etiology. We will continue to follow along. Keep catheter in place at this time. Objective Initial Vital Signs Temp Pulse Resp BP Pulse Ox 98.6 F 142 17 131/86 97 06/08/19 15:16 06/08/19 15:16 06/08/19 15:16 06/08/19 15:16 06/08/19 15:16 - Labs 06/10/19 04:22 06/10/19 04:22 Diabetes panel 06/10/19 Range/Units 04:22 Sodium 138 (136-145) mEq/L Potassium 2.8 L (3.5-5.1) mEq/L Chloride 105 (98-107) mEq/L Carbon Dioxide 19 L (23-29) mEq/L BUN 41 H (8-23) mg/dL Creatinine 1.21 H (0.60-1.20) mg/dL Glucose 134 H (70-105) mg/dL Calcium 8.2 L (8.6-10.3) mg/dL Calcium panel 06/10/19 Range/Units 04:22 Calcium 8.2 L (8.6-10.3) mg/dL Phosphorus 1.4 L (2.7-4.5) mg/dL Pituitary panel 06/10/19 Range/Units 04:22 Sodium 138 (136-145) mEq/L Potassium 2.8 L (3.5-5.1) mEq/L Chloride 105 (98-107) mEq/L Carbon Dioxide 19 L (23-29) mEq/L BUN 41 H (8-23) mg/dL Creatinine 1.21 H (0.60-1.20) mg/dL Glucose 134 H (70-105) mg/dL Calcium 8.2 L (8.6-10.3) mg/dL Adrenal panel 06/10/19 Range/Units 04:22 Sodium 138 (136-145) mEq/L Potassium 2.8 L (3.5-5.1) mEq/L Chloride 105 (98-107) mEq/L Carbon Dioxide 19 L (23-29) mEq/L BUN 41 H (8-23) mg/dL Creatinine 1.21 H (0.60-1.20) mg/dL Glucose 134 H (70-105) mg/dL Calcium 8.2 L (8.6-10.3) mg/dL
[2019-06-10] MEDS ORDERED: Potassium Phosphate 44 MEQ in 0.9 % Sodium Chloride 250 ML IVPB ONE ×2 (10:02→16:00)
--- NOTE | 2019-06-10 10:36 | AcuteCareSurgery Progress Note ---
Date of Encounter: 06/10/19 Time of Encounter: 08:00 - Assessment and Plan (1) Small bowel obstruction Current Visit: Yes Status: Acute Doubt SBO. Will obtain SBFT to ensure rule out. (2) C. difficile colitis Current Visit: Yes Status: Chronic Continue current abx. (3) Diabetes Current Visit: No Status: Chronic Qualifiers: Diabetes mellitus type: type 2 Diabetes mellitus skilled nursing insulin use: without skilled nursing use Diabetes mellitus complication status: without complication Qualified Code(s): E11.9 - Type 2 diabetes mellitus without complications (4) Hypertension Current Visit: No Status: Chronic Qualifiers: Hypertension type: essential hypertension Qualified Code(s): I10 - Essential (primary) hypertension Subjective Patient reports: no new complaints, feels better, flatus, bowel movement, shortness of breath, afebrile Objective Vital Signs - Last 8 Hours Temp Pulse Resp BP Pulse Ox 06/10/19 08:25 98.7 F 127 32 116/79 91 06/10/19 07:06 97.8 F 131 14 108/72 92 06/10/19 04:30 98.4 F 128 14 114/76 93 Intake and Output 06/09/19 06/10/19 06/10/19 23:59 07:59 15:59 Intake Total 100 / 1900 1100 / 1100 Output Total 200 / 200 Balance 100 / 1900 900 / 900 Intake: IV Fluids 100 / 1100 1100 / 1100 0.9 % Sodium Chloride 1,000 ML 1000 / 1000 @ 100 mls/hr IVC .Q10H [facility] Rx#: [id number] Potassium Chloride 10 mEq/100mL 100 / 100 100 / 100 10 meq In 100 ml @ 100 mls/hr IVPB Q1H [facility] Rx#:[id number] Oral 0 / 800 Output: Urine 200 / 200 Other: Meal NPO for Breakfast Stool Size Moderate Moderate Stool Consistency loose loose Stool Characteristics Mucoid Mucoid Stool Color Brown Green Yellow # Bowel Movements 1 # Bowel Movement Diapers 1 Weight 78.8 kg Blood Glucose* 137 108 Patient Weight 06/10/19 23:59 Weight 78.8 kg - General physical appearance no distress, moderate pain - Eyes PERRL, normal ocular movement - ENT no congestion, dry mucosa - Neck Neck exam: trachea midline, no venous distension - Respiratory normal respiratory effort, clear to auscultation - Cardiovascular Cardiovascular exam: Present: RRR. Absent: JVD - Abdomen Abdomen: Present: bowel sounds present, soft, distended, tender Abdominal Tenderness: diffusely - Neurologic CN 2-12 grossly intact, normal coordination - Musculoskeletal normal posture - Psychiatric oriented to time, oriented to person, oriented to place - Labs 06/10/19 04:22 06/10/19 04:22 Diabetes panel 06/10/19 Range/Units 04:22 Sodium 138 (136-145) mEq/L Potassium 2.8 L (3.5-5.1) mEq/L Chloride 105 (98-107) mEq/L Carbon Dioxide 19 L (23-29) mEq/L BUN 41 H (8-23) mg/dL Creatinine 1.21 H (0.60-1.20) mg/dL Glucose 134 H (70-105) mg/dL Calcium 8.2 L (8.6-10.3) mg/dL Calcium panel 06/10/19 Range/Units 04:22 Calcium 8.2 L (8.6-10.3) mg/dL Phosphorus 1.4 L (2.7-4.5) mg/dL Pituitary panel 06/10/19 Range/Units 04:22 Sodium 138 (136-145) mEq/L Potassium 2.8 L (3.5-5.1) mEq/L Chloride 105 (98-107) mEq/L Carbon Dioxide 19 L (23-29) mEq/L BUN 41 H (8-23) mg/dL Creatinine 1.21 H (0.60-1.20) mg/dL Glucose 134 H (70-105) mg/dL Calcium 8.2 L (8.6-10.3) mg/dL Adrenal panel 06/10/19 Range/Units 04:22 Sodium 138 (136-145) mEq/L Potassium 2.8 L (3.5-5.1) mEq/L Chloride 105 (98-107) mEq/L Carbon Dioxide 19 L (23-29) mEq/L BUN 41 H (8-23) mg/dL Creatinine 1.21 H (0.60-1.20) mg/dL Glucose 134 H (70-105) mg/dL Calcium 8.2 L (8.6-10.3) mg/dL Consult Discharge Plan - Plan Referrals: Mariano Lyles MD [Partnered Physician] - Quan Ulloa CNP [Advanced Practice Nurse] -
[2019-06-10] MEDS ORDERED: Isovue-370 500 ML BOTTLE IVP ONE (11:19)
[2019-06-10] MEDS: *HR* Metoprolol 5 MG/5 ML VIAL IVP PRN ×2 (12:48→21:43)
[2019-06-10] MEDS ORDERED: Perflutren Lipid Microsphere 1.3 ML in 0.9 % Sodium Chloride 8.7 ML IVP ONE (13:02)
[2019-06-10] MEDS ORDERED: 0.9 % Sodium Chloride 1,000 ML IVC ONE (13:05)
[2019-06-10 13:12] LABS: Adenovirus F 40/41 PCR Not detected (Not detect); Astrovirus PCR Not detected (Not detect); C.difficile Toxin A/B Gene PCR Not detected (Not detect); Campylobacter by PCR Not detected (Not detect); Cryptosporidium by PCR Not detected (Not detect); Cyclospora cayetanensis PCR Not detected (Not detect); E. coli O157 by PCR Not detected (Not detect); Entamoeba histolytica PCR Not detected (Not detect); Enteroaggregative E.coli(EAEC) Not detected (Not detect); Enteropathogenic E.coli(EPEC) Not detected (Not detect); Enterotoxigenic E.coli (ETEC) Not detected (Not detect); Giardia lamblia PCR Not detected (Not detect); Norovirus GI/GII PCR Not detected (Not detect); Plesiomonas shigelloides PCR Not detected (Not detect); Rotavirus A PCR Not detected (Not detect); Salmonella PCR Not detected (Not detect); Sapovirus PCR Not detected (Not detect); Shig/EnteroinvasiveE coli EIEC Not detected (Not detect); Shigalike tox-prod E coli STEC Not detected (Not detect); Vibrio PCR Not detected (Not detect); Vibrio cholerae PCR Not detected (Not detect); Yersinia enterocolitica PCR Not detected (Not detect)
[2019-06-10] MEDS: traMADol 50 MG TABLET PO PRN (14:24)
[2019-06-10] MEDS: Ondansetron 4 MG/2 ML VIAL IVP PRN (14:34)
--- NOTE | 2019-06-10 14:34 | Internal Med Progress Note ---
Hospitalist Progress Note - Encounter Date of Encounter: 06/10/19 Time of Encounter: 10:00 - Subjective Interval History: No acute events overnight - Exam Vitals: Temp Pulse Resp BP Pulse Ox 98.8 F 129 26 132/64 95 06/10/19 10:56 06/10/19 10:56 06/10/19 10:56 06/10/19 10:56 06/10/19 10:56 Exam: General appearance: Present: A&O X 3, no acute distress Head exam: Present: normocephalic Respiratory exam: Present: CTAB. Absent: accessory muscle use, rales, rhonchi, wheezes Cardiovascular exam: Present: RRR, +S1, +S2. Absent: diastolic murmur, gallop, rubs, systolic murmur GI/Abdominal exam:mild tenderness to palpation Extremities exam: Absent: pedal edema Neurological exam: Alert to person and place - Assessment and Plan (1) Sepsis Current Visit: Yes Status: Acute Assessment and Plan: PT comes in with sepsis with fevers and tachycardia likely secondary to pyelonephritis and aspiration Obtain blood and urine cultures. Started on ceftriaxone which has been swithced to zosyn to cover aspiration Seen by urology and is s/p ureteroscopy and stent placement Has persistent sinus tachycardia which is likely infection and small bowel obst ruction driven. TSH WNL,, CTA chest showed consolidation but no PE, limited echo unremarkable Continue IV fluids and antibiotics (2) Aspiration pneumonia Current Visit: Yes Status: Acute Assessment and Plan: CT chest showed right sided airspace densities likely suggestive of aspiration continue zosyn (3) Small bowel obstruction Current Visit: Yes Status: Acute Assessment and Plan: Pt has had episodes of bilious vomiting. CT abdomen shows distal small bowel obstruction Will keep NPO. Surgery consulted and appreciate recs Planned for small bowel follow through today. Advance diet as tolerated (4) JOSEFINA (acute kidney injury) Current Visit: Yes Status: Acute Assessment and Plan: Improving on IV fluids. continue hydration with normal saline (5) Pyelonephritis Current Visit: Yes Status: Acute Assessment and Plan: See #1. Continue zosyn (6) Bilateral kidney stones Current Visit: Yes Status: Acute Assessment and Plan: Pt is s/p cystoscopy and bilateral stent placement. Continue antibiotics (7) C. difficile colitis Current Visit: Yes Status: Acute Assessment and Plan: C diff testing and GI panel negative. Will d/c po vanc as patient appears to have been on an extended course since February (8) Hypokalemia Current Visit: Yes Status: Acute Assessment and Plan: Replaced (9) DVT prophylaxis Current Visit: Yes Status: Chronic Assessment and Plan: Heparin sc - Time Spent with Patient Total time spent is greater than 50% in coordination of care (as documented) at patient's floor/unit and/or counseling patient: Internal Medicine: Result - Labs CBC & Chem 7: 06/10/19 04:22 06/10/19 04:22 Labs: Short CBC 06/10/19 Range/Units 04:22 WBC 12.9 H (4.3-11.1) K/mcL Hgb 12.7 (11.5-15.4) g/dL Hct 37.9 (35.3-44.9) % Plt Count 209 (140-400) K/mcL Neutrophils # 9.6 H (1.6-8.9) K/mcL BMP 06/10/19 04:22 Sodium 138 Potassium 2.8 L Chloride 105 Carbon Dioxide 19 L BUN 41 H Creatinine 1.21 H Glucose 134 H Calcium 8.2 L - Impressions Impressions KUB X-Ray 06/09/19 15:50 IMPRESSION: 1. An enteric tube has been placed. The tip is in the duodenum. 2. Low lung volumes. 3. Ureteral stents are in place. D/ : / 06/09/2019 16:56:35 William Cohen MD / jus Interpreting Provider: William Cohen MD Chest X-Ray 06/09/19 16:24 IMPRESSION: 1. An enteric tube has been placed. The tip is in the duodenum. 2. Low lung volumes. 3. Ureteral stents are in place. D/ : / 06/09/2019 16:56:35 William Choen MD / jus Interpreting Provider: William Cohen MD Echocardiogram Limited Views 06/10/19 10:01 Impressions: LVEF 65%. Grossly normal right ventricular size and function. Left Ventricular Wall Motion: Rest Echo Findings All wall segments showed normal motion. Findings: Study Quality * Technically sub-optimal due to poor echocardiographic windows. ECG Findings * Sinus tachycardia. Left Ventricle * LVEF 65%. * Normal LV chamber size, wall thickness and systolic function. * Definity echo contrast was not used. Right Ventricle * RV not well visualized, grossly normal right ventricular size and function. Left Atrium * Normal left atrial size. Right Atrium * Right atrium is not well visualized. Chest CTA 06/10/19 11:19 IMPRESSION: 1. No evidence for acute pulmonary embolism. 2. Motion artifact limits evaluation of the lung parenchyma however there appears to be a scattered subcentimeter nodular appearing airspace densities in the lower lobes and in the posterior segment right upper lobe. Favor infectious etiology. Interval development of subsegmental atelectasis in the lower lobes right greater than left. Short interval follow-up recommended. D/ / Jose Espana MD / Jose Espana MD Interpreting Provider: Jose Espana MD Consult Discharge Plan - Plan Referrals: Mariano Lyles MD [Partnered Physician] - Quan Ulloa CNP [Advanced Practice Nurse] - __ (1) Sepsis Qualifiers: Sepsis type: sepsis due to unspecified organism Qualified Code(s): A41.9 - Sepsis, unspecified organism; R65.20 - Severe sepsis without septic shock
--- NOTE | 2019-06-10 14:47 | Cardiology Consult Note ---
Date of Encounter: 06/10/19 Time of Encounter: 14:41 Assessment and Plan (1) Sepsis Current Visit: Yes Status: Acute Per cardiology: -Admitted with sepsis. -Management per primary service. Qualifiers: Sepsis type: sepsis due to unspecified organism Sepsis acute organ dysfunction status: unspecified Qualified Code(s): A41.9 - Sepsis, unspecified organism (2) Sinus tachycardia Current Visit: Yes Status: Acute Per cardiology: -Sinus tachycardia in the setting of sepsis, peyelonephritis, PNA, chronic c.diff colitis, nausea, vomiting, dehydration, small bowel obstruction. -TTE with LVEF perserved, no wall motion abnormalities noted. -Average HR previous 12 hours noted to be 126, ST. -K 2.8, management per primary service. -Mg, TSH within normal limits. -Suspect tachycardia related to above issues. Recommend supportive care for above per primary service. -Anticipate cardiology sign off, once seen and evaluated by . Discussion w patient/family: The assessment and plan as outlined above was discussed with the patient and/or family members who expressed understanding and agreement. All questions were answered. Thank you for involving us in the care of your patient. Please call with any questions. Discussed and reviewed with . History of Present Illness Consult date: 06/10/19 Requesting physician: Hali Lowery Consult reason: tachycardia Chief complaint: abdominal pain History of present illness: Ms. Reynoso is a 64 year old female with a relevant past medical history of chronic c.diff colitis pending fecal transplant, HTN, DM, anxiety, asthma, depression, dysphagia, angina, fibromyalgia, HLD, cirrhosis, paranoid schizophrenia, who presented to [facility] from nursing facility with abdominal pain. Patient is being treated for pyelelonephritis, small bowel obstruction. Cardiology has been consulted for tachycardia. Patient denies chest pain. Denies palpitations or fluttering. Past Med Surg Social Fam HX - Past Medical History Attestation: Yes The following information was validated with the patient. Source: patient, old records reviewed, obtained from family Medical history: asthma, cirrhosis, coronary artery disease, diabetes, fibromyalgia, hyperlipidemia, hypertension, kidney stones, other Additional medical history: ASHD. back fracture. fibromyalgia Psychiatric history: anxiety, depression, schizophrenia - Past Surgical History Surgical History: hysterectomy Additional surgical history: right kidney stent - Social History Smoking Status: Never smoker Smokeless Tobacco Status: No Alcohol use: none Drug use: none - Family History Mother Living Status: Hx Family Cancer: Yes (Pancreatic) Father Living Status: Hx Family Endocrine Disorder: Yes (DM) Medications and Allergies Albuterol Sulfate [Ventolin Hfa] 1 - 2 puff IH Q4-6H PRN 11/19/16 [History] Ondansetron HCl [Zofran] 4 mg PO TID PRN 11/19/16 [History] DULoxetine [Cymbalta] 20 mg PO HS 08/20/18 [History] Multivit/Ca/Min/Fe/FA [Thera M Plus] 1 tab PO DAILY tablet 09/02/18 [Rx] Rifaximin [Xifaxan] 550 mg PO BID 365 Days tablet 09/30/18 [Rx] Cholestyramine 4 gm PO BID #10 powd.pack 12/02/18 [Rx] ARIPiprazole [Abilify] 1 mg PO DAILY 02/09/19 [History] Dimethicone/Zinc Oxide [Ellis Protect Cream] 1 appl TP BID PRN 02/09/19 [History] Insulin Glargine,Hum.rec.anlog [Lantus Solostar] 10 unit SQ HS 02/09/19 [History] Lactobacillus Acidophilus [Acidophilus] 1 cap PO DAILY 02/09/19 [History] Magnesium Hydroxide [Milk of Magnesia] 30 ml PO DAILY PRN 02/09/19 [History] Metoprolol [Lopressor] 25 mg PO BID 02/09/19 [History] Nystatin POWDER [Nystop] 1 appl TP BID 02/09/19 [History] Oxybutynin Chloride [Ditropan XL] 10 mg PO HS 02/09/19 [History] Potassium Chloride [K-Tab ER] 20 meq PO BID 02/09/19 [History] LORazepam [Ativan] 0.5 mg PO DAILY 06/09/19 [History] LORazepam [Ativan] 1 mg PO HS 06/09/19 [History] Sennosides [Senna] 8.6 mg PO Q8H PRN 06/09/19 [History] Tramadol HCl [Ultram] 50 mg PO QID PRN 06/09/19 [History] Vancomycin Oral Soln [Firvanq] 250 mg PO BID 06/09/19 [History] metroNIDAZOLE [Flagyl] 500 mg PO BID 06/09/19 [History] Allergy/AdvReac Type Severity Reaction Status Date / Time ibuprofen Allergy See Verified 01/12/19 10:49 Comments Methylphenidate Allergy See Verified 01/12/19 10:47 [From Ritalin] Comments nitrofurantoin Allergy Nausea Verified 01/12/19 10:47 [From Macrobid] Sulfa (Sulfonamide Allergy Nausea Verified 01/12/19 10:47 Antibiotics) acetaminophen [From Tylenol] AdvReac See Verified 06/08/19 22:35 Comments hydrocodone AdvReac Agitated Verified 01/12/19 10:47 hydroxyzine [From Vistaril] AdvReac Agitated Verified 01/12/19 10:47 oxycodone [From Percocet] AdvReac Agitated Verified 01/12/19 10:47 tramadol [From Ultram] AdvReac See Verified 02/08/19 20:15 Comments tribulyne Allergy See Uncoded 01/12/19 10:47 Comments All Systems Review: The remainder of the systems were reviewed and are negative - Cardiovascular Cardiovascular: as per HPI - Gastrointestinal Gastrointestinal: abdominal pain Physical Examination Vital Signs, Last 4 Hours Temp Pulse Resp BP Pulse Ox 06/10/19 10:56 98.8 F 129 26 132/64 95 General: Conversant, No Apparent Distress HEENT: Atraumatic, Normocephaly, Mucus Membranes Moist Neck: No JVD, Normal carotid pulses Cardiac: Normal S1 and S2, No Murmur, Other (Tachycardic) Lungs: No Wheeze, Rales, Rhonchi, Other (Lung sounds coarse throughout. ) Neuro: Alert and responsive, No focal deficits noted Abdomen: Soft, Other (Tender to palpation. ) Skin: No rashes noted on visualized skin Musculoskeletal: No Chest Wall Tenderness Extremities: No Clubbing, No Cyanosis, No Edema, Normal Pulses Results 06/10/19 04:22 06/10/19 04:22 Lab Results Impressions KUB X-Ray 06/09/19 15:50 IMPRESSION: 1. An enteric tube has been placed. The tip is in the duodenum. 2. Low lung volumes. 3. Ureteral stents are in place. D/ /09/2019 16:56:35 William Cohen MD / jus Interpreting Provider: William Cohen MD Chest X-Ray 06/09/19 16:24 IMPRESSION: 1. An enteric tube has been placed. The tip is in the duodenum. 2. Low lung volumes. 3. Ureteral stents are in place. D/ /09/2019 16:56:35 William Cohen MD / jus Interpreting Provider: William Cohen MD Echocardiogram Limited Views 06/10/19 10:01 Impressions: LVEF 65%. Grossly normal right ventricular size and function. Left Ventricular Wall Motion: Rest Echo Findings All wall segments showed normal motion. Findings: Study Quality * Technically sub-optimal due to poor echocardiographic windows. ECG Findings * Sinus tachycardia. Left Ventricle * LVEF 65%. * Normal LV chamber size, wall thickness and systolic function. * Definity echo contrast was not used. Right Ventricle * RV not well visualized, grossly normal right ventricular size and function. Left Atrium * Normal left atrial size. Right Atrium * Right atrium is not well visualized. Chest CTA 06/10/19 11:19 IMPRESSION: 1. No evidence for acute pulmonary embolism. 2. Motion artifact limits evaluation of the lung parenchyma however there appears to be a scattered subcentimeter nodular appearing airspace densities in the lower lobes and in the posterior segment right upper lobe. Favor infectious etiology. Interval development of subsegmental atelectasis in the lower lobes right greater than left. Short interval follow-up recommended. D/ / Jose Espana MD / Jose Espana MD Interpreting Provider: Jose Espana MD Laboratory Tests 06/09/19 06/09/19 06/10/19 05:28 12:04 04:22 WBC 12.9 H Hgb 12.7 Potassium Creatinine 1.91 H Troponin I < 0.03 TSH 1.114 06/10/19 04:22 WBC Hgb Potassium 2.8 L Creatinine 1.21 H Troponin I TSH - Imaging and Cardiology Chest Xray: report reviewed Echo: report reviewed - EKG Interpretation EKG results cardiology: personally reviewed (ECG with ST.), other (Telemetry reviewed with average HR previous 12 hours noted to be 126, ST. PVCs noted.) Consult Discharge Plan - Plan Referrals: Mariano Lyles MD [Partnered Physician] - Quan lUloa CNP [Advanced Practice Nurse] -
[2019-06-10] MEDS: Piperacillin/Tazobactam 3.375 GM in 0.9 % Sodium Chloride Mini Bag 100 ML IVPB SCH (17:18)
[2019-06-10] MEDS: *HR* Promethazine 25 MG/ML VIAL IVP PRN (17:30)
[2019-06-10] MEDS: Insulin LISPRO 300 UNITS/3 ML VIAL SQ SCH (21:42)
[2019-06-10] MEDS: Insulin DETEMIR 100 UNIT/ML X5UNITS SQ SCH (22:11)
[2019-06-11] MEDS: Piperacillin/Tazobactam 3.375 GM in 0.9 % Sodium Chloride Mini Bag 100 ML IVPB SCH ×3 (00:28→15:07)
[2019-06-11] MEDS: 0.9 % Sodium Chloride 1,000 ML IVC SCH ×3 (00:28→21:38)
[2019-06-11] MEDS: *HR* Metoprolol 5 MG/5 ML VIAL IVP PRN (02:52)
[2019-06-11] MEDS: *HR* Heparin 5,000 UNIT/ML VIAL SQ SCH ×2 (06:00→18:35)
--- NOTE | 2019-06-11 09:01 | Internal Med Progress Note ---
Hospitalist Progress Note - Encounter Date of Encounter: 06/11/19 Time of Encounter: 12:35 - Subjective Interval History: No acute events overnight - Exam Vitals: Temp Pulse Resp BP Pulse Ox 98.9 F 103 15 120/75 96 06/11/19 03:54 06/11/19 03:54 06/11/19 03:54 06/11/19 03:54 06/11/19 03:54 Exam: General appearance: Present: A&O X 3, no acute distress Head exam: Present: normocephalic Respiratory exam: Present: CTAB. Absent: accessory muscle use, rales, rhonchi, wheezes Cardiovascular exam: Present: RRR, +S1, +S2. Absent: diastolic murmur, gallop, rubs, systolic murmur GI/Abdominal exam:mild tenderness to palpation Extremities exam: Absent: pedal edema Neurological exam: Alert to person and place - Assessment and Plan (1) Small bowel obstruction Current Visit: Yes Status: Acute Assessment and Plan: Pt has had episodes of bilious vomiting. CT abdomen shows distal small bowel obstruction Will keep NPO. Surgery peformed small bowel follow through showing dilated small bowel loops Surgery following and plan for surgical intervention (2) Sepsis Current Visit: Yes Status: Acute Assessment and Plan: PT comes in with sepsis with fevers and tachycardia likely secondary to pyelonephritis and aspiration pneumonia Obtain blood and urine cultures. Started on ceftriaxone which has been swithced to zosyn to cover aspiration pneumonia Seen by urology and is s/p ureteroscopy and stent placement Has persistent sinus tachycardia which is likely infection and small bowel obstruction driven. TSH WNL,, CTA chest showed consolidation but no PE, limited echo unremarkable Continue IV fluids and antibiotics (3) Aspiration pneumonia Current Visit: Yes Status: Acute Assessment and Plan: CT chest showed right sided airspace densities likely suggestive of aspiration continue zosyn (4) JOSEFINA (acute kidney injury) Current Visit: Yes Status: Acute Assessment and Plan: Improving on IV fluids. continue hydration with normal saline (5) Pyelonephritis Current Visit: Yes Status: Acute Assessment and Plan: See #1. Continue zosyn (6) Bilateral kidney stones Current Visit: Yes Status: Acute Assessment and Plan: Pt is s/p cystoscopy and bilateral stent placement. Continue antibiotics (7) C. difficile colitis Current Visit: Yes Status: Acute Assessment and Plan: C diff testing and GI panel negative. Will d/c po vanc as patient appears to have been on an extended course since February (8) Hypokalemia Current Visit: Yes Status: Acute Assessment and Plan: Replaced (9) DVT prophylaxis Current Visit: Yes Status: Chronic Assessment and Plan: Heparin sc - Time Spent with Patient Total time spent is greater than 50% in coordination of care (as documented) at patient's floor/unit and/or counseling patient: Internal Medicine: Result - Labs CBC & Chem 7: 06/11/19 10:49 06/11/19 10:49 - Impressions Impressions KUB X-Ray 06/09/19 15:50 IMPRESSION: 1. An enteric tube has been placed. The tip is in the duodenum. 2. Low lung volumes. 3. Ureteral stents are in place. D/ /09/2019 16:56:35 William Cohen MD / jus Interpreting Provider: William Cohen MD Chest X-Ray 06/09/19 16:24 IMPRESSION: 1. An enteric tube has been placed. The tip is in the duodenum. 2. Low lung volumes. 3. Ureteral stents are in place. D/ / 06/09/2019 16:56:35 William Cohen MD / jus Interpreting Provider: William Cohen MD X-Ray 06/10/19 00:00 IMPRESSION: Followup examination shows a small bowel obstruction within the proximal to mid small bowel, which appears nearly identical to the examination from earlier. Distal to the contrast, there continues to be evidence of dilated small bowel, evidence by gas-filled bowel which is non-opacified. Consequently, consider continued radiographic follow-up. Evidence of at least mild bilateral hydronephrosis, despite presence of bilateral ureteral stents. D/ / Claudio Abraham MD / Claudio Abraham MD Interpreting Provider: Claudio Abraham MD Small Bowel X-Ray 06/10/19 07:00 IMPRESSION: At 6 hours, contrast had only reached the proximal/mid small bowel, concerning for ongoing small bowel obstruction. RECOMMENDATIONS: Follow-up portable abdominal plain films may be obtained as clinically indicated to assess for ongoing progression of the contrast bolus. D/ / Lam Estrada MD / Lam Estrada MD Interpreting Provider: Lam Estrada MD Echocardiogram Limited Views 06/10/19 10:01 Impressions: LVEF 65%. Grossly normal right ventricular size and function. Left Ventricular Wall Motion: Rest Echo Findings All wall segments showed normal motion. Findings: Study Quality * Technically sub-optimal due to poor echocardiographic windows. ECG Findings * Sinus tachycardia. Left Ventricle * LVEF 65%. * Normal LV chamber size, wall thickness and systolic function. * Definity echo contrast was not used. Right Ventricle * RV not well visualized, grossly normal right ventricular size and function. Left Atrium * Normal left atrial size. Right Atrium * Right atrium is not well visualized. Chest CTA 06/10/19 11:19 IMPRESSION: 1. No evidence for acute pulmonary embolism. 2. Motion artifact limits evaluation of the lung parenchyma however there appears to be a scattered subcentimeter nodular appearing airspace densities in the lower lobes and in the posterior segment right upper lobe. Favor infectious etiology. Interval development of subsegmental atelectasis in the lower lobes right greater than left. Short interval follow-up recommended. D/ / Jose Espana MD / Jose Espana MD Interpreting Provider: Jose Espana MD X-Ray 06/10/19 20:00 IMPRESSION: At 6 hours, contrast had only reached the proximal/mid small bowel, concerning for ongoing small bowel obstruction. RECOMMENDATIONS: Follow-up portable abdominal plain films may be obtained as clinically indicated to assess for ongoing progression of the contrast bolus. D/ / Lam Estrada MD / Lam Estrada MD Interpreting Provider: Lam Estrada MD Consult Discharge Plan - Plan Referrals: Mariano Lyles MD [Partnered Physician] - Quan Ulloa CNP [Advanced Practice Nurse] - __ (2) Sepsis Qualifiers: Sepsis type: sepsis due to unspecified organism Sepsis acute organ dysfunction status: unspecified Qualified Code(s): A41.9 - Sepsis, unspecified organism
--- NOTE | 2019-06-11 09:03 | AcuteCareSurgery Progress Note ---
Date of Encounter: 06/11/19 Time of Encounter: 09:00 - Assessment and Plan (1) Small bowel obstruction Current Visit: Yes Status: Acute SBFT is positive for SBO at the mid jejunum. Pt has already failed medical management with NGT. Recommend surgery for exploratory laparotomy with release of small bowel obstruction and possible small bowel resection. Case is discussed with patient and her daughter. Procedure with open surgery, risks and benefits are discussed. Possible complications include but, are not limited to bleeding, infection, injury to surrounding organs, stroke, FL, DVT/PE or . The patient and her daughter understand and wish to proceed with surgery as advised. Continue NPO, IVF and IV abx. Consent is obtained and surgery is scheduled. (2) C. difficile colitis Current Visit: Yes Status: Chronic Continue current abx. (3) Diabetes Current Visit: No Status: Chronic Qualifiers: Diabetes mellitus type: type 2 Diabetes mellitus vermin exterminator insulin use: without vermin exterminator use Diabetes mellitus complication status: without complication Qualified Code(s): E11.9 - Type 2 diabetes mellitus without complications (4) Hypertension Current Visit: No Status: Chronic Qualifiers: Hypertension type: essential hypertension Qualified Code(s): I10 - Essential (primary) hypertension Subjective Patient reports: still having pain, nausea Narrative: Pt is extremely somnolent although she does wake to answer questions which seem appropriate. She reports unchanged diffuse abdominal pain. She reports nausea without vomiting. She reports +BM that is loose and odiferous. She is incontinent into her depends. SBFT 06/10/19 and KUB 06/11/19 reveals a mechanical SBO with no passage of contrast past mid jejunum. Objective Vital Signs - Last 8 Hours Temp Pulse Resp BP Pulse Ox 06/11/19 03:54 98.9 F 103 15 120/75 96 Intake and Output 06/10/19 06/11/19 06/11/19 23:59 07:59 15:59 Intake Total 1882 / 3102 1100 / 1100 Output Total 950 / 950 Balance 1882 / 2402 150 / 150 Intake: IV Fluids 1882 / 2982 1100 / 1100 0.9 % Sodium Chloride 1,000 ML 1000 / 2000 1000 / 1000 @ 100 mls/hr IVC .Q10H [facility] Rx#: [id number] Zosyn 3.375 GM In 0.9 % Sodium 100 / 100 100 / 100 Chloride (Mini-Bag +) 100 ML @ 25 mls/hr IVPB Q8HR [facility] Rx#: [id number] Potassium Chloride 40 MEQ 522 / 522 Xylocaine 2 ML In 0.9 % Sodium Chloride 500 ML @ 130.5 mls/hr IVPB ONCE ONE Rx#:[id number] Potassium Phosphate 44 MEQ In 0 260 / 260 .9 % Sodium Chloride 250 ML @ 57.778 mls/hr IVPB ONCE ONE Rx# :[id number] Oral 0 / 0 Output: Catheter 950 / 950 Other: # Bowel Movement Diapers 1 Weight 78.5 kg Blood Glucose* 93 133 Patient Weight 06/11/19 23:59 Weight 78.5 kg - General physical appearance no distress, moderate pain, obese, other (somnolent) - Eyes PERRL, normal ocular movement - ENT no congestion, dry mucosa - Neck Neck exam: trachea midline, no venous distension - Respiratory normal respiratory effort, clear to auscultation - Cardiovascular Cardiovascular exam: Present: RRR, JVD - Abdomen Abdomen: Present: soft, distended, tender. Absent: bowel sounds present (very hypoactive), guarding, rebound, rigid Additional Comments: Depends with moderate amount of loose, dark stool. - Genitourinary normal external genitalia - Neurologic other (somnolent but, awakes) - Musculoskeletal normal posture - Psychiatric oriented to time, oriented to person, oriented to place - Labs 06/10/19 04:22 06/10/19 04:22 Consult Discharge Plan - Plan Referrals: Mariano Lyles MD [Partnered Physician] - Quan Ulloa CNP [Advanced Practice Nurse] -
[2019-06-11] MEDS: ARIPiprazole 2 MG TABLET PO SCH (09:17)
[2019-06-11] MEDS: *HR* LORazepam 2 MG/ML VIAL IVP SCH (09:18)
--- NOTE | 2019-06-11 09:40 | Urology Progress Note ---
Date of Encounter: 06/11/19 Time of Encounter: 09:34 - Assessment and Plan (1) Bilateral kidney stones Current Visit: Yes Status: Acute Assessment and plan: sp b/l ureteral stents. keep catheter in place. patient will have f/u scheduled with me in 3-4 weeks. 07/12/19 at 245 (2) JOSEFINA (acute kidney injury) Current Visit: Yes Status: Acute (3) Pyelonephritis Current Visit: Yes Status: Acute (4) Sepsis Current Visit: Yes Status: Acute Qualifiers: Sepsis type: sepsis due to unspecified organism Sepsis acute organ dysfunction status: unspecified Qualified Code(s): A41.9 - Sepsis, unspecified organism (5) UTI (urinary tract infection) Current Visit: No Status: Ruled-out Qualifiers: Urinary tract infection type: site unspecified Hematuria presence: without hematuria Qualified Code(s): N39.0 - Urinary tract infection, site not specified Progress Note Narrative: Patient seen today. Patient going to go to the operating room for export her laparotomy for bowel obstruction. Objective Initial Vital Signs Temp Pulse Resp BP Pulse Ox 98.6 F 142 17 131/86 97 06/08/19 15:16 06/08/19 15:16 06/08/19 15:16 06/08/19 15:16 06/08/19 15:16 - General physical appearance Present: well developed, well nourished - Respiratory Present: normal expansion, normal respiratory effort - Abdomen Present: soft - Labs 06/10/19 04:22 06/10/19 04:22 Consult Discharge Plan - Plan Referrals: Mariano Lyles MD [Partnered Physician] - Quan Ulloa CNP [Advanced Practice Nurse] -
--- NOTE | 2019-06-11 10:34 | Anesthesia Evaluation PreOp ---
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 (fibromyalgia, schizophrenia) Other Medical History: Renal (acute renal injury s/p bilateral stents, pyelo, stones), Diabetes Type II, Other (cirrhosis) Anesthesia History: No Prior Anesthetic Complications, Past Anesthesia : No Alcohol Use: none Drug use: none Medications and Allergies Albuterol Sulfate [Ventolin Hfa] 1 - 2 puff IH Q4-6H PRN 11/19/16 [History] Ondansetron HCl [Zofran] 4 mg PO TID PRN 11/19/16 [History] DULoxetine [Cymbalta] 20 mg PO HS 08/20/18 [History] Multivit/Ca/Min/Fe/FA [Thera M Plus] 1 tab PO DAILY tablet 09/02/18 [Rx] Rifaximin [Xifaxan] 550 mg PO BID 365 Days tablet 09/30/18 [Rx] Cholestyramine 4 gm PO BID #10 powd.pack 12/02/18 [Rx] ARIPiprazole [Abilify] 1 mg PO DAILY 02/09/19 [History] Dimethicone/Zinc Oxide [Ellis Protect Cream] 1 appl TP BID PRN 02/09/19 [History] Insulin Glargine,Hum.rec.anlog [Lantus Solostar] 10 unit SQ HS 02/09/19 [History] Lactobacillus Acidophilus [Acidophilus] 1 cap PO DAILY 02/09/19 [History] Magnesium Hydroxide [Milk of Magnesia] 30 ml PO DAILY PRN 02/09/19 [History] Metoprolol [Lopressor] 25 mg PO BID 02/09/19 [History] Nystatin POWDER [Nystop] 1 appl TP BID 02/09/19 [History] Oxybutynin Chloride [Ditropan XL] 10 mg PO HS 02/09/19 [History] Potassium Chloride [K-Tab ER] 20 meq PO BID 02/09/19 [History] LORazepam [Ativan] 0.5 mg PO DAILY 06/09/19 [History] LORazepam [Ativan] 1 mg PO HS 06/09/19 [History] Sennosides [Senna] 8.6 mg PO Q8H PRN 06/09/19 [History] Tramadol HCl [Ultram] 50 mg PO QID PRN 06/09/19 [History] Vancomycin Oral Soln [Firvanq] 250 mg PO BID 06/09/19 [History] metroNIDAZOLE [Flagyl] 500 mg PO BID 06/09/19 [History] Allergy/AdvReac Type Severity Reaction Status Date / Time ibuprofen Allergy See Verified 01/12/19 10:49 Comments Methylphenidate Allergy See Verified 01/12/19 10:47 [From Ritalin] Comments nitrofurantoin Allergy Nausea Verified 01/12/19 10:47 [From Macrobid] Sulfa (Sulfonamide Allergy Nausea Verified 01/12/19 10:47 Antibiotics) acetaminophen [From Tylenol] AdvReac See Verified 06/08/19 22:35 Comments hydrocodone AdvReac Agitated Verified 01/12/19 10:47 hydroxyzine [From Vistaril] AdvReac Agitated Verified 01/12/19 10:47 oxycodone [From Percocet] AdvReac Agitated Verified 01/12/19 10:47 tramadol [From Ultram] AdvReac See Verified 02/08/19 20:15 Comments tribulyne Allergy See Uncoded 01/12/19 10:47 Comments - Meds/Allergy Pre-op Review Medications Reviewed: Yes Allergies Reviewed: Yes Beta Blockers on Current Med List: Yes Anesthesia Results - Labs 06/10/19 04:22 06/10/19 04:22 - Imaging Additional studies: echo normal EF, normal wall motion <Albert Zamora - Last Filed: 06/12/19 06:49> Date of Encounter: 06/12/19 Time of Encounter: 06:47 - Past History Pulmonary History: Other (CT chest showed right sided airspace densities likely suggestive of aspiration) 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 No evidence for acute pulmonary embolism. 2. Motion artifact limits evaluation of the lung parenchyma however there appears to be a scattered subcentimeter nodular appearing airspace densities in the lower lobes and in the posterior segment right upper lobe. Favor infectious etiology. Interval development of subsegmental atelectasis in the lower lobes right greater than left. Short interval follow-up recommended. 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 Confusion has improved from yesterday. Consent obtained from daughter, Tonya. Daughters understand that patient is at increased risk for perioperative complications including myocardial infarct, arrhythmias, CVA, post op vent support/ICU stay, and . Patient's daughters wish to proceed.) Level of consciousness: Cooperative, Tranquil Anesthetic Plan: General Monitoring Plan: Standard Monitors Recovery Plan: PACU
[2019-06-11 11:02] LABS: Hematocrit 38.3 % (35.3-44.9); Hemoglobin 12.7 g/dL (11.5-15.4); Mean Corpuscular HGB Conc 33.2 g/dL (31.6-35.5); Mean Corpuscular Hemoglobin 30.5 pg (28.0-33.3); Mean Corpuscular Volume 92.1 fL (83.0-100.0); Platelet Count 159 K/mcL (140-400); Red Blood Count 4.16 M/mcL (3.82-4.97); Red Cell Distribution Width 17.3 % (11.5-14.5); White Blood Count 17.8 K/mcL (4.3-11.1)
[2019-06-11 11:24] LABS: BUN/Creatinine Ratio 25 (6-26); Blood Urea Nitrogen 26 mg/dL (8-23); Carbon Dioxide 20 mEq/L (23-29); Chloride 110 mEq/L (98-107); Glucose 154 mg/dL (70-105); Magnesium 1.6 mg/dL (1.6-2.6); Osmolality,Calculated 298 (280-300); Phosphorous 1.7 mg/dL (2.7-4.5); Potassium 2.4 mEq/L (3.5-5.1); Sodium 140 mEq/L (136-145); eGFR For African Americans > 60 (> 60); eGFR For Non-African Americans 54 (> 60)
[2019-06-11] MEDS ORDERED: Potassium Chloride Elixir 20 MEQ/15 ML UDC PO SCH (11:30)
[2019-06-11 12:09] LABS: Eosinophils # 0.2 K/mcL (0.0-0.6); Lymphocytes # 1.1 K/mcL (0.6-4.6); Monocytes # 1.6 K/mcL (0.0-1.3)
[2019-06-11 12:10] LABS: Anisocytosis 1+ (Not Present); Platelet Estimate Normal (Normal); Reactive Lymphocytes Present (Not Present)
[2019-06-11] MEDS: Insulin LISPRO 300 UNITS/3 ML VIAL SQ SCH ×2 (12:12→18:23)
--- NOTE | 2019-06-11 14:23 | Acute Care Surgery Event Note ---
Date of Encounter: 06/11/19 Time of Encounter: 14:15 Pt underwent colonoscopy today for abnormal uterus/vaginal canal on CT. Pt denies any symptoms other than constipation. Colonoscopy reveals normal colon with noncomplicated divertiulosis. There is no sign of acute or chronic inflammation, there is no sign of malignancy, there is no sign of fistula. No surgery is recommended at this time. Regular diet. DC to home when OK with hospitalist. Surgery signing off.
[2019-06-11] MEDS: traMADol 50 MG TABLET PO PRN (16:05)
[2019-06-11] MEDS ORDERED: Potassium Phosphate 44 MEQ in 0.9 % Sodium Chloride 250 ML IVPB ONE (18:00)
[2019-06-11] MEDS ORDERED: Potassium Chloride Elixir 20 MEQ/15 ML UDC PO ONE (18:15)
[2019-06-11] MEDS: Ondansetron 4 MG/2 ML VIAL IVP PRN (18:39)
[2019-06-11] MEDS: Insulin DETEMIR 100 UNIT/ML X5UNITS SQ SCH (20:29)
[2019-06-11] MEDS ORDERED: *HR* Cisatracurium 10 MG/5 ML VIAL IV ONE (20:36)
[2019-06-11] MEDS ORDERED: Morphine Sulfate 2 MG/ML SYRINGE IVP PRN (21:27)
[2019-06-11] MEDS: *HR* Promethazine 25 MG/ML VIAL IVP PRN (22:12)
[2019-06-12] MEDS: Piperacillin/Tazobactam 3.375 GM in 0.9 % Sodium Chloride Mini Bag 100 ML IVPB SCH ×3 (00:55→17:34)
[2019-06-12 01:02] LABS: Hematocrit 34.6 % (35.3-44.9); Hemoglobin 11.7 g/dL (11.5-15.4); Mean Corpuscular HGB Conc 33.8 g/dL (31.6-35.5); Mean Corpuscular Hemoglobin 30.5 pg (28.0-33.3); Mean Corpuscular Volume 90.1 fL (83.0-100.0); Mean Platelet Volume 9.5 fL (9.4-12.4); Nucleated Red Blood Cells 0.2 /100 WBC (0); Platelet Count 158 K/mcL (140-400); Red Blood Count 3.84 M/mcL (3.82-4.97); Red Cell Distribution Width 17.3 % (11.5-14.5); White Blood Count 15.4 K/mcL (4.3-11.1)
[2019-06-12 01:28] LABS: BUN/Creatinine Ratio 24 (6-26); Blood Urea Nitrogen 20 mg/dL (8-23); Calcium 7.7 mg/dL (8.6-10.3); Carbon Dioxide 16 mEq/L (23-29); Chloride 116 mEq/L (98-107); Glucose 85 mg/dL (70-105); Magnesium 2.1 mg/dL (1.6-2.6); Osmolality,Calculated 292 (280-300); Phosphorous 1.6 mg/dL (2.7-4.5); Potassium 3.5 mEq/L (3.5-5.1); Sodium 140 mEq/L (136-145); eGFR For African Americans > 60 (> 60); eGFR For Non-African Americans > 60 (> 60)
[2019-06-12] MEDS: Insulin LISPRO 300 UNITS/3 ML VIAL SQ SCH ×4 (01:53→18:55)
[2019-06-12 01:57] LABS: Basophils # 0.3 K/mcL (0.0-0.2); Lymphocytes # 1.2 K/mcL (0.6-4.6); Monocytes # 1.5 K/mcL (0.0-1.3); Neutrophils # 11.4 K/mcL (1.6-8.9)
[2019-06-12] MEDS: *HR* Heparin 5,000 UNIT/ML VIAL SQ SCH ×2 (06:44→17:34)
[2019-06-12 07:29] LABS: Magnesium 2.1 mg/dL (1.6-2.6); Potassium 3.6 mEq/L (3.5-5.1)
[2019-06-12] MEDS: 0.9 % Sodium Chloride 1,000 ML IVC SCH ×2 (07:56→13:48)
[2019-06-12] MEDS: ARIPiprazole 2 MG TABLET PO SCH (07:57)
[2019-06-12] MEDS: *HR* LORazepam 2 MG/ML VIAL IVP SCH (07:58)
--- NOTE | 2019-06-12 08:29 | Internal Med Progress Note ---
Hospitalist Progress Note - Encounter Date of Encounter: 06/12/19 Time of Encounter: 09:00 - Subjective Interval History: No acute events overnight - Exam Vitals: Temp Pulse Resp BP Pulse Ox 97.8 F 104 16 136/90 98 06/12/19 07:39 06/12/19 07:39 06/12/19 07:39 06/12/19 07:39 06/12/19 07:39 Exam: General appearance: Present: A&O X 3, no acute distress Head exam: Present: normocephalic Respiratory exam: Present: CTAB. Absent: accessory muscle use, rales, rhonchi, wheezes Cardiovascular exam: Present: RRR, +S1, +S2. Absent: diastolic murmur, gallop, rubs, systolic murmur GI/Abdominal exam:mild tenderness to palpation Extremities exam: Absent: pedal edema Neurological exam: Alert to person and place - Assessment and Plan (1) Small bowel obstruction Current Visit: Yes Status: Acute Assessment and Plan: Pt has had episodes of bilious vomiting. CT abdomen shows distal small bowel obstruction Will keep NPO. Surgery peformed small bowel follow through showing dilated small bowel loops Surgery following and plan for surgical intervention. Patient going to OR today (2) Sepsis Current Visit: Yes Status: Acute Assessment and Plan: PT comes in with sepsis with fevers and tachycardia likely secondary to pyelonephritis and aspiration pneumonia Obtain blood and urine cultures. Started on ceftriaxone which has been swithced to zosyn to cover aspiration pneumonia Seen by urology and is s/p ureteroscopy and stent placement Has persistent sinus tachycardia which is likely infection and small bowel obstruction driven. TSH WNL,, CTA chest showed consolidation but no PE, limited echo unremarkable Continue IV fluids and antibiotics (3) Aspiration pneumonia Current Visit: Yes Status: Acute Assessment and Plan: CT chest showed right sided airspace densities likely suggestive of aspiration continue zosyn (4) JOSEFINA (acute kidney injury) Current Visit: Yes Status: Acute Assessment and Plan: Improving on IV fluids. continue hydration with normal saline (5) Pyelonephritis Current Visit: Yes Status: Acute Assessment and Plan: See #1. Continue zosyn (6) Bilateral kidney stones Current Visit: Yes Status: Acute Assessment and Plan: Pt is s/p cystoscopy and bilateral stent placement. Continue antibiotics (7) C. difficile colitis Current Visit: Yes Status: Acute Assessment and Plan: C diff testing and GI panel negative. Will d/c po vanc as patient appears to have been on an extended course since February (8) Hypokalemia Current Visit: Yes Status: Acute Assessment and Plan: Replaced (9) DVT prophylaxis Current Visit: Yes Status: Chronic Assessment and Plan: Heparin sc - Time Spent with Patient Total time spent is greater than 50% in coordination of care (as documented) at patient's floor/unit and/or counseling patient: Internal Medicine: Result - Labs CBC & Chem 7: 06/12/19 00:52 06/12/19 07:06 Labs: Short CBC 06/11/19 06/12/19 Range/Units 10:49 00:52 WBC 17.8 H 15.4 H (4.3-11.1) K/mcL Hgb 12.7 11.7 (11.5-15.4) g/dL Hct 38.3 34.6 L (35.3-44.9) % Plt Count 159 158 (140-400) K/mcL Neutrophils # 15.0 H 11.4 H (1.6-8.9) K/mcL BMP 06/11/19 06/11/19 06/11/19 10:49 15:51 21:01 Sodium 140 Potassium 2.4 L* 2.7 L 3.0 L Chloride 110 H Carbon Dioxide 20 L BUN 26 H Creatinine 1.03 Glucose 154 H Calcium 8.0 L 06/12/19 06/12/19 06/12/19 00:52 00:52 07:06 Sodium 140 Potassium 3.5 3.3 L 3.6 Chloride 116 H Carbon Dioxide 16 L BUN 20 Creatinine 0.84 Glucose 85 Calcium 7.7 L - Impressions Impressions KUB X-Ray 06/11/19 23:06 IMPRESSION: Enteric tube within the stomach. D/ / Teja Cramer / Teja Cramer Interpreting Provider: Teja Cramer Consult Discharge Plan - Plan Referrals: Mariano Lyles MD [Partnered Physician] - Quan Ulloa CNP [Advanced Practice Nurse] - (2) Sepsis Qualifiers: Sepsis type: sepsis due to unspecified organism Sepsis acute organ dysfunction status: unspecified Qualified Code(s): A41.9 - Sepsis, unspecified organism
[2019-06-12] MEDS ORDERED: *HR* Propofol 200 MG/20 ML VIAL IVP ONE (09:55)
[2019-06-12] MEDS ORDERED: *HR* FentaNYL (PF) 100 MCG/2 ML VIAL ONE ×2 (09:55→09:58)
[2019-06-12] MEDS ORDERED: *HR* Succinylcholine 200 MG/10 ML VIAL IVP ONE (09:56)
[2019-06-12] MEDS ORDERED: Lidocaine -MPF 2% 2 ML VIAL ONE (09:56)
[2019-06-12] MEDS ORDERED: Ondansetron 4 MG/2 ML VIAL ONE (09:56)
[2019-06-12] MEDS ORDERED: *HR* Rocuronium Bromide 50 MG/5 ML VIAL ONE (09:56)
[2019-06-12] MEDS ORDERED: Dexamethasone 4 MG/ML VIAL ONE (09:56)
[2019-06-12] MEDS ORDERED: *HR* Midazolam HCl 2 MG/2 ML VIAL ONE (09:56)
[2019-06-12] MEDS ORDERED: Acetaminophen IV 1,000 MG/100 ML INFUS..BTL ONE (10:05)
[2019-06-12] MEDS ORDERED: Famotidine 20 MG/2 ML VIAL ONE (10:06)
[2019-06-12] MEDS ORDERED: *HR* Dextrose 50 % in Water (Vial) 50 ML VIAL IVP ONE ×2 (10:14→12:57)
[2019-06-12] MEDS ORDERED: *HR* Vasopressin 20 UNIT/ML VIAL ONE (10:15)
[2019-06-12] MEDS ORDERED: Albumin Human 5% 0 GM/0 ML VIAL ONE (10:15)
[2019-06-12] MEDS ORDERED: *HR* Etomidate 40 MG/20 ML VIAL IVP ONE (10:26)
[2019-06-12] MEDS ORDERED: *HR* PHENYLEPHRINE 1,000 MCG/10 ML SYRINGE IVP ONE (10:50)
--- NOTE | 2019-06-12 12:04 | Anesthesia Evaluation Post Op ---
Date of Encounter: 06/12/19 Time of Encounter: 12:00 - Vital Signs Vital Signs: Vital Signs/O2 Sat/Glucose, Most Current Temp Pulse Resp BP Pulse Ox 06/12/19 12:02 74 20 151/93 95 06/12/19 11:52 74 20 143/91 95 06/12/19 11:42 97.8 F 77 24 131/98 96 06/12/19 09:35 97.7 F 101 16 126/83 96 - Lungs Lungs: Clear Ascult./Percussion - Airway Airway: Non-obstructed - Cardiovascular Regular Rate - Mental Status Mental Status: Alert & Oriented, Answers Appropriately - Pain Pain Scale: 0 - Hydration Hydration: Tolerates oral liquids, Ice chips - Discharge PostOp Status: Transfer Patient to floor
[2019-06-12] MEDS ORDERED: Potassium Phosphate 44 MEQ in 0.9 % Sodium Chloride 250 ML IVPB ONE ×2 (12:49→12:57)
[2019-06-12] MEDS ORDERED: Ondansetron 4 MG/2 ML VIAL IVP PRN (12:57)
[2019-06-12] MEDS ORDERED: *HR* LORazepam 2 MG/ML VIAL IVP PRN (12:57)
[2019-06-12] MEDS ORDERED: D5% in Water 1,000 ML IVC PRN (12:57)
[2019-06-12] MEDS ORDERED: Morphine Sulfate Oral CONC 10 MG/0.5 ML ORAL.SYG SL PRN (12:57)
[2019-06-12] MEDS ORDERED: Naloxone 0.4 MG/ML INJ IVP PRN (12:57)
[2019-06-12] MEDS ORDERED: *HR* Metoprolol 5 MG/5 ML VIAL IVP PRN (12:57)
[2019-06-12] MEDS ORDERED: *HR* Dextrose 50 % in Water (Syg) 50 ML SYRINGE IVP PRN (12:57)
[2019-06-12] MEDS ORDERED: *HR* Promethazine 25 MG/ML VIAL IVP PRN (12:57)
[2019-06-12] MEDS ORDERED: Dextrose Gel 15 GM/37.5 ML TUBE PO PRN ×2 (12:57)
--- NOTE | 2019-06-12 12:57 | Operative Note ---
Date of procedure: 06/12/19 Pre-op diagnosis: Small bowel obstruction Post-op diagnosis: same Procedure: Exploratory laparotomy with release of small bowel obstruction Complications: None Anesthesia: GETA Surgeon: Chris Puentes Was there an stores assistant present: Yes Gold Wheel Blocker And Polisher: Kirstie Joyce Estimated blood loss (cc): 10 Specimen: None Condition: stable Disposition: PACU Procedure in Detail: This 64 y/o female with small bowel obstruction is taken to surgery for exploratory laparotomy with release of small bowel obstruction, possible small bowel resection. Anterior abdominal wall was prepped fron the nipples to the pubes and draped in the usual sterile fashion. A midline incision was made 3-4 cm above and below the umbilicus. Subcutaneous tissues were dissected using electrocautery. The anterior rectus fascia was divided using electrocautery. The peritoneum was elevated and divided sharply. The intraabdominal cavity was entered. Upon entry of the intraabdominal cavity, transudative abdominal fluid was encountered. Copious amount of non purulent, non feculent ascites was suctioned. A [place] retractor was placed. The small intestine was run from the ligament of Trietz to the terminal ileum. An pallorous area in the midjejunum with a clear transition point was encountered. This is associated with a twisting of the bowel. The segment of small bowel easily untwists with palpation. No adhesions, diverticulum, masses or intussusception is appreciated. The obstruction is easily reversed. The colon is run in it's entirety and is normal. Copious irrigation is carried out. The [place] is removed. Sponges are count and are correct. The incision is closed with #1 looped PDS. Skin is closed with marques. A GEN incision vac is placed. Pt tolerated the procedure well. Pt is taken to PACU in good condition.
[2019-06-12] MEDS: Insulin DETEMIR 100 UNIT/ML X5UNITS SQ SCH (21:39)
[2019-06-13] MEDS: Piperacillin/Tazobactam 3.375 GM in 0.9 % Sodium Chloride Mini Bag 100 ML IVPB SCH ×3 (00:41→17:23)
[2019-06-13] MEDS: 0.9 % Sodium Chloride 1,000 ML IVC SCH ×2 (00:42→17:23)
[2019-06-13] MEDS: Insulin LISPRO 300 UNITS/3 ML VIAL SQ SCH ×4 (00:48→18:43)
[2019-06-13 02:28] LABS: Hematocrit 34.7 % (35.3-44.9); Hemoglobin 11.8 g/dL (11.5-15.4); Mean Corpuscular Hemoglobin 30.9 pg (28.0-33.3); Mean Corpuscular Volume 90.8 fL (83.0-100.0); Mean Platelet Volume 9.5 fL (9.4-12.4); Platelet Count 138 K/mcL (140-400); Red Blood Count 3.82 M/mcL (3.82-4.97); Red Cell Distribution Width 18.4 % (11.5-14.5); White Blood Count 16.4 K/mcL (4.3-11.1)
[2019-06-13 02:44] LABS: BUN/Creatinine Ratio 22 (6-26); Blood Urea Nitrogen 24 mg/dL (8-23); Calcium 7.2 mg/dL (8.6-10.3); Carbon Dioxide 14 mEq/L (23-29); Chloride 119 mEq/L (98-107); Glucose 170 mg/dL (70-105); Osmolality,Calculated 300 (280-300); Potassium 4.8 mEq/L (3.5-5.1); Sodium 141 mEq/L (136-145); eGFR For African Americans > 60 (> 60); eGFR For Non-African Americans 52 (> 60)
[2019-06-13 03:06] LABS: Lymphocytes # 1.6 K/mcL (0.6-4.6); Neutrophils # 13.5 K/mcL (1.6-8.9); Platelet Estimate Normal (Normal)
[2019-06-13] MEDS: *HR* Heparin 5,000 UNIT/ML VIAL SQ SCH ×2 (06:21→17:26)
--- NOTE | 2019-06-13 08:18 | Internal Med Progress Note ---
Hospitalist Progress Note - Encounter Date of Encounter: 06/13/19 Time of Encounter: 08:18 - Subjective Interval History: No acute events overnight - Exam Vitals: Temp Pulse Resp BP Pulse Ox 97.6 F 110 16 125/75 99 06/13/19 07:36 06/13/19 07:36 06/13/19 07:36 06/13/19 07:36 06/13/19 07:36 Exam: General appearance: Present: A&O X 3, no acute distress Head exam: Present: normocephalic Respiratory exam: Present: CTAB. Absent: accessory muscle use, rales, rhonchi, wheezes Cardiovascular exam: Present: RRR, +S1, +S2. Absent: diastolic murmur, gallop, rubs, systolic murmur GI/Abdominal exam:mild tenderness to palpation Extremities exam: Absent: pedal edema Neurological exam: Alert to person and place - Assessment and Plan (1) Small bowel obstruction Current Visit: Yes Status: Acute Assessment and Plan: Pt has had episodes of bilious vomiting. CT abdomen shows distal small bowel obstruction Pt had Exploratory laparotomy with release of small bowel obstruction on 06/12 Start on clear liquid diet and advance as tolerated (2) Sepsis Current Visit: Yes Status: Acute Assessment and Plan: PT comes in with sepsis with fevers and tachycardia likely secondary to pyelonephritis and aspiration pneumonia Obtain blood and urine cultures. Started on ceftriaxone which has been swithced to zosyn to cover aspiration pneumonia Seen by urology and is s/p ureteroscopy and stent placement Continue IV fluids and antibiotics (3) Aspiration pneumonia Current Visit: Yes Status: Acute Assessment and Plan: CT chest showed right sided airspace densities likely suggestive of aspiration continue zosyn Complete 5- 7 day course (4) JOSEFINA (acute kidney injury) Current Visit: Yes Status: Acute Assessment and Plan: Improving on IV fluids. continue hydration with normal saline (5) Pyelonephritis Current Visit: Yes Status: Acute Assessment and Plan: See #1. Continue zosyn (6) Bilateral kidney stones Current Visit: Yes Status: Acute Assessment and Plan: Pt is s/p cystoscopy and bilateral stent placement. Continue antibiotics (7) C. difficile colitis Current Visit: Yes Status: Acute Assessment and Plan: C diff testing and GI panel negative. Will d/c po vanc as patient appears to have been on an extended course since February (8) Hypokalemia Current Visit: Yes Status: Acute Assessment and Plan: Replaced (9) DVT prophylaxis Current Visit: Yes Status: Chronic Assessment and Plan: Heparin sc - Time Spent with Patient Total time spent is greater than 50% in coordination of care (as documented) at patient's floor/unit and/or counseling patient: Internal Medicine: Result - Labs CBC & Chem 7: 06/13/19 01:46 06/13/19 01:46 Labs: Short CBC 06/13/19 Range/Units 01:46 WBC 16.4 H (4.3-11.1) K/mcL Hgb 11.8 (11.5-15.4) g/dL Hct 34.7 L (35.3-44.9) % Plt Count 138 L (140-400) K/mcL Neutrophils # 13.5 H (1.6-8.9) K/mcL BMP 06/13/19 01:46 Sodium 141 Potassium 4.8 D Chloride 119 H Carbon Dioxide 14 L BUN 24 H Creatinine 1.07 Glucose 170 H Calcium 7.2 L - Impressions Impressions KUB X-Ray 06/13/19 00:23 IMPRESSION: NG tube terminates in the expected location of the stomach. D/ / Teja Cramer / Teja Cramer Interpreting Provider: Teja Cramer Consult Discharge Plan - Plan Referrals: Mariano Lyles MD [Partnered Physician] - Quan Ulloa CNP [Advanced Practice Nurse] - (2) Sepsis Qualifiers: Sepsis type: sepsis due to unspecified organism Sepsis acute organ dy sfunction status: unspecified Qualified Code(s): A41.9 - Sepsis, unspecified organism
[2019-06-13] MEDS ORDERED: *HR* LORazepam 2 MG/ML VIAL IVP SCH (09:00)
[2019-06-13] MEDS ORDERED: ARIPiprazole 2 MG TABLET PO SCH (09:00)
[2019-06-13] MEDS ORDERED: Sennosides 8.6 MG TABLET PO PRN (09:28)
[2019-06-13] MEDS ORDERED: Ketorolac 15 MG/ML VIAL IVP PRN (16:33)
[2019-06-13] MEDS ORDERED: Vancomycin Oral Soln 125 MG/2.5 ML UDC PO SCH (21:00)
[2019-06-13] MEDS ORDERED: metroNIDAZOLE 500 MG TABLET PO SCH (21:00)
[2019-06-13] MEDS: *HR* LORazepam 1 MG TABLET PO SCH (21:56)
[2019-06-13] MEDS: Insulin DETEMIR 100 UNIT/ML X5UNITS SQ SCH (21:57)
[2019-06-14] MEDS: Cholestyramine 4 GM POWD.PACK PO SCH ×3 (00:34→22:39)
[2019-06-14] MEDS: 0.9 % Sodium Chloride 1,000 ML IVC SCH ×3 (00:37→17:18)
[2019-06-14] MEDS: Insulin LISPRO 300 UNITS/3 ML VIAL SQ SCH ×5 (02:03→22:40)
[2019-06-14] MEDS: Piperacillin/Tazobactam 3.375 GM in 0.9 % Sodium Chloride Mini Bag 100 ML IVPB SCH ×4 (02:03→22:50)
[2019-06-14] MEDS: *HR* Heparin 5,000 UNIT/ML VIAL SQ SCH ×2 (06:32→17:52)
[2019-06-14 07:24] LABS: Hematocrit 34.9 % (35.3-44.9); Hemoglobin 11.9 g/dL (11.5-15.4); Mean Corpuscular HGB Conc 34.1 g/dL (31.6-35.5); Red Cell Distribution Width 18.2 % (11.5-14.5)
[2019-06-14 07:25] LABS: Basophils # 0.1 K/mcL (0.0-0.2); Basophils % 0.5 %; Eosinophils # 0.1 K/mcL (0.0-0.6); Eosinophils % 0.5 %; Immature Granulocytes % 5.2 % (0-4); Lymphocytes # 1.6 K/mcL (0.6-4.6); Lymphocytes % 6.4 %; Mean Corpuscular Hemoglobin 30.4 pg (28.0-33.3); Mean Corpuscular Volume 89.3 fL (83.0-100.0); Mean Platelet Volume 10.2 fL (9.4-12.4); Monocytes # 1.6 K/mcL (0.0-1.3); Monocytes % 6.4 %; Neutrophils # 20.1 K/mcL (1.6-8.9); Red Blood Count 3.91 M/mcL (3.82-4.97); White Blood Count 24.8 K/mcL (4.3-11.1)
[2019-06-14 07:46] LABS: Calcium 7.8 mg/dL (8.6-10.3); Magnesium 1.8 mg/dL (1.6-2.6); Phosphorous 2.1 mg/dL (2.7-4.5); Potassium 4.9 mEq/L (3.5-5.1)
[2019-06-14 07:57] LABS: Platelet Count 143 K/mcL (140-400)
--- NOTE | 2019-06-14 08:44 | Internal Med Progress Note ---
Hospitalist Progress Note - Encounter Date of Encounter: 06/14/19 Time of Encounter: 08:44 - Subjective Interval History: No acute events overnight - Exam Vitals: Temp Pulse Resp BP Pulse Ox 98.4 F 100 20 128/81 98 06/14/19 06:59 06/14/19 06:59 06/14/19 06:59 06/14/19 06:59 06/14/19 06:59 Exam: General appearance: Present: A&O X 3, no acute distress Head exam: Present: normocephalic Respiratory exam: Present: CTAB. Absent: accessory muscle use, rales, rhonchi, wheezes Cardiovascular exam: Present: RRR, +S1, +S2. Absent: diastolic murmur, gallop, rubs, systolic murmur GI/Abdominal exam:mild tenderness to palpation Extremities exam: Absent: pedal edema Neurological exam: Alert to person and place - Assessment and Plan (1) Small bowel obstruction Current Visit: Yes Status: Acute Assessment and Plan: Pt has had episodes of bilious vomiting. CT abdomen shows distal small bowel obstruction Pt had exploratory laparotomy with release of small bowel obstruction on 06/12 Start on clear liquid diet and advance as tolerated. Stable (2) Sepsis Current Visit: Yes Status: Acute Assessment and Plan: PT comes in with sepsis with fevers and tachycardia likely secondary to pyelonephritis and aspiration pneumonia Obtain blood and urine cultures. Started on ceftriaxone which has been switched to zosyn to cover aspiration pneumonia Seen by urology and is s/p ureteroscopy and stent placement Pt has a low grade fever today despite being on zosyn. Will broaden antibiotic coverage to cover for HCAP/MRSA and obtain MRSA swab vancomycin added to regimen. Curbsided ID, if patient does not improve, may consider ID consult in am (3) Aspiration pneumonia Current Visit: Yes Status: Acute Assessment and Plan: CT chest showed right sided airspace densities likely suggestive of aspiration continue zosyn Complete 5- 7 day course (4) JOSEFINA (acute kidney injury) Current Visit: Yes Status: Acute Assessment and Plan: Improving on IV fluids. continue hydration with normal saline (5) Pyelonephritis Current Visit: Yes Status: Acute Assessment and Plan: See #1. Continue zosyn (6) Bilateral kidney stones Current Visit: Yes Status: Acute Assessment and Plan: Pt is s/p cystoscopy and bilateral stent placement. Continue antibiotics (7) C. difficile colitis Current Visit: Yes Status: Acute Assessment and Plan: C diff testing and GI panel negative. Will d/c po vanc as patient appears to have been on an extended course since February (8) Hypokalemia Current Visit: Yes Status: Acute Assessment and Plan: Replaced (9) DVT prophylaxis Current Visit: Yes Status: Chronic Assessment and Plan: Heparin sc - Time Spent with Patient Total time spent is greater than 50% in coordination of care (as documented) at patient's floor/unit and/or counseling patient: Internal Medicine: Result - Labs CBC & Chem 7: 06/14/19 07:13 06/14/19 07:13 Labs: Short CBC 06/14/19 Range/Units 07:13 WBC 24.8 H D (4.3-11.1) K/mcL Hgb 11.9 (11.5-15.4) g/dL Hct 34.9 L (35.3-44.9) % Plt Count 143 (140-400) K/mcL Neutrophils # 20.1 H (1.6-8.9) K/mcL BMP 06/14/19 07:13 Sodium 141 Potassium 4.9 Chloride 114 H Carbon Dioxide 16 L BUN 23 Creatinine 1.44 H Glucose 116 H Calcium 7.8 L Consult Discharge Plan - Plan Referrals: Mariano Lyles MD [Partnered Physician] - Quan Ulloa CNP [Advanced Practice Nurse] - (2) Sepsis Qualifiers: Sepsis type: sepsis due to unspecified organism Sepsis acute organ dysfunction status: unspecified Qualified Code(s): A41.9 - Sepsis, unspecified organism
[2019-06-14] MEDS: ARIPiprazole 2 MG TABLET PO SCH (09:21)
[2019-06-14] MEDS: *HR* LORazepam 0.5 MG TABLET PO SCH (09:22)
--- NOTE | 2019-06-14 10:46 | AcuteCareSurgery Progress Note ---
<Faustina High - Last Filed: 06/14/19 10:41> Date of Encounter: 06/14/19 Time of Encounter: 08:00 - Assessment and Plan (1) Small bowel obstruction Current Visit: Yes Status: Acute Date of procedure: 06/12/19 Pre-op diagnosis: Small bowel obstruction Post-op diagnosis: same Procedure: Exploratory laparotomy with release of small bowel obstruction Complications: None Anesthesia: GETA Surgeon: Chris Puentes POD #2 as above. Pt is noted to have pulled her NG out on 06/13/2019. She is tolerating clears, but has nausea. Will not advance today. Her psych prevent the use of reglan. Would recommend scheduled zofran Q4H for 24 hours and if this is not effective, would recommend switching potassium to iv so that scopolamine patch could be utilized for 72 hours. Cares per primary team Plan: Continue supportive care and discomfort management while awaiting full return of bowel function Continue G.I. and DVT prophylaxis Incentive spirometry 10 times every hour while awake Out of bed to chair TID, do not offer meal trays while in the bed Activity as tolerated Apply ice 20 minutes on 20 minutes off as needed recommend consult to PT/OT per primary team Repeat am labs (2) C. difficile colitis Current Visit: Yes Status: Chronic Objective Vital Signs - Last 8 Hours Temp Pulse Resp BP Pulse Ox 06/14/19 06:59 98.4 F 100 20 128/81 98 06/14/19 03:46 98.6 F 84 15 118/81 99 Intake and Output 06/13/19 06/14/19 06/14/19 23:59 07:59 15:59 Intake Total 100 / 2300 1100 / 1100 Output Total 400 / 400 Balance 100 / 1800 700 / 700 Intake: IV Fluids 100 / 2300 1100 / 1100 0.9 % Sodium Chloride 1,000 ML 1000 / 1000 @ 100 mls/hr IVC .Q10H [facility] Rx#: [id number] Zosyn 3.375 GM In 0.9 % Sodium 100 / 300 100 / 100 Chloride (Mini-Bag +) 100 ML @ 25 mls/hr IVPB Q8HR [facility] Rx#: [id number] Output: Catheter 400 / 400 Other: Weight 85 kg Blood Glucose* 240 Patient Weight 06/14/19 23:59 Weight 85 kg - Labs 06/14/19 07:13 06/14/19 07:13 Diabetes panel 06/14/19 Range/Units 07:13 Sodium 141 (136-145) mEq/L Potassium 4.9 (3.5-5.1) mEq/L Chloride 114 H (98-107) mEq/L Carbon Dioxide 16 L (23-29) mEq/L BUN 23 (8-23) mg/dL Creatinine 1.44 H (0.60-1.20) mg/dL Glucose 116 H (70-105) mg/dL Calcium 7.8 L (8.6-10.3) mg/dL Calcium panel 06/14/19 Range/Units 07:13 Calcium 7.8 L (8.6-10.3) mg/dL Phosphorus 2.1 L (2.7-4.5) mg/dL Pituitary panel 06/14/19 Range/Units 07:13 Sodium 141 (136-145) mEq/L Potassium 4.9 (3.5-5.1) mEq/L Chloride 114 H (98-107) mEq/L Carbon Dioxide 16 L (23-29) mEq/L BUN 23 (8-23) mg/dL Creatinine 1.44 H (0.60-1.20) mg/dL Glucose 116 H (70-105) mg/dL Calcium 7.8 L (8.6-10.3) mg/dL Adrenal panel 06/14/19 Range/Units 07:13 Sodium 141 (136-145) mEq/L Potassium 4.9 (3.5-5.1) mEq/L Chloride 114 H (98-107) mEq/L Carbon Dioxide 16 L (23-29) mEq/L BUN 23 (8-23) mg/dL Creatinine 1.44 H (0.60-1.20) mg/dL Glucose 116 H (70-105) mg/dL Calcium 7.8 L (8.6-10.3) mg/dL Consult Discharge Plan - Plan Referrals: Mariano Lyles MD [Partnered Physician] - Quan Ulloa CNP [Advanced Practice Nurse] - <Jan Grewal - Last Filed: 06/14/19 11:27> Date of Encounter: 06/14/19 Objective Vital Signs - Last 8 Hours Temp Pulse Resp BP Pulse Ox 06/14/19 06:59 98.4 F 100 20 128/81 98 06/14/19 03:46 98.6 F 84 15 118/81 99 Intake and Output 06/13/19 06/14/19 06/14/19 23:59 07:59 15:59 Intake Total 100 / 2300 1100 / 1100 Output Total 400 / 400 Balance 100 / 1800 700 / 700 Intake: IV Fluids 100 / 2300 1100 / 1100 0.9 % Sodium Chloride 1,000 ML 1000 / 1000 @ 100 mls/hr IVC .Q10H [facility] Rx#: [id number] Zosyn 3.375 GM In 0.9 % Sodium 100 / 300 100 / 100 Chloride (Mini-Bag +) 100 ML @ 25 mls/hr IVPB Q8HR [facility] Rx#: [id number] Output: Catheter 400 / 400 Other: Weight 85 kg Blood Glucose* 240 Patient Weight 06/14/19 23:59 Weight 85 kg - Labs 06/14/19 07:13 06/14/19 07:13 Diabetes panel 06/14/19 Range/Units 07:13 Sodium 141 (136-145) mEq/L Potassium 4.9 (3.5-5.1) mEq/L Chloride 114 H (98-107) mEq/L Carbon Dioxide 16 L (23-29) mEq/L BUN 23 (8-23) mg/dL Creatinine 1.44 H (0.60-1.20) mg/dL Glucose 116 H (70-105) mg/dL Calcium 7.8 L (8.6-10.3) mg/dL Calcium panel 06/14/19 Range/Units 07:13 Calcium 7.8 L (8.6-10.3) mg/dL Phosphorus 2.1 L (2.7-4.5) mg/dL Pituitary panel 06/14/19 Range/Units 07:13 Sodium 141 (136-145) mEq/L Potassium 4.9 (3.5-5.1) mEq/L Chloride 114 H (98-107) mEq/L Carbon Dioxide 16 L (23-29) mEq/L BUN 23 (8-23) mg/dL Creatinine 1.44 H (0.60-1.20) mg/dL Glucose 116 H (70-105) mg/dL Calcium 7.8 L (8.6-10.3) mg/dL Adrenal panel 06/14/19 Range/Units 07:13 Sodium 141 (136-145) mEq/L Potassium 4.9 (3.5-5.1) mEq/L Chloride 114 H (98-107) mEq/L Carbon Dioxide 16 L (23-29) mEq/L BUN 23 (8-23) mg/dL Creatinine 1.44 H (0.60-1.20) mg/dL Glucose 116 H (70-105) mg/dL Calcium 7.8 L (8.6-10.3) mg/dL - Attending Attestation I have personally performed a face to face evaluation on this patient. I have reviewed and agree with the care plan. History and Exam by me shows: The patient is seen and evaluated on morning rounds with the acute care surgery team. She is resting comfortably. She is complaining of incisional pain. We will slowly progress her diet as she develops more bowel activity after treatment of her small bowel volvulus Jan Grewal MD FACS
[2019-06-14] MEDS: Ondansetron 4 MG/2 ML VIAL IVP SCH ×3 (11:58→22:52)
[2019-06-14] MEDS: Insulin DETEMIR 100 UNIT/ML X5UNITS SQ SCH (22:39)
[2019-06-14] MEDS: *HR* LORazepam 1 MG TABLET PO SCH (22:39)
[2019-06-15] MEDS: 0.9 % Sodium Chloride 1,000 ML IVC SCH ×2 (03:52→19:44)
[2019-06-15 03:55] LABS: Hematocrit 31.4 % (35.3-44.9); Hemoglobin 10.6 g/dL (11.5-15.4); Mean Corpuscular HGB Conc 33.8 g/dL (31.6-35.5); Mean Corpuscular Hemoglobin 30.6 pg (28.0-33.3); Mean Corpuscular Volume 90.8 fL (83.0-100.0); Platelet Count 123 K/mcL (140-400); Red Blood Count 3.46 M/mcL (3.82-4.97); Red Cell Distribution Width 18.2 % (11.5-14.5); White Blood Count 16.8 K/mcL (4.3-11.1)
[2019-06-15 04:15] LABS: Calcium 7.5 mg/dL (8.6-10.3); Magnesium 1.6 mg/dL (1.6-2.6); Phosphorous 2.4 mg/dL (2.7-4.5); Potassium 3.6 mEq/L (3.5-5.1)
[2019-06-15 04:43] LABS: Lymphocytes # 1.7 K/mcL (0.6-4.6); Neutrophils # 15.1 K/mcL (1.6-8.9)
[2019-06-15] MEDS: Ondansetron 4 MG/2 ML VIAL IVP SCH ×3 (05:14→17:57)
[2019-06-15] MEDS: *HR* Heparin 5,000 UNIT/ML VIAL SQ SCH ×2 (05:14→17:58)
[2019-06-15] MEDS: Piperacillin/Tazobactam 3.375 GM in 0.9 % Sodium Chloride Mini Bag 100 ML IVPB SCH ×2 (08:16→17:58)
[2019-06-15] MEDS: Cholestyramine 4 GM POWD.PACK PO SCH ×2 (08:23→22:33)
[2019-06-15] MEDS: ARIPiprazole 2 MG TABLET PO SCH (08:31)
[2019-06-15] MEDS: *HR* LORazepam 0.5 MG TABLET PO SCH (08:39)
[2019-06-15] MEDS: Insulin LISPRO 300 UNITS/3 ML VIAL SQ SCH ×4 (08:45→22:23)
--- NOTE | 2019-06-15 09:42 | AcuteCareSurgery Progress Note ---
Date of Encounter: 06/15/19 Time of Encounter: 09:40 - Assessment and Plan (1) Small bowel obstruction Current Visit: Yes Status: Acute 64F POD #3 s/p ex lap with release of small bowel obstruction 2/2 volvulus of the midgut; HDS pain control activity ast olerated IS usage chemical dvt prophylaxis adv diet as tolerated Subjective Patient reports: no new complaints, feels better, still having pain, pain is le ss, afebrile Objective Vital Signs - Last 8 Hours Temp Pulse Resp BP Pulse Ox 06/15/19 07:18 97.8 F 72 24 116/75 98 06/15/19 06:28 96 06/15/19 03:50 97.7 F 79 14 108/72 96 Intake and Output 06/14/19 06/15/19 06/15/19 23:59 07:59 15:59 Intake Total 1120 / 2320 1100 / 1350 250 / 1350 Output Total 600 / 1375 800 / 800 Balance 520 / 945 300 / 550 250 / 550 Intake: IV Fluids 1000 / 2200 1100 / 1350 250 / 1350 0.9 % Sodium Chloride 1,000 ML 1000 / 2000 1000 / 1000 @ 100 mls/hr IVC .Q10H [facility] Rx#: [id number] Zosyn 3.375 GM In 0.9 % Sodium 0 / 200 100 / 100 Chloride (Mini-Bag +) 100 ML @ 25 mls/hr IVPB Q8HR [facility] Rx#: [id number] Vancocin 1,000 MG In 0.9 % 250 / 250 Sodium Chloride 250 ML @ 167 mls/hr IVPB [facility]CE [facility] Rx#: [id number] Oral 120 / 120 0 / 0 Output: Catheter 600 / 1375 800 / 800 Other: Stool Size Copious Stool Consistency loose liquid Stool Color Green Weight 85.3 kg Blood Glucose* 94 117 Patient Weight 06/15/19 23:59 Weight 85.3 kg - General physical appearance no distress - Respiratory normal expansion, normal respiratory effort - Cardiovascular Cardiovascular exam: Present: RRR - Abdomen Abdomen: Present: soft, tender (appropriatley tender) - Incision Incision: Present: clean and dry, intact - Neurologic CN 2-12 grossly intact - Labs 06/15/19 03:00 06/15/19 03:00 Diabetes panel 06/15/19 Range/Units 03:00 Sodium 138 (136-145) mEq/L Potassium 3.6 D (3.5-5.1) mEq/L Chloride 113 H (98-107) mEq/L Carbon Dioxide 16 L (23-29) mEq/L BUN 20 (8-23) mg/dL Creatinine 1.25 H (0.60-1.20) mg/dL Glucose 157 H (70-105) mg/dL Calcium 7.5 L (8.6-10.3) mg/dL Calcium panel 06/15/19 Range/Units 03:00 Calcium 7.5 L (8.6-10.3) mg/dL Phosphorus 2.4 L (2.7-4.5) mg/dL Pituitary panel 06/15/19 Range/Units 03:00 Sodium 138 (136-145) mEq/L Potassium 3.6 D (3.5-5.1) mEq/L Chloride 113 H (98-107) mEq/L Carbon Dioxide 16 L (23-29) mEq/L BUN 20 (8-23) mg/dL Creatinine 1.25 H (0.60-1.20) mg/dL Glucose 157 H (70-105) mg/dL Calcium 7.5 L (8.6-10.3) mg/dL Adrenal panel 06/15/19 Range/Units 03:00 Sodium 138 (136-145) mEq/L Potassium 3.6 D (3.5-5.1) mEq/L Chloride 113 H (98-107) mEq/L Carbon Dioxide 16 L (23-29) mEq/L BUN 20 (8-23) mg/dL Creatinine 1.25 H (0.60-1.20) mg/dL Glucose 157 H (70-105) mg/dL Calcium 7.5 L (8.6-10.3) mg/dL Consult Discharge Plan - Plan Referrals: Mariano Lyles MD [Partnered Physician] - Quan Ulloa CNP [Advanced Practice Nurse] -
--- NOTE | 2019-06-15 10:46 | Internal Med Progress Note ---
Hospitalist Progress Note - Encounter Date of Encounter: 06/15/19 Time of Encounter: 10:43 - Subjective Interval History: I have seen and evaluated the patient at bedside. patient lethargic, not in visual distress. - Exam Vitals: Temp Pulse Resp BP Pulse Ox 97.8 F 72 24 116/75 98 06/15/19 07:18 06/15/19 07:18 06/15/19 07:18 06/15/19 07:18 06/15/19 07:18 Exam: Vitals: Reviewed General: Alert and oriented to person, not time or placed. somnolent. Skin: Normal color, no rash, no lesions. HEENT: EOM, pupils equal, round and reactive. Cardiovascular: RRR, normal S1 & S2, no rubs, murmurs or gallops. Lungs: CTA b/l, no wheezes or crackles. Abdomen: Obese, soft, non-tender, no rigidity. hypoactive bowel sounds. Extremities: No deformity, no edema or tenderness, no joint swelling or clubbing. Neurological: unable to perform, patient not following commands. Rest of the physical exam is non contributory - Assessment and Plan (1) JOSEFINA (acute kidney injury) Current Visit: Yes Status: Acute (2) Pyelonephritis Current Visit: Yes Status: Acute (3) DVT prophylaxis Current Visit: Yes Status: Chronic (4) C. difficile colitis Current Visit: Yes Status: Resolved (5) Sepsis Current Visit: Yes Status: Acute (6) Bilateral kidney stones Current Visit: Yes Status: Acute (7) Small bowel obstruction Current Visit: Yes Status: Resolved (8) Hypokalemia Current Visit: Yes Status: Resolved (9) Aspiration pneumonia Current Visit: Yes Status: Acute DVT Prophylaxis: 64 year old female with pmh of CAD, diabetes, fibromyalgia, chronic c difficile infection presenting from the group home to [facility] ER with abdominal pain of about 24hrs duration. Patient admitted to the hospital due to bilateral hydrone phrosis, with left-sided ureteral stones. Assessment: 1. small bowel obstruction s/p POD #2 Exploratory laparotomy with release of small bowel obstruction 2. Sepsis 3. Aspiration Pneumonia 4. C. Diff colitis (ruled out) 5. JOSEFINA 6. Pyelonephritis 7. Bilateral kidney stones status post Cystoscopy and bilateral 6 x 26 cm ureteral stent placement 8. VTE prophylaxis 9. Hx of liver cirrhosis 10. Diabetes 11. Hx of CAD 12. Hypophosphatemia 13. Anemia Plan - during my evaluation patient AOx1. mild somnolent. Per nurse patient had just received Ativan. - avoid sedating medications. - ABG, Ammonia and CMP ordered - WBC trending down, blood culture: nop growth final report 06/13/19. - will repeat blood culture, patient with a low grade fever on 06/14/19. - continue broad spectrum IV antibiotics - UA ordered - speech consulted due to concerns for possible aspiration - blood sugar well controlled, continue short and long acting insulin coverage - Patient is on rifaximin 550mg/PO BID, Hx of liver cirrhosis - clear liquid diet, advance diet per surgery recommendations - Electrolyte has been replaced. We will check phosphorus level tomorrow morning. - Acute kidney injury improving with IV hydration. c/w NS@75ml/hrs x1 litter. - On metoprolol 25 mg by mouth twice a day. For blood pressure controlled. - Continue with home dose of mood stabilizing medication. Disposition: Patient to remain in the hospital due to resolving sepsis, broad-spectrum IV antibiotics. - Time Spent with Patient Total time spent is greater than 50% in coordination of care (as documented) at patient's floor/unit and/or counseling patient: Greater than 35 minutes (45) Plan of Care Discussed with: nurse Internal Medicine: Result - Labs CBC & Chem 7: 06/15/19 03:00 06/15/19 03:00 Labs: Short CBC 06/15/19 Range/Units 03:00 WBC 16.8 H (4.3-11.1) K/mcL Hgb 10.6 L (11.5-15.4) g/dL Hct 31.4 L (35.3-44.9) % Plt Count 123 L (140-400) K/mcL Neutrophils # 15.1 H (1.6-8.9) K/mcL BMP 06/15/19 03:00 Sodium 138 Potassium 3.6 D Chloride 113 H Carbon Dioxide 16 L BUN 20 Creatinine 1.25 H Glucose 157 H Calcium 7.5 L - Impressions Impressions Chest X-Ray 06/14/19 11:52 IMPRESSION: No acute process of the chest. D/ / 06/14/2019 12:47:48 Darrick West MD / Teena Santana Interpreting Provider: Darrick West MD Consult Discharge Plan - Plan Referrals: Mariano Lyles MD [Partnered Physician] - Quan Ulloa CNP [Advanced Practice Nurse] - (5) Sepsis Qualifiers: Sepsis type: sepsis due to unspecified organism Sepsis acute organ dysfunction status: unspecified Qualified Code(s): A41.9 - Sepsis, unspecified organism (9) Aspiration pneumonia Qualifiers: Aspiration pneumonia type: unspecified Laterality: unspecified laterality Lung location: unspecified part of lung Qualified Code(s): J69.0 - Pneumonitis due to inhalation of food and vomit
[2019-06-15] MEDS ORDERED: 0.9 % Sodium Chloride 1,000 ML IVC SCH (11:04)
[2019-06-15 12:36] LABS: Bilirubin,Urine Negative (Negative); Clarity,Urine Cloudy (Clear); Color,Urine Red (Yellow); Glucose,Urine (UA) Normal (Normal); Ketones,Urine Negative (Negative)
[2019-06-15 12:37] LABS: Blood,Urine Large (Negative); Leukocyte Esterase,Urine Large (Negative); Nitrite,Urine Negative (Negative); PH,Urine 5.5 pH Units (5.0-8.0); Protein,Urine 30 mg/dL (Neg-Trace); Specific Gravity,Urine 1.013 (1.010-1.025); Urobilinogen,Urine Normal (Normal)
[2019-06-15 12:59] LABS: Bacteria,Urine Present per hpf (None-Few); RBC,Urine Present per hpf (0-3); WBC,Urine TNTC per hpf (0-3); Yeast,Urine Present per hpf (None Seen)
[2019-06-15 15:42] LABS: ABG Base Excess -8 mEq/L (-2 to 3); ABG HCO3 16 mEq/L (21-27); ABG Oxygen Saturation 94 % (95-98); ABG PCO2 26 mmHg (35-45); ABG PH 7.39 pH Units (7.32-7.45); ABG PO2 71 mmHg (85-104); ABG TCO2 17 mEq/L (20-26)
[2019-06-15] MEDS: *HR* LORazepam 1 MG TABLET PO SCH (21:52)
[2019-06-15] MEDS: Insulin DETEMIR 100 UNIT/ML X5UNITS SQ SCH (22:33)
[2019-06-16] MEDS: Piperacillin/Tazobactam 3.375 GM in 0.9 % Sodium Chloride Mini Bag 100 ML IVPB SCH ×4 (00:09→23:24)
[2019-06-16 04:03] LABS: Basophils # 0.1 K/mcL (0.0-0.2); Basophils % 0.4 %; Eosinophils # 0.5 K/mcL (0.0-0.6); Eosinophils % 3.1 %; Hematocrit 29.4 % (35.3-44.9); Hemoglobin 10.1 g/dL (11.5-15.4); Immature Granulocytes % 3.1 % (0-4); Lymphocytes # 1.4 K/mcL (0.6-4.6); Lymphocytes % 9.3 %; Mean Corpuscular HGB Conc 34.4 g/dL (31.6-35.5); Mean Corpuscular Hemoglobin 30.2 pg (28.0-33.3); Mean Platelet Volume 9.8 fL (9.4-12.4); Monocytes # 0.7 K/mcL (0.0-1.3); Monocytes % 4.7 %; Neutrophils # 11.8 K/mcL (1.6-8.9); Platelet Count 120 K/mcL (140-400); Red Blood Count 3.34 M/mcL (3.82-4.97); Red Cell Distribution Width 17.7 % (11.5-14.5); Segmented Neutrophils % 79.4 %; White Blood Count 14.8 K/mcL (4.3-11.1)
[2019-06-16 04:22] LABS: Alanine Aminotransferase 13 Units/L (7-52); Albumin/Globulin Ratio 0.6 (1.1-2.2); Alkaline Phosphatase 139 Units/L (34-104); Aspartate Amino Transferase 20 Units/L (13-39); BUN/Creatinine Ratio 17 (6-26); Bilirubin,Total 0.8 mg/dL (0.3-1.0); Blood Urea Nitrogen 16 mg/dL (8-23); Carbon Dioxide 17 mEq/L (23-29); Chloride 112 mEq/L (98-107); Globulin 3.4 g/dL (2.4-3.5); Glucose 124 mg/dL (70-105); Magnesium 1.3 mg/dL (1.6-2.6); Osmolality,Calculated 285 (280-300); Phosphorous 3.2 mg/dL (2.7-4.5); Sodium 136 mEq/L (136-145); Total Protein 5.4 g/dL (6.4-8.9); eGFR For African Americans > 60 (> 60); eGFR For Non-African Americans 60 (> 60)
[2019-06-16] MEDS: *HR* Heparin 5,000 UNIT/ML VIAL SQ SCH ×2 (05:56→16:06)
[2019-06-16] MEDS: ARIPiprazole 2 MG TABLET PO SCH (08:12)
[2019-06-16] MEDS: *HR* LORazepam 0.5 MG TABLET PO SCH (08:13)
[2019-06-16] MEDS: Insulin LISPRO 300 UNITS/3 ML VIAL SQ SCH ×4 (08:36→23:24)
--- NOTE | 2019-06-16 10:17 | AcuteCareSurgery Progress Note ---
Date of Encounter: 06/16/19 Time of Encounter: 08:30 - Assessment and Plan (1) Small bowel obstruction Current Visit: Yes Status: Resolved POD#4 Ex lap for release of SBO. Pt improving. Recommend DC to ECF per primary service. Pt post-op status is satisfactory. Surgery will sign off. See DC plan for f/u. Thank you for allowing us to particitpate in this patient's care. (2) C. difficile colitis Current Visit: Yes Status: Chronic Continue current abx. (3) Diabetes Current Visit: No Status: Chronic Qualifiers: Qualified Code(s): E11.9 - Type 2 diabetes mellitus without complications (4) Hypertension Current Visit: No Status: Chronic Qualifiers: Qualified Code(s): I10 - Essential (primary) hypertension Subjective Patient reports: no new complaints, feels better, pain is less, tolerating a regular diet, flatus, bowel movement, afebrile Objective Vital Signs - Last 8 Hours Temp Pulse Resp BP Pulse Ox 06/16/19 07:12 98.3 F 91 14 116/76 96 06/16/19 03:10 97.6 F 84 14 95/61 100 Intake and Output 06/15/19 06/16/19 06/16/19 23:59 07:59 15:59 Intake Total 480 / 1930 590 / 590 Output Total 1125 / 2925 1450 / 1850 400 / 1850 Balance -645 / -995 -860 / -1260 -400 / -1260 Intake: IV Fluids 360 / 1810 350 / 350 Zosyn 3.375 GM In 0.9 % Sodium 100 / 300 100 / 100 Chloride (Mini-Bag +) 100 ML @ 25 mls/hr IVPB Q8HR [facility] Rx#: [id number] Sodium Phosphate 30 MMOL In 0.9 260 / 260 % Sodium Chloride 250 ML @ 42 mls/hr IVPB [facility]CE [facility] Rx#: [id number] Vancocin 1,250 MG In 0.9 % 250 / 250 Sodium Chloride 250 ML @ 166. 667 mls/hr IVPB Q24H [facility] Rx#: [id number] Oral 120 / 120 240 / 240 Output: Catheter 1125 / 2925 1450 / 1850 400 / 1850 Urethral (Castillo) 450 / 450 200 / 600 400 / 600 Other: Stool Size Moderate Large Stool Consistency soft formed Stool Characteristics Pasty Seedy Stool Color Green Yellow Zachary Colored Green Zachary Colored # Bowel Movement Diapers 1 Weight 86.2 kg Blood Glucose* 169 87 Patient Weight 06/16/19 23:59 Weight 86.2 kg - General physical appearance no distress, moderate pain - Eyes PERRL, normal ocular movement - ENT no congestion, dry mucosa - Neck Neck exam: trachea midline, no venous distension - Respiratory normal respiratory effort, clear to auscultation - Cardiovascular Cardiovascular exam: Present: RRR. Absent: JVD - Abdomen Abdomen: Present: bowel sounds present, soft, tender - Incision Incision: Present: clean and dry, intact - Neurologic CN 2-12 grossly intact, normal coordination - Musculoskeletal normal posture - Psychiatric oriented to time, oriented to person, oriented to place - Labs 06/16/19 03:53 06/16/19 03:53 Diabetes panel 06/16/19 Range/Units 03:53 Sodium 136 (136-145) mEq/L Potassium 3.0 L (3.5-5.1) mEq/L Chloride 112 H (98-107) mEq/L Carbon Dioxide 17 L (23-29) mEq/L BUN 16 (8-23) mg/dL Creatinine 0.95 (0.60-1.20) mg/dL Glucose 124 H (70-105) mg/dL Calcium 7.0 L (8.6-10.3) mg/dL AST 20 (13-39) Units/L ALT 13 (7-52) Units/L Alkaline Phosphatase 139 H (34-104) Units/L Albumin 2.0 L (3.5-5.7) g/dL Calcium panel 06/16/19 Range/Units 03:53 Calcium 7.0 L (8.6-10.3) mg/dL Phosphorus 3.2 (2.7-4.5) mg/dL Albumin 2.0 L (3.5-5.7) g/dL Pituitary panel 06/16/19 Range/Units 03:53 Sodium 136 (136-145) mEq/L Potassium 3.0 L (3.5-5.1) mEq/L Chloride 112 H (98-107) mEq/L Carbon Dioxide 17 L (23-29) mEq/L BUN 16 (8-23) mg/dL Creatinine 0.95 (0.60-1.20) mg/dL Glucose 124 H (70-105) mg/dL Calcium 7.0 L (8.6-10.3) mg/dL Adrenal panel 06/16/19 Range/Units 03:53 Sodium 136 (136-145) mEq/L Potassium 3.0 L (3.5-5.1) mEq/L Chloride 112 H (98-107) mEq/L Carbon Dioxide 17 L (23-29) mEq/L BUN 16 (8-23) mg/dL Creatinine 0.95 (0.60-1.20) mg/dL Glucose 124 H (70-105) mg/dL Calcium 7.0 L (8.6-10.3) mg/dL Total Bilirubin 0.8 (0.3-1.0) mg/dL AST 20 (13-39) Units/L ALT 13 (7-52) Units/L Alkaline Phosphatase 139 H (34-104) Units/L Albumin 2.0 L (3.5-5.7) g/dL Consult Discharge Plan - Plan Referrals: Mariano Lyles MD [Partnered Physician] - Quan Ulloa CNP [Advanced Practice Nurse] -
[2019-06-16] MEDS: traMADol 50 MG TABLET PO PRN ×2 (10:32→16:07)
--- NOTE | 2019-06-16 11:06 | Internal Med Progress Note ---
Hospitalist Progress Note - Encounter Date of Encounter: 06/16/19 Time of Encounter: 11:04 - Subjective Interval History: I have seen and evaluated the patient at bedside. Patient alert, oriented x2, today. In no visual distress. per nurse patient had 2 BM of loose stool today morning. patient denies chest pain, shortness of breath or abdominal pain. - Exam Vitals: Temp Pulse Resp BP Pulse Ox 98.3 F 81 16 113/73 96 06/16/19 10:48 06/16/19 10:48 06/16/19 10:48 06/16/19 10:48 06/16/19 10:48 Exam: Vitals: Reviewed General: Alert and oriented x2. In mild distress due to back pain. Cardiovascular: RRR, normal S1 & S2, no rubs, murmurs or gallops. Lungs: CTA b/l, no wheezes or crackles. Abdomen: Obese, soft, non-tender, no rigidity. hypoactive bowel sounds. Extremities: No edema Neurological: No focal neurological abnormalities. Rest of the physical exam is non contributory - Assessment and Plan (1) JOSEFINA (acute kidney injury) Current Visit: Yes Status: Resolved (2) Pyelonephritis Current Visit: Yes Status: Acute (3) DVT prophylaxis Current Visit: Yes Status: Chronic (4) C. difficile colitis Current Visit: Yes Status: Resolved (5) Sepsis Current Visit: Yes Status: Resolved (6) Bilateral kidney stones Current Visit: Yes Status: Acute (7) Small bowel obstruction Current Visit: Yes Status: Resolved (8) Hypokalemia Current Visit: Yes Status: Resolved (9) Aspiration pneumonia Current Visit: Yes Status: Acute - Summary of Assessment and Plan Summary of Assessment and Plan: 64 year old female with pmh of CAD, diabetes, fibromyalgia, chronic c difficile infection presenting from the longterm to [facility] with abdominal pain of about 24hrs duration. Patient admitted to the hospital due to bilateral hydronephrosis, with left-sided ureteral stones. Assessment: 1. small bowel obstruction s/p POD #3 Exploratory laparotomy with release of small bowel obstruction 2. Sepsis (resolved) 3. Aspiration Pneumonia 4. C. Diff colitis (ruled out) 5. JOSEFINA (resolved) 6. Pyelonephritis 7. Bilateral kidney stones status post Cystoscopy and bilateral 6 x 26 cm ureteral stent placement 8. VTE prophylaxis 9. Hx of liver cirrhosis 10. Diabetes 11. Hx of CAD 12. Hypokalemia 13. Anemia 14. Hypomagnesemia Plan Patient Awake, oriented x2 today. reporting back pain. - started on tramadol 50mg/PO Q6HR PRN for pain control - patient being treated for possible aspiration pneumonia. afebrile, hemodunamically stable, WBC trending down. - discontinue IV vancomycin - c/w piperacillin/tazobactam 3.375mg/IV Q8HRs - speech evaluated the patient, no aspiration seen. - c/w short and long acting insulin coverage for blood sugar control - On rifaximin 550mg/PO BID, Hx of liver cirrhosis - Advance diet per surgery recommendations - Potassium and magnesium replaced. check electrolyte tomorrow morning. - discontinue IV fluids. encourage oral fluids intake - c/w metoprolol 25 mg by mouth twice a day. - Patient is on IV PPI so. - out of bed to chair. - daily PT/OT Disposition: Patient to remain in the hospital due to resolving sepsis, broad-spectrum IV antibiotics. - Time Spent with Patient Total time spent is greater than 50% in coordination of care (as documented) at patient's floor/unit and/or counseling patient: Greater than 35 minutes (40) Plan of Care Discussed with: nurse Internal Medicine: Result - Labs CBC & Chem 7: 06/16/19 03:53 06/16/19 03:53 Labs: Short CBC 06/16/19 Range/Units 03:53 WBC 14.8 H (4.3-11.1) K/mcL Hgb 10.1 L (11.5-15.4) g/dL Hct 29.4 L (35.3-44.9) % Plt Count 120 L (140-400) K/mcL Neutrophils # 11.8 H (1.6-8.9) K/mcL BMP 06/16/19 03:53 Sodium 136 Potassium 3.0 L Chloride 112 H Carbon Dioxide 17 L BUN 16 Creatinine 0.95 Glucose 124 H Calcium 7.0 L Liver Function 06/16/19 Range/Units 03:53 Total Bilirubin 0.8 (0.3-1.0) mg/dL AST 20 (13-39) Units/L ALT 13 (7-52) Units/L Alkaline Phosphatase 139 H (34-104) Units/L Albumin 2.0 L (3.5-5.7) g/dL Urine 06/15/19 Range/Units 10:42 Urine Color Red A (Yellow) Urine Clarity Cloudy A (Clear) Urine pH 5.5 (5.0-8.0) pH Units Ur Specific [place] 1.013 (1.010-1.025) Urine Protein 30 H (Neg-Trace) mg/dL Urine Glucose (UA) Normal (Normal) mg/dL - ABG Interpretation ABG results: ABG ABG pH 7.39 pH Units (7.32-7.45) 06/15/19 15:40 ABG pCO2 26 mmHg (35-45) L 06/15/19 15:40 ABG pO2 71 mmHg (85-104) L 06/15/19 15:40 ABG O2 Saturation 94 % (95-98) L 06/15/19 15:40 Consult Discharge Plan - Plan Referrals: Mariano Lyles MD [Partnered Physician] - Quan Ulloa CNP [Advanced Practice Nurse] - (5) Sepsis Qualifiers: Sepsis type: sepsis due to unspecified organism Sepsis acute organ dysfunction status: unspecified Qualified Code(s): A41.9 - Sepsis, unspecified organism (9) Aspiration pneumonia Qualifiers: Aspiration pneumonia type: unspecified Laterality: unspecified laterality Lung location: unspecified part of lung Qualified Code(s): J69.0 - Pneumonitis due to inhalation of food and vomit
[2019-06-16] MEDS: Cholestyramine 4 GM POWD.PACK PO SCH ×2 (11:29→23:08)
[2019-06-16] MEDS ORDERED: Aminoglycoside Consult 1 EACH MC ONE (17:13)
[2019-06-16] MEDS ORDERED: Insulin DETEMIR 100 UNIT/ML X5UNITS SQ SCH (21:00)
[2019-06-16] MEDS: Lactobacillus 1 EACH CAP.SPRINK PO SCH (23:07)
[2019-06-16] MEDS: *HR* LORazepam 1 MG TABLET PO SCH (23:07)
[2019-06-17 02:52] LABS: Basophils % 0.3 %; Eosinophils # 0.4 K/mcL (0.0-0.6); Hematocrit 29.6 % (35.3-44.9); Hemoglobin 10.3 g/dL (11.5-15.4); Lymphocytes # 1.5 K/mcL (0.6-4.6); Mean Corpuscular HGB Conc 34.8 g/dL (31.6-35.5); Mean Corpuscular Hemoglobin 30.6 pg (28.0-33.3); Mean Corpuscular Volume 87.8 fL (83.0-100.0); Monocytes % 7.1 %; Neutrophils # 10.6 K/mcL (1.6-8.9); Platelet Count 134 K/mcL (140-400); Red Blood Count 3.37 M/mcL (3.82-4.97); Red Cell Distribution Width 18.3 % (11.5-14.5); Segmented Neutrophils % 76.6 %; White Blood Count 13.8 K/mcL (4.3-11.1)
[2019-06-17 04:33] LABS: Alanine Aminotransferase 12 Units/L (7-52); Albumin 1.9 g/dL (3.5-5.7); Albumin/Globulin Ratio 0.5 (1.1-2.2); Alkaline Phosphatase 146 Units/L (34-104); Aspartate Amino Transferase 21 Units/L (13-39); BUN/Creatinine Ratio 14 (6-26); Blood Urea Nitrogen 13 mg/dL (8-23); Calcium 7.2 mg/dL (8.6-10.3); Carbon Dioxide 18 mEq/L (23-29); Chloride 111 mEq/L (98-107); Globulin 3.5 g/dL (2.4-3.5); Glucose 99 mg/dL (70-105); Magnesium 1.6 mg/dL (1.6-2.6); Osmolality,Calculated 282 (280-300); Potassium 3.4 mEq/L (3.5-5.1); Sodium 136 mEq/L (136-145); Total Protein 5.4 g/dL (6.4-8.9); eGFR For African Americans > 60 (> 60); eGFR For Non-African Americans > 60 (> 60)
[2019-06-17] MEDS: *HR* Heparin 5,000 UNIT/ML VIAL SQ SCH ×2 (05:55→18:16)
[2019-06-17] MEDS: Lactobacillus 1 EACH CAP.SPRINK PO SCH ×2 (09:01→22:43)
[2019-06-17] MEDS: ARIPiprazole 2 MG TABLET PO SCH (09:01)
[2019-06-17] MEDS: traMADol 50 MG TABLET PO PRN ×2 (09:01→18:22)
[2019-06-17] MEDS: Piperacillin/Tazobactam 3.375 GM in 0.9 % Sodium Chloride Mini Bag 100 ML IVPB SCH ×2 (09:02→16:01)
[2019-06-17] MEDS: Insulin LISPRO 300 UNITS/3 ML VIAL SQ SCH ×4 (09:09→22:30)
--- NOTE | 2019-06-17 10:07 | Internal Med Progress Note ---
Hospitalist Progress Note - Encounter Date of Encounter: 06/17/19 Time of Encounter: 10:05 - Subjective Interval History: I have seen and evaluated the patient at bedside. Patient reported chronic back pain, reports abdominal discomfort. denies nausea, vomiting or chest pain. - Exam Vitals: Temp Pulse Resp BP Pulse Ox 98.2 F 98 15 106/72 98 06/17/19 08:27 06/17/19 08:27 06/17/19 08:27 06/17/19 08:27 06/17/19 09:17 Exam: Vitals: Reviewed General: Alert and oriented x2. In mild distress due to generalized weakness Cardiovascular: RRR, normal S1 & S2, no rubs, murmurs or gallops. Lungs: CTA b/l, no wheezes or crackles. Abdomen: Obese, soft, non-tender, no rigidity. normo-active bowel sounds. surgery site clean/intact. Extremities: No edema Neurological: No focal neurological abnormalities. Rest of the physical exam is non contributory - Assessment and Plan (1) JOSEFINA (acute kidney injury) Current Visit: Yes Status: Resolved (2) Pyelonephritis Current Visit: Yes Status: Acute (3) DVT prophylaxis Current Visit: Yes Status: Chronic (4) C. difficile colitis Current Visit: Yes Status: Resolved (5) Sepsis Current Visit: Yes Status: Resolved (6) Bilateral kidney stones Current Visit: Yes Status: Acute (7) Small bowel obstruction Current Visit: Yes Status: Resolved (8) Hypokalemia Current Visit: Yes Status: Resolved (9) Aspiration pneumonia Current Visit: Yes Status: Ruled-out - Summary of Assessment and Plan Summary of Assessment and Plan: 64 year old female with pmh of CAD, diabetes, fibromyalgia, chronic c difficile infection [place] [facility] [place] [facility] with abdominal pain of about 24hrs duration. Patient admitted to the hospital due to bilateral hydronephrosis, with left-sided ureteral stones. Assessment: 1. small bowel obstruction s/p POD #5 Exploratory laparotomy with release of small bowel obstruction 2. Sepsis (resolved) 3. C. Diff colitis (ruled out) 4. JOSEFINA (resolved) 5. Pyelonephritis 6. Bilateral kidney stones status post Cystoscopy and bilateral 6 x 26 cm ureteral stent placement 7. VTE prophylaxis 8. Hx of liver cirrhosis 9. Diabetes 10. Hx of CAD 11. Hypokalemia 12. Anemia Plan Patient Awake, oriented x2 today. reporting back pain. chest x-ray: No acute process of the chest. - c/w piperacillin/tazobactam 3.375mg/IV Q8HRs - blood sugar running in the low 90s, patient with poor oral intake. decrease levemir to 2.5 unit HS. continue low dose sliding scale ac. - c/w rifaximin 550mg/PO BID, Hx of liver cirrhosis - soft chopped diet. per surgery recommendations. - electrolyte replaced. - BP is well controlled with metoprolol 25 mg by mouth twice a day. - Patient is on IV PPI so. - daily PT/OT ordered. - Patient was on oral vancomycin and metronidazole for about 2 months. antibiotics discontinued, will monitor clinically. Disposition: Patient to remain in the hospital on broad-spectrum IV antibiotics. Potential discharge in 1-2 days. - Time Spent with Patient Total time spent is greater than 50% in coordination of care (as documented) at patient's floor/unit and/or counseling patient: Greater than 35 minutes (40) Plan of Care Discussed with: nurse Internal Medicine: Result - Labs CBC & Chem 7: 06/17/19 02:35 06/17/19 03:45 Labs: Short CBC 06/17/19 Range/Units 02:35 WBC 13.8 H (4.3-11.1) K/mcL Hgb 10.3 L (11.5-15.4) g/dL Hct 29.6 L (35.3-44.9) % Plt Count 134 L (140-400) K/mcL Neutrophils # 10.6 H (1.6-8.9) K/mcL BMP 06/17/19 03:45 Sodium 136 Potassium 3.4 L Chloride 111 H Carbon Dioxide 18 L BUN 13 Creatinine 0.94 Glucose 99 Calcium 7.2 L Liver Function 06/17/19 Range/Units 03:45 Total Bilirubin 1.0 (0.3-1.0) mg/dL AST 21 (13-39) Units/L ALT 12 (7-52) Units/L Alkaline Phosphatase 146 H (34-104) Units/L Albumin 1.9 L (3.5-5.7) g/dL - ABG Interpretation ABG results: ABG ABG pH 7.39 pH Units (7.32-7.45) 06/15/19 15:40 ABG pCO2 26 mmHg (35-45) L 06/15/19 15:40 ABG pO2 71 mmHg (85-104) L 06/15/19 15:40 ABG O2 Saturation 94 % (95-98) L 06/15/19 15:40 Consult Discharge Plan - Plan Instructions: Exploratory Laparotomy (DC) Additional Instructions: General Surgical Discharge Instructions 1. No pushing, pulling, or lifting greater than 15 lbs for 6 weeks (depending upon procedure). 2. You may remove your dressings and shower beginning today, but no tub baths, soaking, or swimming for 2 weeks. 3. No driving until otherwise specified. 4. Take Tylenol every 6 hours for discomfort and apply ice to the abdomen 20 minutes of every hour you are awake. If this does not relieve discomfort, you may take the as needed Tramadol. Eat a small snack with pain medication as this will help reduce the risk of nausea. Take narcotics as directed. Do not take more narcotics then directed and do not share your narcotics with any other person. Do not drink alcohol while on narcotics. You can take the Zofran/ondansetron if needed for nausea or with a dose of narcotics to prevent nausea. 5. Take stool softeners (Colace) or a water based laxative (Miralax) while taking narcotics. You may hold for loose stools. 6. Report any fevers greater than 100.5F, increase abdominal discomfort, drain age that looks like pus, increased redness or pain at the surgical site, or any vomiting. 7. Report any pain in the calves, shortness of breath, or rapid heartbeat. 8. Follow-up in the office as directed. 9. If you were prescribed antibiotics, do not stop them without talking to your provider. Referrals: Mariano Lyles MD [Partnered Physician] - Chris Kinney [Partnered Physician] - 06/28/19 9:10 am Quan Ulloa CNP [Advanced Practice Nurse] - (5) Sepsis Qualifiers: Sepsis type: sepsis due to unspecified organism Sepsis acute organ dysfunction status: unspecified Qualified Code(s): A41.9 - Sepsis, unspecified organism (9) Aspiration pneumonia Qualifiers: Aspiration pneumonia type: unspecified Laterality: unspecified laterality Lung location: unspecified part of lung Qualified Code(s): J69.0 - Pneumonitis due to inhalation of food and vomit
[2019-06-17] MEDS: Cholestyramine 4 GM POWD.PACK PO SCH ×2 (10:55→22:42)
[2019-06-17] MEDS: *HR* LORazepam 0.5 MG TABLET PO SCH (10:56)
[2019-06-17] MEDS ORDERED: Insulin DETEMIR 100 UNIT/ML X5UNITS SQ SCH (21:00)
[2019-06-17] MEDS: *HR* LORazepam 1 MG TABLET PO SCH (22:43)
[2019-06-18] MEDS: Piperacillin/Tazobactam 3.375 GM in 0.9 % Sodium Chloride Mini Bag 100 ML IVPB SCH ×4 (00:13→16:18)
[2019-06-18] MEDS: traMADol 50 MG TABLET PO PRN ×2 (04:17→15:17)
[2019-06-18 04:20] LABS: Basophils % 0.3 %; Eosinophils # 0.4 K/mcL (0.0-0.6); Hematocrit 30.3 % (35.3-44.9); Hemoglobin 10.3 g/dL (11.5-15.4); Immature Granulocytes % 1.4 % (0-4); Lymphocytes # 1.6 K/mcL (0.6-4.6); Lymphocytes % 14.9 %; Mean Corpuscular Hemoglobin 30.8 pg (28.0-33.3); Mean Corpuscular Volume 90.7 fL (83.0-100.0); Mean Platelet Volume 9.7 fL (9.4-12.4); Monocytes # 0.8 K/mcL (0.0-1.3); Monocytes % 7.9 %; Neutrophils # 7.6 K/mcL (1.6-8.9); Platelet Count 147 K/mcL (140-400); Red Blood Count 3.34 M/mcL (3.82-4.97); Red Cell Distribution Width 18.3 % (11.5-14.5); Segmented Neutrophils % 71.5 %; White Blood Count 10.6 K/mcL (4.3-11.1)
[2019-06-18 04:39] LABS: BUN/Creatinine Ratio 13 (6-26); Blood Urea Nitrogen 11 mg/dL (8-23); Calcium 7.5 mg/dL (8.6-10.3); Carbon Dioxide 20 mEq/L (23-29); Chloride 109 mEq/L (98-107); Glucose 100 mg/dL (70-105); Magnesium 1.3 mg/dL (1.6-2.6); Osmolality,Calculated 281 (280-300); Potassium 3.8 mEq/L (3.5-5.1); Sodium 136 mEq/L (136-145); eGFR For African Americans > 60 (> 60); eGFR For Non-African Americans > 60 (> 60)
[2019-06-18] MEDS: *HR* Heparin 5,000 UNIT/ML VIAL SQ SCH (06:14)
[2019-06-18] MEDS: Insulin LISPRO 300 UNITS/3 ML VIAL SQ SCH ×3 (07:45→16:43)
[2019-06-18] MEDS: *HR* LORazepam 0.5 MG TABLET PO SCH (08:37)
[2019-06-18] MEDS: ARIPiprazole 2 MG TABLET PO SCH (08:37)
[2019-06-18] MEDS: Lactobacillus 1 EACH CAP.SPRINK PO SCH (08:38)
--- NOTE | 2019-06-18 08:43 | Discharge Summary ---
Orders not resulted at time of discharge: Pending orders 06/08/19 19:42 Culture,Urine [RM] Routine 06/15/19 08:40 Sputum Culture [Culture,Sputum with Gram Stain] [RM] Stat 06/15/19 09:00 Legionella Type 1 Antibody,IgM Stat 06/15/19 11:36 Culture,Blood [BC] Stat 06/15/19 13:42 MRSA Surveillance Screen [[facility]] Stat Date of Encounter: 06/18/19 Time of Encounter: 08:39 - Discharge Diagnosis (1) JOSEFINA (acute kidney injury) Priority: Primary Status: Resolved (2) Pyelonephritis Priority: Primary Status: Resolved (3) DVT prophylaxis Priority: Secondary Status: Chronic (4) C. difficile colitis Priority: Secondary Status: Ruled-out (5) Sepsis Priority: Primary Status: Resolved Qualifiers: Sepsis type: sepsis due to unspecified organism Sepsis acute organ dysfunction status: unspecified Qualified Code(s): A41.9 - Sepsis, unspecified organism (6) Bilateral kidney stones Priority: Secondary Status: Chronic (7) Small bowel obstruction Priority: Primary Status: Resolved (8) Hypokalemia Priority: Secondary Status: Resolved (9) Aspiration pneumonia Priority: Secondary Status: Suspected Qualifiers: Aspiration pneumonia type: unspecified Laterality: unspecified laterality Lung location: unspecified part of lung Qualified Code(s): J69.0 - Pneumonitis due to inhalation of food and vomit Hospital course: Ms. Reynoso is a 64 year old female pmh of CAD, diabetes, fibromyalgia, chronic c difficile [facility] with abdominal pain of about 24hrs duration. Patient has had a right ureteral stent in the past. CT scan was done showing left sided hydronephrosis and left sided ureteral stones. Patient admitted to the hospital due to hydronephrosis, JOSEFINA, secondary to ureteral stone, pyelonephritis, nausea and vomiting. Patient was managed with IV hydration and IV antibiotics. Urology was consulted and patient underwent Cystoscopy and bilateral 6 x 26 cm ureteral stent placement. Blood and urine culture: no growth final report. Following this procedure patient continued to experience abdominal pain and had one episode of bilious vomiting. A repeat CT abd/pelvis was done: shows distal small bowel obstruction. Surgery was consulted. Patient was managed with first with conservative measures, but failed and patient was taken to the OR and underwent Exploratory laparotomy with release of small bowel obstruction with resolution of her symptoms. Following the surgery patient developed a septic picture with tachycardia, and low grade fever. A CTA of the chest done: No PE, but scattered subcentimeter nodular appearing airspace densities in the lower lobes and in the posterior segment ri ght upper lobe. Favor infectious etiology. Antibiotics coverage was broaden to cover possible aspiration and HCAP. Speech consulted, evaluated the patient: patient tolerated diet without difficulties, no further intervention recommended. Patient's acute symptoms have resolved tolerating well PO diet. WBC within normal, patient afebrile and hemodynamically stable to be discharged to [facility]. Due to patient Hx of recurrent C.diff and patient being on oral vancomycin and flaggyl for longer than 2 months a GI panel was ordered: C.diff A&B gene: negative. oral vancomycin and metrol discontinued. - Time Spent with Patient Total time spent providing and/or coordinating discharge services: Time spent: Greater than 30 minutes (40) - Discharge Medications Prescriptions: New Furosemide [Lasix] 20 mg PO DAILY 30 Days #30 tablet Promethazine [Phenergan] 25 mg IVP Q6HR PRN 30 Days #30 vial PRN Reason: Nausea And Vomiting Calcium Carbonate [Tums] 1,000 mg PO TID 30 Days #90 tab.chew Amoxicillin/Clavulanate [Augmentin] 875 mg PO BIDWM 4 Days #8 tablet Continued Ondansetron HCl [Zofran] 4 mg PO TID PRN PRN Reason: Nausea Albuterol Sulfate [Ventolin Hfa] 1 - 2 puff IH Q4-6H PRN PRN Reason: Shortness Of Breath DULoxetine [Cymbalta] 20 mg PO HS Multivit/Ca/Min/Fe/FA [Thera M Plus] 1 tab PO DAILY tablet Cholestyramine 4 gm PO BID #10 powd.pack Dimethicone/Zinc Oxide [Ellis Protect Cream] 1 appl TP BID PRN PRN Reason: SKIN PREVENTION Insulin Glargine,Hum.rec.anlog [Lantus Solostar] 10 unit SQ HS Lactobacillus Acidophilus [Acidophilus] 1 cap PO DAILY Magnesium Hydroxide [Milk of Magnesia] 30 ml PO DAILY PRN PRN Reason: Constipation Metoprolol [Lopressor] 25 mg PO BID Nystatin POWDER [Nystop] 1 appl TP BID Oxybutynin Chloride [Ditropan XL] 10 mg PO HS Potassium Chloride [K-Tab ER] 20 meq PO BID ARIPiprazole [Abilify] 1 mg PO DAILY Sennosides [Senna] 8.6 mg PO Q8H PRN PRN Reason: Constipation LORazepam [Ativan] 0.5 mg PO DAILY Tramadol HCl [Ultram] 50 mg PO QID PRN 5 Days #10 tablet PRN Reason: Pain LORazepam [Ativan] 1 mg PO HS 10 Days #10 tab Rifaximin [Xifaxan] 550 mg PO BID 365 Days tablet Discontinued Vancomycin Oral Soln [Firvanq] 250 mg PO BID metroNIDAZOLE [Flagyl] 500 mg PO BID Home Medications: Albuterol Sulfate [Ventolin Hfa] 1 - 2 puff IH Q4-6H PRN 11/19/16 [History] Ondansetron HCl [Zofran] 4 mg PO TID PRN 11/19/16 [History] DULoxetine [Cymbalta] 20 mg PO HS 08/20/18 [History] Multivit/Ca/Min/Fe/FA [Thera M Plus] 1 tab PO DAILY tablet 09/02/18 [Rx] Rifaximin [Xifaxan] 550 mg PO BID 365 Days tablet 09/30/18 [Rx] Cholestyramine 4 gm PO BID #10 powd.pack 12/02/18 [Rx] ARIPiprazole [Abilify] 1 mg PO DAILY 02/09/19 [History] Dimethicone/Zinc Oxide [Ellis Protect Cream] 1 appl TP BID PRN 02/09/19 [History] Insulin Glargine,Hum.rec.anlog [Lantus Solostar] 10 unit SQ HS 02/09/19 [History] Lactobacillus Acidophilus [Acidophilus] 1 cap PO DAILY 02/09/19 [History] Magnesium Hydroxide [Milk of Magnesia] 30 ml PO DAILY PRN 02/09/19 [History] Metoprolol [Lopressor] 25 mg PO BID 02/09/19 [History] Nystatin POWDER [Nystop] 1 appl TP BID 02/09/19 [History] Oxybutynin Chloride [Ditropan XL] 10 mg PO HS 02/09/19 [History] Potassium Chloride [K-Tab ER] 20 meq PO BID 02/09/19 [History] LORazepam [Ativan] 0.5 mg PO DAILY 06/09/19 [History] Sennosides [Senna] 8.6 mg PO Q8H PRN 06/09/19 [History] Amoxicillin/Clavulanate [Augmentin] 875 mg PO BIDWM 4 Days #8 tablet 06/18/19 [Rx] Calcium Carbonate [Tums] 1,000 mg PO TID 30 Days #90 tab.chew 06/18/19 [Rx] Furosemide [Lasix] 20 mg PO DAILY 30 Days #30 tablet 06/18/19 [Rx] LORazepam [Ativan] 1 mg PO HS 10 Days #10 tab 06/18/19 [Rx] Promethazine [Phenergan] 25 mg IVP Q6HR PRN 30 Days #30 vial 06/18/19 [Rx] Tramadol HCl [Ultram] 50 mg PO QID PRN 5 Days #10 tablet 06/18/19 [Rx] Allergies/Adverse Reactions: Allergy/AdvReac Type Severity Reaction Status Date / Time ibuprofen Allergy See Verified 01/12/19 10:49 Comments Methylphenidate Allergy See Verified 01/12/19 10:47 [From Ritalin] Comments nitrofurantoin Allergy Nausea Verified 01/12/19 10:47 [From Macrobid] Sulfa (Sulfonamide Allergy Nausea Verified 01/12/19 10:47 Antibiotics) acetaminophen [From Tylenol] AdvReac See Verified 06/08/19 22:35 Comments hydrocodone AdvReac Agitated Verified 01/12/19 10:47 hydroxyzine [From Vistaril] AdvReac Agitated Verified 01/12/19 10:47 oxycodone [From Percocet] AdvReac Agitated Verified 01/12/19 10:47 tramadol [From Ultram] AdvReac See Verified 02/08/19 20:15 Comments tribulyne Allergy See Uncoded 01/12/19 10:47 Comments Date of admission: 06/08/19 15:34 Primary care physician: PCP NONE Consults: 06/08/19 15:38 Consult to Urology [CONS] Routine Consulting Provider: Urology [facility] Reason for Consult: multiple kidney stones with pyelonephritis Call Completed: Yes 06/08/19 16:58 Consult to Scrap Yard Worker [CONS] Routine Reason for SW Consult: from [facility] 06/08/19 18:12 Consult to Scrap Yard Worker [CONS] Routine Reason for Consult: weakness 06/09/19 13:44 Consult to Surgery [CONS] Routine Consulting Provider: Acute Care Surgery Reason for Consult: small bowel obstruction Call Completed: Yes 06/10/19 09:59 Consult to Cardiology [CONS] Routine Comment: Consulting Provider: Cardiology [place] Reason for Consult: persistent tachycardia, despite sepsis, small bowel obstruction resolving and patient adequately hydrated Call Completed: No 06/17/19 10:03 Consult to Physical Therapy [CONS] Routine Comment: Evaluate, develop and implement POC Reason for Consult: generalized weakness Does patient have active BEDREST order?: No Is patient medically & hemodynamically stable?: Yes 06/17/19 10:04 Consult to Occupational Therapy [CONS] Routine Comment: Evaluate, develop and implement POC Reason for Consult: generalized weakness Does patient have active BEDREST order?: No Is patient medically & hemodynamically stable?: Yes - Constitutional Vitals: Temp Pulse Resp BP Pulse Ox 97.4 F L 85 15 120/78 96 06/18/19 06:55 06/18/19 06:55 06/18/19 06:55 06/18/19 06:55 06/18/19 06:55 Exam: Vitals: Reviewed General: Alert and oriented x2. Reported generalized weakness Cardiovascular: RRR, normal S1 & S2, no rubs, murmurs or gallops. Lungs: CTA b/l, no wheezes or crackles. Abdomen: Obese, soft, non-tender, no rigidity. normo-active bowel sounds. surgery site clean/intact. Extremities: No edema Neurological: No focal neurological abnormalities. Rest of the physical exam is non contributory - Patient Status Disposition: Transfer SNF Functional capacity at discharge: uses cane/walker Overall status at discharge: patient is progressing back to baseline - Discharge Instructions Instructions: Exploratory Laparotomy (DC) Follow Up With: Mariano Lyles MD [Partnered Physician] - Chris Kinney [Partnered Physician] - 06/28/19 9:10 am Quan Ulloa CNP [Advanced Practice Nurse] - Additional Instructions: General Surgical Discharge Instructions 1. No pushing, pulling, or lifting greater than 15 lbs for 6 weeks (depending upon procedure). 2. You may remove your dressings and shower beginning today, but no tub baths, soaking, or swimming for 2 weeks. 3. No driving until otherwise specified. 4. Take Tylenol every 6 hours for discomfort and apply ice to the abdomen 20 minutes of every hour you are awake. If this does not relieve discomfort, you may take the as needed Tramadol. Eat a small snack with pain medication as this will help reduce the risk of nausea. Take narcotics as directed. Do not take more narcotics then directed and do not share your narcotics with any other person. Do not drink alcohol while on narcotics. You can take the Zofran/ondansetron if needed for nausea or with a dose of narcotics to prevent nausea. 5. Take stool softeners (Colace) or a water based laxative (Miralax) while taking narcotics. You may hold for loose stools. 6. Report any fevers greater than 100.5F, increase abdominal discomfort, drainage that looks like pus, increased redness or pain at the surgical site, or any vomiting. 7. Report any pain in the calves, shortness of breath, or rapid heartbeat. 8. Follow-up in the office as directed. 9. If you were prescribed antibiotics, do not stop them without talking to your provider. - Diet and Activity Activity: as per physical therapy Diet: other (soft chopped diet)
[2019-06-18] MEDS: Cholestyramine 4 GM POWD.PACK PO SCH (08:51)
--- NOTE | 2019-06-18 08:59 | Physician Discharge Referral ---
ExtendedCare Referral Info Transfer To: [facility] - Diagnosis (1) JOSEFINA (acute kidney injury) Priority: Primary Status: Resolved (2) Pyelonephritis Priority: Primary Status: Resolved (3) DVT prophylaxis Priority: Secondary Status: Chronic (4) C. difficile colitis Priority: Secondary Status: Ruled-out (5) Sepsis Priority: Primary Status: Resolved (6) Bilateral kidney stones Priority: Primary Status: Chronic (7) Small bowel obstruction Priority: Primary Status: Resolved (8) Hypokalemia Priority: Secondary Status: Resolved (9) Aspiration pneumonia Priority: Primary Status: Suspected Prognosis: Fair Aware of Diagnosis: Family Aware of Prognosis: Family - Transfer Medications Prescriptions: Amoxicillin/Clavulanate [Augmentin] 875 mg PO BIDWM 4 Days #8 tablet Furosemide [Lasix] 20 mg PO DAILY 30 Days #30 tablet Promethazine [Phenergan] 25 mg IVP Q6HR PRN 30 Days #30 vial PRN Reason: Nausea And Vomiting Calcium Carbonate [Tums] 1,000 mg PO TID 30 Days #90 tab.chew Tramadol HCl [Ultram] 50 mg PO QID PRN 5 Days #10 tablet PRN Reason: Pain Home Medications: Albuterol Sulfate [Ventolin Hfa] 1 - 2 puff IH Q4-6H PRN 11/19/16 [History] Ondansetron HCl [Zofran] 4 mg PO TID PRN 11/19/16 [History] DULoxetine [Cymbalta] 20 mg PO HS 08/20/18 [History] Multivit/Ca/Min/Fe/FA [Thera M Plus] 1 tab PO DAILY tablet 09/02/18 [Rx] Rifaximin [Xifaxan] 550 mg PO BID 365 Days tablet 09/30/18 [Rx] Cholestyramine 4 gm PO BID #10 powd.pack 12/02/18 [Rx] ARIPiprazole [Abilify] 1 mg PO DAILY 02/09/19 [History] Dimethicone/Zinc Oxide [Ellis Protect Cream] 1 appl TP BID PRN 02/09/19 [History] Insulin Glargine,Hum.rec.anlog [Lantus Solostar] 10 unit SQ HS 02/09/19 [History] Lactobacillus Acidophilus [Acidophilus] 1 cap PO DAILY 02/09/19 [History] Magnesium Hydroxide [Milk of Magnesia] 30 ml PO DAILY PRN 02/09/19 [History] Metoprolol [Lopressor] 25 mg PO BID 02/09/19 [History] Nystatin POWDER [Nystop] 1 appl TP BID 02/09/19 [History] Oxybutynin Chloride [Ditropan XL] 10 mg PO HS 02/09/19 [History] Potassium Chloride [K-Tab ER] 20 meq PO BID 02/09/19 [History] LORazepam [Ativan] 0.5 mg PO DAILY 06/09/19 [History] LORazepam [Ativan] 1 mg PO HS 06/09/19 [History] Sennosides [Senna] 8.6 mg PO Q8H PRN 06/09/19 [History] Amoxicillin/Clavulanate [Augmentin] 875 mg PO BIDWM 4 Days #8 tablet 06/18/19 [Rx] Calcium Carbonate [Tums] 1,000 mg PO TID 30 Days #90 tab.chew 06/18/19 [Rx] Furosemide [Lasix] 20 mg PO DAILY 30 Days #30 tablet 06/18/19 [Rx] Promethazine [Phenergan] 25 mg IVP Q6HR PRN 30 Days #30 vial 06/18/19 [Rx] Tramadol HCl [Ultram] 50 mg PO QID PRN 5 Days #10 tablet 06/18/19 [Rx] Allergies/Adverse Reactions: Allergy/AdvReac Type Severity Reaction Status Date / Time ibuprofen Allergy See Verified 01/12/19 10:49 Comments Methylphenidate Allergy See Verified 01/12/19 10:47 [From Ritalin] Comments nitrofurantoin Allergy Nausea Verified 01/12/19 10:47 [From Macrobid] Sulfa (Sulfonamide Allergy Nausea Verified 01/12/19 10:47 Antibiotics) acetaminophen [From Tylenol] AdvReac See Verified 06/08/19 22:35 Comments hydrocodone AdvReac Agitated Verified 01/12/19 10:47 hydroxyzine [From Vistaril] AdvReac Agitated Verified 01/12/19 10:47 oxycodone [From Percocet] AdvReac Agitated Verified 01/12/19 10:47 tramadol [From Ultram] AdvReac See Verified 02/08/19 20:15 Comments tribulyne Allergy See Uncoded 01/12/19 10:47 Comments - Respiratory Orders None Smoking Cessation: Smoking cessation has been advised. For more information, call the [place] Tobacco Quit Line at 0-280-PAMW-NOW. - Advance Directives Code Status: Full Code - Mobility Orders Ambulate - Rehabiliation Orders Rehab Potential: Fair Rehab Orders: Evaluation for Physical Therapy, Evaluation for Occupational Therapy CERTIFICATION: I certify that the transfer of the above named patient to an Extended Care Facility is necessary for the continuing treatment of the diagnosis listed. The above information is true and accurate reflection of patient's current condition. Confidential - Redisclosure prohibited without a patient's written consent.
[2019-06-18] MEDS ORDERED: Furosemide 20 MG TABLET PO SCH (09:00)
[2019-06-18 14:36] VITALS: BP 95/61
--- NOTE | 2019-06-27 08:45 | Acute Care Surgery Event Note ---
Date of Encounter: 06/11/19 Time of Encounter: 17:00 Pt is scheduled for ex lap for SBO. Her condition is stable with the exception of extremely low K+. Potassium replacement is underway and surgery will proceed when the level is replete.
== END 2019-06-18 17:14 ==
LOC: 3ANU → SUATTDRO 15:34
PROVIDERS: ADMIT Internal Medicine; ATTEND Internal Medicine